=== PATIENT | female | born 1985 | race Caucasian/White ===

== ENCOUNTER 2020-09-05 19:48 | Emergency (ER) | payer MEDICAID, SELFPAY ==
--- NOTE | 2020-09-05 19:51 | PC.NURSE ---
received a call from supervisory examiner at [facility] [place]. stating that patient has been having 24 hours of epigastric abd pain with nausea and 2 episodes of diarrhea. patient is a type 1 diabetic and has been off of medications for several months, random glucose today with them was 184, vitals are stable, urine analysis showed no wbc or blood or ketones, glucose is urine was >1000. patient arrived on ems stretcher with no distress noted, no facial grimace or guarding. skin is p,d,w.
[2020-09-05 20:00] VITALS: BP 118/82; BP 141/94; PULSE 87; PULSE 94; RESP 18; TEMP 37.1; O2SAT 100; O2SAT 99; BMI 25.8
[2020-09-05 21:43] VITALS: BP 128/85; PULSE 80; RESP 18; TEMP 36.9; O2SAT 100
[2020-09-05 21:44] LABS: MANUAL DIFF FLAG NO
[2020-09-05 21:45] LABS: Basophils Percent Auto 0.2 % (0-2); Eosinophils Absolute Auto 0.3 X10*3/uL (0.0-0.4); Eosinophils Percent Auto 3.5 % (0-4); Hematocrit 36.7 % (37-47); Hemoglobin 12.3 g/dl (12.0-16.0); Imm Gran Abs Auto 0.03 X10*3/uL (0.00-0.03); Imm Gran Pct Auto 0.3 % (0.0-0.4); Lymphocytes Absolute Auto 3.3 X10*3/uL (1.2-4.9); Lymphocytes Percent Auto 35.1 % (20-40); Mean Corpuscular HGB Conc 33.5 g/dl (31.0-35.0); Mean Corpuscular Hemoglobin 28.2 pg (27.0-33.0); Mean Corpuscular Volume 84.2 fL (80-98); Mean Platelet Volume 9.8 fL (9.4-12.3); Monocytes Absolute Auto 0.6 X10*3/uL (0.1-1.2); Monocytes Percent Auto 6.7 % (2-11); Neutrophils Absolute Auto 5.1 X10*3/uL (2.0-8.3); Neutrophils Percent Auto 54.2 % (45-73); Platelet Count 289 X10*3/uL (160-400); Red Blood Count 4.36 X10*6/uL (4.20-5.50); Red Cell Distribution Width 12.4 % (11.0-16.0); White Blood Count 9.3 X10*3/uL (4.8-10.8)
[2020-09-05 21:57] LABS: Glucose Urine UA NEG (NEG); Leukocyte Esterase Urine NEG (NEG); Nitrite Urine NEG (NEG); Specific Gravity - Urine >= 1.030 (1.005-1.025); Urine Blood NEG (NEG); Urine Ketones NEG (NEG); Urine Protein 3+ MG/DL (NEG-TRACE)
[2020-09-05 21:58] LABS: Appearance Urine CLEAR; Color Urine YELLOW
[2020-09-05 21:59] LABS: UPreg QC Valid YES; Urine Pregnancy NEGATIVE (NEGATIVE)
[2020-09-05 22:07] LABS: Alanine Aminotransferase 10 U/L (0-31); Alkaline Phosphatase 61 U/L (39-117); Anion Gap 12 (12-20); Aspartate Amino Transferase 13 U/L (5-31); Bilirubin Total 0.6 mg/dL (0.0-1.0); Blood Urea Nitrogen 10 mg/dL (9-16); Calcium 8.5 mg/dL (8.4-10.2); Carbon Dioxide 28 mmol/L (22-29); Chloride 102 mmol/L (96-108); Creatinine Clr Calc Pharmacy 121.8; Estimated Glomerular Filt Rate > 60; Glucose Random 180 mg/dL (60-115); Lipase 70 U/L (8-78); Potassium 3.7 mmol/L (3.3-5.1); Sodium 138 mmol/L (135-145); Total Protein 6.6 g/dL (6.5-8.0)
[2020-09-05 22:07] LABS: RBC Urine 0-2 /HPF (0); Squamous Epithelial Cell Urine 1+ /LPF; WBC Urine 0-2 /HPF (0-4)
[2020-09-05 22:08] LABS: Bacteria Urine TRACE /LPF; Mucus Urine 1+ /LPF
[2020-09-05] MEDS: Lidocaine HCl Viscous 2 % 15 ML SOLUTION MUCOUS MEM (22:30)
[2020-09-05] MEDS: Omeprazole 40 MG CAPSULE.DR PO (22:30)
[2020-09-05] MEDS: Magnesium Hydrox/Alum Hydrox 30 ML ORAL.SUSP PO (22:30)
[2020-09-05] MEDS: Metoclopramide HCl 10 MG/2 ML VIAL IVPUSH (22:30)
--- NOTE | 2020-09-05 22:50 | ED.ABDPAIN ---
HPI - Abdominal Pain General Chief Complaint: Abdominal Pain Stated Complaint: ABD PAIN Time Seen by Provider: 09/05/20 22:13 Source: patient Mode of arrival: ambulatory Limitations: no limitations History of Present Illness HPI narrative: 35 y/o female with history of DM1 on long acting Trulicity once per week, anxiety, GERD who presents to the ED from home reporting epigastric abdominal pain and nause and vomiting since yesterday. She had no vomiting today but several episodes yesterday, non-bloody. Today she started having some loose stools and her upper abdominal pain persisted. It comes and goes. She is tolerating PO today. She reports her sugars have been ok but she did not take her Glipizide today because she wasn't eating much. She also smokes marijuana but denies vomiting from it in the past. Denies a history of gastroparesis. No fever, chills, SOB or chest pain. MD elicited complaint: abdominal pain Onset (ago): day(s) (2) Pain Consistency: intermittent Location: epigastric Severity: moderate Quality: stabbing and burning Radiation: none Migration to: no migration Exacerbating factors: vomiting Relieving factors: nothing Context: history of similar episodes Associated symptoms: nausea, vomiting and diarrhea Related Data Allergies Allergy/AdvReac Type Severity Reaction Status Date / Time No Known Allergies Allergy Unverified 03/09/20 16:58 Review of Systems Review of Systems Constitutional: No Fever, No Chills Cardiovascular: No Chest Pain, No SOB, No Orthopnea, No Edema Respiratory: No Cough, No Sputum, No Wheezing, No dyspnea Gastrointestinal: + Nausea,+ Vomiting, + Diarrhea, + abdominal Pain, No Hematochezia, No Melena Genitourinary: No Dysuria, No Urinary Frequency, No hematuria Musculoskeletal: No joint pain, No Myalgias Skin: No Skin Lesions, No rash Neuro: No Weakness, No Numbness, No Dizziness, + Headache Psych: + Anxiety Heme/Lymph: No Bruising, No Lymphadenopathy Endocrine: No Polyuria, No Polydipsia Physical Exam Vital Signs: Vital Signs: Last Vital Signs Temp 98.5 F 09/05/20 21:43 Pulse 80 09/05/20 21:43 Resp 18 09/05/20 21:43 BP 128/85 09/05/20 21:43 Pulse Ox 100 09/05/20 21:43 Body Mass Index 25.8 Appearance: Alert. Oriented X3. No acute distress. Eyes: Pupils equal, round and reactive to light. ENT: Pharynx normal. Neck: Normal inspection. Neck supple. CVS: Normal heart rate and rhythm. Pulses normal. Respiratory: No respiratory distress. Breath sounds normal. No Kussmaul respirations Abdomen: Soft with mild epigastric tenderness, no rebound or guarding, no RUQ tenderness. Negative [place]'s sign. +BS x4 Skin: Skin warm and dry. Normal skin color. Normal skin turgor. No rashes. Extremities: No lower extremity edema. Neuro: Oriented X 3. No motor deficit. No sensory deficit. Course Course Course Narrative: 35 y/o female with history of DM1 and marijuana use presenting with epigatric abdominal pain, N/V/D. VS are normal on arrival and she appears non-toxic. Glucose 180. Basic lab workup is unremarkable. No vomiting or diarrhea here. IVF, Reglan and GI cockail ordered. DDx includes but not limited to gastroparesis, GERD, gasritis. Less likely pancreatitis, cholecystitis, diverticuliutis or appendicitis. Will reassess after meds. Reevaluation(s) Reevaluation #1: Meds given and patient is requesting to leave. She states the ER is making her anxious. She does not want to stay for further testing or treatment. She is stable for discharge and encouraged to come back to the ER if symptoms worsen. MDM - Abdominal Pain Differential Diagnosis Differential diagnosis: Likely abdominal pain, acute appendicitis, bowel perforation, calculus of kidney, constipation, diverticulitis, endometriosis, gastroenteritis, gastritis and peptic ulcer disease Medical Records Attestation: I reviewed the patient's medical records. Lab Data Attestation: I reviewed the patient's lab results. Result diagrams: 09/05/20 21:30 09/05/20 21:30 Labs: Lab Results 09/05/20 09/05/20 09/05/20 Range/Units 21:30 21:30 21:30 WBC 9.3 (4.8-10.8) X10*3/uL RBC 4.36 (4.20-5.50) X10*6/uL Hgb 12.3 (12.0-16.0) g/dl Hct 36.7 L (37-47) % MCV 84.2 (80-98) fL MCH 28.2 (27.0-33.0) pg MCHC 33.5 (31.0-35.0) g/dl RDW 12.4 (11.0-16.0) % Plt Count 289 (160-400) X10*3/uL MPV 9.8 (9.4-12.3) fL Immature Gran % (Auto) 0.3 (0.0-0.4) % Neut % (Auto) 54.2 (45-73) % Lymph % (Auto) 35.1 (20-40) % [place] % (Auto) 6.7 (2-11) % Eos % (Auto) 3.5 (0-4) % Baso % (Auto) 0.2 (0-2) % Lymph # (Auto) 3.3 (1.2-4.9) X10*3/uL [place] # (Auto) 0.6 (0.1-1.2) X10*3/uL Eos # (Auto) 0.3 (0.0-0.4) X10*3/uL Baso # (Auto) 0.0 (0.0-0.2) X10*3/uL Abs Immat Gran (auto) 0.03 (0.00-0.03) X10*3/uL Absolute Neuts (auto) 5.1 (2.0-8.3) X10*3/uL Absolute Nucleated RBC 0.000 (0.0-0.012) X10*3/uL Nucleated RBC % (auto) 0.0 (0.0-0.2) /100WBC Hold Blue Top SEE NOTE Sodium 138 (135-145) mmol/L Potassium 3.7 (3.3-5.1) mmol/L Chloride 102 (96-108) mmol/L Carbon Dioxide 28 (22-29) mmol/L Anion Gap 12 (12-20) BUN 10 (9-16) mg/dL Creatinine 0.67 (0.5-1.4) mg/dL Estim Creat Clear Calc 121.8 Estimated GFR > 60 Random Glucose 180 H (60-115) mg/dL Calcium 8.5 (8.4-10.2) mg/dL Total Bilirubin 0.6 (0.0-1.0) mg/dL AST 13 (5-31) U/L ALT 10 (0-31) U/L Alkaline Phosphatase 61 (39-117) U/L Total Protein 6.6 (6.5-8.0) g/dL Albumin 4.0 (3.5-5.0) g/dL Lipase 70 (8-78) U/L Urine Color Urine Appearance Urine pH (5.0-8.0) Ur Specific [place] (1.005-1.025) Urine Protein (NEG-TRACE) MG/DL Urine Glucose (UA) (NEG) MG/DL Urine Ketones (NEG) MG/DL Urine Blood (NEG) Urine Nitrite (NEG) Ur Leukocyte Esterase (NEG) Urine RBC (0) /HPF Urine WBC (0-4) /HPF Ur Squamous Epith Cells /LPF Urine Bacteria /LPF Urine Mucus /LPF Urine Test (NEGATIVE) 09/05/20 09/05/20 Range/Units 21:40 21:40 WBC (4.8-10.8) X10*3/uL RBC (4.20-5.50) X10*6/uL Hgb (12.0-16.0) g/dl Hct (37-47) % MCV (80-98) fL MCH (27.0-33.0) pg MCHC (31.0-35.0) g/dl RDW (11.0-16.0) % Plt Count (160-400) X10*3/uL MPV (9.4-12.3) fL Immature Gran % (Auto) (0.0-0.4) % Neut % (Auto) (45-73) % Lymph % (Auto) (20-40) % [place] % (Auto) (2-11) % Eos % (Auto) (0-4) % Baso % (Auto) (0-2) % Lymph # (Auto) (1.2-4.9) X10*3/uL [place] # (Auto) (0.1-1.2) X10*3/uL Eos # (Auto) (0.0-0.4) X10*3/uL Baso # (Auto) (0.0-0.2) X10*3/uL Abs Immat Gran (auto) (0.00-0.03) X10*3/uL Absolute Neuts (auto) (2.0-8.3) X10*3/uL Absolute Nucleated RBC (0.0-0.012) X10*3/uL Nucleated RBC % (auto) (0.0-0.2) /100WBC Hold Blue Top Sodium (135-145) mmol/L Potassium (3.3-5.1) mmol/L Chloride (96-108) mmol/L Carbon Dioxide (22-29) mmol/L Anion Gap (12-20) BUN (9-16) mg/dL Creatinine (0.5-1.4) mg/dL Estim Creat Clear Calc Estimated GFR Random Glucose (60-115) mg/dL Calcium (8.4-10.2) mg/dL Total Bilirubin (0.0-1.0) mg/dL AST (5-31) U/L ALT (0-31) U/L Alkaline Phosphatase (39-117) U/L Total Protein (6.5-8.0) g/dL Albumin (3.5-5.0) g/dL Lipase (8-78) U/L Urine Color YELLOW Urine Appearance CLEAR Urine pH 6.0 (5.0-8.0) Ur Specific [place] >= 1.030 H (1.005-1.025) Urine Protein 3+ H (NEG-TRACE) MG/DL Urine Glucose (UA) NEG (NEG) MG/DL Urine Ketones NEG (NEG) MG/DL Urine Blood NEG (NEG) Urine Nitrite NEG (NEG) Ur Leukocyte Esterase NEG (NEG) Urine RBC 0-2 (0) /HPF Urine WBC 0-2 (0-4) /HPF Ur Squamous Epith Cells 1+ /LPF Urine Bacteria TRACE /LPF Urine Mucus 1+ /LPF Urine Test NEGATIVE (NEGATIVE) Critical Care Time Critical Care Time Critical Care Time: No Discharge Plan Discharge Clinical Impression: Abdominal pain Qualifiers: Abdominal location: epigastric Qualified Code(s): R10.13 - Epigastric pain Patient Disposition: Home, Self-Care Instructions: Diabetic Gastroparesis (DC), Abdominal Pain (ED) Additional Instructions: Your lab workup today was unremarkable. Recommend bland a bland diet while you are feeling unwell. It is important to keep your sugars under tight control. Poorly controlled diabetes can cause nausea and vomiting. Do not smoke marijuana. This can also cause vomiting. Avoid spicy foods and food high in acid, like tomatoes and orange juice. Recommend starting an antacid medication for possible gastritis - like over the counter Pepcid or Prilosec. Follow up with your doctor this week. If you have worsening symptoms come back to the ER for further evaluation. [facility] Past Medical History Medical History (Updated 09/05/20 @ 22:53 by DEBO Cisneros) Anxiety Diabetes Gastroparesis GERD (gastroesophageal reflux disease) Social History Social History Advance Directives: No Advance Directives Information Provided: Yes
== END 2020-09-05 23:04 | disposition home or self-care (01) ==
PROVIDERS: Emergency Provider Student in an Organized Health Care Education/Training Program; PCP Pediatrics
DX: R10.13 Epigastric pain (principal); F12.90 Cannabis use, unspecified, uncomplicated; R11.2 Nausea with vomiting, unspecified
CPT/HCPCS: 36415; 80053; 81001; 81025; 83690; 85025; 96365; 96375; 99283; 99284; J2765

== ENCOUNTER 2021-11-28 07:55 | Outpatient (REF) | payer MEDICAID, SELFPAY ==
--- NOTE | ~2021-11-28 | XR_ITS ---
EXAMINATION: XR SHOULDER, LEFT CLINICAL INFORMATION: Posterior shoulder pain. COMPARISON: Radiograph dated 03/26/2013. TECHNIQUE: AP external rotation, Grashey and scapula Y views of the left shoulder. FINDINGS: The bones and soft tissues are normal. No fracture. A small loose body is suspected in the lower glenohumeral joint space, new from 03/26/2013. Glenohumeral and acromioclavicular alignment is anatomic with normal joint space. No abnormal soft tissue calcifications. XR/XR shoulder LT min 2V IMPRESSION: 1. No fracture or dislocation is seen. 2. A small ovoid loose body is newly suspected in the lower glenohumeral joint space.
--- NOTE | ~2021-11-28 | XR_ITS ---
EXAMINATION: CERVICAL SPINE 3 VIEWS CLINICAL INFORMATION: Pain. COMPARISON: Radiograph dated 12/05/2014. TECHNIQUE: Frontal, odontoid, bilateral oblique and lateral views are obtained. FINDINGS: Vertebral body heights and alignment are normal. The disc spaces are well-maintained. No acute fracture or spondylolisthesis is seen. The posterior elements are intact. There is no prevertebral soft tissue swelling. The dens and C7-T1 interface are normal. XR/XR thoracic spine 3V IMPRESSION: Negative examination. EXAMINATION: XR THORACIC SPINE CLINICAL INFORMATION: Pain. COMPARISON: MRI lumbar spine dated 03/15/2017. TECHNIQUE: Frontal, lateral and swimmer's views of the thoracic spine were obtained. FINDINGS: Vertebral body alignment is normal. There is an age-indeterminate mild T12 anterior wedge compression fracture, increased from 03/15/2017. Vertebral body heights are otherwise unremarkable. The thoracic disc spaces are well-maintained. The posterior elements are intact. The paravertebral soft tissues are unremarkable. There are upper abdominal surgical clips. IMPRESSION: 1. There is a mild T12 anterior wedge compression fracture, increased from 03/15/2017. 2. The thoracic disc spaces are well-maintained.
--- NOTE | ~2021-11-28 | XR_ITS ---
EXAMINATION: CERVICAL SPINE 3 VIEWS CLINICAL INFORMATION: Pain. COMPARISON: Radiograph dated 12/05/2014. TECHNIQUE: Frontal, odontoid, bilateral oblique and lateral views are obtained. FINDINGS: Vertebral body heights and alignment are normal. The disc spaces are well-maintained. No acute fracture or spondylolisthesis is seen. The posterior elements are intact. There is no prevertebral soft tissue swelling. The dens and C7-T1 interface are normal. XR/XR cervical spine 4V IMPRESSION: Negative examination. EXAMINATION: XR THORACIC SPINE CLINICAL INFORMATION: Pain. COMPARISON: MRI lumbar spine dated 03/15/2017. TECHNIQUE: Frontal, lateral and swimmer's views of the thoracic spine were obtained. FINDINGS: Vertebral body alignment is normal. There is an age-indeterminate mild T12 anterior wedge compression fracture, increased from 03/15/2017. Vertebral body heights are otherwise unremarkable. The thoracic disc spaces are well-maintained. The posterior elements are intact. The paravertebral soft tissues are unremarkable. There are upper abdominal surgical clips. IMPRESSION: 1. There is a mild T12 anterior wedge compression fracture, increased from 03/15/2017. 2. The thoracic disc spaces are well-maintained.
== END 2021-11-28 07:56 | disposition home or self-care (01) ==
LOC: HO.XRAY 07:55
PROVIDERS: Visit Provider Family Medicine
DX: M54.9 Dorsalgia, unspecified (principal); M54.2 Cervicalgia; M25.612 Stiffness of left shoulder, not elsewhere classified
CPT/HCPCS: 72050; 72072; 73030

== ENCOUNTER 2022-03-11 16:33 | Emergency (ER) | payer MEDICAID, SELFPAY ==
[2022-03-11 17:02] VITALS: BP 154/84; PULSE 85; RESP 18; TEMP 37.2; O2SAT 98; BMI 24.2
[2022-03-11 17:39] LABS: MANUAL DIFF FLAG NO
[2022-03-11 17:41] LABS: Basophils Absolute Auto 0.1 X10*3/uL (0.0-0.2); Basophils Percent Auto 0.5 % (0-2); Eosinophils Absolute Auto 0.3 X10*3/uL (0.0-0.4); Eosinophils Percent Auto 2.9 % (0-4); Hematocrit 32.7 % (37.0-47.0); Hemoglobin 11.1 g/dl (12.0-16.0); Imm Gran Abs Auto 0.03 X10*3/uL (0.00-0.03); Imm Gran Pct Auto 0.3 % (0.0-0.4); Lymphocytes Absolute Auto 3.5 X10*3/uL (1.2-4.9); Lymphocytes Percent Auto 31.8 % (20-40); Mean Corpuscular HGB Conc 33.9 g/dl (31.0-35.0); Mean Corpuscular Hemoglobin 27.8 pg (27.0-33.0); Mean Corpuscular Volume 81.8 fL (80.0-98.0); Mean Platelet Volume 9.6 fL (9.4-12.3); Monocytes Absolute Auto 0.7 X10*3/uL (0.1-1.2); Monocytes Percent Auto 6.2 % (2-11); Neutrophils Absolute Auto 6.4 x10*3/uL (2.0-8.3); Neutrophils Percent Auto 58.3 % (45-73); Platelet Count 329 X10*3/uL (160-400); Red Cell Distribution Width 12.5 % (11.0-16.0)
[2022-03-11 17:44] LABS: Appearance Urine Clear; Color Urine Yellow; Glucose Urine UA 250 mg/dL (Negative); Leukocyte Esterase Urine Trace (Negative); Nitrite Urine Negative (Negative); Specific Gravity - Urine 1.025 (1.005-1.025); UMIC TRIGGER UACC YES; Urine Blood Trace (Negative); Urine Ketones Trace mg/dL (Negative); Urine Protein >=1000 (4+) mg/dL (Neg-Trace)
[2022-03-11 17:45] LABS: UPreg QC Valid YES; Urine Pregnancy NEGATIVE (NEGATIVE)
[2022-03-11 17:59] LABS: Alanine Aminotransferase 12 U/L (0-31); Albumin Level 3.8 g/dL (3.5-5.0); Alkaline Phosphatase 70 U/L (39-117); Anion Gap 14 (12-20); Aspartate Amino Transferase 11 U/L (5-31); Bilirubin Total 0.3 mg/dL (0.0-1.0); Blood Urea Nitrogen 13 mg/dL (9-16); Calcium 8.8 mg/dL (8.4-10.2); Carbon Dioxide 27 mmol/L (22-29); Chloride 101 mmol/L (96-108); Creatinine Clr Calc Pharmacy 106.5; Estimated Glomerular Filt Rate > 60; Glucose Random 179 mg/dL (60-115); Potassium 3.8 mmol/L (3.3-5.1); Sodium 138 mmol/L (135-145); Total Protein 6.4 g/dL (6.5-8.0)
[2022-03-11 18:06] LABS: Bacteria Urine None Seen (None Seen); Hyaline Casts Urine 0-2 /LPF (0-2); WBC Urine 0-5 /HPF (0-5)
--- NOTE | 2022-03-11 21:24 | PC.NURSE ---
called x 3 to triage for reassessment. No answer. Presumed LWT
== END 2022-03-11 21:27 | disposition left against medical advice (07) ==
LOC: HO.ED 21:25
PROVIDERS: Emergency Provider Emergency Medicine; PCP Pediatrics
DX: R10.9 Unspecified abdominal pain (principal); N83.209 Unspecified ovarian cyst, unspecified side; E11.9 Type 2 diabetes mellitus without complications
CPT/HCPCS: 36415; 80053; 81001; 81025; 85025; 99282; 99283

== ENCOUNTER 2022-03-12 07:22 | Emergency (ER) | payer MEDICAID, SELFPAY ==
[2022-03-12 07:32] VITALS: BP 160/99; PULSE 85; O2SAT 99
[2022-03-12 07:36] VITALS: BP 171/88; PULSE 88; RESP 18; TEMP 36.6; O2SAT 100; BMI 24.2
[2022-03-12 10:13] VITALS: BP 187/96; PULSE 70; RESP 16; O2SAT 100
[2022-03-12 10:15] VITALS: TEMP 37.2
--- NOTE | 2022-03-12 10:19 | ED_ITS ---
HPI - General Adult General Chief complaint: Abdominal Pain Stated complaint: OVARION CYST PAIN Time Seen by Provider: 03/12/22 10:19 Source: patient and EMS Mode of arrival: EMS Limitations: no limitations History of Present Illness HPI narrative: Patient is a 37-year-old female with a history of insulin-dependent diabetes presenting with persistent abdominal pain. Patient states she was at [facility] on Friday where she was diagnosed with a ruptured cyst of her left ovary. Patient has history of ovarian cysts, and has had her right ovary previously removed due to cyst burden. Patient states she was discharged from there with oxycodone for pain management, and told to follow-up with OBGYN however, she cannot be seen by her OBGYN until July. Patient states that she is now constipated after starting the pain medication. Patient states that she attempted to be seen here last night but left due to the wait. Patient denies any dizziness, lightheadedness, vomiting, fever, chills, blurry vision, double vision, loss of vision, chest pain, difficulty breathing, shortness of breath, back pain, night sweats, pain with urination, increased urinary frequency, increased urinary urgency, blood in her urine or stool, syncope or a near syncopal episode, recent trauma or falls, bowel incontinence, bladder incontinence, bowel retention, bladder retention, or any other complaints at this time. Onset (ago): day(s) Location: abdomen Radiation: back Severity: mild Severity scale (1-10): 2 Quality: sharp and constant Pain Consistency: constant Relieving factors: none Exacerbating factors: movement and other (Palpation) Associated symptoms: nausea/vomiting Related Data Allergies Allergy/AdvReac Type Severity Reaction Status Date / Time No Known Allergies Allergy Unverified 03/09/20 16:58 Review of Systems Constitutional: Constitutional: Reports no additional constitutional complaints, Denies chills, Denies fever(s) and Denies night sweats Eyes: Eyes: Reports no additional eye complaints, Denies blurry vision, Denies change in vision, Denies diplopia, Denies eye discharge, Denies loss of vision and Denies eye pain ENT: Denies dizziness Cardiovascular: Cardiovascular: Reports no additional cardiovascular complaints, Denies chest pain, Denies lightheadedness, Denies Loss of Consciousness and Denies dyspnea Respiratory: Respiratory: Reports no additional respiratory complaints and Denies dyspnea Gastrointestinal: Gastrointestinal: Reports no additional gastrointestinal complaints, Reports abdominal pain, Denies melena, Denies hematochezia, Denies change in bowel habits, Denies change in stool character, Reports nausea and Reports vomiting Genitourinary: Genitourinary: Denies hematuria, Denies urinary frequency, Denies dysuria, Denies urinary incontinence, Denies urinary hesitancy and Denies urinary urgency Comments: Left CVA tenderness Musculoskeletal: Musculoskeletal: Reports no additional musculoskeletal complaints, Denies numbness and Denies tingling Neurologic: Denies dizziness, Denies loss of vision, Denies numbness and Denies tingling Psychiatric: Psychiatric: Reports no additional psychiatric complaints Endocrine: Endocrine: Reports no additional endocrine complaints Hematologic/Lymphatic: Hematologic/Lymphatic: Reports no additional hematol ogic/lymphatic complaints Allergic/Immunologic: Allergic/Immunologic: Reports no additional allergic/immunologic complaints PMFSH Past Medical History Attestation statement: The following information was validated with the patient. Source: old records reviewed Medical History Anxiety Diabetes Gastroparesis GERD (gastroesophageal reflux disease) Social History Social History Patient Tobacco Use Status: Never used Tobacco Use of substances other than those prescribed or required for medical reasons: Yes Substance Use Type: Marijuana Advance Directives: No Advance Directives Information Provided: No Physical Exam ED Vital Signs: Vital Signs - 24 hr 03/12/22 07:36 03/12/22 10:13 03/12/22 10:15 Temperature 98 F 98.9 F Pulse Rate 88 70 Respiratory Rate 18 16 Blood Pressure 171/88 H 187/96 H Pulse Oximetry 100 100 Oxygen Delivery Method Room Air Room Air BMI result Body Mass Index 24.2 Const General: cooperative, no acute distress, alert and awake Nutritional Appearance: well nourished Orientation/consciousness: patient oriented x3 Limitations: no limitations HENMT Head: Yes normal to inspection and Yes atraumatic Ears: hearing grossly normal bilaterally and external ears normal General nose exam: Normal external nose present, no nasal discharge noted and no epistaxis Face and sinus: Yes normal facial exam, No abrasion and No laceration Mouth: Normal oral and palatal mucosa present, no drooling and no muffled voice Eyes General: appearance normal, both eyes and all related structures Periorbital: periorbital findings normal Eyelids: Yes eyelids normal Conjunctivae: conjunctivae normal Pupils: Equal, round and reactive pupils present EOM: EOMs intact bilaterally Neck Neck: Yes normal visual inspection, Yes full ROM and Yes no lymphadenopathy Chest Chest palpation & inspection: normal inspection of the chest Resp Effort & Inspection: normal respiratory effort and able to speak in complete sentences Auscultation: clear to auscultation bilaterally Cardio Rate: regular rate Rhythm: regular rhythm GI Inspection: Yes normal to inspection Palpation (GI): Soft to palpation, not firm and no guarding Neuro General: patient oriented x3 and moves all extremities Cranial nerves: Yes Equal, round and reactive pupils present Cognition (Neuro): normal cognition Motor exam (neuro): 5/5 motor strength present throughout Sensory Exam: Normal double simultaneous stimulation for sensation Coordination: [id number] test normal Extrem General: Yes normal to inspection, Yes full ROM and Yes capillary refill normal Psych Appearance: grossly normal Mental Status: mental status grossly normal Affect: normal affect Attitude: cooperative Thought process: Normal thought process present Thought content: Normal thought content present Insight: Good insight present (Psych) Medical Decision Making MDM Narrative Medical decision making narrative: Patient is a 37 year old female presenting to the emergency department today with a ruptured ovarian cyst. Patient's physical exam was unremarkable. Patient 's blood work showed a chronically elevated white blood cell count of 11.7. Patient's urine showed no acute infection. I explained my physical exam findings as well as all test results to the patient. I answered all questions asked by the patient. Patient received IV Toradol and Dilaudid which she stated helped her symptoms significantly. I stressed the importance of the patient taking her medication as prescribed. I stressed the importance of the patient following up with her primary care provider and her OB. I stressed the importance of the patient returning to the emergency department immediately if her symptoms were to worsen or if she were to develop any dizziness, shortness of breath, difficulty breathing, chest pain, blurry vision, loss of vision, nausea, vomiting, abdominal pain, fever, chills, back pain, or any other complaints. Patient verbalized agreement and understanding with this treatment plan and discharge. Medical Records Medical records reviewed: Yes I reviewed the patient's medical records. Lab Data Lab results reviewed: Yes I reviewed the patient's lab results. Result diagrams: 03/12/22 10:26 03/12/22 10:26 Labs: Lab Results 03/12/22 03/12/22 03/12/22 Range/Units 10: 10: 11:00 WBC 11.7 H (4.8-10.8) X10*3/uL RBC 4.22 (4.20-5.50) X10*6/uL Hgb 11.8 L (12.0-16.0) g/dl Hct 34.6 L (37.0-47.0) % MCV 82.0 (80.0-98.0) fL MCH 28.0 (27.0-33.0) pg MCHC 34.1 (31.0-35.0) g/dl RDW 12.6 (11.0-16.0) % Plt Count 345 (160-400) X10*3/uL MPV 9.5 (9.4-12.3) fL Immature Gran % (Auto) 0.4 (0.0-0.4) % Neut % (Auto) 70.8 (45-73) % Lymph % (Auto) 21.9 (20-40) % [place] % (Auto) 4.5 (2-11) % Eos % (Auto) 2.1 (0-4) % Baso % (Auto) 0.3 (0-2) % Lymph # (Auto) 2.6 (1.2-4.9) X10*3/uL [place] # (Auto) 0.5 (0.1-1.2) X10*3/uL Eos # (Auto) 0.3 (0.0-0.4) X10*3/uL Baso # (Auto) 0.0 (0.0-0.2) X10*3/uL Abs Immat Gran (auto) 0.05 H (0.00-0.03) X10*3/uL Absolute Neuts (auto) 8.3 (2.0-8.3) x10*3/uL Absolute Nucleated RBC 0.000 (0.0-0.012) X10*3/uL Nucleated RBC % (auto) 0.0 (0.0-0.2) /100WBC Sodium 138 (135-145) mmol/L Potassium 3.8 (3.3-5.1) mmol/L Chloride 103 (96-108) mmol/L Carbon Dioxide 24 (22-29) mmol/L Anion Gap 15 (12-20) BUN 10 (9-16) mg/dL Creatinine 0.65 (0.5-1.4) mg/dL Estim Creat Clear Calc 113.1 Estimated GFR > 60 Random Glucose 251 H (60-115) mg/dL Calcium 9.1 (8.4-10.2) mg/dL Total Bilirubin 0.4 (0.0-1.0) mg/dL AST 12 (5-31) U/L ALT 12 (0-31) U/L Alkaline Phosphatase 74 (39-117) U/L Total Protein 6.4 L (6.5-8.0) g/dL Albumin 3.8 (3.5-5.0) g/dL Lipase 94 H (8-78) U/L Urine Color Yellow Urine Appearance Clear Urine pH 6.0 (5.0-9.0) Ur Specific [place] 1.025 (1.005-1.025) Urine Protein 300 (3+) H (Neg-Trace) mg/dL Urine Glucose (UA) >=1000 H (Negative) mg/dL Urine Ketones 40 (Negative) mg/dL Urine Blood Small (1+) H (Negative) Urine Nitrite Negative (Negative) Ur Leukocyte Esterase Negative (Negative) Urine RBC 6-10 H (0-2) /HPF Urine WBC 0-5 (0-5) /HPF Ur Squamous Epith Cells 6-10 (0-2) /HPF Urine Bacteria None Seen (None Seen) Hyaline Casts 0-2 (0-2) /LPF Urine Test (NEGATIVE) 03/12/22 Range/Units 11:00 WBC (4.8-10.8) X10*3/uL RBC (4.20-5.50) X10*6/uL Hgb (12.0-16.0) g/dl Hct (37.0-47.0) % MCV (80.0-98.0) fL MCH (27.0-33.0) pg MCHC (31.0-35.0) g/dl RDW (11.0-16.0) % Plt Count (160-400) X10*3/uL MPV (9.4-12.3) fL Immature Gran % (Auto) (0.0-0.4) % Neut % (Auto) (45-73) % Lymph % (Auto) (20-40) % [place] % (Auto) (2-11) % Eos % (Auto) (0-4) % Baso % (Auto) (0-2) % Lymph # (Auto) (1.2-4.9) X10*3/uL [place] # (Auto) (0.1-1.2) X10*3/uL Eos # (Auto) (0.0-0.4) X10*3/uL Baso # (Auto) (0.0-0.2) X10*3/uL Abs Immat Gran (auto) (0.00-0.03) X10*3/uL Absolute Neuts (auto) (2.0-8.3) x10*3/uL Absolute Nucleated RBC (0.0-0.012) X10*3/uL Nucleated RBC % (auto) (0.0-0.2) /100WBC Sodium (135-145) mmol/L Potassium (3.3-5.1) mmol/L Chloride (96-108) mmol/L Carbon Dioxide (22-29) mmol/L Anion Gap (12-20) BUN (9-16) mg/dL Creatinine (0.5-1.4) mg/dL Estim Creat Clear Calc Estimated GFR Random Glucose (60-115) mg/dL Calcium (8.4-10.2) mg/dL Total Bilirubin (0.0-1.0) mg/dL AST (5-31) U/L ALT (0-31) U/L Alkaline Phosphatase (39-117) U/L Total Protein (6.5-8.0) g/dL Albumin (3.5-5.0) g/dL Lipase (8-78) U/L Urine Color Urine Appearance Urine pH (5.0-9.0) Ur Specific [place] (1.005-1.025) Urine Protein (Neg-Trace) mg/dL Urine Glucose (UA) (Negative) mg/dL Urine Ketones (Negative) mg/dL Urine Blood (Negative) Urine Nitrite (Negative) Ur Leukocyte Esterase (Negative) Urine RBC (0-2) /HPF Urine WBC (0-5) /HPF Ur Squamous Epith Cells (0-2) /HPF Urine Bacteria (None Seen) Hyaline Casts (0-2) /LPF Urine Test NEGATIVE (NEGATIVE) Discharge Plan Discharge Clinical Impression: Ovarian cyst Patient Disposition: Home, Self-Care Instructions: Ovarian Cyst (ED) Additional Instructions: Follow up with your primary care provider and an OBGYN. Return to the emergency department immediately if your symptoms worsen or if you develop any dizziness, shortness of breath, difficulty breathing, chest pain, blurry vision, loss of vision, nausea, vomiting, abdominal pain, fever, chills, back pain, or any other complaints. Referrals: Destiny Miranda MD [Primary Care Provider] - Stand Alone Forms: Work/School Release Discharge Date/Time: 03/12/22 12:16 Print Language: Turkmen
[2022-03-12 10:31] LABS: MANUAL DIFF FLAG NO
[2022-03-12 10:37] LABS: Basophils Percent Auto 0.3 % (0-2); Eosinophils Absolute Auto 0.3 X10*3/uL (0.0-0.4); Eosinophils Percent Auto 2.1 % (0-4); Hematocrit 34.6 % (37.0-47.0); Hemoglobin 11.8 g/dl (12.0-16.0); Imm Gran Abs Auto 0.05 X10*3/uL (0.00-0.03); Imm Gran Pct Auto 0.4 % (0.0-0.4); Lymphocytes Absolute Auto 2.6 X10*3/uL (1.2-4.9); Lymphocytes Percent Auto 21.9 % (20-40); Mean Corpuscular HGB Conc 34.1 g/dl (31.0-35.0); Mean Platelet Volume 9.5 fL (9.4-12.3); Monocytes Absolute Auto 0.5 X10*3/uL (0.1-1.2); Monocytes Percent Auto 4.5 % (2-11); Neutrophils Absolute Auto 8.3 x10*3/uL (2.0-8.3); Neutrophils Percent Auto 70.8 % (45-73); Platelet Count 345 X10*3/uL (160-400); Red Blood Count 4.22 X10*6/uL (4.20-5.50); Red Cell Distribution Width 12.6 % (11.0-16.0); White Blood Count 11.7 X10*3/uL (4.8-10.8)
[2022-03-12] MEDS: Ketorolac Tromethamine 30 MG/ML VIAL IM (10:40)
[2022-03-12 10:54] LABS: Alanine Aminotransferase 12 U/L (0-31); Albumin Level 3.8 g/dL (3.5-5.0); Alkaline Phosphatase 74 U/L (39-117); Anion Gap 15 (12-20); Aspartate Amino Transferase 12 U/L (5-31); Bilirubin Total 0.4 mg/dL (0.0-1.0); Blood Urea Nitrogen 10 mg/dL (9-16); Calcium 9.1 mg/dL (8.4-10.2); Carbon Dioxide 24 mmol/L (22-29); Chloride 103 mmol/L (96-108); Creatinine Clr Calc Pharmacy 113.1; Estimated Glomerular Filt Rate > 60; Glucose Random 251 mg/dL (60-115); Lipase 94 U/L (8-78); Potassium 3.8 mmol/L (3.3-5.1); Sodium 138 mmol/L (135-145); Total Protein 6.4 g/dL (6.5-8.0)
[2022-03-12 11:10] LABS: Appearance Urine Clear; Color Urine Yellow; Glucose Urine UA >=1000 mg/dL (Negative); Leukocyte Esterase Urine Negative (Negative); Nitrite Urine Negative (Negative); Specific Gravity - Urine 1.025 (1.005-1.025); UMIC TRIGGER UACC YES; Urine Blood Small (1+) (Negative); Urine Ketones 40 mg/dL (Negative); Urine Protein 300 (3+) mg/dL (Neg-Trace)
[2022-03-12 11:11] LABS: UPreg QC Valid YES; Urine Pregnancy NEGATIVE (NEGATIVE)
[2022-03-12 11:13] LABS: Bacteria Urine None Seen (None Seen); Hyaline Casts Urine 0-2 /LPF (0-2); WBC Urine 0-5 /HPF (0-5)
[2022-03-12] MEDS: HYDROmorphone HCl 1 MG/ML SYRINGE IVPUSH (12:12)
== END 2022-03-12 12:16 | disposition home or self-care (01) ==
PROVIDERS: Emergency Provider Emergency Medicine; PCP Pediatrics
DX: N83.209 Unspecified ovarian cyst, unspecified side (principal); R10.2 Pelvic and perineal pain; E11.9 Type 2 diabetes mellitus without complications; Z79.899 Other long term (current) drug therapy; Z79.4 Long term (current) use of insulin
CPT/HCPCS: 36415; 80053; 81001; 81025; 83690; 85025; 96372; 96374; 99284; J1170; J1885

== ENCOUNTER 2022-12-20 09:44 | Outpatient (REF) | payer MEDICAID, SELFPAY ==
--- NOTE | ~2022-12-20 | XR_ITS ---
EXAMINATION: XR KNEE, LEFT CLINICAL INFORMATION: Reason for Exam chronic left knee pain COMPARISON: None TECHNIQUE: 3 views of the knee FINDINGS: Well corticated osseous fragment noted along the proximal fibular metaphysis may reflect sequelae of remote avulsion injury. No acute fracture or dislocation. Joint spaces are maintained. No joint effusion. Soft tissues are unremarkable. XR/XR knee LT 3V IMPRESSION: Well corticated osseous fragment noted along the proximal fibular metaphysis may reflect sequelae of remote avulsion injury. No acute fracture or dislocation.
== END 2022-12-20 09:45 | disposition home or self-care (01) ==
LOC: HO.XRAY 09:44
PROVIDERS: PCP Pediatrics; Visit Provider Pediatrics
DX: M25.562 Pain in left knee (principal); G89.29 Other chronic pain
CPT/HCPCS: 73562

== ENCOUNTER 2023-02-18 12:49 | Outpatient (REF) | payer MEDICAID, SELFPAY ==
[2023-02-18 18:02] LABS: CT PCR NOT DETECTED (Not Detect.); NG PCR NOT DETECTED (Not Detect.)
[2023-02-19 14:03] LABS: BV Int Neg Control Negative (Negative); BV Int Pos Control Positive (Positive)
== END 2023-02-18 12:50 | disposition home or self-care (01) ==
LOC: HO.CHCLNP 12:49
PROVIDERS: Visit Provider Advanced Practice Midwife
DX: N89.8 Other specified noninflammatory disorders of vagina (principal); R35.0 Frequency of micturition; Z20.2 Contact with and (suspected) exposure to infections with a predominantly sexual mode of transmission
CPT/HCPCS: 0353U; 87086; 87147; 87480; 87510; 87660

== ENCOUNTER 2023-05-30 13:40 | Outpatient (REF) | payer MEDICAID, SELFPAY ==
[2023-05-31 18:54] LABS: C. trachomatis RNA TMA NOT DETECTED (NOT DETECTED); N. gonorrhoeae RNA TMA NOT DETECTED (NOT DETECTED)
== END 2023-05-30 13:41 | disposition home or self-care (01) ==
LOC: HO.HHCLNP 13:40
PROVIDERS: Visit Provider Emergency Medicine
DX: N89.8 Other specified noninflammatory disorders of vagina (principal); R30.0 Dysuria
CPT/HCPCS: 36415; 81513; 87086; 87147; 87491; 87591

== ENCOUNTER 2023-07-15 08:31 | Outpatient (REF) | payer MEDICAID, SELFPAY ==
[2023-07-15 15:17] LABS: Glucose Fasting 289 mg/dL (60-99)
[2023-07-15 15:20] LABS: Estimated Average Glucose 306 mg/dL; Hemoglobin A1c % 12.3 % (<6.0)
[2023-07-18 08:48] LABS: TS Negative Control Passed; TS Panel A 0; TS Panel B 0; TS Positive Control Passed; TSpotTB Negative (Negative)
== END 2023-07-15 08:32 | disposition home or self-care (01) ==
LOC: HO.CHCLDS 08:31
PROVIDERS: Pediatrics; Visit Provider Internal Medicine
DX: Z02.0 Encounter for examination for admission to educational institution (principal); Z11.1 Encounter for screening for respiratory tuberculosis; E11.9 Type 2 diabetes mellitus without complications
CPT/HCPCS: 36415; 82947; 83036; 86481

== ENCOUNTER 2023-07-25 07:33 | Outpatient (REF) | payer MEDICAID, SELFPAY ==
[2023-07-31 17:58] LABS: Aldosterone/Renin Ratio 8.6 Ratio (0.9-28.9); Plasma Renin Activity 0.58 ng/mL/h (0.25-5.82)
[2023-08-01 06:34] LABS: Metanephrine, Free <25 pg/mL (<=57); Normetanephrines, Free 64 pg/mL (<=148); Total Metanephrine, Free 64 pg/mL (<=205)
== END 2023-07-25 07:34 | disposition home or self-care (01) ==
LOC: HO.LAB 07:33
PROVIDERS: PCP Pediatrics; Visit Provider Internal Medicine
DX: E27.8 Other specified disorders of adrenal gland (principal)
CPT/HCPCS: 36415; 82088; 83835

== ENCOUNTER 2023-08-20 09:12 | Outpatient (REF) | payer MEDICAID, SELFPAY ==
[2023-08-20 17:47] LABS: Anion Gap 12 (12-20); Blood Urea Nitrogen 25 mg/dL (9-16); Calcium 9.5 mg/dL (8.4-10.2); Carbon Dioxide 27 mmol/L (22-29); Chloride 100 mmol/L (96-108); Estimated Glomerular Filt Rate > 60; Glucose Random 160 mg/dL (60-115); Sodium 135 mmol/L (135-145)
== END 2023-08-20 09:13 | disposition home or self-care (01) ==
LOC: HO.CHCLDS 09:12
PROVIDERS: Visit Provider Pediatrics
DX: E11.9 Type 2 diabetes mellitus without complications (principal)
CPT/HCPCS: 36415; 80048

== ENCOUNTER 2023-08-27 07:41 | Outpatient (REF) | payer MEDICAID, SELFPAY ==
--- NOTE | ~2023-08-27 | XR_ITS ---
EXAMINATION: XR THORACOLUMBAR SPINE CLINICAL INFORMATION: Acute midline thoracic spine pain. COMPARISON: Thoracic spine radiographs dated 11/28/2021. TECHNIQUE: Frontal, lateral and swimmer's views of the thoracic spine are submitted. FINDINGS: There is a mild thoracolumbar levoscoliosis. Vertebral body heights are normal. The thoracic disc spaces are well-maintained. No acute fracture or spondylolisthesis is seen. The posterior elements are intact. The paravertebral soft tissues are unremarkable. There are right upper quadrant surgical clips. XR/XR thoracic spine 2V IMPRESSION: 1. No acute fracture or spondylolisthesis is seen. 2. The thoracic disc spaces are well-maintained. 3. There is a mild thoracolumbar levoscoliosis.
--- NOTE | ~2023-08-27 | CT_ITS ---
EXAMINATION: CT ABDOMEN AND PELVIS WITHOUT CONTRAST CLINICAL INFORMATION: CT adrenal nodule. COMPARISON: Abdominal ultrasound dated 07/27/2017; CT abdomen and pelvis dated 06/22/2016. TECHNIQUE: Multidetector volumetric imaging was performed from the superior aspect of the liver through the pubic symphysis. Sagittal and coronal reformatted images were obtained on the technologist's workstation. This CT examination was performed using dose optimization techniques as appropriate, variously including the following: *Automated exposure control *Adjustment of mA and/or kV according to patient size (this includes techniques or standardized protocols for targeted exams where dose is matched to indication/reason for exam; i.e. extremities or head) *Use of iterative reconstruction technique DLP: 409.00 mGy-cm FINDINGS: LUNG BASES: The visualized lung bases are unremarkable. LIVER, GALLBLADDER, AND BILIARY TREE: The liver is normal in size, shape, and attenuation. No focal hepatic lesion or biliary ductal dilatation is present. The gallbladder is surgically absent. PANCREAS: Unremarkable. SPLEEN: At the lower pole (7:34), a 2.3 cm benign, fluid attenuation cyst is incidentally seen. No splenomegaly is noted. ADRENAL GLANDS: The right adrenal gland contains a 1.4 x 0.9 cm benign adenoma with precontrast Hounsfield value of 4.7 units (3:60). This was poorly seen on the CT abdomen and pelvis dated 06/22/2016. The left adrenal gland is unremarkable. KIDNEYS AND URETERS: The kidneys are normal in size, shape, and attenuation. At the interpolar right kidney (3:31), a 3 mm nonobstructing calculus is seen. No perinephric stranding. GASTROINTESTINAL TRACT: The included small and large bowel are unremarkable. The vermiform appendix is not included in the [id number]. ABDOMINAL WALL: There is a tiny fat-containing umbilical hernia. LYMPH NODES: Normal. VASCULAR: There is mild to moderate aortic atherosclerotic calcification. No abdominal aortic aneurysm is seen. OSSEOUS STRUCTURES: Unremarkable. CT/CT adrenal wo/w IV con IMPRESSION: 1. A 1.4 cm right adrenal benign, lipid rich adenoma is seen. No imaging follow-up is recommended. 2. A preliminary nonobstructing right renal calculus is seen. 3. There is a tiny fat-containing umbilical hernia. Fleischner guidelines were followed.
== END 2023-08-27 07:42 | disposition home or self-care (01) ==
LOC: HO.CT 07:41
PROVIDERS: Absent Provider Family Medicine; PCP Pediatrics; Visit Provider Internal Medicine
DX: M54.6 Pain in thoracic spine (principal); E27.8 Other specified disorders of adrenal gland
CPT/HCPCS: 72070; 74170

== ENCOUNTER 2024-03-09 09:30 | Outpatient (REF) | payer MEDICAID, SELFPAY ==
[2024-03-09 15:00] LABS: MANUAL DIFF FLAG NO
[2024-03-09 15:09] LABS: Basophils Absolute Auto 0.1 X10*3/uL (0.0-0.2); Basophils Percent Auto 0.7 % (0-2); Eosinophils Absolute Auto 0.1 X10*3/uL (0.0-0.4); Hematocrit 34.2 % (37.0-47.0); Hemoglobin 11.4 g/dl (12.0-16.0); Imm Gran Abs Auto 0.07 X10*3/uL (0.00-0.03); Imm Gran Pct Auto 0.5 % (0.0-0.4); Lymphocytes Absolute Auto 2.8 X10*3/uL (1.2-4.9); Lymphocytes Percent Auto 20.5 % (20-40); Mean Corpuscular HGB Conc 33.3 g/dl (31.0-35.0); Mean Corpuscular Hemoglobin 27.5 pg (27.0-33.0); Mean Corpuscular Volume 82.6 fL (80.0-98.0); Mean Platelet Volume 10.3 fL (9.4-12.3); Monocytes Absolute Auto 0.6 X10*3/uL (0.1-1.2); Monocytes Percent Auto 4.5 % (2-11); Neutrophils Absolute Auto 9.8 x10*3/uL (2.0-8.3); Neutrophils Percent Auto 72.8 % (45-73); Platelet Count 355 X10*3/uL (160-400); Red Blood Count 4.14 X10*6/uL (4.20-5.50); Red Cell Distribution Width 12.8 % (11.0-16.0); White Blood Count 13.5 X10*3/uL (4.8-10.8)
[2024-03-09 15:15] LABS: Estimated Average Glucose 335 mg/dL; Hemoglobin A1c % 13.3 % (<6.0)
[2024-03-09 15:38] LABS: Creatinine Urine 47.59 mg/dL; Microalbum/Creatinine Ratio Ur 571.5 ug/mg cr (<30)
[2024-03-09 15:43] LABS: TSH reflex Free T4 2.31 uIU/mL (0.32-4.0)
[2024-03-09 15:50] LABS: Alanine Aminotransferase 17 U/L (0-31); Alkaline Phosphatase 87 U/L (39-117); Anion Gap 13 (12-20); Aspartate Amino Transferase 13 U/L (5-31); Bilirubin Direct < 0.2 mg/dL (0.0-0.5); Bilirubin Total 0.2 mg/dL (0.0-1.0); Blood Urea Nitrogen 27 mg/dL (9-16); Calcium 9.6 mg/dL (8.4-10.2); Carbon Dioxide 25 mmol/L (22-29); Chloride 96 mmol/L (96-108); Cholesterol 225 mg/dL (<200); Estimated Glomerular Filt Rate 50; Glucose Fasting 377 mg/dL (60-99); HDL Cholesterol 39 mg/dL (>40); Sodium 130 mmol/L (135-145); Total Protein 7.3 g/dL (6.5-8.0); Triglycerides 476 mg/dL (<150)
== END 2024-03-09 09:31 | disposition home or self-care (01) ==
LOC: HO.CHCLDS 09:30
PROVIDERS: Visit Provider Pediatrics
DX: L84 Corns and callosities (principal); E11.9 Type 2 diabetes mellitus without complications; I10 Essential (primary) hypertension; Z79.4 Long term (current) use of insulin
CPT/HCPCS: 36415; 80048; 80061; 80076; 82043; 82570; 83036; 84443; 85025

== ENCOUNTER 2024-03-24 09:59 | Outpatient (AMB) | payer MEDICAID, SELFPAY ==
--- NOTE | 2024-03-24 10:22 | MHC.OFFVIS ---
Vital Signs 03/24/24 10:23 Height 5 ft 6 in Weight 157 lb BMI 25.3 Intake Visit Reasons: Diabetic left foot callus Intake Note: This patient presents for Diabetic left foot callus. Pt c/o; 14.1 A1c a month ago, 13.3 A1c as of 03/09/2024, no abx, reports no complaints at this time. Calibration Checker Required: No Accompanied by: Spouse Allergies No Known Allergies Allergy (Unverified 03/24/24 10:29) Medication List - Last Reconciled 03/24/24 by Oj Bustamante MD amlodipine 2.5 mg PO QAM aripiprazole 20 mg PO DAILY blood sugar diagnostic (FreeStyle Lite Strips) As directed bupropion HCl XL 300 mg PO QAM chlorthalidone 25 mg PO QAM empagliflozin (Jardiance) 10 mg PO QAM hydroxyzine HCl 10 - 20 mg PO BEDTIME PRN HPI HPI Diabetic left foot callus: Details: [age] year old female referred for a left foot callus. She has a known diabetic. She has had this callus on the plantar aspect of her forefoot for a few years now but this has been getting thicker. She describes discomfort when stepping on this. She was therefore referred to me . She says that her blood sugars are well controlled. She is not on insulin. [facility] Medical History (Updated 03/24/24 @ 11:08 by Oj Bustamante MD) Callus of foot GERD (gastroesophageal reflux disease) Diabetes Anxiety Gastroparesis Social History Patient Tobacco Use Status: Never used Tobacco Substance Use Type: Marijuana Review of Systems Const Denies chills and Denies fever(s) Card Denies chest pain, Denies dyspnea and Denies dyspnea on exertion Resp Denies cough, Denies dyspnea and Denies dyspnea on exertion GI Denies hematochezia and Denies change in bowel habits Denies hematuria Musc Denies back pain and Denies limited range of motion Neuro Denies focal weakness and Denies convulsions Psych Denies depression and Denies mood swings Physical Exam Vital Signs: BMI result Body Mass Index 25.3 Const General: comfortable and no acute distress Orientation/consciousness: patient oriented x3 Neck Neck: Yes no lymphadenopathy Resp Auscultation: clear to auscultation bilaterally Cardio Rhythm: regular rhythm GI Palpation (GI): Soft to palpation, nontender and no guarding Neuro General: patient oriented x3 Extrem Other: Thick callus on the plantar aspect of the the left forefoot, with a diameter of about 1.7 cm, not ulcerated Office Procedures Debridement Details: She had a very thick callus as described above. I sharply debrided this using fine scissors to thin this out. An area of about 1.7 cm diameter was debrided in this manner. She tolerated procedure well. There were no immediate complications [id number] of skin tissue Procedure code (CPT) selection complete Assessment & Plan Assessment & Plan (1) Callus of foot: Code(s): L84 - Corns and callosities Category: Medical Plan: She has a very thick callus on the forefoot on the left side as described above. This has been causing her discomfort I therefore proceeded to do sharp excisional debridement using fine scissors to thin this out. This area debrided was about 1.7 cm I instructed her on instructed her doing frequent filing of the area thin this out regularly and prevent ulceration. I told her that she is welcome to come to the office to have this checked if she feels that this is becoming too thick. I emphasized the importance of blood sugar control. Coding Level of Care Code New Pt Level 3 (79927) Diagnoses Callus of foot L84 CPT Codes Skin Debridement - CPT: 93534-Grbpibhngyr of skin tissue ([id number])
[2024-03-24 10:23] VITALS: BMI 25.3
== END 2024-03-24 11:04 | disposition home or self-care (01) ==
PROVIDERS: PCP Pediatrics; Visit Provider Surgery
DX: L84 Corns and callosities (principal); E11.9 Type 2 diabetes mellitus without complications
CPT/HCPCS: 11055; 99203

== ENCOUNTER → 2024-03-24 09:59 | Outpatient (BNVA) | payer MEDICAID, SELFPAY | PROVIDERS: PCP Pediatrics; Visit Provider Surgery | DX: E11.9 Type 2 diabetes mellitus without complications (principal); L84 Corns and callosities | CPT/HCPCS: 11055; 99202 ==

== ENCOUNTER 2024-08-30 13:21 | Outpatient (AMB) | payer MEDICAID, SELFPAY ==
--- NOTE | 2024-08-30 13:27 | MHC.OFFVIS ---
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 Allergies No Known Allergies Allergy (Unverified 08/30/24 13:30) PFSH Medical History (Updated 03/24/24 @ 11:08 by Oj Bustamante MD) Callus of foot GERD (gastroesophageal reflux disease) Diabetes Anxiety Gastroparesis Family History (Updated 08/30/24 @ 13:33 by Fatemeh Gordon CMA) Father Heart attack Social History Patient Tobacco Use Status: Never used Tobacco Substance Use Type: Marijuana Review of Systems ENT Reports dizziness Card Denies chest pain, Denies chest pain at rest, Denies chest pain with activity, Denies rapid heart rate, Denies pedal edema, Denies edema, Denies leg edema, Denies lightheadedness, Denies palpitations, Denies dyspnea, Denies dyspnea on exertion and Denies orthopnea Resp Denies cough, Denies dyspnea and Denies dyspnea on exertion GI Denies hematochezia and Denies change in stool character Musc Denies abnormal gait, Reports limited range of motion, Reports muscle cramps, Denies muscle weakness, Denies numbness, Denies radiating pain into limb, Denies stiffness and Denies tingling Neuro Denies abnormal gait, Reports dizziness, Denies numbness and Denies tingling Endo Denies palpitations Physical Exam Vital Signs: Last Vital Signs Pulse 92 08/30/24 13:28 BP 139/78 08/30/24 13:28 BMI result Body Mass Index 27.4 Coding
[2024-08-30 13:28] VITALS: BP 139/78; PULSE 92; BMI 27.4
--- NOTE | 2024-08-30 13:30 | A.OFFVIS_ITS ---
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 Required: No Allergies No Known Allergies Allergy (Unverified 08/30/24 13:30) Medication List - Last Reconciled 08/30/[address] Dodson amlodipine 2.5 mg PO QAM aripiprazole 20 mg PO DAILY blood sugar diagnostic (FreeStyle Lite Strips) As directed bupropion HCl XL 300 mg PO QAM chlorthalidone 25 mg PO QAM empagliflozin (Jardiance) 10 mg PO QAM glyburide 5 mg PO BID hydroxyzine HCl 10 - 20 mg PO BEDTIME PRN insulin glargine (Lantus U-100 Insulin) 45 units subcut BEDTIME HPI HPI 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 She was referred to Cardiology by her PCP. Today she presents for cardiology consultation. She states that her identical twin sister was recently diagnosed with coronary artery disease. She said that they were going to place a stent but they are 1st treating her with medicine. She says her father recently passed from fatal [place], age 59. She herself has been getting randomly occurring heartburn type sensations in her anterior chest without known aggravating or alleviating factors. Symptoms go away without treatment. Episodes can reoccur several times a day for days in a row. Currently she has no chest discomfort. Has no symptoms brought on by physical activity. No shortness of breath, PND, orthopnea or edema. No heart palpitations, lightheadedness, presyncope, syncope. She had never been diagnosed with any heart problems. She has been diabetic since age 16. She says her diabetes had been generally controlled until recently when she experienced depression after her father's passing and did not take her medications. She says she is now getting things back on track. She is a newer diagnosis of hypertension. She has not been on cholesterol agents. She has a 10-year-old daughter. 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 No other known family history of heart disease. [facility] Medical History (Updated 08/30/24 @ 17:[address]) Callus of foot GERD (gastroesophageal reflux disease) Diabetes Anxiety Gastroparesis Family History Father Heart attack Social History Patient Tobacco Use Status: Never used Tobacco Substance Use Type: Marijuana Review of Systems Const All systems reviewed & are unremarkable except as noted in HPI and below Card Reports chest pain, Reports chest pain at rest, Denies chest pain with activity, Denies rapid heart rate, Denies palpitations, Denies dyspnea, Denies dyspnea on exertion and Denies orthopnea Resp Denies dyspnea and Denies dyspnea on exertion GI Denies no additional complaints Musc Denies no additional complaints Endo Denies palpitations Physical Exam Vital Signs: Last Vital Signs Pulse 92 08/30/24 13:28 BP 139/78 08/30/24 13:28 BMI result Body Mass Index 27.4 Const General: cooperative, healthy appearing, comfortable and no acute distress Orientation/consciousness: patient oriented x3 Neck Neck: Yes normal visual inspection Resp Effort & Inspection: normal respiratory effort Auscultation: clear to auscultation bilaterally, no rales, no rhonchi and no wheezes Cardio Rate: regular rate Rhythm: regular rhythm Heart sounds: S1 normal heart sound present, S2 normal heart sound present, no murmurs and no rubs Neuro General: patient oriented x3 Extrem General: Yes normal to inspection and No no pedal edema Psych Appearance: grossly normal Mental Status: mental status grossly normal Speech and movement: Normal speech and movement present Assessment & Plan Assessment & Plan (1) Chest discomfort: Code(s): R07.89 - Other chest pain Category: Medical Plan: Atypical sounding chest discomfort however she does have cardiac risk factors of longstanding diabetes, newer hypertension and family history of early CAD including her identical twin sister. She has no known cardiac history. EKG done 08/02/2024 shows sinus tachycardia, rate 109, no acute ST or T-wave abnormalities. She has no known cardiac history. Will check a stress echocardiogram to evaluate for ischemia. Will check an echocardiogram to assess for any structural heart disease. Importance of good blood pressure and blood sugar reviewed with her. Signs and symptoms of angina discussed. Emergency care if ever needed. Cardiology follow-up 6 weeks, sooner if needed. (2) Family history of early CAD: Comment: Father with fatal LA age 59. Identical twin sister with reported coronary artery disease Code(s): Z82.49 - Family history of ischemic heart disease and other diseases of the circulatory system Category: Medical (3) Diabetes: Comment: Diabetic since age 16 Code(s): E11.9 - Type 2 diabetes mellitus without complications Category: Medical Plan: Hemoglobin A1c goal less than 7. Followed by PCP. (4) HTN (hypertension): Code(s): I10 - Essential (primary) hypertension Category: Medical Plan: Blood pressure goal less than 130/80. Adequately controlled at present. No med changes made. Plan Time spent on chart review, documentation, interview on assessment Orders: Orders CA echo transthoracic complete Today R07.89 - Other chest pain, Z82.49 - Family history of ischemic heart disease and other diseases of the circulatory system CA echo stress exercise Today E11.9 - Type 2 diabetes mellitus without complications, I10 - Essential (primary) hypertension, R07.89 - Other chest pain, Z82.49 - Family history of ischemic heart disease and other diseases of the circulatory system Coding Level of Care Code New Pt Level 4 (82730) Complex EM visit Add On G2211 Diagnoses Chest discomfort R07.89 Family history of early CAD Z82.49 Diabetes E11.9 HTN (hypertension) I10 Time Spent (min) 30
[2024-08-30 13:36] VITALS: BMI 27.4
--- OUTSIDE RECORDS SUMMARY | 2024-08-30 15:05 | XMS_ITS | Encounter Summary ---
Author Organization [employer] Address [address] [facility] [place] [address] Care Team Providers Care Manager Truck Name Role Phone Destiny Miranda MD Primary Care Provider [phone] Nicole Gandhi PharmD Unavailable [phone] Reason for Visit * Reason Onset Date Comments Medication Question 04/28/2024 Encounter Details Date Type Department Care Team (Late st Contact Info) Description 04/28/[address] [facility] MEDICINE [address] [place] [address] Destiny Miranda MD [address] [place] [address] Medication Question Social History Tobacco Use Types Packs/Day Years Used Date Smoking Tobacco: Never Passive Smoke Exposure: Never Smokeless Tobacco: Never Alcohol Use Standard Drinks/Week Comments Never 0 (1 standard drink = 0.6 oz pur e alcohol) Depression Answer Date Recorded Patient Health Questionnaire-9 Score 21 01/01/2024 Patient Health Questionnaire-9 Score 21 01/01/2024 Last PHQ-9: Questionnaire Data Not on file 0 01/01/2024 Housing Stability Answer Date Recorded What is your housing situation today? I have claudia thakur 04/07/[address] you li ve. Do you have problems with any of the following? None of the above 04/07/2023 Food Insecurity Answer Date Recorded Within the past 12 months, y ou worried that your food would run out before you got money to buy more: Never True 04/07/2023 Within the past 12 months,th e food you bought just didn't last and you didn't have enough money to get more: Never True Transportation Answer Date Recorded In the past 12 months, has l ack of transportation kept you from medical appts, meetings, work or from getting things needed for daily living? No 04/07/2023 Utilities Answer Date Recorded In the past 12 months, has t he electric, gas, oil or water company threatened to shut off services in your home? No 04/07/2023 Depression Answer Date Recorded Patient Health Questionnaire-2 Score 6 01/01/2024 Comments No Sex and Gender Information Value Date Recorded Sex Assigned at Female 04/22/2022 10:20 AM EDT Legal Sex Female 10:20 AM EDT Gender Identity Female 08/16/2022 10:18 AM EST Sexual Orientation Choose not to disclose 2022 10:18 AM EST Sexual Orientation Straight 08/16/2022 10 :18 AM EST documented as of this encounter Miscellaneous Notes * Telephone Encounter - Ciera Snyder RN - 04/28/2024 12:48 PM EST Pt does not have [facility] as a pharmacy. Pt needs to contact office if pt is requesting to change pharmacies to [facility]. * Telephone Encounter - Brett Dailey - 04/28/2024 10:27 AM EST Tc from Krystin ([facility]) requesting a call , Krystin need more info in medication that's not in thelist (Lisinopril 40 mg), documented in this encounter Plan of Treatment Upcoming Encounters Date Type Department Care Team (Late st Contact Info) Description 09/17/2024 11:00 AM EDT Medication Management [facility] MED & PEDS [address] [place], [place] [phone] Nicole Gandhi, PharmD [address] [place] [address] documented as of this encounter Visit Diagnoses Not on filedocumented in this encounter Additional Health Concerns Assessment Noted Time PHQ-9 Depression Total Score: 21 024 1:56 PM EDT documented as of this encounter Care Teams Manager Truck Relationship Specialty Start Date End Date Destiny Miranda MD [address] [place] [address] PCP - General Family Medicine 06/23/18 Nicole Gandhi, GregorioD [address] [place] [address] Pharmacist Internal Medicine 08/20/24 Rose Cash Surveillance OfficerClassified Ad Taker 09/17/23 documented as of this encounter
--- OUTSIDE RECORDS SUMMARY | 2024-08-30 15:05 | XMS_ITS | Encounter Summary ---
Author Organization [employer] Address [address] [place] [address] Care Team Providers Care Technical Education Teacher Name Role Phone Destiny Miranda MD Primary Care Provider [phone] Nicole Gandhi PharmD Unavailable [phone] Encounter Details Date Type Department Care Team (Latest Contact Info) Description 08/20/2024 Travel Social History Tobacco Use Types Packs/Day Years [...] AM EST documented as of this encounter Plan of Treatment Upcoming Encounters Date Type Department Care Team (Late st Contact Info) Description 09/17/2024 11:00 AM EDT Medication Management [facility] [address] [place] [address] Nicole Gandhi PharmStephen [address] [place] [address] documented as of this encounter Visit Diagnoses Not on filedocumented in this encounter Additional Health Concerns Assessment Noted Time PHQ-9 Depression Total Score: 21 024 1:56 PM EDT documented as of this encounter Care Teams Technical Education Teacher Relationship Specialty Start Date End Date Destiny Miranda MD [address] [place] [address] PCP - General Family Medicine 06/23/18 Nicole Gandhi, PharmD [address] [place] [address] Pharmacist Internal Medicine 08/20/24 Rose Cash Sock DrierDirector Alumni Relations 09/17/23 documented as of this encounter
--- OUTSIDE RECORDS SUMMARY | 2024-08-30 15:05 | XMS_ITS | Encounter Summary ---
Author Organization [employer] Address [address] [place] [address] Care Team Providers Care Extruding Machine Operator Name Role Phone Destiny Miranda MD Primary Care Provider Nicole Gandhi PharmD Unavailable [phone] Encounter Details Date Type Department Care Team (Late st Contact Info) Description 06/02/2023 Orders Only [facility] [address] [place], [place] [phone] Bo Caraballo MD [address] [place] [address] Social History Tobacco Use Types Packs/Day Years Used Date Smoking Tobacco: Never Passive Smoke Exposure: Never Smokeless Tobacco: Never Alcohol Use Standard Drinks/Week Comments Never 0 (1 standard drink = 0.6 oz pur e alcohol) Depression Answer Date Recorded Patient Health Questionnaire-9 Score 9 02/11/2023 Housing Stability Answer Date Recorded What is [...] Answer Date Recorded Patient Health Questionnaire-2 Score 0 02/11/2023 Comments No Sex and Gender Information Value [...] 09/17/2024 11:00 AM EDT Medication Management [facility] [address] [place] [address] Nicole Gandhi, PharmD [address] [place] [address] documented as of this encounter Visit Diagnoses Not on filedocumented in this encounter Additional Health Concerns Assessment Noted Time PHQ-9 Depression Total Score: 9 02/12/20 23 9:12 AM EDT documented as of this encounter Care Teams Extruding Machine Operator Relationship Specialty Start Date End Date Destiny Miranda MD [address] [place] [address] PCP - General Family Medicine 06/23/18 Nicole Gandhi, PharmD [address] [place] [address] Pharmacist Internal Medicine 08/20/24 Rose Cash Burlap WorkerInternal Communications Intern 09/17/23 documented as of this encounter
--- OUTSIDE RECORDS SUMMARY | 2024-08-30 15:05 | XMS_ITS | Encounter Summary ---
Author Organization [email or web address] Address [address] [facility] [address] [place] [address] Care Team Providers Care Copier Operator Name Role Phone Destiny Miranda MD Primary Care Provider Nicole Gandhi PharmD Unavailable [phone] Reason for Visit * Reason Onset Date Comments Medication Question 02/20/2024 Encounter Details Date Type Department Care Team (Late st Contact Info) Description 02/20/2024 Telephone [facility] MEDICINE [address] [place] [address] Destiny Miranda MD [address] [place] [address] Medication Question Social History Tobacco Use Types [...] encounter Miscellaneous Notes * Telephone Encounter - Arian Gordon - 02/20/2024 1:32 PM EDT Tc from pt requesting freewesley needles stating she has ran out and does not have a script. If any questions you can contact pt at [phone]. documented in this encounter Plan of Treatment Upcoming Encounters Date Type Department Care Team (Late st Contact Info) Description 09/17/2024 11:00 AM EDT Medication Management [facility] P[facility] [address] [place] [address] Nicole Gandhi, PharmD [address] [place], [place] [phone] documented as of this encounter Visit Diagnoses Diagnosis Diabetes mellitus without complication (CMS/HCC) Type II or unspecified type diabetes mellitus without mention of complication, not stated as uncontrolled documented in this encounter Additional Health Concerns Assessment Noted Time PHQ-9 Depression Total Score: 21 024 1:56 PM EDT documented as of this encounter Care Teams Copier Operator Relationship Specialty Start Date End Date Destiny Miranda MD [address] [place] [address] PCP - General Family Medicine 06/23/18 Nicole Gandhi PharmD [address] [place], [place] [phone] Pharmacist Internal Medicine 08/20/24 Rose Cash ElectrotherapistRoof Cement And Paint Maker 09/17/23 documented as of this encounter
--- OUTSIDE RECORDS SUMMARY | 2024-08-30 15:05 | XMS_ITS | Clinical Summary ---
Author Organization [employer] Address [address] [place] [address] Care Team Providers Care Water Carter Name Role Phone Destiny Miranda MD Primary Care Provider [phone] Nicole Gandhi PharmD Unavailable [phone] Allergies No known active allergies Medications * This document contains information received from the source organization and may not represent a complete record from that organization. Blood Pressure kit 1 Units in the morning. 1 kit 023 Active FREESTYLE LITE test stripIndications: Neuropathy due to type 2 diabetes mellitus ([facility]) USE DIRECTED TWICE A DAY 100 strip 11 024 Active lidocaine (Lidoderm) 5 % patchIndications: Cervical paraspinal muscle spasm APPLY 1 PATCH IN THE MORNING REMOVE AND DISARD PATCH WITHIN 12 HOURS OR DIRECTED 90 patch 024 Active ARIPiprazole (Abilify) 20 MG tablet Take 1 tablet (20 mg) by mouth Once daily. 90 tablet 2 024 Active Lancets misc 1 each 2 times daily. 100 each 6 024 Active fluconazole (Diflucan) 150 MG tablet TAKE 1 TABLET BY MOUTH FOR 1 TIME DOSE 1 tablet 025 Active buPROPion XL (Wellbutrin XL) 150 MG 24 hr tablet Take 1 tablet (150 mg) by mouth in the morning. Do not crush, chew, or split. 30 tablet 5 025 Active hydrOXYzine HCl (Atarax) 10 MG tablet Take 1 tab tid prn anxiety 90 tablet 3 Active acetaminophen (Tylenol) 325 MG tablet TAKE 2 TABLETS BY MOUTH EVERY 4 HOURS Active ibuprofen 200 MG tablet TAKE 2 TABLETS MOUTH EVERY 6 HOURS Active ondansetron ODT (Zofran-ODT) 4 MG disintegrating tablet Take 1 tablet by mouth every 8 (eight) hours if needed for moderate pain. Active insulin glargine (Lantus SoloStar) 100 UNIT/ML penIndications:Di abetes mellitus type 2, insulin dependent (CMS/HCC) Inject 45 units daily 15 mL Active pen needle 33G x 4 mm miscIndications:D iabetes mellitus type 2, insulin dependent (CMS/HCC) Use daily with Lantus 100 each 2025 Active Semaglutide,0.25 or 0.5MG/DOS, (Ozempic, 0.25 or 0.5 MG/DOSE,) 2 MG/3ML solution pen-injector Inject 0.25 mg under the skin 1 (one) time per week. For 4 weeks, then increase to 0.5mg weekly 3 mL Active multivitamin () 27-0.8 MG tablet Take 1 tablet by mouth Once per day. 90 tablet 3 Active amLODIPine (Norvasc) 2.5 MG tabletIndications :Benign hypertension Take 1 tablet (2.5 mg) by mouth Once per day. 90 tablet 3 Active chlorthalidone (Hygroton) 25 MG tablet Take 1 tablet (25 mg) by mouth in the morning. 90 tablet 3 Active empagliflozin (Jardiance) 10 MG Take 1 tablet (10 mg) by mouth in the morning. 90 tablet Active glyBURIDE (Diabeta) 5 MG tabletIndications :Neuropathy due to type 2 diabetes mellitus (CMS/HCC) Take 1 tablet (5 mg) by mouth with breakfast and with evening meal. 180 tablet Active insulin glargine (Lantus) 100 UNIT/ML injection Inject under the skin at bedtime. 2024 Discontinued(M ed list cleanup (will not trigger notification to Pharmacy)) insulin glargine (Lantus) 100 UNIT/ML injection Lantus U-100 Insulin 100 unit/mL subcutaneous solution INJECT 25 UNITS UNDER THE SKIN AT BEDTIME 2024 Discontinued(R eorder (will not trigger notification to Pharmacy)) chlorhexidine (Peridex) 0.12 % solutionIndicatio ns:Dental abscess Use irrigation syringe in area of abscess 1-2x/day or as needed. 473 mL 2 023 2024 Discontinued(M ed list cleanup (will not trigger notification to Pharmacy)) Acetaminophen Extra Strength 500 MG tablet TAKE 2 CAPSULE BY MOUTH EVERY 6 HOURS, NEEDED FOR PAIN, NOT TO EXCEED 4000 MG/DAY 023 2024 Discontinued(M ed list cleanup (will not trigger notification to Pharmacy)) tiZANidine (Zanaflex) 4 MG tablet Take 1 tablet (4 mg) by mouth every 8 (eight) hours if needed for muscle spasms for up to 20 days. 30 tablet 1 024 2024 Discontinued(T herapy completed) amLODIPine (Norvasc) 2.5 MG tabletIndications :Benign hypertension Take 1 tablet (2.5 mg) by mouth in the morning. 30 tablet 11 024 2024 Discontinued(R eorder (will not trigger notification to Pharmacy)) ulipristal (Kae) 30 mg tablet TAKE 1 TABLET (30 MG) BY MOUTH 1 (ONE) TIME FOR 1 DOSE 1 tablet 024 2024 Discontinued(M ed list cleanup (will not trigger notification to Pharmacy)) glyBURIDE (Diabeta) 5 MG tabletIndications :Neuropathy due to type 2 diabetes mellitus (CMS/HCC) TAKE 1 TABLET (5 MG) BY MOUTH WITH BREAKFAST AND WITH EVENING MEAL. 180 tablet 2 024 2024 Discontinued(R eorder (will not trigger notification to Pharmacy)) buPROPion XL (Wellbutrin XL) 150 MG 24 hr tablet Take 1 tablet (150 mg) by mouth in the morning. Do not crush, chew, or split. 30 tablet 5 024 2024 Discontinued(R eorder (will not trigger notification to Pharmacy)) hydrOXYzine HCl (Atarax) 10 MG tablet Take 1-2 tablets (10-20 mg) by mouth if needed at bedtime (sleep). 60 tablet 5 2024 Discontinued(R eorder (will not trigger notification to Pharmacy)) multivitamin () 27-0.8 MG tablet Take 1 tablet by mouth Once per day. 30 tablet 11 2024 Discontinued(R eorder (will not trigger notification to Pharmacy)) chlorthalidone (Hygroton) 25 MG tablet TAKE 1 TABLET BY MOUTH EVERY DAY IN THE MORNING 90 tablet 1 2024 Discontinued(R eorder (will not trigger notification to Pharmacy)) Jardiance 10 MG TAKE 1 TABLET BY MOUTH EVERY DAY IN THE MORNING 90 tablet 1 2024 Discontinued(R eorder (will not trigger notification to Pharmacy)) isosorbide mononitrate ER (Imdur) 30 MG 24 hr tablet Take 0.5 tablets by mouth Once per day. 2024 Discontinued(R eorder (will not trigger notification to Pharmacy)) insulin glargine (Lantus) 100 UNIT/ML injection Inject 45 Units under the skin at bedtime. 10 mL 11 2024 Discontinued(A lternate therapy) empagliflozin (Jardiance) 10 MG Take 1 tablet (10 mg) by mouth in the morning. 90 tablet 1 2024 Discontinued(R eorder (will not trigger notification to Pharmacy)) amLODIPine (Norvasc) 2.5 MG tabletIndications :Benign hypertension Take 1 tablet (2.5 mg) by mouth Once per day. 30 tablet 11 025 2024 Discontinued(R eorder (will not trigger notification to Pharmacy)) isosorbide mononitrate ER (Imdur) 30 MG 24 hr tablet Take 1 tablet (30 mg) by mouth Once per day. 30 tablet 3 2024 Discontinued(M ed list cleanup (will not trigger notification to Pharmacy)) chlorthalidone (Hygroton) 25 MG tablet Take 1 tablet (25 mg) by mouth in the morning. 90 tablet 1 025 2024 Discontinued(R eorder (will not trigger notification to Pharmacy)) Hospital, Clinic, or Other Facility Administered Medication Ordered Dose Route Frequency Start Date End Date Status Insulin Lispro solution 12 UnitsIndications:Diabetes mellitus type 2, insulin dependent ([facility]) 12 Units IJ Once 08/12/2024 08/12/2024 Ended Active Problems Patient Care Coordination No te Formatting of this note migh t be different from the original. C3/CM Jeimy Meehan RN Problem Noted Date Diagnosed Date Family history of early CAD 08/12/2024 Diabetes mellitus type 2, insulin dependent 07/25 Assessment & Plan (08/15/2023 10:45 AM EST): Uncontrolled: Glucose at 500. Will discuss during F/U. Continue treatment plan Labs: glucose Noncompliance with diabetes treatment 08/15/2023 Thyroid disease in 08/15/2023 Bipolar disease in 08/15/2023 Primary hypertension 06/09/2023 Neuropathy due to type 2 diabetes mellitus 07/10 Irregular periods 11/27/2017 Type 2 diabetes mellitus, uncontrolled 6 Overweight 04/07/2015 Elevated levels of transaminase & lactic acid de hydrogenase 01/10/2014 Folliculitis 11/18/2013 Hypothyroidism 10/30/2012 Mood disorder 09/12/2011 Assessment & Plan (01/01/2024 2:36 PM EDT): Past diagnoses have included Depression, PTSD, BPD. No signifcant trauma hx. Presented with mood swings with irritability but no hyperactivity, lasting hours but not days, does not meet criteria for BPD. Mild-mood congruent hallucinations (door knocking, name called, sensation of being watched). Marijuana use: previously reviewed that this could worsen her anxiety, and if purchased on the street risk of contamination with other substances including cocaine and fentanyl. If wishes to continue using urged to purchase at dispensary. Symptoms worsened with Sertraline. Patient has recently complained of extreme fatigue plus persistent depression. Hallucinations however are controlled. Taking medications as directed, did not notice improvement with increased Abilify 20 mg daily. Will add Wellbutrin XL 150 mg once daily in the morning. Cautioned about the possibility of worsened mood or irritability, if this occurs stop taking it right away. Continue Hydroxyzine 10 mg 2 tablets at bedtime. We will faciltate appt with PCP regarding extreme fatigue. F/U with therapist as usual. Since I will be retiring, patient will be referred to new [facility] Psychiatric provider. She is aware that appts will be televisits and that provider will not be an employee of [facility]. She gives permission to share PHI. Any issues or concerns, contact the health center. All her questions were answered and I have wished her well. She agrees with the plan. Assessment & Plan (11/20/2023 4:15 PM EDT): Past diagnoses have included Depression, PTSD, BPD. No signifcant trauma hx. Presented with mood swings with irritability but no hyperactivity, lasting hours but not days, does not meet criteria for BPD. Mild-mood congruent hallucinations (door knocking, name called, sensation of being watched). Marijuana use: previously reviewed that this could worsen her anxiety, and if purchased on the street risk of contamination with other substances including cocaine and fentanyl. If wishes to continue using urged to purchase at dispensary. Symptoms worsened with Sertraline. Today 11/20/2023 patient reports extreme fatigue, falling asleep out of nowhere, persistent depression and irritability. Hallucinations however are controlled. This provider will consult patient's PCP regarding her reported symptoms, and defer to PCP for work-up. For her persistent depression and irritability, she will now increase to Abilify 15 mg daily. may also continue Hydroxyzine 10 mg 2 tablets at bedtime. F/U with therapist as usual and with me in 6 weeks, which will be our final visit since I will be retiring. At that time patient's care will be transferred to new [facility] Psychiatric provider. F/U with therapist as usual. She agrees with the plan. Assessment & Plan (09/16/2023 11:30 AM EDT): Past diagnoses have included Depression, PTSD, BPD. No signifcant trauma hx. Presented with mood swings with irritability but no hyperactivity, lasting hours but not days, does not meet criteria for BPD. Mild-mood congruent hallucinations (door knocking, name called, sensation of being watched). Marijuana use: previously reviewed that this could worsen her anxiety, and if purchased on the street risk of contamination with other substances including cocaine and fentanyl. If wishes to continue using urged to purchase at dispensary. Symptoms worsened with Sertraline. She had been out of care and off her medications, and mood worsened. When she resumed Abilify 15 mg daily in the morning felt too sleepy so stopped it again. Now doing better with Abilify 10 mg at bedtime, but mood is still not stable. Did not review hallucinations today. At this time will increase to Abilify 15 mg at bedtime. May also continue Hydroxyzine 10 mg 2 tablets at bedtime. F/U with therapist as usual. On 07/17/2023 provider informed pt that I would be retiring, and suggest she discuss with therapist the option for referral to agency prescriber. Meanwhile, F/U with me in 2 months. She agrees with the plan. Assessment & Plan (08/14/2023 4:11 PM EST): Past diagnoses have included Depression, PTSD, BPD. No signifcant trauma hx. Presented with mood swings with irritability but no hyperactivity, lasting hours but not days, does not meet criteria for BPD. Mild-mood congruent hallucinations (door knocking, name called, sensation of being watched). Marijuana use: previously reviewed that this could worsen her anxiety, and if purchased on the street risk of contamination with other substances including cocaine and fentanyl. If wishes to continue using urged to purchase at dispensary. Symptoms worsened with Sertraline. She had been out of care and off her medications, and mood worsened. When she resumed Abilify 15 mg daily in the morning felt too sleepy so stopped it again. Did much better with resumption of Abilify 5 mg taken at bedtime. Hallucinations resolved but sensation of being watched persists. At this time will increase to Abilify 10 mg at bedtime. May also continue Hydroxyzine 10 mg 2 tablets at bedtime. F/U with therapist as usual. On 07/17/2023 provider informed pt that I would be retiring, and suggest she discuss with therapist the option for referral to agency prescriber. Meanwhile, F/U with me in 1 month. She agrees with the plan. Assessment & Plan (07/17/2023 2:34 PM EST): Past diagnoses have included Depression, PTSD, BPD. No signifcant trauma hx. Mood swings with irritability but no hyperactivity, lasting hours but not days, does not meet criteria for BPD. Mild-mood congruent hallucinations (door knocking, name called, sensation of being watched). Marijuana use: previously reviewed that this could worsen her anxiety, and if purchased on the street risk of contamination with other substances including cocaine and fentanyl. If wishes to continue using urged to purchase at dispensary. Symptoms worsened with Sertraline. She had been out of care and off her medications, and mood worsened. When she resumed Abilify 15 mg daily in the morning felt too sleepy so stopped it again. At this time she will resume Abilify at lower dose of 5 mg taken at bedtime. This will likely need to be increased. May also continue Hydroxyzine 10 mg 2 tablets at bedtime. We did not discuss hallucinations or cannabis use today. F/U with therapist as usual. Today 07/17/2023 provider informed pt that I would be retiring, and suggest she discuss with therapist the option for referral to agency prescriber. Meanwhile, F/U with me in 3-4 weeks. She agrees with the plan. Assessment & Plan (02/11/2023 9:40 AM EDT): Past diagnoses have included Depression, PTSD, BPD. No signifcant trauma hx. Mood swings with irritability but no hyperactivity, lasting hours but not days, does not meet criteria for BPD. Mild-mood congruent hallucinations (door knocking, name called, sensation of being watched). Marijuana use: previously reviewed that this could worsen her anxiety, and if purchased on the street risk of contamination with other substances including cocaine and fentanyl. If wishes to continue using urged to purchase at dispensary. Symptoms worsened with Sertraline. Mood continues to improve. Will now increase again to Abilify 15 mg once daily. Try taking Hydroxyzine 10 mg 2 tabs at bedtime. Again urged to decrease/stop use of cannabis. F/U with therapist and F/U with me in 2 months. She agrees with the plan. Assessment & Plan (12/12/2022 11:33 AM EDT): Past diagnoses have included Depression, PTSD, BPD. No signifcant trauma hx. Mood swings with irritability but no hyperactivity, lasting hours but not days, does not meet criteria for BPD. Mild-mood congruent hallucinations (door knocking, name called, sensation of being watched). Marijuana use: previously reviewed that this could worsen her anxiety, and if purchased on the street risk of contamination with other substances including cocaine and fentanyl. If wishes to continue using urged to purchase at dispensary. Symptoms worsened with Sertraline. Mood is somewhat improved. Will now increase to Abilify 10 mg once daily. Hydroxyzine 25 mg at bedtime was too sedating. Will instead have Hydroxyzine 10 mg to take 1-2 at bedtime. F/U with therapist and F/U with me in 6-8 weeks. She agrees with the plan. Assessment & Plan (11/04/2022 9:16 AM EDT): Past diagnoses have included Depression, PTSD, BPD. No signifcant trauma hx. Mood swings with irritability but no hyperactivity, lasting hours but not days, does not meet criteria for BPD. Mild-mood congruent hallucinations (door knocking, name called, sensation of being watched). Marijuana use: previously reviewed that this could worsen her anxiety, and if purchased on the street risk of contamination with other substances including cocaine and fentanyl. If wishes to continue using urged to purchase at dispensary. Symptoms worsened with Sertraline. Tolerating starting dose of Abilify 5 mg. Will now increase to Abilify 7.5 mg once daily. Start Hydroxyzine 25 mg at bedtime for sleep. May also take 1/2 tab every 6 hours prn anxiety. Has started with new therapist. F/U with me in 1 month. She agrees with the plan. Assessment & Plan (10/10/2022 11:06 AM EDT): Past diagnoses have included Depression, PTSD, BPD. No signifcant trauma hx. Mood swings with irritability but no hyperactivity, lasting hours but not days, does not meet criteria for BPD. Mild-mood congruent hallucinations (door knocking, name called, sensation of being watched). Marijuana use: reviewed that this could worsen her anxiety, and if purchased on the street risk of contamination with other substances including cocaine and fentanyl. If wishes to continue using urged to purchase at dispensary. Symptoms worsened with Sertraline. Will stop that now. Instead will start Abilify 5 mg once daily. This may not help her sleep but prefer to use sedating medication or risk of metabolic S/E. Explained that this is a low dose, but as long as tolerated, please continue and we will adjust as needed at next appt in 3 weeks. Will also refer for counseling. Diabetes mellitus without complication 2 Obesity 09/12/2011 Otitis media 09/12/2011 Vaginitis and vulvovaginitis 09/12/2011 Encounters * This document contains information received from the source organization and may not represent a complete record from that organization. Date Type Department Care Team Description 08/27/2024 Travel 08/23/2024 Refill [facility] [address] [place] [address] Nicole Gandhi, PharmD 08/20/2024 Telephone [facility] [address] [place] [address] Nicole Gandhi, PharmD Prior Authorization 08/20/2024 Travel 08/12/2024 11:15 AM EST Office Visit [facility] [address] [place] [address] Destiny Miranda MD Mood disorder (CMS/HCC) (Primary Dx); Diabetes mellitus type 2, insulin dependent (CMS/HCC); Benign hypertension; Neuropathy due to type 2 diabetes mellitus (CMS/HCC); Atypical chest pain; Family history of early CAD 08/12/2024 Travel 08/04/2024 Telephone [facility] [address] [place] [phone] Destiny Miranda MD ER Follow-up 07/21/2024 Orders Only [facility] [address], [place] [id number] Destiny Miranda MD Diabetes mellitus type 2, insulin dependent ([facility]) (Primary Dx); Benign hypertension 07/20/2024 Telephone [facility] [address], [place] [phone] Nicole aGndhi, PharmD 06/26/2024 Refill [facility] [address] [place] [address] Destiny Miranda MD from Last 3 Months Immunizations Name Administration Dates Next Due DTP 08/01/1992, 2,08/22/1989,1986 Hep B, Adolescent or Pediatric 09/21/1999,1998,02/14/1999 Hep B, adult 09/30/2012,08/06/2012 Hib (PRP-T) 12/22/1991 Influenza injectable quadriv alent preservative free 05/27/2018,04/07/2015 Influenza, IIV3, injectable 04/07/2014 Influenza, Split (incl. julien fied surface antigen) 03/05/2013,04/08/2012 MMR 02/14/1999,08/22/1989 OPV 08/01/1992, 2,08/22/1989,1986 Pneumococcal Conjugate PCV 20 02/04/2024 TD (adult), 2 Lf tetanus tox oid, preservative free, adsorbed 02/19/2000 Td (adult), 5 Lf tetanus tox oid, preservative free, adsorbed 05/12/1995 Tdap 05/27/2018,05/26/2014 Social History Tobacco Use Types Packs/Day Years Used Date Smoking Tobacco: Never Passive Smoke Exposure: Never Smokeless Tobacco: Never Tobacco Cessation:Counseling Given: Not Answered Alcohol Use Standard Drinks/Week Comments Never 0 [...] Orientation Straight 08/16/2022 10 :18 AM EST Last Filed Vital Signs Vital Sign Reading Time Taken Comments Blood Pressure 146/68 08/20/2024 10:58 AM EST Pulse 91 08/20/2024 10:58 AM EST Temperature 37.1 ??C (98.7 ??F) 08/12/2024 11:[address] Respiratory Rate 12 08/12/2024 11:02 AM EST Oxygen Saturation 98% 08/12/2024 11:02 AM EST Inhaled Oxygen Concentration - - Weight 67.1 kg (148 lb) 08/12/2024 11:02 AM EST Height 167 cm (5' 5.75 ) 08/12/2024 11:02 AM EST Body Mass Index 24.07 08/12/2024 11:02 AM EST Plan of Treatment Upcoming Encounters Date Type Department Care Team (Late st Contact Info) Description 09/17/2024 11:00 AM EDT Medication Management [facility] [address] [place] [address] Nicole Gandhi, PharmD [address] [place] [address] Health Maintenance Due Date Last Done Comments Dental Oral Exam 1987 Dental Prophylaxis 1987 Dental X-Ray: Full Mouth 1987 HIV Screening 1987 Diabetes: Foot Exam 1997 Eye Exam 1997 Alcohol/Substance Use Screening 1999 Family Planning (PISQ) 2002 Hepatitis C Screening 2005 Pap Smear 02/03/2008 Dental X-Ray: Bitewings 07/10/2023 07/09/2022 SDOH Screening 08/28/2023 08/27/2022 COVID-19 Vaccine ( season) 2024 11/11/2020, 10/14/2020 Influenza Vaccine (#1) 2024 8, 04/07/2015, 04/07/2014, Additional history exists Cervical Cancer Screening 06/29/2024 HPV/Cotest 06/29/2024 06/29/2019 Depression Monitoring (PHQ-9) 07/03/2024 01/01/2024, 01/01/2024 Diabetes: Hemoglobin A1C 11/09/2024 025, 03/09/2024, 02/04/2024, Additional history exists Depression Screening 12/31/2024 01/01/2024, 01/01/20 Diabetes: Urine Protein Screening 03/09/2025 03/09/2024, 11/09/2020, 04/21/2020 Lipid Panel 03/09/2025 03/09/2024, 04/21/2020 Tobacco Screening 03/26/2025 03/26/2024 DTaP/Tdap/Td Vaccines (7 - Td or Tdap) 05/27/2028 05/27/2018, 05/26/2014, 02/19/2000, Additional history exists Zoster Vaccines (1 of 2) 2037 RSV Patients and Patients Aged 60 years or older (1 - 1-dose 75+ series) 2062 HIB Vaccines Completed 12/22/1991 IPV Vaccines Completed 08/01/1992, 07/06/1991, 08/22/1989, Additional history exists Hepatitis B Vaccines Completed 09/30/2012, 08/06/2012, 09/21/1999, Additional history exists Pneumococcal Vaccine: Pediatrics (0 to 5 Years) and At-Risk Patients (6 to 49) Years) Completed 02/04/2024 HPV Vaccines Aged Out No longer eligi ble based on patient's age to complete this topic Hepatitis A Vaccines Aged Out No long er eligible based on patient's age to complete this topic Meningococcal Vaccine Aged Out No maru [place] eligible based on patient's age to complete this topic RSV under 20 months Aged Out No longe r eligible based on patient's age to complete this topic Rotavirus Vaccines Aged Out No longer eligible based on patient's age to complete this topic Procedures Procedure Name Priority Date/Time Associated Diagnosis Comments POCT GLUCOSE Routine 08/12/2024 11:51 AM EST Diabetes mellitus type 2, insulin dependent (CMS/HCC) POCT GLUCOSE Routine 08/12/2024 11:05 AM EST Diabetes mellitus type 2, insulin dependent (CMS/HCC) POCT GLYCATED HEMOGLOBIN, TOTAL Routine 08/12/2024 11:05 AM EST Diabetes mellitus type 2, insulin dependent (CMS/HCC) ALBUMIN, RANDOM URINE W/CREATININE Routine 03/09/2024 9:40 AM EDT Foot callus Diabetes mellitus type 2, insulin dependent (CMS/HCC) Primary hypertension LIPID PANEL, STANDARD Routine 03/09/2024 9:33 AM EDT Foot callus Diabetes mellitus type 2, insulin dependent (CMS/HCC) Primary hypertension BITEWING - SINGLE RADIOGRAPHIC IMAGE Routine 07/09/2022 3:10 PM EST Dental abscess ZZZ HISTORICAL HPV MRNA E6/E7 Routine 06/29/2019 9:20 AM EST from Last 3 Months or Most Recently Relevant to Health Maintenance Results * (ABNORMAL) POCT glucose manually resulted (08/12/2024 11:51 AM EST) Only the most recent of2 resultswithin the time period is included. Glucose Blood, POC 436(A) 60 - 200 mg/dL QC Media Lot # Comment:[id number] Lot# Expiration Date Comment:09/28/2024 Blood Capillary blood specimen / Unknown 08/12/2024 11:51 AM EST us Destiny Miranda MD POINT OF CARE TEST ENTER/EDIT ORDERABLES Final Result * (ABNORMAL) POCT A1C (08/12/2024 11:05 AM EST) Hemoglobin A1C 15.0(A) 4.0 - 6.0 % Comment:Code #106 QC Media Lot # Comment:[id number] Lot# Expiration Date Comment:04/09/2026 Blood 08/12/2024 11:0 5 AM EST us Destiny Miranda MD POINT OF CARE TEST ENTER/EDIT ORDERABLES Final Result * (ABNORMAL) Albumin, Random Urine W/Creatinine (03/09/2024 9:40 AM EDT) Creatinine, Urine 47.59 mg/dL [facility] Microalbumin Urine 272.0 mg/L [facility] Microalbum Creatinine Ratio Ur 571.5(H) <30 ug/mg cr [facility] Comment:Albumin/Creatinine R at Reference Ranges: Normal: < 30 ug/mg creatinine Microalbuminuria: 30 - 300 ug/mg creatinineClinical Albuminuria: > 300 ug/mg creatinine Urine (Urine, Random) 03/09/2024 9:40 AM EDT 03/09/2024 2:19 PM EDT us Destiny Miranda MD LAB URINE ORDERABLES Final Re sult [facility] [address] [place] [phone] * (ABNORMAL) Lipid Panel, Standard (03/09/2024 9:33 AM EDT) Triglycerides 476(H) <150 mg/dL [facility] Comment:Desirable Triglyceri de: less than 150 mg/dLBorderline High Triglyceride 150-199 mg/dLHigh Triglyceride: 200-499 mg/dLVery High Triglyceride: greater than or equal to 5OO mg/dL Cholesterol 225(H) <200 mg/dL [facility] Comment:Desirable Cholestero l: less than 200 mg/dLBorderline High Cholesterol: 200-239 mg/dLHigh Cholesterol: greater than 239 mg/dL LDL Cholesterol Calculated TNP <100 mg/dL [facility] Comment:Unable to calculate the LDL. The formula of Friedwald,Gaspar, and Louisa is only valid if the triglycerides areless than 400 mg/dl. HDL Cholesterol 39(L) >40 mg/dL [facility] Comment:Desirable HDL: great er than 40 mg/dL Note: This HDL assay may give artificially low results in patients with liver disease. Blood Venous blood specimen / Unknown 03/09/2024 9:33 AM EDT 03/09/2024 2:54 PM EDT us Destiny Miranda MD LAB BLOOD ORDERABLES Final Re sult [facility] [address] [place] [phone] * HPV mRNA E6/E7 (06/29/2019 9:20 AM EST) HPV mRNA E6/E7 Not Detected NOT DETECTED [facility] Comment: This test was performed using the APTIMA(R) HPV Assay ([facility] [employer] This assay detects E6/E7 viral messenger RNA (mRNA) from 14 high-risk HPV types (16,18,31,33,35,39,45,51, 52,56,58,59,66,68). For additional information please refer to: http://education.Anesiva/faq/ZAO256h6 (This link is being provided for informational/ educational purposes only.) The analytical performance characteristics of this assay have been determined by [employer] [place], [place]. The modifications have not been cleared or approved by the FDA. This assay has been validated pursuant to the CLIA regulations and is used for clinical purposes. Test Performed by [facility], [employer] [facility], [address] [place] [id number] Tommy Islas M.D., Ph.D., Director of Laboratories , CLIA [id number] Please note: ??Effective 03/04/2016, HPV testing will be performed using [employer]'s APTIMA test which targets mRNA. Detecting mRNA instead of DNA, as in older methods, offers significant improvements in specificity. 06/29/2019 9:20 AM EST us Destiny Miranda MD HISTORICAL/NON ORDERABLE LABS Final Result [facility] [address] from Last 3 Months or Most Recently Relevant to Health Maintenance Insurance [facility] C[facility] STAND ADULT Care Teams [place] Relationship Specialty Start Date End Date Destiny Miranda MD [address] [place] [phone] PCP - General Family Medicine 06/23/18 Nicole Gandhi PharmD [address] [place] [phone] Pharmacist Internal Medicine 08/20/24 Rose Cash Brand Activation ManagerSmooth And Burr Worker Composites 09/17/23
--- OUTSIDE RECORDS SUMMARY | 2024-08-30 15:05 | XMS_ITS | Encounter Summary ---
Author Organization [employer] Address [address] [facility] 7 [place] [address] Care Team Providers Care Cementer Hand Name Role Phone Destiny Miranda MD Primary Care Provider [phone] Nicole Gandhi PharmD Unavailable [phone] Reason for Visit * Reason Onset Date Comments returning call 05/17/2024 Encounter Details Date Type Department Care Team (Late st Contact Info) Description 05/17/2024 Telephone [facility] [address] [place] [address] Destiny Miranda MD [address] [place] [address] returning call Social History Tobacco Use Types Packs/Day Years [...] encounter Miscellaneous Notes * Telephone Encounter - Collette Lovelace RN - 05/18/2024 8:59 AM EST SHALONDA made for wrong patient. Debora is twin sister. * Telephone Encounter - Brett Dailey - 05/17/2024 4:17 PM EST Tc from pt returning call to v/nicola left , pt will like another callback . Callback number [phone] documented in this encounter Plan of Treatment Upcoming Encounters Date Type Department Care Team (Late st Contact Info) Description 09/17/2024 11:00 AM EDT Medication Management [facility] [address] [place] [address] Nicole Gandhi, PharmD [address] [place] [address] documented as of this encounter Visit Diagnoses Not on filedocumented in this encounter Additional Health Concerns Assessment Noted Time PHQ-9 Depression Total Score: 21 024 1:56 PM EDT documented as of this encounter Care Teams Cementer Hand Relationship Specialty Start Date End Date Destiny Miranda MD [address] [place] [address] PCP - General Family Medicine 06/23/18 Nicole Gandhi PharmD [address] [place] [address] Pharmacist Internal Medicine 08/20/24 Rose Cash Compensation SupervisorMath And Science Instructor 09/17/23 documented as of this encounter
--- OUTSIDE RECORDS SUMMARY | 2024-08-30 15:05 | XMS_ITS | Encounter Summary ---
Author Organization [employer] Address [address] [facility] [address] [place] [address] Care Team Providers Care Early Childhood Teacher Name Role Phone Destiny Miranda MD Primary Care Provider [phone] Nicole Gandhi PharmD Unavailable [phone] Encounter Details Date Type Department Care Team (Latest Contact Info) Description 08/27/2024 Travel Social History Tobacco Use Types Packs/Day [...] Description 09/17/2024 11:00 AM EDT Medication Management [facility] [address] [place] [address] Nicole Gandhi PharmStephen [address] [place] [address] documented as of this encounter Visit Diagnoses Not on filedocumented in this encounter Additional Health Concerns Assessment Noted Time PHQ-9 Depression Total Score: 21 024 1:56 PM EDT documented as of this encounter Care Teams Early Childhood Teacher Relationship Specialty Start Date End Date Destiny Miranda MD [address] [place] [address] PCP - General Family Medicine 06/23/18 Nicole Gandhi, PharmD [address] [place] [address] Pharmacist Internal Medicine 08/20/24 Rose Cash Tester SoundElectrical Maintenance Mechanic 09/17/23 documented as of this encounter
--- OUTSIDE RECORDS SUMMARY | 2024-08-30 15:05 | XMS_ITS | Encounter Summary ---
Author Organization [facility] Address [address] [place] [phone] Phone Care Team Providers Care Automobile Mechanic Radiator Name Role Phone Montse Tamayo MD Primary Care Provider Unava ilable Encounter Details Date Type Department Care Team (Late st Contact Info) Description 04/24/2017 Conversion Encounter [facility] - [address] [address] Social History Tobacco Use Types Packs/Day Years Used Date Smoking Tobacco: Never Assessed Comments Unknown Sex and Gender Information Value Date Recorded Sex Assigned at Not on file Legal Sex Female 4:14 PM EDT Gender Identity Not on file Sexual Orientation Not on file documented as of this encounter Plan of Treatment Not on file documented as of this encounter Visit Diagnoses Not on filedocumented in this encounter Care Teams Automobile Mechanic Radiator Relationship Specialty Start Date End Date Montse Tamayo MD PCP - General 01/31/17 documented as of this encounter
--- OUTSIDE RECORDS SUMMARY | 2024-08-30 15:05 | XMS_ITS | Clinical Summary ---
Author Organization [facility] Address [address] [place] [address] Care Team Providers Care International Marketing Manager Name Role Phone Unavailable Primary Care Provider Unavailabl e Source Comments PLEASE NOTE, if this patient is a minor, it may be UNLAWFUL to discuss sensitive information that is contained in these records (such as FAMILY PLANNING, MENTAL HEALTH or SUBSTANCE ABUSE) with the minor patient's parent or other person without the patient's specific authorization.[facility] Allergies No known active allergies Medications hydrOXYzine HCL (ATARAX) 10 mg tablet Take 10 mg by mouth nightly at bedtime as needed for sleep or anxiety Active glyBURIDE (DIABETA) 5 mg tablet Take 5 mg by mouth 12/24/2023 Active JARDIANCE 10 mg tab Take 10 mg by mouth every morning Active amLODIPine (NORVASC) 2.5 mg tablet Take 2.5 mg by mouth daily 10/03/2023 Active VITAMIN 27 mg iron- 0.8 mg tab Take 1 Tablet by mouth once daily 02/06/2024 Active chlorthalidone (HYGROTEN) 25 mg tablet Take 25 mg by mouth every morning Active lidocaine (LIDODERM) 5 % patch Place onto the skin every 12 (twelve) hours Active buPROPion HCL (WELLBUTRIN XL) 300 mg 24 hr tablet Take 1 Tablet by mouth every morning 90 Tablet 03/16/2024 Active ARIPiprazole (ABILIFY) 20 mg tablet Take 1 Tablet by mouth once daily 90 Tablet 03/30/2024 Active Active Problems Problem Noted Date Diagnosed Date Bipolar affective disorder, currently depressed, moderate ([facility]) 02/16/2024 Assessment & Plan (03/30/2024 11:32 AM EDT): Cont wellbutrin xl 300 mg qam for depressed mood, anergia, amotivation, hypersomnia. Monitor for over activation, s/s bee reviewed and no evidence thus far. Continue abilify 20 mg po qhs. Will need therapy; pt to call [facility] today to ask for referral. Pt in need of PCP appt. Practice self care. Assessment & Plan (03/16/2024 9:30 AM EDT): Cont wellbutrin xl and increase to 300 mg qam for depressed mood, anergia, amotivation, hypersomnia. Monitor for over activation, s/s bee reviewed. Continue abilify 20 mg po qhs. Will need therapy; pt to call [facility] today to ask for referral. Practice self care. Assessment & Plan (02/17/2024 3:42 PM EDT): Cont wellbutrin xl and abilify, no change in dose of either. Will need therapy. Practice self care. Insulin dependent type 2 diabetes mellitus ([facility]) 08/15/2023 Overview (02/16/2024): Last Assessment & Plan: Uncontrolled: Glucose at 500. Will discuss during F/U. Continue treatment plan Labs: glucose Noncompliance with diabetes treatment 08/15/2023 Assessment & Plan (03/16/2024 9:27 AM EDT): Encourage pt to eat regularly, monitor BS and make f/u appt with pcp Neuropathy due to type 2 diabetes mellitus ([facility]) 07/10/2018 Hypothyroidism 10/30/2012 Diabetes mellitus without complication ([facility]) 09/12/2011 Obesity 09/12/2011 Resolved Problems Problem Noted Date Diagnosed Date Resolved Date Bipolar disease in ([facility]) 08/15/2023 02/16/2024 Social History Tobacco Use Types Packs/Day Years Used Date Smoking Tobacco: Never Assessed Social Connections Answer Date Recorded Connectedness 0 03/15/2024 Financial Resource Strain Answer Date R ecorded Financial Resource Strain 0 2023 Stress Answer Date Recorded Stress 0 02/03/2024 Physical Activity Answer Date Recorded Physical Activity 0 02/03/2024 Food Insecurity Answer Date Recorded Food 0 03/18/2024 Transportation Needs Answer Date Record ed Transportation 0 02/03/2024 Housing Stability Answer Date Recorded Housing 0 02/03/2024 Safety and Environment Answer Date Moy rded Safety 0 02/03/2024 Utilities Answer Date Recorded Utilities 0 02/03/2024 Employment Answer Date Recorded Stress 0 03/15/2024 Comments Unknown Sex and Gender Information Value Date Recorded Sex Assigned at Female 2024 7:01 AM PDT Legal Sex Female 7:01 AM PDT Gender Identity Female 2024 7:01 AM PDT Sexual Orientation Not on file Plan of Treatment Health Maintenance Due Date Last Done Comments Depression Monitoring 1987 Diabetes Foot Exam 1987 Diabetes Microalbumin (w/Creatinine) 1987 HPV Screening 1987 Hepatitis C Screening 1987 Pap + HPV 1987 TSH Monitoring 1987 Retinopathy Screening 02/03/2000 HIV Screening 2002 Relationship Safety Screening/Counseling 2002 Hypertension Screening (#1) 2005 Cervical Cancer Screening 02/03/2008 Pap Smear 02/03/2008 Imm-Hepatitis B (3 of 3 - 19 + 3-dose series) 02/03/2013 09/30/2012, 08/06/2012 [id number] ( season) 2024 021, 10/14/2020 Imm-Influenza (#1) 2024 05/27/2018, 1 , 04/07/2014, Additional history exists Diabetes HbA1c 06/08/2024 03/09/2024, 02/21, 02/04/2024, Additional history exists Alcohol and Drug Screen 06/23/2024 Lipid Screening 03/09/2025 03/09/2024, 04/21/2020 Serum Creatinine 03/09/2025 03/09/2024 Tobacco Screening 03/16/2025 03/16/2024 Imm-DTaP/Tdap/Td (3 - Td or Tdap) 05/27/2028 018, 05/26/2014 Imm-Pneumococcal Completed 02/04/2024 Cervical Ablation/Cold-Knife Conization Discontinued Cervical Cryotherapy Discontinued Colposcopy Discontinued Endometrial Biopsy Discontinued Excision/Leep Discontinued HPV Genotyping Discontinued Vaginal Pap Discontinued Vulvoscopy Discontinued Insurance [facility] [place] MEDICAID
--- OUTSIDE RECORDS SUMMARY | 2024-08-30 15:05 | XMS_ITS | Encounter Summary ---
Author Organization [employer] Address [address] [address] Care Team Providers Care Beauty Consultant Name Role Phone Destiny Miranda MD Primary Care Provider [phone] Reason for Referral * Consultation (Urgent) - Authorized Specialty Diagnoses / Procedures Referred By Gabriela t Referred To Contact Cardiology Diagnoses Diabetes mellitus type 2, insulin dependent (CMS/HCC) Benign hypertension Atypical chest pain Detsiny Miranda MD [address] [place] [address] Phone: tel: fax: Gordon Rivera MD [address] [address] Phone: tel: fax: Referral ID Status Reason Start Date Expiration Date Visits Requested Visits Authorized [id number] Authorized Specialty Services Required 08/12/2024 08/12/2025 1 1 Scheduling Instructions Schedule at [facility] please * Consultation (Routine) - Closed Specialty Diagnoses / Procedures Referred By Contelvia t Referred To Contact Behavioral Health Diagnoses Mood disorder (CMS/HCC) Destiny Miranda MD [address] [place] [address] Phone: tel: fax: Referral ID Status Reason Start Date Expiration Date V isits Requested Visits Authorized [id number] Closed Specialty Services Required 08/12/2024 08/12/2025 1 1 * Consultation (Urgent) - Closed Specialty Diagnoses / Procedures Referred By Contac t Referred To Contact Psychiatry / Behavioral Health Diagnoses Mood disorder (CMS/HCC) Destiny Miranda MD [address] [place] [address] Phone: tel: fax: Referral ID Status Reason Start Date Expiration Date V isits Requested Visits Authorized [id number] Closed Specialty Services Required 08/12/2024 08/12/2025 1 1 Encounter Details Date Type Department Care Team ([facility] st Contact Info) Description 08/12/2024 11:15 AM EST Office Visit [facility] PEDS [address] [place] [address] Destiny Miranda MD [address] [place] [address] Mood disorder (CMS/HCC) (Primary Dx); Diabetes mellitus type 2, insulin dependent (CMS/HCC); Benign hypertension; Neuropathy due to type 2 diabetes mellitus (CMS/HCC); Atypical chest pain; Family history of early CAD Social History Tobacco Use Types Packs/Day Years Used Date Smoking Tobacco: Never Passive Smoke Exposure: Never Smokeless Tobacco: Never Alcohol Use Standard Drinks/Week Comments Never 0 (1 standard drink = 0.6 oz pur e alcohol) Depression Answer Date Recorded Patient Health Questionnaire-9 Score 21 01/01/2024 Patient Health Questionnaire-9 Score 01/01/2024 Last PHQ-9: Questionnaire Data Not on [...] AM EST documented as of this encounter Last Filed Vital Signs Vital Sign Reading Time Taken Comments Blood Pressure 145/88 08/12/2024 11:02 AM EST Pulse 94 08/12/2024 11:02 AM EST Temperature 37.1 ??C (98.7 ??F) 08/12/2024 11:[address] Respiratory Rate 12 08/12/2024 11:02 AM EST Oxygen Saturation 98% 08/12/2024 11:02 AM EST Inhaled Oxygen Concentration - - Weight 67.1 kg (148 lb) 08/12/2024 11:02 AM EST Height 167 cm (5' 5.75 ) 08/12/2024 11:02 AM EST Body Mass Index 24.07 08/12/2024 11:02 AM EST documented in this encounter Progress Notes * Destiny Miranda MD - 08/12/2024 11:15 AM EST Subjective Patient ID: Yvrose Cooper is a 39 y.o. female who presents for follow up. Yvrose is a 39-year-old female patient of ours with type 2 diabetes, hypertension, depression, etc.lab. Patient is very sad and depressed her father less than 1 week ago from a fatal heart attack. Patient needs a new therapist as well as psych provider. She ran out of her psych medications 2 months ago. Needs refills and been taking any of her medications or diabetes medications. Herblood sugar today is 500. She is asymptomatic. She has her first appointment with On August 20 at [facility] that she plans to attend. Patient is living with her daughter, patient's boyfriend, patient's mom. Patient's twin sister was recently diagnosed with coronary artery disease and she is being treated at [facility]. Review of Systems Constitutional: Negative for activity change, chills, fever and unexpected weight change. Respiratory: Negative for cough, shortness of breath and wheezing. Cardiovascular: Negative for chest pain, palpitations and leg swelling. Gastrointestinal: Negative for abdominal pain and blood in stool. Endocrine: Negative for polydipsia and polyuria. Genitourinary: Negative for decreased urine volume, difficulty urinating, dysuria and hematuria. Musculoskeletal: Negative for arthralgias, back pain and gait problem. Skin: Negative for color change and rash. Neurological: Negative for dizziness and headaches. Hematological: Negative for adenopathy. Psychiatric/Behavioral: Positive for behavioral problems and decreased concentration. Negative for dysphoric mood, hallucinations, sleep disturbance and suicidal ideas. The patient is nervous/anxious. Objective BP (!) 145/88 (BP Location: Left arm, Patient Position: Sitting, BP Cuff Size: Adult) Pulse 94 Temp 98.7 ??F (37.1 ??C) (Oral) Resp 12 Ht 5' 5.75 (1.67 m) Wt 148 lb (67.1 kg) SpO2 98% BMI 24.07 kg/m?? Physical Exam Vitals reviewed. Constitutional: General: She is not in acute distress. HENT: Head: Normocephalic. Mouth/Throat: Mouth: Mucous membranes are moist. Eyes: Pupils: Pupils are equal, round, and reactive to light. Cardiovascular: Rate and Rhythm: Normal rate and regular rhythm. Heart sounds: Normal heart sounds. No murmur heard. Pulmonary: Effort: Pulmonary effort is normal. Breath sounds: Normal breath sounds. No wheezing or rhonchi. Musculoskeletal: Right lower leg: No edema. Left lower leg: No edema. Neurological: Mental Status: She is oriented to person, place, and time. Psychiatric: Attention and Perception: She does not perceive auditory or visual hallucinations. Mood and Affect: Affect is tearful. Behavior: Behavior normal. Behavior is cooperative. Assessment/Plan Diagnoses and all orders for this visit: Mood disorder (CMS/HCC) Comments: New behavior therapist and psych referral done today. Refilled her Wellbutrin and hydroxyzine as well. Orders: - Referral to Behavioral Health Psychiatry; Future - Referral to Behavioral Health; Future Diabetes mellitus type 2, insulin dependent (CMS/HCC) Comments: Uncontrolled. A1c unable to be read today. Blood sugar above 500, received 12 units of Humalog insulin in clinic today. Refilled all of her meds. No changes done as she hasn't been taking any of them.Will meet with PharmD Nicole Gandhi on 08/20.Reminded of appointment.Plans to keep it. Orders: - POCT A1C - POCT glucose manually resulted - Insulin Lispro solution 12 Units - POCT glucose manually resulted - Referral to Cardiology; Future Benign hypertension Comments: Take BP meds when you get home. Follow up on 08-20. Orders: - amLODIPine (Norvasc) 2.5 MG tablet; Take 1 tablet (2.5 mg) by mouth Once per day. - Referral to Cardiology; Future Neuropathy due to type 2 diabetes mellitus (CMS/HCC) Atypical chest pain Comments: Due to history of familial CAD at early age plus her risk factors will refer to cardiology for workup. Orders: - Referral to Cardiology; Future Family history of early CAD Other orders - insulin glargine (Lantus) 100 UNIT/ML injection; Inject 45 Units under the skin at bedtime. - empagliflozin (Jardiance) 10 MG; Take 1 tablet (10 mg) by mouth in the morning. - isosorbide mononitrate ER (Imdur) 30 MG 24 hr tablet; Take 1 tablet (30 mg) by mouth Once per day. - chlorthalidone (Hygroton) 25 MG tablet; Take 1 tablet (25 mg) by mouth in the morning. - buPROPion XL (Wellbutrin XL) 150 MG 24 hr tablet; Take 1 tablet (150 mg) by mouth in the morning.Do not crush, chew, or split. - hydrOXYzine HCl (Atarax) 10 MG tablet; Take 1 tab tid prn anxiety documented in this encounter Plan of Treatment Upcoming Encounters Date Type Department Care Team (Late st Contact Info) Description 09/17/2024 11:00 AM EDT Medication Management [facility] MED & PEDS [address] [place] [address] Nicole Gandhi, PharmD [address] [place] [address] Scheduled Referrals Name Type Priority Associated Diagnoses Order Schedule Referral to Behavioral Health Psychiatry Outpatient Referral Urgent Mood disorder (CMS/HCC) Expected: 08/12/2024 (Approximate), Expires: 08/12/2025 Referral to Behavioral Health Outpatient Referral Routine Mood disorder (CMS/HCC) Expected: 08/12/2024 (Approximate), Expires: 08/12/2025 Referral to Cardiology Outpatient Referral Urgent Diabetes mellitus type 2, insulin dependent (CMS/HCC) Benign hypertension Atypical chest pain Expected: 08/12/2024 (Approximate), Expires: 08/12/2025 documented as of this encounter Procedures Procedure Name Priority Date/Time Associated Diagnosis Comments POCT GLUCOSE Routine 08/12/2024 11:51 AM EST Diabetes mellitus type 2, insulin dependent (CMS/HCC) POCT GLYCATED HEMOGLOBIN, TOTAL Routine 08/12/2024 11:05 AM EST Diabetes mellitus type 2, insulin dependent (CMS/HCC) POCT GLUCOSE Routine 08/12/2024 11:05 AM EST Diabetes mellitus type 2, insulin dependent (CMS/HCC) documented in this encounter Results * (ABNORMAL) POCT glucose manually resulted (08/12/2024 11:51 AM EST) Glucose Blood, POC 436(A) 60 - 200 mg/dL QC Media Lot # Comment:[id number] Lot# Expiration Date Comment:09/28/2024 Blood Capillary blood specimen / Unknown 08/12/2024 11:51 AM EST Destiny Miranda MD POINT OF CARE TEST ENTER/EDIT ORDERABLES Final Result * (ABNORMAL) POCT glucose manually resulted (08/12/2024 11:05 AM EST) Glucose Blood, POC 500(A) 60 - 200 mg/dL Comment:[facility] QC Media Lot # Comment:[id number] Lot# Expiration Date Comment:09/28/2024 Blood Capillary blood specimen / Unknown 08/12/2024 11:05 AM EST Destiny Miranda MD POINT OF CARE TEST ENTER/EDIT ORDERABLES Final Result * (ABNORMAL) POCT A1C (08/12/2024 11:05 AM EST) Hemoglobin A1C 15.0(A) 4.0 - 6.0 % Comment:Code #106 QC Media Lot # Comment:[id number] Lot# Expiration Date Comment:04/09/2026 Blood 08/12/2024 11:0 5 AM EST Result [facility] Destiny Miranda MD POINT OF CARE TEST ENTER/EDIT ORDERABLES Final Result documented in this encounter Visit Diagnoses Diagnosis Mood disorder (CMS/HCC)- Primary Unspecified episodic mood disorder Diabetes mellitus type 2, insulin dependent (CMS/HCC) Benign hypertension Essential hypertension, benign Neuropathy due to type 2 diabetes mellitus (CMS/HCC) Atypical chest pain Other chest pain Family history of early CAD Family history of ischemic heart disease documented in this encounter Administered Medications Inactive Administered Medications - up to 3 most recent administrations Medication Order MAR Action Action Date Dose Rate Site Insulin Lispro solution 12 Units 12 Units, Injection, Once, On Gertrude 08/12/24 at 1130, For 1 doseIndications:Diabetes mellitus type 2, insulin dependent (CMS/HCC) Given 08/12/2024 11:30 AM EST 12 Units Right Arm documented in this encounter Additional Health Concerns Assessment Noted Time PHQ-9 Depression Total Score: 21 024 1:56 PM EDT documented as of this encounter Care Teams Beauty Consultant Relationship Specialty Start Date End Date Destiny Miranda MD [address] [place] [address] PCP - General Family Medicine 06/23/18 Rose Cash Dispatcher Radioactive Waste DisposalOutboard Motor Inspector 09/17/23 documented as of this encounter
--- OUTSIDE RECORDS SUMMARY | 2024-08-30 15:05 | XMS_ITS | Encounter Summary ---
Author Organization [employer] Address [address] [place] [address] Care Team Providers Care Game Warden Name Role Phone Destiny Miranda MD Primary Care Provider [phone] Encounter Details Date Type Department Care Team (Latest Contact Info) Description 08/12/2024 Travel Social History Tobacco Use Types Packs/Day [...] Description 09/17/2024 11:00 AM EDT Medication Management [facility] MED & PEDS [address] [place] [address] Nicole Gandhi, PharmD [address] [place], [place] [phone] documented as of this encounter Visit Diagnoses Not on filedocumented in this encounter Additional Health Concerns Assessment Noted Time PHQ-9 Depression Total Score: 21 024 1:56 PM EDT documented as of this encounter Care Teams Game Warden Relationship Specialty Start Date End Date Destiny Miranda MD [address] [place] [address] PCP - General Family Medicine 06/23/18 Rose Cash Manager Strategic SourcingScreen Printing Machine Operator 09/17/23 documented as of this encounter
--- OUTSIDE RECORDS SUMMARY | 2024-08-30 15:05 | XMS_ITS | Encounter Summary ---
Author Organization [employer] Address [address] [facility] 7[address] [place] [address] Care Team Providers Care Investigations Manager Name Role Phone Destiny Miranda MD Primary Care Provider [phone] Reason for Visit * Reason Onset Date Comments ER Follow-up 08/04/2024 Encounter Details Date Type Department Care Team (Late st Contact Info) Description 08/04/2024 Telephone [facility] MEDICINE [address] [place] [address] Destiny Miranda MD [address] [place] [address] ER Follow-up Social History Tobacco Use Types Packs/Day Years [...] encounter Miscellaneous Notes * Telephone Encounter - Cristy Hatfield RN - 08/04/2024 10:19 AM EST TC placed to pt to f/u on [facility] ED visit from 08/02/2024 for which the pt was seen for ongoing chest pain. [facility] ER discharge summary is scanned under media for review. Per discharge summary it was strongly recommended to follow up with PCP to review diabetic medication regimen. Pt has reportedly not been taking this medications for months. Pt had fluids along with a migraine cocktail and was safely discharged. Pt agreeable to scheduling with Dr. Miranda on 08/12/2024 for an ED F/U and medication review. Pt advised if chest pain returns before this appt to present to the emergency room again for assessment. Pt agreeable to this plan and stated understanding. * Telephone Encounter - Sanaz Cooper - 08/04/2024 9:13 AM EST Patient calling to report ED visit on : Date: 08/02 Hospital: [facility] Seen for: Chest pain Symptomatic No *if yes message should go to Triage Patient advised will forward to team nurse for follow up [phone] documented in this encounter Plan of Treatment Upcoming Encounters Date Type Department Care Team ([facility] st Contact Info) Description 09/17/2024 11:00 AM EDT Medication Management [facility] MED & PEDS [address] [place], [place] [phone] Nicole Gandhi, PharmD [address] [place] [address] documented as of this encounter Visit Diagnoses Not on filedocumented in this encounter Additional Health Concerns Assessment Noted Time PHQ-9 Depression Total Score: 21 024 1:56 PM EDT documented as of this encounter Care Teams Investigations Manager Relationship Specialty Start Date End Date Destiny Miranda MD [address] [place] [address] PCP - General Family Medicine 06/23/18 Rose Cash Sex Worker Or EscortApartment Rental Clerk 09/17/23 documented as of this encounter
--- OUTSIDE RECORDS SUMMARY | 2024-08-30 15:05 | XMS_ITS | Encounter Summary ---
Author Organization [employer] Address [address] [facility] 7[address] [place] [address] Care Team Providers Care Patient Monitor Name Role Phone Destiny Miranda MD Primary Care Provider [phone] Nicole Gandhi PharmD Unavailable [phone] Reason for Visit * Reason Onset Date Comments Prior Authorization 08/20/2024 Encounter Details Date Type Department Care Team (Late st Contact Info) Description 08/20/2024 Telephone [facility] MED [facility]EDS [address] [place] [address] Nicole Gandhi, PharmD [address] [place] [address] Prior Authorization Social History Tobacco Use Types Packs/Day Years [...] the past 12 months, has t he [employer], gas, oil or water [employer] threatened to shut off services in your [...] encounter Miscellaneous Notes * Telephone Encounter - Nicole Gandhi PharmD - 08/20/2024 2:54 PM EST Prior authorization for Holly in process by [facility] pharmacist. documented in this encounter Plan of Treatment Upcoming Encounters Date Type Department Care Team ([facility] st Contact Info) Description 09/17/2024 11:00 AM EDT Medication Management [facility] MED & PEDS [address] [facility] [place] [address] Nicole Gandhi PharmD [address] [place] [address] documented as of this encounter Visit Diagnoses Not on filedocumented in this encounter Additional Health Concerns Assessment Noted Time PHQ-9 Depression Total Score: 21 024 1:56 PM EDT documented as of this encounter Care Teams Patient Monitor Relationship Specialty Start Date End Date Destiny Miranda MD [address] [place] [address] PCP - General Family Medicine 06/23/18 Nicole Gandhi, Nomi [address] [place] [address] Pharmacist Internal Medicine 08/20/24 Rose Cash Cushion PadderBaseball Glove Shaper 09/17/23 documented as of this encounter
--- OUTSIDE RECORDS SUMMARY | 2024-08-30 15:05 | XMS_ITS | Encounter Summary ---
Author Organization [employer] Address [address] [facility] [address] [place] [address] Care Team Providers Care Marketing Director Name Role Phone Destiny Miranda MD Primary Care Provider Nicole Gandhi PharmD Unavailable [phone] Encounter Details Date Type Department Care Team (Late st Contact Info) Description 02/20/2024 Orders Only [facility] MEDICINE [address] [place] [address] Antonette Garcia MD [address] [place] [address] Social History Tobacco Use Types Packs/Day Years [...] [facility] MED [facility] PED[facility] [address] [place] [address] Nicole Gandhi PharmD [address] [place] [address] documented as of this encounter Visit Diagnoses Not on filedocumented in this encounter Additional Health Concerns Assessment Noted Time PHQ-9 Depression Total Score: 21 024 1:56 PM EDT documented as of this encounter Care Teams Marketing Director Relationship Specialty Start Date End Date Destiny Miranda MD [address] [place] [address] PCP - General Family Medicine 06/23/18 Nicole Gandhi PharmD [address] [place] [address] Pharmacist Internal Medicine 08/20/24 Rose Cash Chemical Instrumentation OfficerMachine Setter And Repairer 09/17/23 documented as of this encounter
--- OUTSIDE RECORDS SUMMARY | 2024-08-30 15:05 | XMS_ITS | Clinical Summary ---
Author Organization [facility] Address [address] [place] [phone] Phone Care Team Providers Care Private Detective Name Role Phone Montse Tamayo MD Primary Care Provider Unaakash ilable Immunizations Immunization Administration Dates Next Due DTP 08/01/1992, 2,08/22/1989,1986 Hep B, ped/adol 09/21/1999,04/24/1999,02/14/1999 Hib (PRP-T) 12/22/1991 MMR 02/14/1999,08/22/1989 OPV 08/01/1992, 2,08/22/1989,1986 Td (adult) (MBL), 2 Lf tetan us toxoid, PF, adsorbed 02/19/2000 Td (adult) (Tenivac), 5 Lf t etanus toxoid, PF, adsorbed 05/12/1995 Family History Relation Name Status Comments Father Alive Father: Alive a nd well Maternal Grandfather Materna l grandfather: Diabetes mellitus Maternal Grandmother Materna l grandmother: Diabetes mellitus Mother Mother: Diabete s mellitus Sister 1 Alive Sister: Alive a nd well, Alive and well, Alive and well Sister 2 Alive Sister: Alive a nd well, Alive and well, Alive and well Sister 3 Alive Sister: Alive a nd well, Alive and well, Alive and well Social History Tobacco Use Types Packs/Day Years Used Date Smoking Tobacco: Never Assessed Comments Unknown Sex and Gender Information Value Date Recorded Sex Assigned at Not on file Legal Sex Female 4:14 PM EDT Gender Identity Not on file Sexual Orientation Not on file Plan of Treatment Health Maintenance Due Date Last Done Comments Varicella Vaccines (1 of 2 - 13+ 2-dose series) 02/03/2000 DTaP,Tdap,and Td Vaccines (5 - Tdap) 02/20/2000 02/19/2000, 05/12/1995, 08/01/1992, Additional history exists Influenza Vaccines (#1) 2024 COVID-19 Vaccine (2023- season) 2024 HIB Vaccines Completed 12/22/1991 IPV Vaccines Completed 08/01/1992, 06/1991, 08/22/1989, Additional history exists MMR Vaccines Completed 02/14/1999, 08/22/1989 Hepatitis B Vaccines Completed 09/21/1999, 04/24/1999, 02/14/1999 HPV Vaccines Aged Out No longer eligi ble based on patient's age to complete this topic Hepatitis A Vaccines Aged Out No long er eligible based on patient's age to complete this topic Men B Vaccine Aged Out No longer elig ible based on patient's age to complete this topic Meningococcal Vaccine Aged Out No maru aparna eligible based on patient's age to complete this topic Pneumococcal Vaccine Aged Out No long er eligible based on patient's age to complete this topic Care Teams Private Detective Relationship Specialty Start Date End Date Montse Tamayo MD PCP - General 01/31/17
--- OUTSIDE RECORDS SUMMARY | 2024-08-30 15:05 | XMS_ITS | Encounter Summary ---
Author Organization [employer] Address [address] [place] [address] [address] [place] [address] Care Team Providers Care Oil Tank Car Cleaner Name Role Phone Destiny Miranda MD Primary Care Provider [phone] Nicole Gandhi PharmD Unavailable [phone] Reason for Visit * Reason Onset Date Comments Med Refill 01/19/2023 Encounter Details Date Type Department Care Team (Late st Contact Info) Description 01/19/2023 Refill [facility] MED & PEDS [address] [place] [address] Cristine Guajardo MD [address] [place] [address] Acute vaginitis; Recurrent vaginitis Social History Tobacco Use Types Packs/Day Years Used Date Smoking Tobacco: Never Passive Smoke Exposure: Never Smokeless Tobacco: Never Alcohol Use Standard Drinks/Week Comments Never 0 (1 standard drink = 0.6 oz pur e alcohol) Comments Unknown Sex and Gender Information Value [...] Description 09/17/2024 11:00 AM EDT Medication Management [facility] MED & PEDS [address] [place] [address] Nicole Gandhi PharmD [address] [place] [address] documented as of this encounter Visit Diagnoses Diagnosis Acute vaginitis Unspecified vaginitis and vulvovaginitis Recurrent vaginitis Unspecified vaginitis and vulvovaginitis documented in this encounter Additional Health Concerns Assessment Noted Time PHQ-9 Depression Total Score: 15 023 10:09 AM EDT documented as of this encounter Care Teams Oil Tank Car Cleaner Relationship Specialty Start Date End Date Destiny Miranda MD [address] [place] [address] PCP - General Family Medicine 06/23/18 Nicole Gandhi PharmD [address] [place] [address] Pharmacist Internal Medicine 08/20/24 Rose Cash Kettle CleanerSaw Straightener 09/17/23 documented as of this encounter
--- OUTSIDE RECORDS SUMMARY | 2024-08-30 15:05 | XMS_ITS | Encounter Summary ---
Author Organization [employer] Address [address] [facility] 7t [place] [address] Care Team Providers Care Camera Repairer Name Role Phone Destiny Miranda MD Primary Care Provider [phone] Nicole Gandhi PharmD Unavailable [phone] Reason for Visit * Reason Onset Date Comments Med Refill 08/23/2024 Encounter Details Date Type Department Care Team (Late st Contact Info) Description 08/23/2024 Refill [facility] MED & PEDS [address] [place] [address] Nicole Gandhi, PharmD [address] [place] [address] Social History Tobacco Use Types Packs/Day Years [...] the past 12 months, has t he [employer], gas, oil or water company threatened to [...] Telephone Encounter - Nicole Gandhi PharmD - 08/23/2024 8:49 AM EST Refill requested for medbox documented in this encounter Plan of Treatment Upcoming Encounters Date Type Department Care Team (Late st Contact Info) Description 09/17/2024 11:00 AM EDT Medication Management [facility] MED & PEDS [address] [place] [address] Nicole Gandhi PharmD [address] [place] [address] documented as of this encounter Visit Diagnoses Not on filedocumented in this encounter Additional Health Concerns Assessment Noted Time PHQ-9 Depression Total Score: 21 024 1:56 PM EDT documented as of this encounter Care Teams Camera Repairer Relationship Specialty Start Date End Date Destiny Miranda MD [address] [place] [address] PCP - General Family Medicine 06/23/18 Nicole Gandhi, GregorioD [address] [place] [address] Pharmacist Internal Medicine 08/20/24 Rose Cash [facility] Physician AssistantSurgical Supplies Sterilizer 09/17/23 documented as of this encounter
--- OUTSIDE RECORDS SUMMARY | 2024-08-30 15:05 | XMS_ITS | Encounter Summary ---
Author Organization [email or web address] Address [address] [place] [address] 7t [place] [address] Care Team Providers Care Upholsterer Helper Name Role Phone Destiny Miranda MD Primary Care Provider [phone] Nicole Gandhi PharmD Unavailable [phone] Reason for Visit * Reason Comments Med Change Request Encounter Details Date Type Department Care Team ([facility] st Contact Info) Description 08/15/2023 Refill [facility] MED & PEDS [address] [place], [place] [phone] Cristine Guajardo MD [address] [place] [address] Cervical paraspinal muscle spasm Social History Tobacco Use Types Packs/Day Years Used Date Smoking Tobacco: Never Passive Smoke Exposure: Never Smokeless Tobacco: Never Alcohol Use Standard Drinks/Week Comments Never 0 (1 standard drink = 0.6 oz pur e alcohol) Depression Answer Date Recorded Patient Health Questionnaire-9 Score 22 08/14/2023 Patient Health Questionnaire-9 Score 22 08/14/2023 Last PHQ-9: Questionnaire Data Not on file 0 08/14/2023 Housing Stability Answer Date Recorded What is [...] Date Recorded Patient Health Questionnaire-2 Score 6 08/14/2023 Comments No Sex and Gender Information Value [...] 09/17/2024 11:00 AM EDT Medication Management [facility] MED & PEDS [address] [place], [place] [phone] Nicole Gandhi PharmD [address] [place] [address] documented as of this encounter Visit Diagnoses Diagnosis Cervical paraspinal muscle spasm Spasm of muscle documented in this encounter Additional Health Concerns Assessment Noted Time PHQ-9 Depression Total Score: 22 024 3:36 PM EST documented as of this encounter Care Teams Upholsterer Helper Relationship Specialty Start Date End Date Destiny Miranda MD [address] [place], [place] [phone] PCP - General Family Medicine 06/23/18 Nicole Gandhi, PharmD [address] [place], [place] [phone] Pharmacist Internal Medicine 08/20/24 Rose Cash Science Education ProfessorHealthcare Network Pricing Consultant 09/17/23 documented as of this encounter
== END 2024-08-30 14:11 | disposition home or self-care (01) ==
PROVIDERS: PCP Pediatrics; Visit Provider Nurse Practitioner Family
DX: R07.89 Other chest pain (principal); Z82.49 Family history of ischemic heart disease and other diseases of the circulatory system; E11.9 Type 2 diabetes mellitus without complications; I10 Essential (primary) hypertension
CPT/HCPCS: 99204

== ENCOUNTER → 2024-08-30 13:21 | Outpatient (BNVA) | payer MEDICAID, SELFPAY | PROVIDERS: PCP Pediatrics; Visit Provider Nurse Practitioner Family | DX: R07.89 Other chest pain (principal); I10 Essential (primary) hypertension; E11.9 Type 2 diabetes mellitus without complications; Z82.49 Family history of ischemic heart disease and other diseases of the circulatory system | CPT/HCPCS: 99212 ==

== ENCOUNTER → 2024-09-08 12:36 | Outpatient (REF) | payer MEDICAID, SELFPAY ==
--- NOTE | 2024-09-08 12:39 | CA_ITS ---
Transthoracic Echocardiogram Patient (Last, First, Middle): Yvrose Cooper L Gender: Female Date of : 1985 Age: 39 Procedure Date: 09/08/2024 Procedure Type: Transthoracic Echocardiogram Location: OP Height: 167.64 cm Weight: 76.66 kg BSA: 1.86 m2 Heart Rate: bpm BP: 139 / 78 mmHg Mold Sheet Cleaner: ANSLEY Referring MD: Ankita Crews CARBON PAPER INTERLEAFER-C Casting Carrier: Gordon Rivera MD Symptoms: R07.89 - Other chest pain Study Quality: Adequate with contrast ECG Rhythm: Sinus Conclusions: - 1. Normal LV ejection fraction with impaired relaxation filling pattern with LVEF of 60 65% 2. Normal cardiac valvular Dopplers 3. No gross pericardial effusion Findings Procedure Information Contrast agent, definity, is being given per protocol without apparent complications. Left Ventricle Normal left ventricular size, thickness, and systolic function. The visually estimated ejection fraction is between 60-65%. Spectral Doppler is indicative of an impaired relaxation filling pattern. E/E prime ratio is between 8 and 15 consistent with indeterminate filling pressures. Right Ventricle Normal right ventricular cavity size and systolic function. Atria Both atria are normal in size. Interatrial shunt cannot be excluded. Aortic Valve The aortic valve structure and function is likely normal. There is no aortic valve stenosis. There is no aortic valve regurgitation. Mitral Valve Normal mitral valve structure and function. There is no mitral valve regurgitation. There is no mitral valve stenosis. Pulmonic Valve The pulmonic valve is likely normal. There is trace pulmonic valve regurgitation. Tricuspid Valve Likely normal tricuspid valve structure and function. Tricuspid regurgitation envelope is inadequate for calculation of right ventricular systolic pressure. Normal right atrial pressure. Great Vessels All visible segments of the aorta are normal in size. The pulmonary artery was not well visualized. Venous The inferior vena cava is normal in size and collapses greater than 50% with inspiration. Pericardium/Pleural There is no evidence of pericardial effusion. Prior Study Comparison No prior study available for comparison. Measurements 2D Linear Measurements IVSd: 1.02 0.6-0.9/0.6-1.0 cm LVIDd: 3.76 3.9-5.3/4.2-5.9 cm LVIDd Index: 2.02 2.4-3.2/2.2-3.1 cm/m2 LVIDs: 2.67 2.0-3.6 cm LVPWd: 1.00 0.7-1.1 cm LA Diam: 2.50 2.7-3.8/3.0-4.0 cm LAIDs Index: 1.34 1.5-2.3 cm/m2 LV Mass: 145.12 67-162/88-224 g LV Mass Index: 78.02 43-95/49-115 g/m2 LVOT Diam: 2.00 3.0+(-)1.3 cm 2D Systolic Function EF 4C: 68.80 >55% EF 2C: 57.10 >55% EF BiP: 61.70 >55% Mitral Valve MV Pk E: 0.72 MV PK A: 0.84 MV Decel Time: 169.00 E/A: 0.90 E'Lateral: 8.05 E'Medial: 5.66 E/E' Med: 12.80 E/E' Lat: 9.00 PHT: 49.00 MVA PHT: 4.49 Decel Izard: 4.29 Aortic Valve AoV Pk Nikita: 1.24 AoV Mn Nikita: 0.94 AoV VTI: 0.24 AoV Pk Grad: 6.00 Aov Mn Grad: 4.00 ARMINDA Cont.VTI: 2.88 LVOT LVOT Pk Nikita: 1.15 LVOT Mn Nikita: 0.83 LVOT VTI: 0.22 LVOT Pk Grad: 5.00 LVOT Mn Grad: 3.00 LVOT Diam: 2.00 LVOT Area: 3.14 Diastolic Function MV Pk E: 0.72 MV Pk A: 0.84 E/A: 0.90 E'Medial: 5.66 E/E' Med: 12.80 E' Laterial: 8.05 E/E' Lat: 9.00 Right Ventricle TAPSE (mm): 22.80 TVS' Nikita: 11.70 Tricuspid Valve RA Press: 3.00 Great Vessels Aorta Sinus of Valsalva: 3.53 2.0-3.5 cm Ao Asc: 3.10 2.1-3.4 cm Ao Arch: 2.70 Updated in Other Vendor System with Status of Final Gordon Rivera MD electronically signed on 09/09/2024 12:15:32 PM with status of Final
--- OUTSIDE RECORDS SUMMARY | 2024-09-08 14:57 | XMS_ITS | Encounter Summary ---
Author Organization [facility] Address [address] [place] [address] Phone Care Team Providers Care Rn Labor Delivery Name Role Phone Montse Tamayo MD Primary Care Provider Unava ilable Encounter Details Date Type Department Care Team (Late st Contact Info) Description 04/24/2017 Conversion Encounter [facility] - [address] [address] Social History Tobacco Use Types Packs/Day Years [...] on filedocumented in this encounter Care Teams Rn Labor Delivery Relationship Specialty Start Date End Date Montse Tamayo MD PCP - General 01/31/17 documented as of this encounter
--- OUTSIDE RECORDS SUMMARY | 2024-09-08 14:57 | XMS_ITS | Clinical Summary ---
Author Organization [facility] Address [address] [place] [address] Phone Care Team Providers Care Mechanical Systems Designer Name Role Phone Montse Tamayo MD Primary [...] age to complete this topic Care Teams Mechanical Systems Designer Relationship Specialty Start Date End Date Montse Tamayo MD PCP - General 01/31/17
--- OUTSIDE RECORDS SUMMARY | 2024-09-08 14:57 | XMS_ITS | Encounter Summary ---
Author Organization [employer] Address [address] [facility] [address] 7t [place] [address] Care Team Providers Care Clin Nurse Spec Name Role Phone Destiny Miranda MD Primary Care Provider [phone] Encounter Details Date Type Department Care Team [...] Description 09/17/2024 11:00 AM EDT Medication Management [facility] MED & PEDS [address] [place] [address] Nicole Gandhi, PharmD [address] [place] [address] 09/22/2024 9:45 AM EDT Procedure Visit [facility] MED & PEDS [address] [place] [address] Destiny Miranda MD [address] [place] [address] documented as of this encounter Visit Diagnoses Not on filedocumented in this encounter Additional Health Concerns Assessment Noted Time PHQ-9 Depression Total Score: 21 024 1:56 PM EDT documented as of this encounter Care Teams Clin Nurse Spec Relationship Specialty Start Date End Date Destiny Miranda MD [address] [place] [address] PCP - General Family Medicine 06/23/18 Rose Cash Cutter And PresserElectrical Controls Technician 09/17/23 documented as of this encounter
--- OUTSIDE RECORDS SUMMARY | 2024-09-08 14:57 | XMS_ITS | Encounter Summary ---
Author Organization [employer] Address [address] [facility] 7t [place] [address] Care Team Providers Care Roustabout Head Name Role Phone Destiny Miranda MD Primary Care Provider [phone] Nicole Gandhi PharmD Unavailable [phone] Reason for Visit * Reason Onset Date Comments Prior Authorization 08/20/2024 Encounter Details Date Type Department Care Team (Late st Contact Info) Description 08/20/2024 Telephone [facility] MED & PEDS [address] [place] [address] Nicole Gandhi, PharmD [address] [place] [address] Prior Authorization Social History Tobacco Use Types [...] the past 12 months, has t he [employer], gas, oil or water [employer] threatened to shut off services in your [...] Prior authorization for Holly in process by [facility] pharmacist. documented in this encounter Plan of Treatment Upcoming Encounters Date Type Department Care Team (Late st Contact Info) Description 09/17/2024 11:00 AM EDT Medication Management [facility] MED & PEDS [address] [place] [address] Nicole Gandhi PharmD [address] [place] [address] 09/22/2024 9:45 AM EDT Procedure Visit [facility] MED & PEDS [address] [place] [address] Destiny Miranda MD [address] [place] [address] documented as of this encounter Visit Diagnoses Not on filedocumented in this encounter Additional Health Concerns Assessment Noted Time PHQ-9 Depression Total Score: 21 024 1:56 PM EDT documented as of this encounter Care Teams Roustabout Head Relationship Specialty Start Date End Date Destiny Miranda MD [address] [place] [address] PCP - General Family Medicine 06/23/18 Nicole Gandhi PharmD [address] [place] [address] Pharmacist Internal Medicine 08/20/24 Rose Cash Manager Financial SystemsAquatics Coordinator 09/17/23 documented as of this encounter
--- OUTSIDE RECORDS SUMMARY | 2024-09-08 14:57 | XMS_ITS | Encounter Summary ---
Author Organization [employer] Address [address] [facility] [address] [facility] [address] 7[address] [place] [address] Care Team Providers Care Branch Billing Payroll Clerk Name Role Phone Destiny Miranda MD Primary Care Provider [phone] Nicole Gandhi PharmD Unavailable [phone] Encounter Details Date Type Department Care Team (Late st Contact Info) Description 06/02/2023 Orders Only [facility] [address] [place], [place] [phone] Bo Caraballo MD [address] [place] [address] Social History Tobacco Use Types Packs/Day Years [...] Description 09/17/2024 11:00 AM EDT Medication Management [facility] MED & PEDS [address] [place] [address] Nicole Gandhi PharmD [address] [place] [address] 09/22/2024 9:45 AM EDT Procedure Visit [facility] MED & PEDS [address] [place] [address] Destiny Miranda MD [address] [place] [address] documented as of this encounter Visit Diagnoses Not on filedocumented in this encounter Additional Health Concerns Assessment Noted Time PHQ-9 Depression Total Score: 9 02/12/20 23 9:12 AM EDT documented as of this encounter Care Teams Branch Billing Payroll Clerk Relationship Specialty Start Date End Date Destiny Miranda MD [address] [place] [address] PCP - General Family Medicine 06/23/18 Nicole Gandhi, GregorioD [address] [place] [address] Pharmacist Internal Medicine 08/20/24 Rose Cash Microfilm Camera OperatorRetail General Manager 09/17/23 documented as of this encounter
--- OUTSIDE RECORDS SUMMARY | 2024-09-08 14:57 | XMS_ITS | Encounter Summary ---
Author Organization [email or web address] Address [address] [place] [address] 7t [place] [address] Care Team Providers Care Automotive Shop Foreman Name Role Phone Destiny Miranda MD Primary Care Provider Nicole Gandhi PharmD Unavailable [phone] Reason for Visit * Reason Comments Med Change Request Encounter Details Date Type Department Care Team ([facility] st Contact Info) Description 08/15/2023 Refill [facility] CH[facility] MED & PEDS [address] [place], [place] [phone] Cristine Guajardo MD [address] [place] [address] Cervical paraspinal muscle spasm Social History Tobacco [...] Description 09/17/2024 11:00 AM EDT Medication Management [facility] MED & PEDS [address] [place] [address] Nicole Gandhi, PharmD [address] [place] [address] 09/22/2024 9:45 AM EDT Procedure Visit [facility] MED & PEDS [address] [place] [address] Destiny Miranda MD [address] [place] [address] documented as of this encounter Visit Diagnoses Diagnosis Cervical paraspinal muscle spasm Spasm of muscle documented in this encounter Additional Health Concerns Assessment Noted Time PHQ-9 Depression Total Score: 22 024 3:36 PM EST documented as of this encounter Care Teams Automotive Shop Foreman Relationship Specialty Start Date End Date Destiny Miranda MD [address] [place] [address] PCP - General Family Medicine 06/23/18 Nicole Gandhi, GregorioD [address] [place] [address] Pharmacist Internal Medicine 08/20/24 Rose Cash International RecruiterPort Engineer 09/17/23 documented as of this encounter
--- OUTSIDE RECORDS SUMMARY | 2024-09-08 14:57 | XMS_ITS | Encounter Summary ---
Author Organization [employer] Address [address] [facility] 7t [place] [address] Care Team Providers Care Retail Manager In Training Name Role Phone Destiny Miranda MD Primary Care Provider [phone] Nicole Gandhi PharmD Unavailable [phone] Encounter Details Date Type Department Care Team (Late st Contact Info) Description 09/03/2024 Population Health Risk Score [facility] ([facility]) Department [address] [facility] [address] [place] [address] Provider, Population Health Generic Social History Tobacco Use Types Packs/Day Years Used Date Smoking Tobacco: Never Passive Smoke Exposure: Never Smokeless Tobacco: Never Alcohol Use Standard Drinks/Week Comments Never 0 (1 standard drink = 0.6 oz pur e alcohol) Depression Answer Date Recorded Patient Health Questionnaire-9 Score 21 08/31/2024 Patient Health Questionnaire-9 Score 21 08/31/2024 Last PHQ-9: Questionnaire Data Not on file 0 08/31/2024 Housing Stability Answer Date Recorded What is your housing situation today? I have claudiaclaudia thakur 04/07/[address] you [...] Date Recorded Patient Health Questionnaire-2 Score 6 08/31/2024 Comments No Sex and Gender Information Value [...] 11:00 AM EDT Medication Management [facility] MED & PEDS [address] [place] [address] Nicole Gandhi PharmD [address] [place] [address] 09/22/2024 9:45 AM EDT Procedure Visit [facility] MED & PEDS [address] [place] [address] Destiny Miranda MD [address] [place] [address] documented as of this encounter Visit Diagnoses Not on filedocumented in this encounter Additional Health Concerns Assessment Noted Time PHQ-9 Depression Total Score: 21 025 9:51 AM EDT documented as of this encounter Care Teams Retail Manager In Training Relationship Specialty Start Date End Date Destiny Miranda MD [address] [place] [address] PCP - General Family Medicine 06/23/18 Nicole Gandhi, PharmD [address] [place] [address] Pharmacist Internal Medicine 08/20/24 Rose Cash Manager SterileCampus Recruiter 09/17/23 documented as of this encounter
--- OUTSIDE RECORDS SUMMARY | 2024-09-08 14:57 | XMS_ITS | Encounter Summary ---
Author Organization [employer] Address [address] [facility] [place] [address] Care Team Providers Care Manager Online Name Role Phone Destiny Miranda MD Primary Care Provider [phone] Nicole Gandhi PharmD Unavailable [phone] Encounter Details Date Type Department Care Team [...] 09/17/2024 11:00 AM EDT Medication Management [facility] MED & PEDS [address] [place] [address] Nicole Gandhi PharmD [address] [place] [address] 09/22/2024 9:45 AM EDT Procedure Visit [facility] & PEDS [address] [place] [address] Destiny Miranda MD [address] [place] [address] documented as of this encounter Visit Diagnoses Not on filedocumented in this encounter Additional Health Concerns Assessment Noted Time PHQ-9 Depression Total Score: 21 024 1:56 PM EDT documented as of this encounter Care Teams Manager Online Relationship Specialty Start Date End Date Destiny Miranda MD [address] [place] [address] PCP - General Family Medicine 06/23/18 Nicole Gandhi, GregorioD [address] [place] [address] Pharmacist Internal Medicine 08/20/24 Rose Cash Parking OfficerVoip Network Technician 09/17/23 documented as of this encounter
--- OUTSIDE RECORDS SUMMARY | 2024-09-08 14:57 | XMS_ITS | Encounter Summary ---
Author Organization [employer] Address [address] [place] [address] 7t [place] [address] Care Team Providers Care Towel Folder Name Role Phone Destiny Miranda MD Primary Care Provider [phone] Nicole Gandhi PharmD Unavailable [phone] Reason for Visit * Reason Onset Date Comments Med Refill 01/19/2023 Encounter Details Date Type Department Care Team (Late st Contact Info) Description 01/19/2023 Refill [facility] MED & PEDS [address] [place] [address] Cristine Guajardo MD [address] [place] [address] Acute vaginitis; Recurrent vaginitis Social History Tobacco [...] 09/17/2024 11:00 AM EDT Medication Management [facility] MED & PEDS [address] [place] [address] Nicole Gandhi PharmD [address] [place] [address] 09/22/2024 9:45 AM EDT Procedure Visit [facility] MED & PEDS [address] [place] [address] Destiny Miranda MD [address] [place] [address] documented as of this encounter Visit Diagnoses Diagnosis Acute vaginitis Unspecified vaginitis and vulvovaginitis Recurrent vaginitis Unspecified vaginitis and vulvovaginitis documented in this encounter Additional Health Concerns Assessment Noted Time PHQ-9 Depression Total Score: 15 023 10:09 AM EDT documented as of this encounter Care Teams Towel Folder Relationship Specialty Start Date End Date Destiny Miranda MD [address] [place] [address] PCP - General Family Medicine 06/23/18 Nicole Gandhi PharmD [address] [place] [address] Pharmacist Internal Medicine 08/20/24 Rose Cash Mileage ClerkBrick Handler 09/17/23 documented as of this encounter
--- OUTSIDE RECORDS SUMMARY | 2024-09-08 14:59 | XMS_ITS | Encounter Summary ---
Author Organization [employer] Address [address] [address] Care Team Providers Care Towing Pilot Name Role Phone Destiny Miranda MD Primary Care Provider [phone] Reason for Referral * Consultation (Urgent) - Closed Specialty Diagnoses / Procedures Referred By Gabriela gallo Referred To Contact Cardiology Diagnoses Diabetes mellitus type 2, insulin dependent (CMS/HCC) Benign hypertension Atypical chest pain Destiny Miranda MD [address] [place] [address] Phone: tel: fax: Gordon Rivera MD [address] [address] Phone: tel: fax: Referral ID Status Reason Start Date Expiration Date V isits Requested Visits Authorized [id number] Closed Specialty Services Required 08/12/2024 08/12/2025 1 1 Scheduling Instructions [place] [facility] [place] * Consultation (Routine) - Closed Specialty Diagnoses / Procedures Referred By Gabriela gallo Referred To Contact Behavioral Health Diagnoses Mood disorder (CMS/HCC) Destiny Miranda MD [address] [place] [address] Phone: tel: fax: Referral ID Status Reason Start Date Expiration Date V isits Requested Visits Authorized [id number] Closed Specialty Services Required 08/12/2024 08/12/2025 1 1 * Consultation (Urgent) - Closed Specialty Diagnoses / Procedures Referred By Contac t Referred To Contact Psychiatry / Behavioral Health Diagnoses Mood disorder (CMS/HCC) Destiny Miranda MD [address] [place] [address] Phone: tel: fax: Referral ID Status Reason Start Date Expiration Date V isits Requested Visits Authorized [id number] Closed Specialty Services Required 08/12/2024 08/12/2025 1 1 Encounter Details Date Type Department Care Team ([facility] st Contact Info) Description 08/12/2024 11:15 AM EST Office Visit [facility] MED & PEDS [address] [place] [address] Destiny Miranda MD [address] [place] [address] Mood disorder (CMS/HCC) (Primary Dx); Diabetes mellitus [...] first appointment with On August 20 at [facility] that she plans to attend. Patient is living with her daughter, patient's boyfriend, patient's mom. Patient's twin sister was recently diagnosed with coronary artery disease and she is being treated at [facility]. Review of Systems Constitutional: Negative for activity [...] all orders for this visit: Mood disorder ([facility]/HCC) Comments: New behavior therapist and psych referral done today. Refilled her Wellbutrin and hydroxyzine as well. Orders: - Referral to Behavioral Health Psychiatry; Future - Referral to Behavioral Health; Future Diabetes mellitus type 2, insulin dependent ([facility]) Comments: Uncontrolled. A1c unable to be read [...] Neuropathy due to type 2 diabetes mellitus ([facility]) Atypical chest pain Comments: Due to history [...] Description 09/17/2024 11:00 AM EDT Medication Management [facility] MED & PEDS [address] [place] [address] Nicole Gandhi, PharmD [address] [place] [address] 09/22/2024 9:45 AM EDT Procedure Visit [facility] [address] [place] [address] Destiny Miranda MD [address] [place] [address] Scheduled Referrals Name Type Priority Associated Diagnoses Order Schedule Referral to Behavioral Health Psychiatry Outpatient Referral Urgent Mood disorder ([facility]/HCC) Expected: 08/12/2024 (Approximate), Expires: 08/12/2025 Referral to Behavioral Health Outpatient Referral Routine Mood disorder (CMS/HCC) Expected: 08/12/2024 (Approximate), Expires: 08/12/2025 Referral to Cardiology Outpatient Referral Urgent Diabetes mellitus type 2, insulin dependent ([facility]) Benign hypertension Atypical chest pain Expected: 08/12/2024 (Approximate), Expires: 08/12/2025 documented as of this encounter Procedures Procedure Name Priority Date/Time Associated Diagnosis Comments POCT GLUCOSE Routine 08/12/2024 11:51 AM EST Diabetes mellitus type 2, insulin dependent ([facility]/HCC) POCT GLYCATED HEMOGLOBIN, TOTAL Routine 08/12/2024 11:05 AM EST Diabetes mellitus type 2, insulin dependent ([facility]) POCT GLUCOSE Routine 08/12/2024 11:05 AM EST Diabetes mellitus type 2, insulin dependent ([facility]) documented in this encounter Results * (ABNORMAL) POCT glucose manually resulted (08/12/2024 11:51 AM EST) [facility] Glucose Blood, POC 436(A) 60 - 200 mg/dL QC Media Lot # Comment:[id number] Lot# Expiration Date Comment:09/28/2024 Blood Capillary blood specimen / Unknown 08/12/2024 11:51 AM EST us Destiny Miranda MD POINT OF CARE TEST ENTER/EDIT ORDERABLES Final Result * (ABNORMAL) POCT glucose manually resulted (08/12/2024 11:05 AM EST) Glucose Blood, POC 500(A) 60 - 200 mg/dL Comment:[facility] QC Media Lot # Comment:[id number] Lot# Expiration Date Comment:09/28/2024 Blood Capillary blood specimen / Unknown 08/12/2024 11:05 AM EST us Destiny Miranda MD POINT OF CARE TEST ENTER/EDIT ORDERABLES Final Result * (ABNORMAL) POCT A1C (08/12/2024 11:05 AM EST) Hemoglobin A1C 15.0(A) 4.0 - 6.0 % Comment:Code #106 QC Media Lot # Comment:[id number] Lot# Expiration Date Comment:04/09/2026 Blood 08/12/2024 11:0 [...] documented as of this encounter Care Teams Towing Pilot Relationship Specialty Start Date End Date Destiny Miranda MD [address] [place] [address] PCP - General Family Medicine 06/23/18 Rose Cash Tool AdjusterVolunteer Specialist 09/17/23 documented as of this encounter
--- OUTSIDE RECORDS SUMMARY | 2024-09-08 14:59 | XMS_ITS | Encounter Summary ---
Author Organization [employer] Address [address] [facility] [address] 7[address] [place] [address] Care Team Providers Care Filler Operator Name Role Phone Destiny Miranda MD Primary Care Provider [phone] Nicole Gandhi PharmD Unavailable [phone] Encounter Details Date Type Department Care Team [...] 11:00 AM EDT Medication Management [facility] MED & PEDS [address] [place] [address] Nicole Gandhi PharmD [address] [place] [address] 09/22/2024 9:45 AM EDT Procedure Visit [facility] MED & PEDS [address] [place] [address] Destiny Miranda MD [address] [place] [address] documented as of this encounter Visit Diagnoses Not on filedocumented in this encounter Additional Health Concerns Assessment Noted Time PHQ-9 Depression Total Score: 21 024 1:56 PM EDT documented as of this encounter Care Teams Filler Operator Relationship Specialty Start Date End Date Destiny Miranda MD [address] [place] [address] PCP - General Family Medicine 06/23/18 Nicole Gandhi, GregorioD [address] [place] [address] Pharmacist Internal Medicine 08/20/24 Rose Cash Collection Systems TechnicianBusiness Segment Manager 09/17/23 documented as of this encounter
--- OUTSIDE RECORDS SUMMARY | 2024-09-08 14:59 | XMS_ITS | Encounter Summary ---
Author Organization [employer] Address 75 [facility] 7t [place] [address] Care Team Providers Care Family Law Specialist Name Role Phone Destiny Miranda MD Primary Care Provider [phone] Nicole Gandhi PharmD Unavailable [phone] Reason for Visit * Reason Onset Date Comments Med Refill 08/23/2024 Encounter Details Date Type Department Care Team (Late st Contact Info) Description 08/23/2024 Refill [facility] MED & PEDS [address] [place] [address] Nicole Gandhi, PharmD [address] [place] [address] Social History Tobacco Use Types Packs/Day Years [...] the past 12 months, has t he [place], gas, oil or water [employer] threatened to shut off services in your [...] Description 09/17/2024 11:00 AM EDT Medication Management [facility] MED & PEDS [address] [place] [address] Nicole Gandhi PharmD [address] [place] [address] 09/22/2024 9:45 AM EDT Procedure Visit [facility] MED & PEDS [address] [place] [address] Destiny Miranda MD [address] [place] [address] documented as of this encounter Visit Diagnoses Not on filedocumented in this encounter Additional Health Concerns Assessment Noted Time PHQ-9 Depression Total Score: 21 024 1:56 PM EDT documented as of this encounter Care Teams Family Law Specialist Relationship Specialty Start Date End Date Destiny Miranda MD [address] [place] [address] PCP - General Family Medicine 06/23/18 Nicole Gandhi PharmD [address] [place] [address] Pharmacist Internal Medicine 08/20/24 Rose Cash Outside Sales RepresentativeRegistered Route Associate 09/17/23 documented as of this encounter
--- OUTSIDE RECORDS SUMMARY | 2024-09-08 14:59 | XMS_ITS | Encounter Summary ---
Author Organization [employer] Address 75 [facility] 7t [place] [address] Care Team Providers Care Care Transition Manager Name Role Phone Destiny Miranda MD Primary Care Provider [phone] Nicole Gandhi PharmD Unavailable Reason for Visit * Reason Onset Date Comments Medication Question 04/28/2024 Encounter Details Date Type Department Care Team (Late st Contact Info) Description 04/28/2024 Telephone [facility] MEDICINE [address] [place] [address] Destiny Miranda MD [address] [place] [address] Medication Question Social History Tobacco Use Types [...] 12:48 PM EST Pt does not have [facility] as a pharmacy. Pt needs to contact office if pt is requesting to change pharmacies to [facility]. * Telephone Encounter - Brett Dailey - 04/28/2024 10:27 AM EST Tc from Krystin ([facility]) requesting a call , Krystin need more info in medication that's not in thelist (Lisinopril 40 mg), documented in this encounter Plan of Treatment Upcoming Encounters Date Type Department Care Team (Late st Contact Info) Description 09/17/2024 11:00 AM EDT Medication Management [facility] MED & PEDS [address] [place], [place] [phone] Nicole Gandhi, PharmD [address] [place] [address] 09/22/2024 9:45 AM EDT Procedure Visit [facility] CH[facility] MED & PEDS [address] [place], [place] [phone] Destiny Miranda MD [address] [place] [address] documented as of this encounter Visit Diagnoses Not on filedocumented in this encounter Additional Health Concerns Assessment Noted Time PHQ-9 Depression Total Score: 21 024 1:56 PM EDT documented as of this encounter Care Teams Care Transition Manager Relationship Specialty Start Date End Date Destiny Miranda MD [address] [place], [place] [phone] PCP - General Family Medicine 06/23/18 Nicole Gandhi PharmD [address] [place] [address] Pharmacist Internal Medicine 08/20/24 Rose Cash Boiler InstallerChief Underwriter 09/17/23 documented as of this encounter
--- OUTSIDE RECORDS SUMMARY | 2024-09-08 14:59 | XMS_ITS | Encounter Summary ---
Author Organization [employer] Address 75 [facility] 7 [place] [address] Care Team Providers Care Rail Car Maintenance Mechanic Name Role Phone Destiny Miranda MD Primary Care Provider [phone] Nicole Gandhi PharmD Unavailable [phone] Reason for Visit * Reason Onset Date Comments returning call 05/17/2024 Encounter Details Date Type Department Care Team (Late st Contact Info) Description 05/17/2024 Telephone [facility] MEDICINE [address] [place] [address] Destiny Miranda MD [address] [place] [address] returning call Social History Tobacco Use Types [...] will like another callback . Callback number [phone] documented in this encounter Plan of Treatment Upcoming Encounters Date Type Department Care Team (Late st Contact Info) Description 09/17/2024 11:00 AM EDT Medication Management [facility] MED & PEDS 505 [place] [address] Nicole Gandhi, PharmD [address] [place], [place] [phone] 09/22/2024 9:45 AM EDT Procedure Visit [facility] CHC MED & PEDS 505 [place] [address] Destiny Miranda MD [address] [place] [address] documented as of this encounter Visit Diagnoses Not on filedocumented in this encounter Additional Health Concerns Assessment Noted Time PHQ-9 Depression Total Score: 21 024 1:56 PM EDT documented as of this encounter Care Teams Rail Car Maintenance Mechanic Relationship Specialty Start Date End Date Destiny Miranda MD [address] [place] [address] PCP - General Family Medicine 06/23/18 Nicole Gandhi, GregorioD [address] [place] [address] Pharmacist Internal Medicine 08/20/24 Rose Cash Pool PlayerArmored Car Guard And Driver 09/17/23 documented as of this encounter
--- OUTSIDE RECORDS SUMMARY | 2024-09-08 15:00 | XMS_ITS | Clinical Summary ---
Author Organization [employer] Address 75 [facility] 7t [place] [address] Care Team Providers Care Lawn Service Worker Name Role Phone Destiny Miranda MD Primary Care Provider [phone] Nicole Gandhi PharmD Unavailable [phone] Allergies No known active allergies Medications * This document contains information received from the source organization and may not represent a complete record from that organization. Blood Pressure kit 1 Units in the morning. 1 kit 023 Active FREESTYLE LITE test stripIndications: Neuropathy due to type 2 diabetes mellitus ([facility]) USE DIRECTED TWICE A DAY 100 strip [...] 12 UnitsIndications:Diabetes mellitus type 2, insulin dependent ([facility]) 12 Units IJ Once 08/12/2024 08/12/2024 Ended Active Problems Patient Care Coordination No te Formatting of this note migh t be different from the original. C3/CM Jeimy Meehan RN Problem Noted Date Diagnosed Date Mild anxiety 08/31/2024 Grief 08/31/2024 Family history of early CAD 08/12/2024 Diabetes mellitus type 2, insulin dependent 07/25 Assessment & Plan (08/15/2023 10:45 AM EST): Uncontrolled: Glucose at 500. Will discuss during F/U. Continue treatment plan Labs: glucose Noncompliance with diabetes treatment 08/15/2023 Thyroid disease in 08/15/2023 Primary hypertension 06/09/2023 Neuropathy due to type 2 diabetes mellitus 07/10 Irregular periods 11/27/2017 Type 2 diabetes mellitus, uncontrolled 6 Overweight 04/07/2015 Elevated levels of transaminase & lactic acid de hydrogenase 01/10/2014 Folliculitis 11/18/2013 Hypothyroidism 10/30/2012 Bipolar disorder, unspecified 09/12/2011 Assessment & Plan (01/01/2024 2:36 PM [...] retiring, patient will be referred to new [facility] Psychiatric provider. She is aware that appts will be televisits and that provider will not be an employee of [facility]. She gives permission to share PHI. Any [...] patient's care will be transferred to new [facility] Psychiatric provider. F/U with therapist as usual. [...] Otitis media 09/12/2011 Vaginitis and vulvovaginitis 09/12/2011 Resolved Problems Problem Noted Date Diagnosed Date Resolved Date Bipolar disease in 08/15/2023 08/31/2024 Encounters * This document contains information received from the source organization and may not represent a complete record from that organization. Date Type Department Care Team Description 09/03/[address] [facility] () Department [address] [place] [phone] Provider, Population Health Generic 08/27/2024 Travel 08/23/2024 Refill [facility] MED & PEDS [address] [place] [address] Nicole Gandhi, PharmD 08/20/2024 Telephone [facility] [address] [place] [address] Nicole Gandhi, PharmD Prior Authorization 08/20/2024 Travel 08/12/2024 11:15 AM EST Office Visit [facility] MED & PEDS [address] [place] [address] Destiny Miranda MD Mood disorder (CMS/HCC) (Primary Dx); Diabetes mellitus type 2, insulin dependent (CMS/HCC); Benign hypertension; Neuropathy due to type 2 diabetes mellitus (CMS/HCC); Atypical chest pain; Family history of early CAD 08/12/2024 Travel 08/04/2024 Telephone [facility] MEDICINE [address] [place], [place] [phone] Destiny Miranda MD ER Follow-up 07/21/2024 Orders Only [facility] [address] [place], [place] [phone] Destiny Miranda MD Diabetes mellitus type 2, insulin dependent (CMS/HCC) (Primary Dx); Benign hypertension 07/20/2024 Telephone [facility] MED & PEDS [address] [place], [place] [phone] Nicole Gandhi PharmD 06/26/2024 Refill [facility] MED [facility] PEDS [address] [place], [place] [phone] Destiny Miranda MD from Last 3 Months [...] Description 09/17/2024 11:00 AM EDT Medication Management [facility] MED & PEDS [address] [place] [address] Nicole Gandhi, PharmD [address] [place] [address] 09/22/2024 9:45 AM EDT Procedure Visit [facility] MED [facility] PEDS [address] [place] [address] Destiny Miranda MD [address] [place] [address] Health Maintenance Due Date Last Done Comments [...] Cervical Cancer Screening 06/29/2024 HPV/Cotest 06/29/2024 06/29/2019 Diabetes: Hemoglobin A1C 11/09/2024 025, 03/09/2024, 02/04/2024, Additional history exists Depression Monitoring (PHQ-9) 03/03/2025 08/31/2024, 08/31/2024 Diabetes: Urine Protein Screening 03/09/2025 03/09/2024, 11/09/2020, 04/21/2020 Lipid Panel 03/09/2025 03/09/2024, 04/21/2020 Tobacco Screening 03/26/2025 03/26/2024 Depression Screening 08/31/2025 08/31/2024, 09/01/19 25 DTaP/Tdap/Td Vaccines (7 - Td or Tdap) 05/27/2028 05/27/2018, 05/26/2014, 02/19/2000, Additional history exists Zoster Vaccines (1 of 2) 2037 RSV Patients and Patients Aged 60 years or older (1 - 1-dose 75+ series) 2062 HIB Vaccines Completed 12/22/1991 IPV Vaccines Completed 08/01/1992, 06/1991, 08/22/1989, Additional history exists Hepatitis B Vaccines [...] callus Diabetes mellitus type 2, insulin dependent ([facility]) Primary hypertension BITEWING - SINGLE RADIOGRAPHIC IMAGE [...] - 200 mg/dL QC Media Lot # Comment:[id number] Lot# Expiration Date Comment:09/28/2024 Blood Capillary blood specimen / Unknown 08/12/2024 11:51 AM EST Destiny Miranda MD POINT OF CARE TEST ENTER/EDIT ORDERABLES Final Result * (ABNORMAL) POCT A1C (08/12/2024 11:05 AM EST) Hemoglobin A1C 15.0(A) 4.0 - 6.0 % Comment:Code #106 QC Media Lot # Comment:[id number] Lot# Expiration Date Comment:04/09/2026 Blood 08/12/2024 11:0 5 AM EST Destiny Miranda MD POINT OF CARE TEST ENTER/EDIT ORDERABLES Final Result * (ABNORMAL) Albumin, Random Urine W/Creatinine (03/09/2024 9:40 AM EDT) Creatinine, Urine 47.59 mg/dL [facility] Microalbumin Urine 272.0 mg/L H [facility] Microalbum Creatinine Ratio Ur 571.5(H) <30 ug/mg cr [facility] Comment:Albumin/Creatinine R atio Reference Ranges: Normal: < 30 ug/mg creatinine Microalbuminuria: 30 - 300 ug/mg creatinineClinical Albuminuria: > 300 ug/mg creatinine Urine (Urine, Random) 03/09/2024 9:40 AM EDT 03/09/2024 2:19 PM EDT Destiny Miranda MD LAB URINE ORDERABLES Final Re sult Performing Organization Address [facility] Co de Phone Number [facility] [address] [place] [address] [phone] * (ABNORMAL) Lipid Panel, Standard (03/09/2024 9:33 AM EDT) Triglycerides 476(H) <150 mg/dL [facility] Comment:Desirable Triglyceri de: less than 150 mg/dLBorderline High Triglyceride 150-199 mg/dLHigh Triglyceride: 200-499 mg/dLVery High Triglyceride: greater than or equal to 5OO mg/dL Cholesterol 225(H) <200 mg/dL [facility] Comment:Desirable Cholestero l: less than 200 mg/dLBorderline High Cholesterol: 200-239 mg/dLHigh Cholesterol: greater than 239 mg/dL LDL Cholesterol Calculated TNP <100 mg/dL [facility] Comment:Unable to calculate the LDL. The formula of Friedwald,Gaspar, and Louisa is only valid if the triglycerides areless than 400 mg/dl. HDL Cholesterol 39(L) >40 mg/dL [facility] Comment:Desirable HDL: great er than 40 mg/dL Note: This HDL assay may give artificially low results in patients with liver disease. Blood Venous blood specimen / Unknown 03/09/2024 9:33 AM EDT 03/09/2024 2:54 PM EDT Destiny Miranda MD LAB BLOOD ORDERABLES Final Re sult Performing Organization Address [facility] Co de Phone Number [facility] [address] [place] [phone] * HPV mRNA E6/E7 (06/29/2019 9:20 AM EST) HPV mRNA E6/E7 Not Detected NOT DETECTED [facility] Comment: This test was performed using the APTIMA(R) HPV Assay ([employer] This assay detects E6/E7 viral messenger RNA (mRNA) from 14 high-risk HPV types (16,18,31,33,35,39,45,51, 52,56,58,59,66,68). For additional information please refer to: http://education.[employer]/faq/BOM091v9 (This link is being provided for informational/ educational purposes only.) The analytical performance characteristics of this assay have been determined by [employer] [place], [place]. The modifications have not been cleared or approved by the FDA. This assay has been validated pursuant to the CLIA regulations and is used for clinical purposes. Test Performed by [facility], [facility] [place], [address] [place] [address] Tommy Islas M.D., Ph.D., Director of Laboratories , CLIA [id number] Please note: ??Effective 03/04/2016, HPV testing will be performed using [employer] APTIMA test which targets mRNA. Detecting mRNA instead of DNA, as in older methods, offers significant improvements in specificity. 06/29/2019 9:20 AM EST us Destiny Miranda MD HISTORICAL/NON ORDERABLE LABS Final Result [facility] Counts include 234 beds at the [facility] Anywhere [address] from Last 3 Months or Most Recently Relevant to Health Maintenance [facility] STAND ADULT Care Teams Lawn Service Worker Relationship Specialty Start Date End Date Destiny Miranda MD [address] [place] [address] PCP - General Family Medicine 06/23/18 Nicole Gandhi, GregorioD [address] [place] [address] Pharmacist Internal Medicine 08/20/24 Rose Cash Saw StraightenerTransportation Modeler 09/17/23
--- OUTSIDE RECORDS SUMMARY | 2024-09-08 15:00 | XMS_ITS | Encounter Summary ---
Author Organization [employer] Address [address] [facility] [address] 7t [place] [address] Care Team Providers Care Geological Survey Field Assistant Name Role Phone Destiny Miranda MD Primary Care Provider [phone] Nicole Gandhi PharmD Unavailable [phone] Encounter Details Date Type Department Care Team (Late st Contact Info) Description 02/20/2024 Orders Only [facility] MEDICINE [address] [place] [address] Antonette Garcia MD [address] [place] [address] Social History Tobacco Use Types Packs/Day Years [...] 11:00 AM EDT Medication Management [facility] MED & PEDS [address] [place] [address] Nicole Gandhi, PharmD [address] [place] [address] 09/22/2024 9:45 AM EDT Procedure Visit [facility] MED & PEDS [address] [place] [address] Destiny Miranda MD [address] [place] [address] documented as of this encounter Visit Diagnoses Not on filedocumented in this encounter Additional Health Concerns Assessment Noted Time PHQ-9 Depression Total Score: 21 024 1:56 PM EDT documented as of this encounter Care Teams Geological Survey Field Assistant Relationship Specialty Start Date End Date Destiny Miranda MD [address] [place] [address] PCP - General Family Medicine 06/23/18 Nicole Gandhi, PharmD [address] [place] [address] Pharmacist Internal Medicine 08/20/24 Rose Cash Paperhanger ContractorLabel Pinker 09/17/23 documented as of this encounter
--- OUTSIDE RECORDS SUMMARY | 2024-09-08 15:00 | XMS_ITS | Encounter Summary ---
Author Organization [employer] Address [address] [facility] 7t [place] [address] Care Team Providers Care Diamond Assorter Name Role Phone Destiny Miranda MD Primary Care Provider [phone] Nicole Gandhi PharmD Unavailable [phone] Reason for Visit * Reason Onset Date Comments Medication Question 02/20/2024 Encounter Details Date Type Department Care Team (Late st Contact Info) Description 02/20/2024 Telephone [facility] MEDICINE [address] [place] [address] Destiny Miranda MD [address] [place] [address] Medication Question Social History Tobacco Use Types [...] 1:32 PM EDT Tc from pt requesting madina needles stating she has ran out and does not have a script. If any questions you can contact pt at [phone]. documented in this encounter Plan of Treatment Upcoming Encounters Date Type Department Care Team ([facility] Contact Info) Description 09/17/2024 11:00 AM EDT Medication Management [facility] MED & PEDS [address] [place] [address] Nicole Gandhi, PharmD [address] [place], [place] [phone] 09/22/2024 9:45 AM EDT Procedure Visit [facility] MED & PEDS [address] [place] [address] Destiny Miranda MD [address] [place] [address] documented as of this encounter Visit Diagnoses Diagnosis Diabetes mellitus without complication (CMS/HCC) Type II or unspecified type diabetes mellitus without mention of complication, not stated as uncontrolled documented in this encounter Additional Health Concerns Assessment Noted Time PHQ-9 Depression Total Score: 21 024 1:56 PM EDT documented as of this encounter Care Teams Diamond Assorter Relationship Specialty Start Date End Date Destiny Miranda MD [address] [place] [address] PCP - General Family Medicine 06/23/18 Nicole Gandhi PharmD [address] [place] [address] Pharmacist Internal Medicine 08/20/24 Rose Cash Navy DiverNutrition Aides Teacher 09/17/23 documented as of this encounter
== END ==
LOC: HO.CARD 12:36
PROVIDERS: PCP Pediatrics; Visit Provider Nurse Practitioner Family
DX: R07.89 Other chest pain (principal); Z82.49 Family history of ischemic heart disease and other diseases of the circulatory system
CPT/HCPCS: 93306; Q9957

== ENCOUNTER → 2024-09-08 12:39 | Outpatient (BNV) | payer MEDICAID, SELFPAY | PROVIDERS: PCP Pediatrics; Visit Provider Internal Medicine Cardiovascular Disease | DX: I42.8 Other cardiomyopathies (principal) | CPT/HCPCS: 93306 ==

== ENCOUNTER 2024-09-22 | Outpatient (REF) | payer MEDICAID, SELFPAY ==
[2024-09-29 15:05] LABS: HPV Genotype 16 Negative (Negative); HPV Genotype 18 Negative (Negative); HPV High Risk Negative (Negative)
--- OUTSIDE RECORDS SUMMARY | 2024-12-16 17:49 | XMS_ITS | Encounter Summary ---
Author Organization [employer] Address [address] [place] [address] 7[address] [place] [address] Care Team Providers Care Marble Installer Supervisor Name Role Phone Destiny Miranda MD Primary Care Provider [phone] Nicole Gandhi PharmD Unavailable [phone] Reason for Visit * Reason Onset Date Comments Med Refill 01/19/2023 Encounter Details Date Type Department Care Team (Late st Contact Info) Description 01/19/2023 Refill [facility] [address] [place] [address] Cristine Guajardo MD [address] [place] [address] Acute vaginitis; Recurrent vaginitis Social History Tobacco [...] [facility] [address] [place] [address] Nicole Gandhi PharmD [address] [place] [address] documented as of this encounter Visit Diagnoses Diagnosis Acute vaginitis Unspecified vaginitis and vulvovaginitis Recurrent vaginitis Unspecified vaginitis and vulvovaginitis documented in this encounter Additional Health Concerns Assessment Noted Time PHQ-9 Depression Total Score: 15 023 10:09 AM EDT documented as of this encounter Care Teams Marble Installer Supervisor Relationship Specialty Start Date End Date Destiny Miranda MD [address] [place] [address] PCP - General Family Medicine 06/23/18 Nicole Gandhi PharmD [address] [place] [address] Pharmacist Internal Medicine 08/20/24 Rose Cash Cabinet And Trim InstallerPress Room Supervisor 09/17/23 documented as of this encounter
== END 2024-09-22 00:01 | disposition home or self-care (01) ==
LOC: HO.LNP
PROVIDERS: Visit Provider Pediatrics
DX: Z01.419 Encounter for gynecological examination (general) (routine) without abnormal findings (principal)
CPT/HCPCS: 87626; 88175

== ENCOUNTER 2024-09-22 12:20 | Outpatient (REF) | payer MEDICAID, SELFPAY ==
--- OUTSIDE RECORDS SUMMARY | 2024-09-22 14:50 | XMS_ITS | Encounter Summary ---
Author Organization [employer] Address [address] [facility] 7 [place] [address] Care Team Providers Care Asphalt Surface Heater Operator Name Role Phone Destiny Miranda MD Primary Care Provider [phone] Nicole Gandhi PharmD Unavailable [phone] Reason for Visit * Reason Onset Date Comments Medication Question 02/20/2024 Encounter Details Date Type Department Care Team (Late st Contact Info) Description 02/20/2024 Telephone [facility] MEDICINE [address] [place] [address] Destiny Miranda MD 505 [place] [address] Medication Question Social History Tobacco Use Types [...] Miscellaneous Notes * Telephone Encounter - Arian Grodon - 02/20/2024 1:32 PM EDT Tc from pt requesting madina caputo stating she has ran out and does not have a script. If any questions you can contact pt at [phone]. documented in this encounter Plan of Treatment Upcoming Encounters Date Type Department Care Team ([facility] Contact Info) Description 09/24/2024 11:00 AM EDT Medication Management [facility] MED & PEDS [address] [place] [address] Nicole Gandhi, PharmD 230 [place] [address] 12/22/2024 10:15 AM EDT Office Visit [facility] MED & PEDS [address] [place] [address] Destiny Miranda MD [address] [place] [address] documented as of this encounter Visit Diagnoses Diagnosis Diabetes mellitus without complication (CMS/HCC) Type II or unspecified type diabetes mellitus without mention of complication, not stated as uncontrolled documented in this encounter Additional Health Concerns Assessment Noted Time PHQ-9 Depression Total Score: 21 024 1:56 PM EDT documented as of this encounter Care Teams Asphalt Surface Heater Operator Relationship Specialty Start Date End Date Destiny Miranda MD [address] [place] [address] PCP - General Family Medicine 06/23/18 Nicole Gandhi PharmD 230 [place] [address] Pharmacist Internal Medicine 08/20/24 Rose Cash Service Parts DriverFitness Centre Manager 09/17/23 documented as of this encounter
--- OUTSIDE RECORDS SUMMARY | 2024-09-22 14:50 | XMS_ITS | Encounter Summary ---
Author Organization [employer] Address [address] [facility] [address] 7t [place] [address] Care Team Providers Care Joint Creaser Name Role Phone Destiny Miranda MD Primary Care Provider [phone] Nicole Gandhi PharmD Unavailable [phone] Encounter Details Date Type Department Care Team (Latest Contact Info) Description 09/22/2024 Travel Social History Tobacco Use Types Packs/Day [...] Care Team (Late st Contact Info) Description 09/24/2024 11:00 AM EDT Medication Management [facility] MED & PEDS 505 [place] [address] Nicole Gandhi PharmD 230 [place] [address] 12/22/2024 10:15 AM EDT Office Visit [facility] MED & PEDS [address] [place] [address] Destiny Miranda MD 505 [place] [address] documented as of this encounter Visit Diagnoses Not on filedocumented in this encounter Additional Health Concerns Assessment Noted Time PHQ-9 Depression Total Score: 21 025 9:51 AM EDT documented as of this encounter Care Teams Joint Creaser Relationship Specialty Start Date End Date Destiny Miranda MD [address] [place] [address] PCP - General Family Medicine 06/23/18 Nicole Gandhi, GregorioD [address] [place] [address] Pharmacist Internal Medicine 08/20/24 Rose Cash AerologistDrywall Sander 09/17/23 documented as of this encounter
--- OUTSIDE RECORDS SUMMARY | 2024-09-22 14:50 | XMS_ITS | Clinical Summary ---
Author Organization [facility] Address [address] [place] [address] Phone Care Team Providers Care Traveling Missionary Name Role Phone Montse Tamayo MD Primary [...] age to complete this topic Care Teams Traveling Missionary Relationship Specialty Start Date End Date Montse Tamayo MD PCP - General 01/31/17
--- OUTSIDE RECORDS SUMMARY | 2024-09-22 14:50 | XMS_ITS | Encounter Summary ---
Author Organization [employer] Address [address] [place] [address] 7t [place] [address] Care Team Providers Care Manager Radiation Name Role Phone Destiny Miranda MD Primary Care Provider [phone] Nicole Gandhi PharmD Unavailable [phone] Reason for Visit * Reason Comments Med Change Request Encounter Details Date Type Department Care Team ([facility] st Contact Info) Description 08/15/2023 Refill [facility] MED & PEDS [address] [place], [place] [phone] Cristine Guajardo MD [address] [place] [address] Cervical paraspinal muscle spasm Social History Tobacco [...] 11:00 AM EDT Medication Management [facility] MED & PEDS 505 [place] [address] Nicole Gandhi, PharmD [address] [place] [address] 12/22/2024 10:15 AM EDT Office Visit [facility] MED & PEDS 505 [place] [address] Destiny Miranda MD 505 [place] [address] documented as of this encounter Visit Diagnoses Diagnosis Cervical paraspinal muscle spasm Spasm of muscle documented in this encounter Additional Health Concerns Assessment Noted Time PHQ-9 Depression Total Score: 22 024 3:36 PM EST documented as of this encounter Care Teams Manager Radiation Relationship Specialty Start Date End Date Destiny Miranda MD 505 [place] [address] PCP - General Family Medicine 06/23/18 Nicole Gandhi, GregorioD [address] [place] [address] Pharmacist Internal Medicine 08/20/24 Rose Cash Hairspring InspectorBrass Pourer 09/17/23 documented as of this encounter
--- OUTSIDE RECORDS SUMMARY | 2024-09-22 14:50 | XMS_ITS | Encounter Summary ---
Author Organization [employer] Address [address] [facility] 7t [place] [address] Care Team Providers Care Auto Club Safety Program Coordinator Name Role Phone Destiny Miranda MD Primary Care Provider [phone] Nicole Gandhi PharmD Unavailable [phone] Reason for Visit * Reason Onset Date Comments Medication Question 04/28/2024 Encounter Details Date Type Department Care Team (Late st Contact Info) Description 04/28/2024 Telephone [facility] MEDICINE [address] [place] [address] Destiny Miranda MD [address] [place] [address] Medication Question Social History Tobacco Use Types [...] 12:48 PM EST Pt does not have [facility] as a pharmacy. Pt needs to contact office if pt is requesting to change pharmacies to [facility]. * Telephone Encounter - Brett Dailey - 04/28/2024 10:27 AM EST Tc from Krystin ([facility]) requesting a call , Krystin need more info in medication that's not in thelist (Lisinopril 40 mg), documented in this encounter Plan of Treatment Upcoming Encounters Date Type Department Care Team (Late st Contact Info) Description 09/24/2024 11:00 AM EDT Medication Management [facility] MED & PEDS [address] [place], [place] [phone] Nicole Gandhi, PharmD 230 [place] [address] 12/22/2024 10:15 AM EDT Office Visit [facility] CHC MED & PEDS 505 [place], [place] [phone] Destiny Miranda MD 505 [place] [address] documented as of this encounter Visit Diagnoses Not on filedocumented in this encounter Additional Health Concerns Assessment Noted Time PHQ-9 Depression Total Score: 21 024 1:56 PM EDT documented as of this encounter Care Teams Auto Club Safety Program Coordinator Relationship Specialty Start Date End Date Destiny Miranda MD [address] [place] [address] PCP - General Family Medicine 06/23/18 Nicole Gandhi PharmD [address] [place] [address] Pharmacist Internal Medicine 08/20/24 Rose Cash Process ExpertSand Control Worker 09/17/23 documented as of this encounter
--- OUTSIDE RECORDS SUMMARY | 2024-09-22 14:50 | XMS_ITS | Clinical Summary ---
Author Organization [facility] Address [address] [place] [address] Care Team Providers Care Music Publicist Name Role Phone Unavailable Primary Care Provider [...] Date Bipolar affective disorder, currently depressed, moderate ([facility]) 02/16/2024 Assessment & Plan (03/30/2024 11:32 AM EDT): Cont wellbutrin xl 300 mg qam for depressed mood, anergia, amotivation, hypersomnia. Monitor for over activation, s/s bee reviewed and no evidence thus far. Continue abilify 20 mg po qhs. Will need therapy; pt to call [facility] today to ask for referral. Pt in need of PCP appt. Practice self care. Assessment & Plan (03/16/2024 9:30 AM EDT): Cont wellbutrin xl and increase to 300 mg qam for depressed mood, anergia, amotivation, hypersomnia. Monitor for over activation, s/s bee reviewed. Continue abilify 20 mg po qhs. Will need therapy; pt to call [facility] today to ask for referral. Practice self care. Assessment & Plan (02/17/2024 3:42 PM EDT): Cont wellbutrin xl and abilify, no change in dose of either. Will need therapy. Practice self care. Insulin dependent type 2 diabetes mellitus ([facility]) 08/15/2023 Overview (02/16/2024): Last Assessment & Plan: Uncontrolled: Glucose at 500. Will discuss during F/U. Continue treatment plan Labs: glucose Noncompliance with diabetes treatment 08/15/2023 Assessment & Plan (03/16/2024 9:27 AM EDT): Encourage pt to eat regularly, monitor BS and make f/u appt with pcp Neuropathy due to type 2 diabetes mellitus ([facility]) 07/10/2018 Hypothyroidism 10/30/2012 Diabetes mellitus without complication ([facility]) 09/12/2011 Obesity 09/12/2011 Resolved Problems Problem Noted Date Diagnosed Date Resolved Date Bipolar disease in ([facility]) 08/15/2023 02/16/2024 Social History Tobacco Use Types [...] Health Maintenance Due Date Last Done Comments Anxiety Screening 1987 Depression Monitoring 1987 Diabetes Foot Exam 1987 HPV Screening 1987 Hepatitis C Screening 1987 Pap + HPV 1987 Urine Albumin Creatinine Rat io Screening 1987 Retinopathy Screening 02/03/2000 HIV Screening 2002 Relationship Safety Screening/Counseling 2002 Hypertension Screening (#1) 2005 Cervical Cancer Screening 02/03/2008 Pap Smear 02/03/2008 Imm-Hepatitis B (3 of 3 - 19 + 3-dose series) 02/03/2013 09/30/2012, 08/06/2012 [id number] () 02/22/2024 021, 10/14/2020 Imm-Influenza (#1) 2024 05/27/2018, 1 , 04/07/2014, Additional history exists Diabetes HbA1c 06/08/2024 03/09/2024, 02/21, 02/04/2024, Additional history exists Alcohol and Drug Screen 06/23/2024 Lipid Screening 03/09/2025 03/09/2024, 04/21/2020 Serum Creatinine 03/09/2025 03/09/2024 TSH Monitoring 03/09/2025 03/09/2024 Tobacco Screening 03/16/2025 03/16/2024 Imm-DTaP/Tdap/Td (3 - Td or Tdap) 05/27/2028 018, 05/26/2014 Imm-Pneumococcal Completed 02/04/2024 Cervical Ablation/Cold-Knife Conization Discontinued Cervical Cryotherapy Discontinued Colposcopy Discontinued Endometrial Biopsy Discontinued Excision/Leep Discontinued HPV Genotyping Discontinued Vaginal Pap Discontinued Vulvoscopy Discontinued Insurance [facility] [place] MEDICAID
--- OUTSIDE RECORDS SUMMARY | 2024-09-22 14:50 | XMS_ITS | Encounter Summary ---
Author Organization [employer] Address [address] [place] [address] Care Team Providers Care Automobile Body Customizer Name Role Phone Destiny Miranda MD Primary Care Provider [phone] Nicole Gandhi PharmD Unavailable [phone] Reason for Referral * Consultation (Routine) - Pending Review Specialty Diagnoses / Procedures Referred By Contelvia gallo Referred To Contact Podiatry Diagnoses Yeast infection involving the vagina and surrounding area Destiny Miranda MD [address] [place] [address] Phone: tel: fax: Referral ID Status Reason Start Date Expiration Date Visits Requested Visits Authorized [id number] Pending Review Specialty Services Required 09/22/2024 09/22/2025 1 1 Encounter Details Date Type Department Care Team (Latest Contact Info) Description 09/22/2024 9:45 AM EDT Procedure Visit [facility] MED & PEDS [address] [place], [place] [phone] Destiny Miranda MD [address] [place], [place] [phone] Encounter for gynecological examination with Papanicolaou smear of cervix (Primary Dx); Yeast infection involving the vagina and surrounding area Social History Tobacco Use Types Packs/Day Years [...] Sign Reading Time Taken Comments Blood Pressure 133/81 09/22/2024 9:54 AM EDT Pulse 94 09/22/2024 9:54 AM EDT Temperature 36.6 ??C (97.8 ??F) 09/22/2024 9:54 AM ED T Respiratory Rate 20 09/22/2024 9:54 AM EDT Oxygen Saturation - - Inhaled Oxygen Concentration - - Weight 68.9 kg (152 lb) 09/22/2024 9:54 AM EDT Height 167 cm (5' 5.75 ) 09/22/2024 9:54 AM EDT Body Mass Index 24.72 09/22/2024 9:54 AM EDT documented in this encounter Progress Notes * Destiny Miranda MD - 09/22/2024 9:45 AM EDT Subjective Yvrose Cooper is a 39 y.o. woman here for pap. LMP:09/03/24 Menses frequency:monthly Menses concerns:none Desires within the next year:unknown Brith control:none Breast concerns:none, had a normal US and mammogram of left breast done due to palpable lump a [facility] Review of Systems Review of Systems Constitutional: Negative for activity change, chills, fever and unexpected weight change. Respiratory: Negative for cough, shortness of breath and wheezing. Cardiovascular: Negative for chest pain, palpitations and leg swelling. Gastrointestinal: Negative for abdominal pain and blood in stool. Endocrine: Negative for polydipsia and polyuria. Genitourinary: Positive for vaginal discharge. Negative for decreased urine volume, difficulty urinating, dyspareunia, dysuria, genital sores, hematuria, menstrual problem and pelvic pain. Musculoskeletal: Negative for arthralgias and gait problem. Skin: Positive for rash. Negative for color change. Neurological: Negative for dizziness and headaches. Hematological: Negative for adenopathy. Psychiatric/Behavioral: Negative for dysphoric mood, hallucinations, sleep disturbance and suicidalideas. The patient is not nervous/anxious. No results found for: PAPPA No results found for: HMMAMMO Previous paps:06-19-22 normal pap Mammogram: negative diagnostic US and mammogram in 10/2023 at [facility] Objective BP 133/81 (BP Location: Left arm, Patient Position: Sitting, BP Cuff Size: Adult) Pulse94 Temp 97.8 ??F (36.6 ??C) (Oral) Resp 20 Ht 5' 5.75 (1.67 m) Wt 152 lb (68.9 kg) LMP 08/07/2024 (Within Days) BMI 24.72 kg/m?? Physical Exam Vitals reviewed. Exam conducted with a hand cigar making supervisor present. Constitutional: Appearance: Normal appearance. Cardiovascular: Rate and Rhythm: Normal rate and regular rhythm. Chest: Chest wall: No mass, deformity or tenderness. Breasts: Rafat Score is 5. Right: Normal. No bleeding, inverted nipple, mass, nipple discharge, skin change or tenderness. Left: Normal. No bleeding, inverted nipple, mass, nipple discharge, skin change or tenderness. Genitourinary: Exam position: Lithotomy position. Pubic Area: Rash present. Rafat stage (genital): 5. Labia: Right: Rash present. No lesion or injury. Left: Rash present. No lesion or injury. Vagina: No foreign body. Vaginal discharge present. No tenderness. Cervix: No cervical motion tenderness, friability, lesion or erythema. Uterus: Normal. Not tender. Adnexa: Right: No mass, tenderness or fullness. Left: No mass, tenderness or fullness. Rectum: External hemorrhoid present. Lymphadenopathy: Upper Body: Right upper body: No axillary adenopathy. Left upper body: No axillary adenopathy. Lower Body: No right inguinal adenopathy. No left inguinal adenopathy. Problem List Items Addressed This Visit None Pap with HPV testing done STI testing offered, PreP offered but declined due to no need at this time Preventative care and harm reduction discussed Yeast vaginitis : treated with oral fluconazole every 72 hours x 3 doses then weekly for 6 weeks plus topical nystatin documented in this encounter Plan of Treatment Upcoming Encounters Date Type Department Care Team (Late st Contact Info) Description 09/24/2024 11:00 AM EDT Medication Management [facility] MED & PEDS [address] [place] [address] Nicole Gandhi PharmD [address] [place] [address] 12/22/2024 10:15 AM EDT Office Visit [facility] MED & PEDS [address] [place] [address] Destiny Miranda MD [address] [place] [address] Scheduled Orders Name Type Priority Associated Diagnoses Orde r Schedule Bacterial Vaginosis Panel Microbiology Routine Encounter for gynecological examination with Papanicolaou smear of cervix Ordered: 09/22/2024 Chlamydia/N. Gonorrhoeae RNA, TMA, Urogenitial Microbiology Routine Encounter for gynecological examination with Papanicolaou smear of cervix Ordered: 09/22/2024 Pap Smear Pathology and Cytology Routine Encounter for gynecological examination with Papanicolaou smear of cervix Ordered: 09/22/2024 Scheduled Referrals Name Type Priority Associated Diagnoses Orde r Schedule Referral to Podiatry Outpatient Referral Routine Yeast infection involving the vagina and surrounding area Expected: 09/22/2024 (Approximate), Expires: 09/22/2025 documented as of this encounter Visit Diagnoses Diagnosis Encounter for gynecological examination with Papanicolaou smear of cervix- Primary Yeast infection involving the vagina and surrounding area Candidiasis of vulva and vagina documented in this encounter Additional Health Concerns Assessment Noted Time PHQ-9 Depression Total Score: 21 025 9:51 AM EDT documented as of this encounter Care Teams Automobile Body Customizer Relationship Specialty Start Date End Date Destiny Miranda MD [address] [place] [address] PCP - General Family Medicine 06/23/18 Nicole Gandhi PharmD [address] [place] [address] Pharmacist Internal Medicine 08/20/24 Rose Cash Spring Production SupervisorMess Attendant 09/17/23 documented as of this encounter
--- OUTSIDE RECORDS SUMMARY | 2024-09-22 14:50 | XMS_ITS | Encounter Summary ---
Author Organization [facility] Address [address] [place] [address] Phone Care Team Providers Care Manager Of Maintenance Name Role Phone Montse Tamayo MD Primary Care Provider Unava ilable Encounter Details Date Type Department Care Team (Late st Contact Info) Description 04/24/2017 Conversion Encounter [facility] - [address] [address] Social History Tobacco Use Types Packs/Day Years [...] on filedocumented in this encounter Care Teams Manager Of Maintenance Relationship Specialty Start Date End Date Montse Tamayo MD PCP - General 01/31/17 documented as of this encounter
--- OUTSIDE RECORDS SUMMARY | 2024-09-22 14:50 | XMS_ITS | Encounter Summary ---
Author Organization [employer] Address [address] [facility] [address] [place] [address] Care Team Providers Care Expressive Music Therapist Name Role Phone Destiny Miranda MD Primary Care Provider [phone] Nicole Gandhi PharmD Unavailable [phone] Encounter Details Date Type Department Care Team (Late st Contact Info) Description 09/14/2024 Orders Only [facility] CHC MED & PEDS [address] [place] [address] Provider, MD Jovita Social History Tobacco Use Types Packs/Day Years [...] Description 09/24/2024 11:00 AM EDT Medication Management [facility] MED & PEDS [address] [place] [address] Nicole Gandhi, PharmD [address] [place] [address] 12/22/2024 10:15 AM EDT Office Visit [facility] MED & PEDS [address] [place] [address] Destiny Miranda MD [address] [place] [address] documented as of this encounter Procedures Procedure Name Priority Date/Time Associated Diagnosis Comments HM PAP/HPV Routine 06/19/2022 11:16 AM EST documented in this encounter Results * HM PAP/HPV (06/19/2022 11:16 AM EST) us Historical Provider HEALTH MAINTENANCE Final Result documented in this encounter Visit Diagnoses Not on filedocumented in this encounter Additional Health Concerns Assessment Noted Time PHQ-9 Depression Total Score: 21 025 9:51 AM EDT documented as of this encounter Care Teams Expressive Music Therapist Relationship Specialty Start Date End Date Destiny Miranda MD [address] [place] [address] PCP - General Family Medicine 06/23/18 Nicole Gandhi PharmD [address] [place], [place] [phone] Pharmacist Internal Medicine 08/20/24 Rose Cash Lemon PickerWood Casket Maker 09/17/23 documented as of this encounter
--- OUTSIDE RECORDS SUMMARY | 2024-09-22 14:50 | XMS_ITS | Encounter Summary ---
Author Organization [employer] Address [address] 7 [place] [address] Care Team Providers Care Commodities Trader Name Role Phone Destiny Miranda MD Primary Care Provider [phone] Nicole Gandhi PharmD Unavailable [phone] Reason for Visit * Reason Onset Date Comments Chart Prep 09/20/2024 Encounter Details Date Type Department Care Team ([facility] st Contact Info) Description 09/20/2024 Telephone [facility] MED & PEDS [address] [place], [place] [phone] Destiny Miranda MD 505 [place] [address] Chart Prep Social History Tobacco Use Types Packs/Day Years [...] the past 12 months, has t he [employer], gas, oil or water company threatened to [...] encounter Miscellaneous Notes * Telephone Encounter - Penny Gordon [place] - 09/20/2024 11:48 AM EDT Chart Prep Labs: not applicable Images: done Vaccines due: yes Referrals: n/a Screenings: eye exam , Foot Exam, STI screening Overdue care gaps: Glucose, Sbirt, SDOH, Oral Health, Disability documented in this encounter Plan of Treatment Upcoming Encounters Date Type Department Care Team (Late st Contact Info) Description 09/24/2024 11:00 AM EDT Medication Management [facility] MED & PEDS [address] [place] [address] Nicole Gandhi PharmD [address] [place], [place] [phone] 12/22/2024 10:15 AM EDT Office Visit [facility] MED & PEDS [address] [place] [address] Destiny Miranda MD 505 [place] [address] documented as of this encounter Visit Diagnoses Not on filedocumented in this encounter Additional Health Concerns Assessment Noted Time PHQ-9 Depression Total Score: 21 025 9:51 AM EDT documented as of this encounter Care Teams Commodities Trader Relationship Specialty Start Date End Date Destiny Miranda MD 505 [place], [place] [phone] PCP - General Family Medicine 06/23/18 Nicole Gandhi PharmD [address] [place], [place] [phone] Pharmacist Internal Medicine 08/20/24 Rose Cash Telephone Information SupervisorSupervisor Lump Room 09/17/23 documented as of this encounter
--- OUTSIDE RECORDS SUMMARY | 2024-09-22 14:50 | XMS_ITS | Encounter Summary ---
Author Organization [employer] Address [address] 7 [place] [address] Care Team Providers Care Transfer Man Name Role Phone Destiny Miranda MD Primary Care Provider [phone] Nicole Gandhi PharmD Unavailable Reason for Visit * Reason Onset Date Comments returning call 05/17/2024 Encounter Details Date Type Department Care Team (Late st Contact Info) Description 05/17/2024 Telephone [facility] MEDICINE [address] [place] [address] Destiny Miranda MD 505 [place] [address] returning call Social History Tobacco Use Types [...] will like another callback . Callback number [phone] documented in this encounter Plan of Treatment Upcoming Encounters Date Type Department Care Team (Late st Contact Info) Description 09/24/2024 11:00 AM EDT Medication Management [facility] MED & PEDS 505 [place] [address] Nicole Gandhi, PharmD [address] [place], [place] [phone] 12/22/2024 10:15 AM EDT Office Visit [facility] MED & PEDS 505 [place] [address] Destiny Miranda MD 505 [place] [address] documented as of this encounter Visit Diagnoses Not on filedocumented in this encounter Additional Health Concerns Assessment Noted Time PHQ-9 Depression Total Score: 21 024 1:56 PM EDT documented as of this encounter Care Teams Transfer Man Relationship Specialty Start Date End Date Destiny Miranda MD 505 [place] [address] PCP - General Family Medicine 06/23/18 Nicole Gandhi, GregorioD [address] [place] [address] Pharmacist Internal Medicine 08/20/24 Rose Cash Information Management ManagerPaper Carrier 09/17/23 documented as of this encounter
--- OUTSIDE RECORDS SUMMARY | 2024-09-22 14:50 | XMS_ITS | Encounter Summary ---
Author Organization [employer] Address [address] [place] [address] Care Team Providers Care Selling Manager Name Role Phone Destiny Miranda MD Primary Care Provider [phone] Nicole Gandhi PharmD Unavailable [phone] Encounter Details Date Type Department Care Team (Late st Contact Info) Description 06/02/2023 Orders Only [facility] [address] [place], [place] [phone] Bo aCraballo MD 230 [place] [address] Social History Tobacco Use Types Packs/Day Years [...] Description 09/24/2024 11:00 AM EDT Medication Management [facility] MED & PEDS [address] [place] [address] Nicole Gandhi PharmD [address] [place] [address] 12/22/2024 10:15 AM EDT Office Visit [facility] MED & PEDS [address] [place] [address] Destiny Miranda MD [address] [place] [address] documented as of this encounter Visit Diagnoses Not on filedocumented in this encounter Additional Health Concerns Assessment Noted Time PHQ-9 Depression Total Score: 9 02/12/20 23 9:12 AM EDT documented as of this encounter Care Teams Selling Manager Relationship Specialty Start Date End Date Destiny Miranda MD [address] [place] [address] PCP - General Family Medicine 06/23/18 Nicole Gandhi PharmD [address] [place] [address] Pharmacist Internal Medicine 08/20/24 Rose Cash Community LiaisonTrain Caller 09/17/23 documented as of this encounter
--- OUTSIDE RECORDS SUMMARY | 2024-09-22 14:50 | XMS_ITS | Encounter Summary ---
Author Organization [employer] Address [address] 7[address] [place] [address] Care Team Providers Care Estate Planner Name Role Phone Destiny Miranda MD Primary Care Provider Nicole Gandhi PharmD Unavailable [phone] Encounter Details Date Type Department Care Team (Latest Contact Info) Description 09/20/2024 Travel Social History Tobacco Use Types Packs/Day [...] 11:00 AM EDT Medication Management [facility] MED & PEDS [address] [place] [address] Nicole Gandhi PharmD [address] [place] [address] 12/22/2024 10:15 AM EDT Office Visit [facility] MED & PEDS [address] [place] [address] Destiny Miranda MD 505 [place] [address] documented as of this encounter Visit Diagnoses Not on filedocumented in this encounter Additional Health Concerns Assessment Noted Time PHQ-9 Depression Total Score: 21 025 9:51 AM EDT documented as of this encounter Care Teams Estate Planner Relationship Specialty Start Date End Date Destiny Miranda MD 505 [place] [address] PCP - General Family Medicine 06/23/18 Nicole Gandhi, GregorioD [address] [place] [address] Pharmacist Internal Medicine 08/20/24 Rose Cash [place] RepairerTape Edge Machine Operator 09/17/23 documented as of this encounter
--- OUTSIDE RECORDS SUMMARY | 2024-09-22 14:50 | XMS_ITS | Encounter Summary ---
Author Organization [employer] Address [address] [place] [address] 7t [place] [address] Care Team Providers Care Benefits Officer Name Role Phone Destiny Miranda MD Primary Care Provider [phone] Nicole Gandhi PharmD Unavailable [phone] Reason for Visit * Reason Onset Date Comments Med Refill 01/19/2023 Encounter Details Date Type Department Care Team (Late st Contact Info) Description 01/19/2023 Refill [facility] MED & PEDS [address] [place] [address] Cristine Guajardo MD 505 [place] [address] Acute vaginitis; Recurrent vaginitis Social History Tobacco [...] Description 09/24/2024 11:00 AM EDT Medication Management [facility] MED & PEDS [address] [place] [address] Nicole Gandhi PharmD 230 [place] [address] 12/22/2024 10:15 AM EDT Office Visit [facility] MED & PEDS [address] [place] [address] Destiny Miranda MD 505 [place] [address] documented as of this encounter Visit Diagnoses Diagnosis Acute vaginitis Unspecified vaginitis and vulvovaginitis Recurrent vaginitis Unspecified vaginitis and vulvovaginitis documented in this encounter Additional Health Concerns Assessment Noted Time PHQ-9 Depression Total Score: 15 023 10:09 AM EDT documented as of this encounter Care Teams Benefits Officer Relationship Specialty Start Date End Date Destiny Miranda MD [address] [place] [address] PCP - General Family Medicine 06/23/18 Nicole Gandhi PharmD [address] [place] [address] Pharmacist Internal Medicine 08/20/24 Rose Cash Feather MakerEquities Trader 09/17/23 documented as of this encounter
--- OUTSIDE RECORDS SUMMARY | 2024-09-22 14:50 | XMS_ITS | Encounter Summary ---
Author Organization [employer] Address [address] [place] [address] Care Team Providers Care Wide Piece Goods Inspector Name Role Phone Destiny Miranda MD Primary Care Provider [phone] Nicole Gandhi PharmD Unavailable [phone] Encounter Details Date Type Department Care Team (Late st Contact Info) Description 02/20/2024 Orders Only [facility] MEDICINE [address] [place] [address] Antonette Garcia MD [address] [place] [address] Social History Tobacco Use Types Packs/Day Years [...] 09/24/2024 11:00 AM EDT Medication Management [facility] MED & PEDS [address] [place] [address] Nicole Gandhi, PharmD [address] [place] [address] 12/22/2024 10:15 AM EDT Office Visit [facility] MED & PEDS [address] [place] [address] Destiny Miranda MD 505 [place] [address] documented as of this encounter Visit Diagnoses Not on filedocumented in this encounter Additional Health Concerns Assessment Noted Time PHQ-9 Depression Total Score: 21 024 1:56 PM EDT documented as of this encounter Care Teams Wide Piece Goods Inspector Relationship Specialty Start Date End Date Destiny Miranda MD 505 [place] [address] PCP - General Family Medicine 06/23/18 Nicole Gandhi, PharmD [address] [place] [address] Pharmacist Internal Medicine 08/20/24 Rose Cash Under SheriffAir Intercept Controller Supervisor 09/17/23 documented as of this encounter
--- OUTSIDE RECORDS SUMMARY | 2024-09-22 14:50 | XMS_ITS | Clinical Summary ---
Author Organization [employer] Address [address] [place] [address] Care Team Providers Care Solar Panel Installation Supervisor Name Role Phone Desitny Miranda MD Primary Care Provider Nicole Gandhi PharmD Unavailable [phone] Allergies No known active allergies Medications * This document contains information received from the source organization and may not represent a complete record from that organization. Blood Pressure kit 1 Units in the morning. 1 kit 3 Active FREESTYLE LITE test stripIndications:N europathy due to type 2 diabetes mellitus ([facility]) USE DIRECTED TWICE A DAY 100 strip 11 4 Active lidocaine (Lidoderm) 5 % patchIndications:C ervical paraspinal muscle spasm APPLY 1 PATCH IN THE MORNING REMOVE AND DISARD PATCH WITHIN 12 HOURS OR DIRECTED 90 patch 4 Active ARIPiprazole (Abilify) 20 MG tablet Take 1 tablet (20 mg) by mouth Once daily. 90 tablet 2 4 Active Lancets misc 1 each 2 times daily. 100 each 6 4 Active fluconazole (Diflucan) 150 MG tablet TAKE 1 TABLET BY MOUTH FOR 1 TIME DOSE 1 tablet 5 Active buPROPion XL (Wellbutrin XL) 150 MG 24 hr tablet Take 1 tablet (150 mg) by mouth in the morning. Do not crush, chew, or split. 30 tablet 5 5 Active hydrOXYzine HCl (Atarax) 10 MG tablet Take 1 tab tid prn anxiety 90 tablet 3 5 Active acetaminophen (Tylenol) 325 MG tablet TAKE 2 TABLETS BY MOUTH EVERY 4 HOURS 5 Active ibuprofen 200 MG tablet TAKE 2 TABLETS MOUTH EVERY 6 HOURS 5 Active ondansetron ODT (Zofran-ODT) 4 MG disintegrating tablet Take 1 tablet by mouth every 8 (eight) hours if needed for moderate pain. 5 Active insulin glargine (Lantus SoloStar) 100 UNIT/ML penIndications:Ingrid betes mellitus type 2, insulin dependent (CMS/HCC) Inject 45 units daily 15 mL Active pen needle 33G x 4 mm miscIndications:Di abetes mellitus type 2, insulin dependent (CMS/HCC) Use daily with Lantus 100 each 5 08/20/19 26 Active Semaglutide,0.25 or 0.5MG/DOS, (Ozempic, 0.25 or 0.5 MG/DOSE,) 2 MG/3ML solution pen-injector Inject 0.25 mg under the skin 1 (one) time per week. For 4 weeks, then increase to 0.5mg weekly 3 mL 2 5 Active multivitamin () 27-0.8 MG tablet Take 1 tablet by mouth Once per day. 90 tablet 3 5 Active amLODIPine (Norvasc) 2.5 MG tabletIndications: Benign hypertension Take 1 tablet (2.5 mg) by mouth Once per day. 90 tablet 3 5 Active chlorthalidone (Hygroton) 25 MG tablet Take 1 tablet (25 mg) by mouth in the morning. 90 tablet 3 5 Active empagliflozin (Jardiance) 10 MG Take 1 tablet (10 mg) by mouth in the morning. 90 tablet 3 5 Active glyBURIDE (Diabeta) 5 MG tabletIndications: Neuropathy due to type 2 diabetes mellitus (CMS/HCC) Take 1 tablet (5 mg) by mouth with breakfast and with evening meal. 180 tablet 3 5 Active fluconazole (Diflucan) 150 MG tablet Take 1 tab orally every 3 days for 3 doses then weekly for 6 weeks 9 tablet 5 Active nystatin (Mycostatin) cream Apply topically 2 times daily for 14 days. 60 g 1 5 10/07/19 25 Active Active Problems Patient Care Coordination No te [...] retiring, patient will be referred to new [facility] Psychiatric provider. She is aware that appts will be televisits and that provider will not be an employee of [facility]. She gives permission to share PHI. Any [...] patient's care will be transferred to new [facility] Psychiatric provider. F/U with therapist as usual. [...] organization. Date Type Department Care Team Description 09/22/2024 9:45 AM EDT Procedure Visit [facility] MED & PEDS [address] [facility] [place] [address] Destiny Miranda MD Encounter for gynecological examination with Papanicolaou smear of cervix (Primary Dx); Yeast infection involving the vagina and surrounding area 09/22/2024 Travel 09/20/2024 Travel 09/20/2024 Telephone [facility] MED & PEDS 505 [facility] [place] [address] Destiny Miranda MD Chart Prep 09/14/2024 Travel 09/14/2024 Orders Only [facility] MED [facility]EDS [address] [facility] [place] [address] Provider, MD Jovita 09/03/2024 Population Health Risk Score Community [facility] ([facility] Department [address] [place] [phone] Provider, Population Health Generic 08/27/2024 Travel 08/23/2024 Refill [facility] MED [facility]EDS [address] [facility] [place] [address] Nicole Gandhi, PharmD 08/20/2024 Telephone [facility] MED & PEDS [address] [facility] [place] [address] Nicole Gandhi, GregorioD Prior Authorization 08/20/2024 Travel 08/12/2024 11:15 AM EST Office Visit [facility] MED & PEDS 505 [place] [address] Destiny Miranda MD Mood disorder (CMS/HCC) (Primary Dx); Diabetes mellitus type 2, insulin dependent (CMS/HCC); Benign hypertension; Neuropathy due to type 2 diabetes mellitus (CMS/HCC); Atypical chest pain; Family history of early CAD 08/12/2024 Travel 08/04/2024 Telephone [facility] MEDICINE 230 [place] [address] Destiny Miranda MD ER Follow-up 07/21/2024 Orders Only [facility] [address] [place], [place] [phone] Destiny Miranda MD Diabetes mellitus type 2, insulin dependent (CMS/HCC) (Primary Dx); Benign hypertension 07/20/2024 Telephone [facility] MED & PEDS [address] [place] [address] Nicole Gandhi, PharmD 06/26/2024 Refill [facility] MED [facility] PEDS [address] [place] [address] Destiny Miranda MD from Last 3 Months Immunizations Name Administration Dates Next Due DTP 08/01/1992, 2,08/22/1989,1986 Hep B, Adolescent or Pediatric 09/21/1999,1998,02/14/1999 Hep B, adult 09/30/2012,08/06/2012 Hib (PRP-T) 12/22/1991 Influenza injectable quadriv alent preservative free 05/27/2018,04/07/2015 Influenza, IIV3, injectable 04/07/2014 Influenza, Split (incl. julien fied surface antigen) 03/05/2013,04/08/2012 MMR 02/14/1999,08/22/1989 OPV, Trivalent 08/01/1992, 2,08/22/1989,1986 Pneumococcal Conjugate PCV 20 02/04/2024 [...] your housing situation today? I have claudia ofe 04/07/[address] you li [...] 20 09/22/2024 9:54 AM EDT Oxygen Saturation 98% 08/12/2024 11:02 AM EST Inhaled Oxygen Concentration - - Weight 68.9 kg (152 lb) 09/22/2024 9:54 AM EDT Height 167 cm (5' 5.75 ) 09/22/2024 9:54 AM EDT Body Mass Index 24.72 09/22/2024 9:54 AM EDT Plan of Treatment Upcoming Encounters Date Type Department Care Team (Late st Contact Info) Description 09/24/2024 11:00 AM EDT Medication Management [facility] MED & PEDS [address] [place] [address] Nicole Gandhi PharmD 230 [place] [address] 12/22/2024 10:15 AM EDT Office Visit [facility] MED & PEDS [address] [place] [address] Destiny Miranda MD 505 [place] [address] Health Maintenance Due Date Last Done Comments Dental Oral Exam 1987 Dental Prophylaxis 1987 Dental X-Ray: Full Mouth 1987 HIV Screening 1987 Diabetes: Foot Exam 1997 Eye Exam 1997 Alcohol/Substance Use Screening 1999 Family Planning (PISQ) 2002 Hepatitis C Screening 2005 Dental X-Ray: Bitewings 07/10/2023 07/09/2022 SDOH Screening 08/28/2023 08/27/2022 COVID-19 Vaccine ( season) 2024 11/11/2020, 10/14/2020 Influenza Vaccine (#1) 2024 8, 04/07/2015, 04/07/2014, Additional history exists Diabetes: Hemoglobin A1C 11/09/2024 025, 03/09/2024, 02/04/2024, Additional history exists Depression Monitoring (PHQ-9) 03/03/2025 08/31/2024, 08/31/2024 Diabetes: Urine Protein Screening 03/09/2025 03/09/2024, 11/09/2020, 04/21/2020 Lipid Panel 03/09/2025 03/09/2024, 04/21/2020 Tobacco Screening 03/26/2025 03/26/2024 Depression Screening 08/31/2025 08/31/2024, 09/01/19 25 Cervical Cancer Screening 06/19/2027 HPV/Cotest 06/19/2027 06/29/2019 Pap Smear 06/19/2027 06/19/2022 DTaP/Tdap/Td Vaccines (7 - Td or Tdap) [...] EST Diabetes mellitus type 2, insulin dependent ([facility]) POCT GLUCOSE Routine 08/12/2024 11:05 AM EST Diabetes mellitus type 2, insulin dependent ([facility]) POCT GLYCATED HEMOGLOBIN, TOTAL Routine 08/12/2024 11:05 [...] Routine 07/09/2022 3:10 PM EST Dental abscess HM PAP/HPV Routine 06/19/2022 11:16 AM EST ZZZ HISTORICAL HPV MRNA E6/E7 Routine 06/29/2019 9:20 AM EST from Last 3 Months or Most Recently Relevant to Health Maintenance Results * (ABNORMAL) POCT glucose manually resulted (08/12/2024 11:51 AM EST) Only the most recent of2 resultswithin the time period is included. Glucose Blood, POC 436(A) 60 - 200 mg/dL QC Media Lot # Comment:[id number] Lot# Expiration Date Comment:09/28/2024 Blood Capillary blood specimen / Unknown 08/12/2024 11:51 AM EST Destiny Miranda MD POINT OF CARE TEST ENTER/EDIT ORDERABLES Final Result * (ABNORMAL) POCT A1C (08/12/2024 11:05 AM EST) Hemoglobin A1C 15.0(A) 4.0 - 6.0 % Comment:Code #106 QC Media Lot # Comment:[id number] Lot# Expiration Date Comment:04/09/2026 Blood 08/12/2024 11:0 5 AM EST us Destiny Miranda MD POINT OF CARE TEST ENTER/EDIT ORDERABLES Final Result * (ABNORMAL) Albumin, Random Urine W/Creatinine (03/09/2024 9:40 AM EDT) Creatinine, Urine 47.59 mg/dL [facility] Microalbumin Urine 272.0 mg/L [facility] Microalbum Creatinine Ratio Ur 571.5(H) <30 ug/mg cr [facility] Comment:Albumin/Creatinine R atio Reference Ranges: Normal: < 30 ug/mg creatinine Microalbuminuria: 30 - 300 ug/mg creatinineClinical Albuminuria: > 300 ug/mg creatinine Urine (Urine, Random) 03/09/2024 9:40 AM EDT 03/09/2024 2:19 PM EDT us Destiny Miranda MD LAB URINE ORDERABLES Final Re sult [facility] [address] [place] [phone] * (ABNORMAL) Lipid Panel, Standard (03/09/2024 9:33 AM EDT) Triglycerides 476(H) <150 mg/dL [facility] Comment:Desirable Triglyceri de: less than 150 mg/dLBorderline High Triglyceride 150-199 mg/dLHigh Triglyceride: 200-499 mg/dLVery High Triglyceride: greater than or equal to 5OO mg/dL Cholesterol 225(H) <200 mg/dL [facility] Comment:Desirable Cholestero l: less than 200 mg/dLBorderline High Cholesterol: 200-239 mg/dLHigh Cholesterol: greater than 239 mg/dL LDL Cholesterol Calculated TNP <100 mg/dL [facility] Comment:Unable to calculate the LDL. The formula of Friedwald,Gaspar, and Louisa is only valid if the triglycerides areless than 400 mg/dl. HDL Cholesterol 39(L) >40 mg/dL [facility] Comment:Desirable HDL: great er than 40 mg/dL Note: This HDL assay may give artificially low results in patients with liver disease. Blood Venous blood specimen / Unknown 03/09/2024 9:33 AM EDT 03/09/2024 2:54 PM EDT Result [facility] Destiny Miranda MD LAB BLOOD ORDERABLES Final Re sult [facility] [address] [place] [phone] [phone] * HM PAP/HPV (06/19/2022 11:16 AM EST) Historical Provider HEALTH MAINTENANCE Final Result * HPV mRNA E6/E7 (06/29/2019 9:20 AM EST) Pathologist [facility] HPV mRNA E6/E7 Not Detected NOT DETECTED [facility] Comment: This test was performed using the APTIMA(R) HPV Assay ([employer] This assay detects E6/E7 viral messenger RNA (mRNA) from 14 high-risk HPV types (16,18,31,33,35,39,45,51, 52,56,58,59,66,68). For additional information please refer to: http://education.Carbonite/faq/ATU398f3 (This link is being provided for informational/ educational purposes only.) The analytical performance characteristics of this assay have been determined by [employer] [place], [place]. The modifications have not been cleared or approved by the FDA. This assay has been validated pursuant to the CLIA regulations and is used for clinical purposes. Test Performed by [facility], [facility], [address] [place] [address] Tommy Islas M.D., Ph.D., Director of Laboratories , CLIA [id number] Please note: ??Effective 03/04/2016, HPV testing will be performed using [employer] APTIMA test which targets mRNA. Detecting mRNA instead of DNA, as in older methods, offers significant improvements in specificity. 06/29/2019 9:20 AM EST us Destiny Miranda MD HISTORICAL/NON ORDERABLE LABS Final Result [facility] [address] from Last 3 Months or Most Recently Relevant to Health Maintenance Insurance [facility] MEDICAID STAND ADULT Care Teams Solar Panel Installation Supervisor Relationship Specialty Start Date End Date Destiny Miranda MD [address] [place] [address] PCP - General Family Medicine 06/23/18 Nicole Gandhi PharmD [address] [place] [address] Pharmacist Internal Medicine 08/20/24 Rose Cash [facility] Office SupervisorTopographical Surveyor 09/17/23
[2024-09-22 16:04] LABS: Bacterial Vaginosis PCR POSITIVE (Negative); Candida Group PCR NOT DETECTED (Not Detect); Candida glab krusei PCR NOT DETECTED (Not Detect); Trichomonas vaginalis PCR NOT DETECTED (Not Detect)
[2024-09-22 16:34] LABS: CT PCR NOT DETECTED (Not Detect.); NG PCR NOT DETECTED (Not Detect.)
== END 2024-09-22 12:21 | disposition home or self-care (01) ==
LOC: HO.CHCLNP 12:20
PROVIDERS: Visit Provider Pediatrics
DX: Z01.419 Encounter for gynecological examination (general) (routine) without abnormal findings (principal)
CPT/HCPCS: 81515; 87491; 87591

== ENCOUNTER → 2024-10-06 11:33 | Outpatient (REF) | payer MEDICAID, SELFPAY ==
--- NOTE | 2024-10-06 11:36 | CA_ITS ---
Acquisition Time: 2024-10-06 11:42:12 Total Exercise Time: 00:06:46 Test Indications: CP Medications: SEE H&P Protocol: OLIVIER Max HR: 141 BPM 77% of Pred: 183 BPM Max BP: 166/78 mmHG Max Work Load: 8.1 METS Exercise stress test with exercise 6 mins 46 secs of Olivier Protocol, achieving 77% MPHR, with reports of right foot discomfort (states has a bad callus) requesting to stop, no chest pain, without any arrythmias, with normotensive response to exercise. Without EKG changes at the achieved workload. In recovery, pt feeling back to baseline. Echo images obtained by tech at rest and post peak exercise. Definity contrast utilized. Test reviewed with Dr. Rivera. Referred By: Ankita Crews Electronically Signed By: Patrick Kent
--- OUTSIDE RECORDS SUMMARY | 2024-10-06 14:03 | XMS_ITS | Encounter Summary ---
Author Organization [employer] Address [address] [place] [address] Care Team Providers Care Bellows Tester Name Role Phone Destiny Miranda MD Primary Care Provider [phone] Nicole Gandhi PharmD Unavailable [phone] Encounter Details Date Type Department Care Team (Late st Contact Info) Description 06/02/2023 Orders Only [facility] [address] [place], [place] [phone] Bo Caraballo MD [address] [place] [address] Social History Tobacco Use Types Packs/Day Years [...] Care Team (Late st Contact Info) Description 11/05/2024 10:30 AM EDT Medication Management [facility] [address] [place] [address] Nicole Gandhi PharmD [address] [place] [address] 12/22/2024 10:15 AM EDT Office Visit [facility] [address] [place] [address] Destiny Miranda MD [address] [place] [address] documented as of this encounter Visit Diagnoses Not on filedocumented in this encounter Additional Health Concerns Assessment Noted Time PHQ-9 Depression Total Score: 9 02/12/20 23 9:12 AM EDT documented as of this encounter Care Teams Bellows Tester Relationship Specialty Start Date End Date Destiny Miranda MD [address] [place] [address] PCP - General Family Medicine 06/23/18 Nicole Gandhi PharmD [address] [place] [address] Pharmacist Internal Medicine 08/20/24 Rose Cash Financial Analysis ManagerCremator 09/17/23 documented as of this encounter
--- OUTSIDE RECORDS SUMMARY | 2024-10-06 14:03 | XMS_ITS | Clinical Summary ---
Author Organization [facility] Address [address] [place] [address] Care Team Providers Care Building Superintendent Name Role Phone Unavailable Primary Care Provider [...] Date Bipolar affective disorder, currently depressed, moderate ([facility]) 02/16/2024 Assessment & Plan (03/30/2024 11:32 AM EDT): Cont wellbutrin xl 300 mg qam for depressed mood, anergia, amotivation, hypersomnia. Monitor for over activation, s/s bee reviewed and no evidence thus far. Continue abilify 20 mg po qhs. Will need therapy; pt to call [facility] today to ask for referral. Pt in need of PCP appt. Practice self care. Assessment & Plan (03/16/2024 9:30 AM EDT): Cont wellbutrin xl and increase to 300 mg qam for depressed mood, anergia, amotivation, hypersomnia. Monitor for over activation, s/s bee reviewed. Continue abilify 20 mg po qhs. Will need therapy; pt to call [facility] today to ask for referral. Practice self care. Assessment & Plan (02/17/2024 3:42 PM EDT): Cont wellbutrin xl and abilify, no change in dose of either. Will need therapy. Practice self care. Insulin dependent type 2 diabetes mellitus ([facility]) 08/15/2023 Overview (02/16/2024): Last Assessment & Plan: Uncontrolled: Glucose at 500. Will discuss during F/U. Continue treatment plan Labs: glucose Noncompliance with diabetes treatment 08/15/2023 Assessment & Plan (03/16/2024 9:27 AM EDT): Encourage pt to eat regularly, monitor BS and make f/u appt with pcp Neuropathy due to type 2 diabetes mellitus ([facility]) 07/10/2018 Hypothyroidism 10/30/2012 Diabetes mellitus without complication ([facility]) 09/12/2011 Obesity 09/12/2011 Resolved Problems Problem Noted Date Diagnosed Date Resolved Date Bipolar disease in ([facility]) 08/15/2023 02/16/2024 Social History Tobacco [...] 19 + 3-dose series) 02/03/2013 09/30/2012, 08/06/2012 [id number] ( season) 2024 021, 10/14/2020 Imm-Influenza (#1) [...] Discontinued Vaginal Pap Discontinued Vulvoscopy Discontinued Insurance [facility] [place] MEDICAID
--- OUTSIDE RECORDS SUMMARY | 2024-10-06 14:03 | XMS_ITS | Encounter Summary ---
Author Organization [employer] Address [address] [facility] [address] [place] [address] Care Team Providers Care General Foreman Name Role Phone Destiny Miranda MD Primary Care Provider [phone] Nicole Gandhi PharmD Unavailable [phone] Reason for Visit * Reason Onset Date Comments returning call 05/17/2024 Encounter Details Date Type Department Care Team (Late st Contact Info) Description 05/17/2024 Telephone [facility] [address] [place] [address] Destiny Miranda MD [address] [place] [address] returning call Social History Tobacco Use Types [...] will like another callback . Callback number [phone] documented in this encounter Plan of Treatment Upcoming Encounters Date Type Department Care Team (Late st Contact Info) Description 11/05/2024 10:30 AM EDT Medication Management [facility] [address] [place] [address] Nicole Gandhi, PharmD [address] [place], [place] [phone] 12/22/2024 10:15 AM EDT Office Visit [facility] [address] [place] [address] Destiny Miranda MD [address] [place] [address] documented as of this encounter Visit Diagnoses Not on filedocumented in this encounter Additional Health Concerns Assessment Noted Time PHQ-9 Depression Total Score: 21 024 1:56 PM EDT documented as of this encounter Care Teams General Foreman Relationship Specialty Start Date End Date Destiny Miranda MD [address] [place] [address] PCP - General Family Medicine 06/23/18 Nicole Gandhi, GregorioD [address] [place] [address] Pharmacist Internal Medicine 08/20/24 Rose Cash Non Licensed Nuclear Plant OperatorSquad Sergeant 09/17/23 documented as of this encounter
--- OUTSIDE RECORDS SUMMARY | 2024-10-06 14:03 | XMS_ITS | Encounter Summary ---
Author Organization [employer] Address [address] [place] [address] [address] [place] [address] Care Team Providers Care Collar Turner Name Role Phone Destiny Miranda MD Primary Care Provider [phone] Nicole Gandhi PharmD Unavailable [phone] Reason for Visit * Reason Comments Med Change Request Encounter Details Date Type Department Care Team ([facility] st Contact Info) Description 08/15/2023 Refill [facility] [address] [place], [place] [phone] Cristine Guajardo MD [address] [place] [address] Cervical paraspinal muscle spasm Social History Tobacco [...] Description 11/05/2024 10:30 AM EDT Medication Management [facility] [address] [place] [address] Nicole Gandhi, PharmD [address] [place] [address] 12/22/2024 10:15 AM EDT Office Visit [facility] [address] [place] [address] Destiny Miranda MD [address] [place] [address] documented as of this encounter Visit Diagnoses Diagnosis Cervical paraspinal muscle spasm Spasm of muscle documented in this encounter Additional Health Concerns Assessment Noted Time PHQ-9 Depression Total Score: 22 024 3:36 PM EST documented as of this encounter Care Teams Collar Turner Relationship Specialty Start Date End Date Destiny Miranda MD [address] [place] [address] PCP - General Family Medicine 06/23/18 Nicole Gandhi, GregorioD [address] [place] [address] Pharmacist Internal Medicine 08/20/24 Rose Cash Test GraderSignals Officer 09/17/23 documented as of this encounter
--- OUTSIDE RECORDS SUMMARY | 2024-10-06 14:03 | XMS_ITS | Encounter Summary ---
Author Organization [employer] Address [address] [place] [address] [address] [place] [address] Care Team Providers Care Hvac Engineer Name Role Phone Destiny Miranda MD Primary Care Provider [phone] Nicole Gandhi PharmD Unavailable [phone] Reason for Visit * Reason Onset Date Comments Med Refill 01/19/2023 Encounter Details Date Type Department Care Team (Late st Contact Info) Description 01/19/2023 Refill [facility] [address] [place] [address] Cristine Guajardo MD [address] [place] [address] Acute vaginitis; Recurrent vaginitis Social History Tobacco [...] 11/05/2024 10:30 AM EDT Medication Management [facility] [address] [place] [address] Nicole Gandhi PharmD [address] [place] [address] 12/22/2024 10:15 AM EDT Office Visit [facility] [address] [place] [address] Destiny Mrianda MD [address] [place] [address] documented as of this encounter Visit Diagnoses Diagnosis Acute vaginitis Unspecified vaginitis and vulvovaginitis Recurrent vaginitis Unspecified vaginitis and vulvovaginitis documented in this encounter Additional Health Concerns Assessment Noted Time PHQ-9 Depression Total Score: 15 023 10:09 AM EDT documented as of this encounter Care Teams Hvac Engineer Relationship Specialty Start Date End Date Destiny Miranda MD [address] [place] [address] PCP - General Family Medicine 06/23/18 Nicole Gandhi PharmD [address] [place] [address] Pharmacist Internal Medicine 08/20/24 oRse Cash Wrap Yarn SorterAgriscience Technology Instructor 09/17/23 documented as of this encounter
--- OUTSIDE RECORDS SUMMARY | 2024-10-06 14:03 | XMS_ITS | Encounter Summary ---
Author Organization [employer] Address [address] [place] [address] Care Team Providers Care Timber Poisoner Name Role Phone Destiny Miranda MD Primary Care Provider [phone] Nicole Gandhi PharmD Unavailable [phone] Encounter Details Date Type Department Care Team (Late st Contact Info) Description 09/14/2024 Orders Only [facility] [address] [place] [address] Provider, MD Jovita Social History Tobacco Use [...] 11/05/2024 10:30 AM EDT Medication Management [facility] [address] [place] [address] Nicole Gandhi, PharmD [address] [place] [address] 12/22/2024 10:15 AM EDT Office Visit [facility] [address] [place] [address] Destiny Miranda MD [address] [place] [address] documented as of this encounter Procedures Procedure [...] documented as of this encounter Care Teams Timber Poisoner Relationship Specialty Start Date End Date Destiny Miranda MD [address] [place] [address] PCP - General Family Medicine 06/23/18 Nicole Gandhi PharmD [address] [place], [place] [phone] Pharmacist Internal Medicine 08/20/24 Rose Cash Weight Reducing TechnicianLivestock Caretaker 09/17/23 documented as of this encounter
--- OUTSIDE RECORDS SUMMARY | 2024-10-06 14:03 | XMS_ITS | Clinical Summary ---
Author Organization [facility] Address [address] [place] [phone] Phone Care Team Providers Care Textile Science Technician Name Role Phone Montse Tamayo MD Primary [...] age to complete this topic Care Teams Textile Science Technician Relationship Specialty Start Date End Date Montse Tamayo MD PCP - General 01/31/17
--- OUTSIDE RECORDS SUMMARY | 2024-10-06 14:03 | XMS_ITS | Clinical Summary ---
Author Organization [employer] Address [address] [place] [address] 7[address] [place] [address] Care Team Providers Care Lubricator Granulator Name Role Phone Destiny Miranda MD Primary Care Provider [phone] Nicole Gandhi PharmD Unavailable [phone] Allergies No known active allergies Medications * This document contains information received from the source organization and may not represent a complete record from that organization. Blood Pressure kit 1 Units in the morning. 1 kit 11/06/19 23 Active lidocaine (Lidoderm) 5 % patchIndications: Cervical paraspinal muscle spasm APPLY 1 PATCH IN THE MORNING REMOVE AND DISARD PATCH WITHIN 12 HOURS OR DIRECTED 90 patch 11/01/19 24 Active fluconazole (Diflucan) 150 MG tablet TAKE 1 TABLET BY MOUTH FOR 1 TIME DOSE 1 tablet 06/28/19 25 Active acetaminophen (Tylenol) 325 MG tablet TAKE 2 TABLETS BY MOUTH EVERY 4 HOURS 08/02/19 25 Active ibuprofen 200 MG tablet TAKE 2 TABLETS MOUTH EVERY 6 HOURS 08/02/19 25 Active ondansetron ODT (Zofran-ODT) 4 MG disintegrating tablet Take 1 tablet by mouth every 8 (eight) hours if needed for moderate pain. 08/02/19 25 Active insulin glargine (Lantus SoloStar) 100 UNIT/ML penIndications:Di abetes mellitus type 2, insulin dependent (CMS/HCC) Inject 45 units daily 15 mL 11 08/20/19 25 Active pen needle 33G x 4 mm miscIndications:D iabetes mellitus type 2, insulin dependent (CMS/HCC) Use daily with Lantus 100 each 11 08/20/19 25 2025 Active Semaglutide,0.25 or 0.5MG/DOS, (Ozempic, 0.25 or 0.5 MG/DOSE,) 2 MG/3ML solution pen-injector Inject 0.25 mg under the skin 1 (one) time per week. For 4 weeks, then increase to 0.5mg weekly 3 mL 2 08/20/19 25 Active amLODIPine (Norvasc) 2.5 MG tabletIndications :Benign hypertension Take 1 tablet (2.5 mg) by mouth Once per day. 90 tablet 3 08/24/19 25 Active chlorthalidone (Hygroton) 25 MG tablet Take 1 tablet (25 mg) by mouth in the morning. 90 tablet 3 08/24/19 25 Active empagliflozin (Jardiance) 10 MG Take 1 tablet (10 mg) by mouth in the morning. 90 tablet 3 08/24/19 25 Active glyBURIDE (Diabeta) 5 MG tabletIndications :Neuropathy due to type 2 diabetes mellitus (CMS/HCC) Take 1 tablet (5 mg) by mouth with breakfast and with evening meal. 180 tablet 3 08/24/19 25 Active fluconazole (Diflucan) 150 MG tablet Take 1 tab orally every 3 days for 3 doses then weekly for 6 weeks 9 tablet 09/23/19 25 Active nystatin (Mycostatin) cream Apply topically 2 times daily for 14 days. 60 g 1 09/23/19 25 2024 Active hydrOXYzine HCl (Atarax) 25 MG tabletIndications :Mild anxiety Take 1 tablet (25 mg) by mouth if needed in the morning, at noon, and at bedtime for anxiety. Take 1 tab tid prn anxiety 90 tablet 1 09/24/19 25 2024 Active buPROPion XL (Wellbutrin XL) 150 MG 24 hr tabletIndications :Bipolar disorder, current episode depressed, severe, without psychotic features (CMS/HCC) Take 2 tablets (300 mg) by mouth in the morning. Do not crush, chew, or split. 60 tablet 1 09/24/19 25 2024 Active ARIPiprazole (Abilify) 20 MG tabletIndications :Bipolar disorder, current episode depressed, severe, without psychotic features ([facility]) Take 1 tablet (20 mg) by mouth Once daily. 30 tablet 1 09/24/19 25 2024 Active Blood Glucose Monitoring Suppl (FreeStyle Beaman Lite) w/Device kit Use to test blood sugar as directed 1 kit 09/25/19 Active glucose blood (FREESTYLE LITE) test stripIndications: Neuropathy due to type 2 diabetes mellitus ([facility]) Test blood sugar up to 3 times daily 100 strip 11 09/25/19 25 Active Lancets misc Test blood sugar up to 3 times daily 100 each 11 09/25/19 25 Active multivitamin () 27-0.8 MG tablet TAKE 1 TABLET BY MOUTH EVERY DAY 90 tablet 3 09/29/19 25 Active FREESTYLE LITE test stripIndications: Neuropathy due to type 2 diabetes mellitus ([facility]) USE DIRECTED TWICE A DAY 100 strip 11 09/03/19 24 2024 Discontinued(R eorder (will not trigger notification to Pharmacy)) ARIPiprazole (Abilify) 20 MG tablet Take 1 tablet (20 mg) by mouth Once daily. 90 tablet 2 01/01/20 24 2024 Discontinued(R eorder (will not trigger notification to Pharmacy)) Lancets misc 1 each 2 times daily. 100 each 6 02/20/20 24 2024 Discontinued(R eorder (will not trigger notification to Pharmacy)) buPROPion XL (Wellbutrin XL) 150 MG 24 hr tablet Take 1 tablet (150 mg) by mouth in the morning. Do not crush, chew, or split. 30 tablet 5 08/12/19 25 2024 Discontinued(R eorder (will not trigger notification to Pharmacy)) hydrOXYzine HCl (Atarax) 10 MG tablet Take 1 tab tid prn anxiety 90 tablet 3 08/12/19 25 2024 Discontinued(R eorder (will not trigger notification to Pharmacy)) multivitamin () 27-0.8 MG tablet Take 1 tablet by mouth Once per day. 90 tablet 3 08/24/19 25 2024 Discontinued metroNIDAZOLE (Flagyl) 500 MG tablet Take 1 tablet (500 mg) by mouth 2 times daily for 7 days. 14 tablet 09/25/19 25 2024 Lancets misc Test blood sugar up to 3 times daily 09/25/19 25 2024 Discontinued Active Problems Patient Care Coordination No te [...] retiring, patient will be referred to new [facility] Psychiatric provider. She is aware that appts will be televisits and that provider will not be an employee of [facility]. She gives permission to share PHI. Any [...] patient's care will be transferred to new [facility] Psychiatric provider. F/U with therapist as usual. [...] organization. Date Type Department Care Team Description 09/29/[address] [facility] [address] [place] [address] Destiny Miranda MD Foot callus (Primary Dx); Neuropathy due to type 2 diabetes mellitus ([facility]); Diabetes mellitus type 2, insulin dependent ([facility]) 09/29/2024 Telephone [place] [employer] [address] [place] [address] [phone] Destiny Miranda MD 09/28/[address] [facility] [address] [place] [address] Destiny Miranda MD 09/24/2024 Travel 09/24/[address] [facility] [address] [place] [address] Destiny Miranda MD 09/22/2024 9:45 AM EDT Procedure Visit [facility] [address] [place] [address] Destiny Miranda MD Encounter for gynecological examination with Papanicolaou smear of cervix (Primary Dx); Yeast infection involving the vagina and surrounding area 09/22/2024 Travel 09/21/[address] [facility] [address] [place] [address] Destiny Miranda MD 09/20/2024 Travel 09/20/2024 Telephone [facility] [address] [place] [address] Destiny Miranda MD Chart Prep 09/14/2024 Travel 09/14/2024 Orders Only [facility] [address] [place] [address] ProviderJovita MD 09/03/2024 Population Health Risk Score [facility] () Department [address] [place] [phone] Provider, Population Health Generic 08/27/2024 Travel 08/23/2024 Refill [facility] [address] [place] [address] Nicole Gandhi, PharmD 08/20/2024 Telephone [facility] [address] [place] [address] Nicole Gandhi, PharmD Prior Authorization 08/20/2024 Travel 08/12/2024 11:15 AM EST Office Visit [facility] [address] [place] [address] Destiny Miranda MD Mood disorder (CMS/HCC) (Primary Dx); Diabetes mellitus type 2, insulin dependent (CMS/HCC); Benign hypertension; Neuropathy due to type 2 diabetes mellitus (CMS/HCC); Atypical chest pain; Family history of early CAD 08/12/2024 Travel 08/04/2024 Telephone [facility] [address] [place] [phone] Destiny Miranda MD ER Follow-up 07/21/2024 Orders Only [facility] [address] [place] [address] Destiny Miranda MD Diabetes mellitus type 2, insulin dependent (CMS/HCC) (Primary Dx); Benign hypertension 07/20/2024 Telephone [facility] [address] [place] [address] Nicole Gandhi, PharmD from Last 3 Months Immunizations Name Administration [...] Description 11/05/2024 10:30 AM EDT Medication Management [facility] [address] [place] [address] Nicole Gandhi, PharmD [address] [place] [address] 12/22/2024 10:15 AM EDT Office Visit [facility] [address] [place], [place] [phone] Destiny Miranda MD [address] [place] [address] Health Maintenance Due Date Last Done Comments [...] 03/09/2024, 02/04/2024, Additional history exists Depression Monitoring 03/03/2025 08/31/2024, 025 Diabetes: Urine Protein Screening 03/09/2025 03/09/2024, 11/09/2020, 04/21/2020 Lipid Panel 03/09/2025 03/09/2024, 04/21/2020 Depression Screening 08/31/2025 08/31/2024, 09/01/19 25 Tobacco Screening 09/23/2025 09/23/2024 DTaP/Tdap/Td Vaccines (7 - Td or Tdap) 05/27/2028 05/27/2018, 05/26/2014, 02/19/2000, Additional history exists HPV/Cotest 09/21/2029 09/21/2024, 06/29/2019 Cervical Cancer Screening 09/27/2029 Pap Smear 09/27/2029 09/27/2024, 04/0 07/2024, 06/19/2022 Zoster Vaccines (1 of 2) 2037 RSV Patients and Patients Aged 60 years or older (1 - 1-dose 75+ series) 2062 HIB Vaccines Completed 12/22/1991 IPV Vaccines Completed 08/01/1992, 07/0 06/1991, 08/22/1989, Additional history exists Hepatitis B [...] Date/Time Associated Diagnosis Comments HM PAP/HPV Routine 09/27/2024 PAP SMEAR Routine 09/22/2024 10:15 AM EDT Encounter for gynecological examination with Papanicolaou smear of cervix CHLAMYDIA/N. GONORRHOEAE RNA, TMA, UROGENITAL Routine 09/22/2024 10:15 AM EDT Encounter for gynecological examination with Papanicolaou smear of cervix BACTERIAL VAGINOSIS PANEL Routine 09/22/2024 10:15 AM EDT Encounter for gynecological examination with Papanicolaou smear of cervix HPV DNA, LOW/HIGH RISK Routine 09/21/2024 10:15 AM EDT POCT GLUCOSE Routine 08/12/2024 11:51 AM EST Diabetes mellitus type 2, insulin dependent ([facility]) POCT GLUCOSE Routine 08/12/2024 11:05 AM EST [...] callus Diabetes mellitus type 2, insulin dependent ([facility]) Primary hypertension BITEWING - SINGLE RADIOGRAPHIC IMAGE Routine 07/09/2022 3:10 PM EST Dental abscess from Last 3 Months or Most Recently Relevant to Health Maintenance Results * HM PAP/HPV (09/27/2024) Pap Smear 1. NILM 1. NILM Destiny Miranda MD HEALTH MAINTENANCE Final Resu lt * (ABNORMAL) Bacterial Vaginosis Panel (09/22/2024 10:15 AM EDT) TRICHOMONAS VAGINALIS DETECTION BY PCR NOT DETECTED Not Detect [facility] BACTERIAL VAGINOSIS DETECTION BY PCR POSITIVE(A) Negative [facility] Comment:The BV organism targ ets of the Xpert Xpress MVP test can becommensal in women; Xpert Xpress MVP positive results forbacterial vaginosis should be considered in conjunction withother clinical and patient information to determine thedisease status. Organisms that are not detected by the XpertXpress MVP test have also been reported to be associatedwith BV and aerobic vaginitis.The Xpert Xpress MVP test performance has not been evaluatedin patients under the age of 14. GISELA GROUP DETECTION BY PCR NOT DETECTED Not Detect [facility] Gisela glab krusei PCR NOT DETECTED Not Detect [facility] Swab Vaginal structure / Unknown 09/22/2024 10:15 AM EDT 09/22/2024 2:17 PM EDT Destiny Miranda MD LAB MICROBIOLOGY - GENERAL OR DERABLES Final Result [facility] [address] [place] [phone] * Chlamydia/N. Gonorrhoeae RNA, TMA, Urogenitial (09/22/2024 10:15 AM EDT) CT PCR NOT DETECTED Not Detect. [facility] Comment:A not detected test result does not exclude the possibilityof infection because test results can be affected byimproper specimen collection, concurrent antibiotic therapy,or the number of organisms in the specimen which may bebelow the sensitivity of the test. As with many diagnostictests, results from the Xpert CT/NG assay should beinterpreted in conjunction with other laboratory andclinical data available to the clinician.Xpert CT/NG performance has not been evaluated in patientsless than 14 years of age. The assay should not be used forthe evaluationof suspected sexual abuse or for other medico-legalindications. Additional testing is recommended in anycircumstance when false positive or false negative resultscould lead to adverse medical, social or psychologicalconsequences. NG PCR NOT DETECTED Not Detect. [facility] Comment:A not detected test result does not exclude the possibilityof infection because test results can be affected byimproper specimen collection, concurrent antibiotic therapy,or the number of organisms in the specimen which may bebelow the sensitivity of the test. As with many diagnostictests, results from the Xpert CT/NG assay should beinterpreted in conjunction with other laboratory andclinical data available to the clinician.Xpert CT/NG performance has not been evaluated in patientsless than 14 years of age. The assay should not be used forthe evaluationof suspected sexual abuse or for other medico-legalindications. Additional testing is recommended in anycircumstance when false positive or false negative resultscould lead to adverse medical, social or psychologicalconsequences. Swab (Vaginal Swab) 09/22/2024 10:15 AM EDT 09/22/2024 2:17 PM EDT Narrative [facility] - 09/22/2024 4:34 PM EDT Vaginal us Destiny Miranda MD LAB MICROBIOLOGY - GENERAL OR DERABLES Final Result [facility] [address] [place] [phone] * Pap Smear (09/22/2024 10:15 AM EDT) Swab Cervical swab / Unknown 09/22/2024 10:15 AM EDT 09/23/2024 6:11 AM EDT Narrative [facility] - 09/27/2024 10:10 AM EDT ----- ------- Name: Kenneth,Brianjay King ?Age/Sex: 39/F ? : 1985 Unit#: [id number] ?? Attend Dr: ?Re09/22/24 ?Status: PRE REF ? Location: HO.LNP ?Disch: ? ----- ------- SPEC : [id number] ? RECD: 09/23/24-610 ? STATUS: ??SOUT ? REQ NUM: [id number] ? [place]: 09/22/24-1015 ? SUBM DR: Destiny Miranda MD ? ENTERED: ??09/23/24-622 ?SP TYPE: Pap Smr ?OTHR : ? ORDERED: ??Pap Smear ? Interpretation ?? Satisfactory for evaluation. ?? Negative for intraepithelial lesion or malignancy. ?? Coccobacilli consistent with shift in vaginal memo. ? HPV High Risk: ??Negative ? HPV Genotyping 16: ??Negative ?? HPV Genotyping 18: ??Negative ?Clinical Information LMP: 08/07/24 Previous PAP test: 06/19/22 Other surgery: Other history: ? Material Received ?? ThinPrep-Cervical ----- ------- Signed (signature on file) ALON Prince (ASCP) 09/27/24 1010 ? ----- ------- ? END OF REPORT ? Destiny Miranda MD LAB CYTOLOGY ORDERABLES Final Result Performing Organization Address [facility]/ZIP Co de Phone Number [facility] [address] [place] [address] [phone] * HPV DNA, Low/High Risk (09/21/2024 10:15 AM EDT) HPV High Risk Negative Negative [facility] HPV Genotype 16 Negative Negative [facility] HPV Genotype 18 Negative Negative [facility] Comment:HPV testing performe d at [facility] (CLIA#[id number]), [address] [place] [address].Testing for HPV was performed using the [employer]ANE Athigo0system. The presence of HPV in the female genital tract isassociated with a number of diseases, including cervicalcarcinoma. The HPV DNA high risk pool tests for HPV 31, 33,35, 39, 45, 51, 52, 56, 58, 59, 66 and 68. The testing forHPV 16 and 18 genotypes has also been performed. A positiveresult indicates detection of nucleic acid sequences fromone or more subtypes, whereas a negative result indicatessuch sequences were not detected. 09/21/2024 10:1 5 AM EDT 09/23/2024 7:16 AM EDT Destiny Miranda MD LAB BLOOD ORDERABLES Final Re sult Performing Organization Address [facility]/ZIP Co de Phone Number [facility] [address] [place] [address] [phone] * (ABNORMAL) POCT glucose manually resulted (08/12/2024 11:51 AM EST) Only the most recent of2 resultswithin the time period is included. Glucose Blood, POC 436(A) 60 - 200 mg/dL QC Media Lot # Comment:[id number] Lot# Expiration Date Comment:09/28/2024 Blood Capillary blood specimen / Unknown 08/12/2024 11:51 AM EST us Destiny Miranda MD POINT OF CARE TEST ENTER/EDIT ORDERABLES Final Result * (ABNORMAL) POCT A1C (08/12/2024 11:05 AM EST) Hemoglobin A1C 15.0(A) 4.0 - 6.0 % Comment:Code #106 Media Lot # Comment:[id number] Lot# Expiration Date Comment:04/09/2026 Blood 08/12/2024 11:0 5 AM EST us Destiny Miranda MD POINT OF CARE TEST ENTER/EDIT ORDERABLES Final Result * (ABNORMAL) Albumin, Random Urine W/Creatinine (03/09/2024 9:40 AM EDT) Creatinine, Urine 47.59 mg/dL [facility] Microalbumin Urine 272.0 mg/L [facility] Microalbum Creatinine Ratio Ur 571.5(H) <30 ug/mg cr [facility] Comment:Albumin/Creatinine R at Reference Ranges: Normal: < 30 ug/mg creatinine Microalbuminuria: 30 - 300 ug/mg creatinineClinical Albuminuria: > 300 ug/mg creatinine Urine (Urine, Random) 03/09/2024 9:40 AM EDT 03/09/2024 2:19 PM EDT us Destiny Miranda MD LAB URINE ORDERABLES Final Re sult [facility] [address] [place] [phone] * (ABNORMAL) Lipid Panel, Standard (03/09/2024 9:33 AM EDT) Triglycerides 476(H) <150 mg/dL [facility] Comment:Desirable Triglyceri de: less than 150 mg/dLBorderline High Triglyceride 150-199 mg/dLHigh Triglyceride: 200-499 mg/dLVery High Triglyceride: greater than or equal to 5OO mg/dL Cholesterol 225(H) <200 mg/dL [facility] Comment:Desirable Cholestero l: less than 200 mg/dLBorderline High Cholesterol: 200-239 mg/dLHigh Cholesterol: greater than 239 mg/dL LDL Cholesterol Calculated TNP <100 mg/dL [facility] Comment:Unable to calculate the LDL. The formula of Friedwald,Gaspar, and Louisa is only valid if the triglycerides areless than 400 mg/dl. HDL Cholesterol 39(L) >40 mg/dL [facility] Comment:Desirable HDL: great er than 40 mg/dL Note: This HDL assay may give artificially low results in patients with liver disease. Blood Venous blood specimen / Unknown 03/09/2024 9:33 AM EDT 03/09/2024 2:54 PM EDT us Destiny Miranda MD LAB BLOOD ORDERABLES Final Re sult [facility] [address] [place] [address] [phone] from Last 3 Months or Most Recently Relevant to Health Maintenance Insurance [address] [address] [facility] AD[facility] Care Teams Lubricator Granulator Relationship Specialty Start Date End Date Destiny Miranda MD [address] [place] [address] PCP - General Family Medicine 06/23/18 Nicole Gandhi PharmD [address] [place] [address] Pharmacist Internal Medicine 08/20/24 Rose Cash Backend Java DeveloperRadiation Protection Specialist 09/17/23
--- OUTSIDE RECORDS SUMMARY | 2024-10-06 14:03 | XMS_ITS | Encounter Summary ---
Author Organization [employer] Address [address] [place] [address] Care Team Providers Care Parole Hearing Officer Name Role Phone Destiny Miranda MD Primary Care Provider [phone] Nicole Gandhi PharmD Unavailable [phone] Encounter Details Date Type Department Care Team (Late st Contact Info) Description 02/20/2024 Orders Only [facility] [address] [place] [address] Antonette Garcia MD [address] [place] [address] Social History Tobacco Use Types Packs/Day Years Used Date Smoking Tobacco: Never Passive Smoke Exposure: Never Smokeless Tobacco: Never Alcohol Use Standard Drinks/Week Comments Never 0 (1 standard drink = 0.6 oz pur e alcohol) Depression Answer Date Recorded Patient Health Questionnaire-9 Score 01/01/2024 Patient Health Questionnaire-9 Score 21 01/01/2024 [...] Description 11/05/2024 10:30 AM EDT Medication Management [facility] [address] [place] [address] Nicole Gandhi, PharmD [address] [place] [address] 12/22/2024 10:15 AM EDT Office Visit [facility] [address] [place] [address] Destiny Miranda MD [address] [place] [address] documented as of this encounter Visit Diagnoses Not on filedocumented in this encounter Additional Health Concerns Assessment Noted Time PHQ-9 Depression Total Score: 21 024 1:56 PM EDT documented as of this encounter Care Teams Parole Hearing Officer Relationship Specialty Start Date End Date Destiny Miranda MD [address] [place] [address] PCP - General Family Medicine 06/23/18 Nicole Gandhi, PharmD [address] [place] [address] Pharmacist Internal Medicine 08/20/24 Rose Cash Credit Risk AnalystBusiness Analytics Manager 09/17/23 documented as of this encounter
--- OUTSIDE RECORDS SUMMARY | 2024-10-06 14:03 | XMS_ITS | Encounter Summary ---
Author Organization [facility] Address [address] [place] [phone] Phone Care Team Providers Care Commercial Designer Name Role Phone Montse Tamayo MD Primary Care Provider Unava ilable Encounter Details Date Type Department Care Team (Late st Contact Info) Description 04/24/2017 Conversion Encounter [facility] - [address] [address] Social History Tobacco Use Types Packs/Day Years [...] on filedocumented in this encounter Care Teams Commercial Designer Relationship Specialty Start Date End Date Montse Tamayo MD PCP - General 01/31/17 documented as of this encounter
--- OUTSIDE RECORDS SUMMARY | 2024-10-06 14:03 | XMS_ITS | Encounter Summary ---
Author Organization [employer] Address [address] [facility] [address] [place] [address] Care Team Providers Care Building Carpenter Name Role Phone Destiny Miranda MD Primary Care Provider [phone] Nicole Gandhi PharmD Unavailable [phone] Reason for Visit * Reason Onset Date Comments Medication Question 02/20/2024 Encounter Details Date Type Department Care Team (Late st Contact Info) Description 02/20/2024 Telephone [facility] [address] [place] [address] Destiny Miranda MD [address] [place] [address] Medication Question Social History Tobacco Use Types [...] any questions you can contact pt at [phone]. documented in this encounter Plan of Treatment Upcoming Encounters Date Type Department Care Team ([facility] st Contact Info) Description 11/05/2024 10:30 AM EDT Medication Management [facility] [address] [place] [address] Nicole Gandhi, PharmD [address] [place] [address] 12/22/2024 10:15 AM EDT Office Visit [facility] [address] [place] [address] Destiny Miranda MD [address] [place] [address] documented as of this encounter Visit Diagnoses Diagnosis Diabetes mellitus without complication (CMS/HCC) Type II or unspecified type diabetes mellitus without mention of complication, not stated as uncontrolled documented in this encounter Additional Health Concerns Assessment Noted Time PHQ-9 Depression Total Score: 21 024 1:56 PM EDT documented as of this encounter Care Teams Building Carpenter Relationship Specialty Start Date End Date Destiny Miranda MD [address] [place] [phone] PCP - General Family Medicine 06/23/18 Nicole Gandhi PharmD [address] [place] [address] Pharmacist Internal Medicine 08/20/24 Rose Cash Sight MounterLine O Scribe Operator 09/17/23 documented as of this encounter
--- OUTSIDE RECORDS SUMMARY | 2024-10-06 14:03 | XMS_ITS | Encounter Summary ---
Author Organization [employer] Address [address] [facility] [address] [place] [address] Care Team Providers Care Forensic Analyst Name Role Phone Destiny Miranda MD Primary Care Provider [phone] Nicole Gandhi PharmD Unavailable [phone] Reason for Visit * Reason Onset Date Comments Medication Question 04/28/2024 Encounter Details Date Type Department Care Team (Late st Contact Info) Description 04/28/2024 Telephone [facility] [address] [place] [address] Destiny Miarnda MD [address] [place] [address] Medication Question Social History Tobacco Use Types [...] 12:48 PM EST Pt does not have [facility] as a pharmacy. Pt needs to contact office if pt is requesting to change pharmacies to [facility]. * Telephone Encounter - Brett Dailey - 04/28/2024 10:27 AM EST Tc from Krystin ([facility]) requesting a call , Krystin need more info in medication that's not in thelist (Lisinopril 40 mg), documented in this encounter Plan of Treatment Upcoming Encounters Date Type Department Care Team (Late st Contact Info) Description 11/05/2024 10:30 AM EDT Medication Management [facility] [address] [place], [place] [phone] Nicole Gandhi, PharmD [address] [place] [address] 12/22/2024 10:15 AM EDT Office Visit [facility] [address] [place], [place] [phone] Destiny Miranda MD [address] [place] [address] documented as of this encounter Visit Diagnoses Not on filedocumented in this encounter Additional Health Concerns Assessment Noted Time PHQ-9 Depression Total Score: 21 024 1:56 PM EDT documented as of this encounter Care Teams Forensic Analyst Relationship Specialty Start Date End Date Destiny Miranda MD [address] [place] [address] PCP - General Family Medicine 06/23/18 Nicole Gandhi PharmD [address] [place] [address] Pharmacist Internal Medicine 08/20/24 Rose Cash Logistics AssistantWindow Shade Estimator 09/17/23 documented as of this encounter
== END ==
LOC: HO.CARD 11:33
PROVIDERS: PCP Pediatrics; Visit Provider Nurse Practitioner Family
DX: R07.89 Other chest pain (principal); E11.9 Type 2 diabetes mellitus without complications; Z82.49 Family history of ischemic heart disease and other diseases of the circulatory system
CPT/HCPCS: 93350; Q9957

== ENCOUNTER → 2024-10-06 11:36 | Outpatient (BNV) | payer MEDICAID, SELFPAY | PROVIDERS: PCP Pediatrics | DX: R94.31 Abnormal electrocardiogram [ECG] [EKG] (principal); R07.9 Chest pain, unspecified | CPT/HCPCS: 93016; 93018; 93350; 93352 ==

== ENCOUNTER 2024-10-15 12:31 | Outpatient (AMB) | payer MEDICAID, SELFPAY ==
[2024-10-15 13:00] VITALS: BP 100/60; PULSE 100; BMI 22.4
--- NOTE | 2024-10-15 13:00 | A.OFFVIS_ITS ---
Vital Signs 10/15/24 13:00 Height 5 ft 6 in Weight 138 lb 14.259 oz BMI 22.4 BP 100/60 Blood Pressure Location Lt brachial Position Sitting Pulse 100 Pulse Source Pulse Oximeter Intake Visit Reasons: f/up stress echo/ echo Allergies No Known Allergies Allergy (Unverified 08/30/24 13:30) Medication List - Last Reconciled 10/15/24 by Ankita Crews, NEWSPAPER OR PERIODICAL EDITOR-C amlodipine 2.5 mg PO QAM aripiprazole 20 mg PO DAILY blood sugar diagnostic (FreeStyle Lite Strips) As directed bupropion HCl XL 300 mg PO QAM chlorthalidone 25 mg PO QAM empagliflozin (Jardiance) 10 mg PO QAM glyburide 5 mg PO BID hydroxyzine HCl 10 - 20 mg PO BEDTIME PRN insulin glargine (Lantus U-100 Insulin) 45 units subcut BEDTIME HPI HPI f/up stress echo/ echo: Details: Yvrose is a 39-year-old female with past medical history of hypertension, diabetes, family history of early CAD who was previously seen in the [facility] emergency room for atypical chest discomfort and ruled out for ACS. She was referred to Cardiology and on last visit an echocardiogram and stress echo were ordered. She now presents for follow up. Today she reports that she has been doing well with no recurrent chest discomfort. She has been depressed over the recent passing of her father from fatal [place], age 59. She states that her identical twin sister was recently diagnosed with coronary artery disease. She denies any shortness of breath, PND, orthopnea or edema. No heart palpitations, lightheadedness, presyncope, syncope. She has been diabetic since age 16 and tells me she is still working on getting it well controlled. She has a newer diagnosis of hypertension. She has not been on cholesterol agents. 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 No other known family history of heart disease. Daughter and fiancee are present. [facility] Medical History Callus of foot GERD (gastroesophageal reflux disease) Diabetes Anxiety Gastroparesis Family History Father Heart attack Social History Patient Tobacco Use Status: Never used Tobacco Substance Use Type: Marijuana Review of Systems Const All systems reviewed & are unremarkable except as noted in HPI and below Reports fatigue and Denies weakness ENT Denies dizziness Card Denies chest pain, Denies chest pain with activity, Denies syncope, Denies rapid heart rate, Denies pedal edema, Denies edema, Denies leg edema, Denies lightheadedness, Denies palpitations, Denies dyspnea, Denies dyspnea on exertion and Denies orthopnea Resp Denies cough, Denies dyspnea and Denies dyspnea on exertion GI Denies hematochezia and Denies change in stool character Musc Denies abnormal gait, Denies muscle cramps, Denies muscle weakness, Denies numbness, Denies radiating pain into limb and Denies tingling Neuro Denies abnormal gait, Denies dizziness, Denies syncope, Denies numbness, Denies tingling and Denies weakness Endo Reports fatigue and Denies palpitations Physical Exam Vital Signs: Last Vital Signs Pulse 100 10/15/24 13:00 BP 100/60 10/15/24 13:00 BMI result Body Mass Index 22.4 Const General: cooperative, healthy appearing, comfortable and no acute distress Orientation/consciousness: patient oriented x3 Neck Neck: Yes normal visual inspection Resp Effort & Inspection: normal respiratory effort Auscultation: clear to auscultation bilaterally, no rales, no rhonchi and no wheezes Cardio Rate: regular rate Rhythm: regular rhythm Heart sounds: S1 normal heart sound present, S2 normal heart sound present, no murmurs and no rubs Neuro General: patient oriented x3 Extrem General: Yes normal to inspection and No no pedal edema Psych Appearance: grossly normal Mental Status: mental status grossly normal Speech and movement: Normal speech and movement present Assessment & Plan Assessment & Plan (1) Chest discomfort: Code(s): R07.89 - Other chest pain Category: Medical Plan: Prior report of atypical chest discomfort in pt with cardiac risk factors of longstanding diabetes, newer hypertension, hyperlipidemia and family history of early CAD including her identical twin sister. EKG does not show ischemic findings. An echocardiogram done 09/08/2024 shows EF 60-65%, no valve abnormalities. A stress echocardiogram done 10/06/2024 with exercise close to 7 minutes, no chest discomfort, no EKG changes achieving 77% MPHR, echo images with no ischemia however suboptimal heart rate. - since study overall was suboptimal and she does have significant cardiac risks will order a CTA of the coronary arteries for further evaluation. Will plan to give 1 dose of metoprolol prior to her procedure. Will check BMP and update lipids. Importance of good blood pressure, cholesterol and blood sugar reviewed with her. Cardiology follow up in 3 mo, sooner if needed (2) Family history of early CAD: Comment: Father with fatal CT age 59. Identical twin sister with reported coronary artery disease Code(s): Z82.49 - Family history of ischemic heart disease and other diseases of the circulatory system Category: Medical (3) Diabetes: Comment: Diabetic since age 16 Code(s): E11.9 - Type 2 diabetes mellitus without complications Category: Medical Plan: Hemoglobin A1c goal less than 7. Followed by PCP. (4) HTN (hypertension): Code(s): I10 - Essential (primary) hypertension Category: Medical Plan: Blood pressure goal less than 130/80. Controlled at present. No med changes made. Plan Time spent on chart review, documentation, interview on assessment Orders: Orders CT Cardiac Coronary Angio Today E11.9 - Type 2 diabetes mellitus without complications, R07.89 - Other chest pain, Z82.49 - Family history of ischemic heart disease and other diseases of the circulatory system Basic Metabolic Panel Today I10 - Essential (primary) hypertension Lipid Panel Today E11.9 - Type 2 diabetes mellitus without complications, Z82.49 - Family history of ischemic heart disease and other diseases of the circulatory system Medications: New metoprolol tartrate Take [address] scan of heart 25 mg PO ONCE 1 tab 0RF Coding Level of Care Code Est Pt Level 3 (53840) Complex EM visit Add On G2211 Diagnoses Chest discomfort R07.89 Family history of early CAD Z82.49 Diabetes E11.9 HTN (hypertension) I10 Time Spent (min) 24
--- OUTSIDE RECORDS SUMMARY | 2024-10-15 13:12 | XMS_ITS | Clinical Summary ---
Author Organization [facility] Address [address] [place] [address] Care Team Providers Care Welfare Eligibility Worker Name Role Phone Unavailable Primary Care Provider [...] disorder, currently depressed, moderate ([facility]) 02/16/2024 Assessment & Plan (03/30/2024 11:32 AM EDT): Cont wellbutrin xl 300 mg qam for depressed mood, anergia, amotivation, hypersomnia. Monitor for over activation, s/s bee reviewed and no evidence thus far. Continue abilify 20 mg po qhs. Will need therapy; pt to call [facility] today to ask for referral. Pt in need of PCP appt. Practice self care. Assessment & Plan (03/16/2024 9:30 AM EDT): Cont wellbutrin xl and increase to 300 mg qam for depressed mood, anergia, amotivation, hypersomnia. Monitor for over activation, s/s bee reviewed. Continue abilify 20 mg po qhs. Will need therapy; pt to call [facility] today to ask for referral. Practice self care. Assessment & Plan (02/17/2024 3:42 PM EDT): Cont wellbutrin xl and abilify, no change in dose of either. Will need therapy. Practice self care. Insulin dependent type 2 diabetes mellitus ([facility]) 08/15/2023 Overview (02/16/2024): Last Assessment & Plan: Uncontrolled: Glucose at 500. Will discuss during F/U. Continue treatment plan Labs: glucose Noncompliance with diabetes treatment 08/15/2023 Assessment & Plan (03/16/2024 9:27 AM EDT): Encourage pt to eat regularly, monitor BS and make f/u appt with pcp Neuropathy due to type 2 diabetes mellitus ([facility]) 07/10/2018 Hypothyroidism 10/30/2012 Diabetes mellitus without complication ([facility]) 09/12/2011 Obesity 09/12/2011 Resolved Problems Problem Noted Date Diagnosed Date Resolved Date Bipolar disease in ([facility]) 08/15/2023 02/16/2024 Social History Tobacco Use [...] 19 + 3-dose series) 02/03/2013 09/30/2012, 08/06/2012 [id number] ( season) 2024 021, 10/14/2020 Imm-Influenza (#1) [...] Discontinued Vaginal Pap Discontinued Vulvoscopy Discontinued Insurance [facility] [place] [facility]
--- OUTSIDE RECORDS SUMMARY | 2024-10-15 13:12 | XMS_ITS | Encounter Summary ---
Author Organization [employer] Address [address] [place] [address] Care Team Providers Care Operating Room Scheduler Name Role Phone Destiny Miranda MD Primary Care Provider [phone] Nicole Gandhi PharmD Unavailable [phone] Encounter Details Date Type Department Care Team (Late st Contact Info) Description 09/14/2024 Orders Only [facility] MED & PEDS [address] [place] [address] Provider, MD Jovita Social History Tobacco Use [...] Description 11/05/2024 10:30 AM EDT Medication Management [facility] MED & PEDS [address] [place] [address] Nicole Gandhi, PharmD [address] [place] [address] 12/22/2024 10:15 AM EDT Office Visit [facility] MED & PEDS [address] [place] [address] Destiny Miranda MD [address] [place] [address] documented as of this encounter Procedures Procedure [...] documented as of this encounter Care Teams Operating Room Scheduler Relationship Specialty Start Date End Date Destiny Miranda MD [address] [place] [address] PCP - General Family Medicine 06/23/18 Nicole Gandhi PharmD [address] [place], [place] [phone] Pharmacist Internal Medicine 08/20/24 Rose Cash Hair BlenderGlass Grinder 09/17/23 documented as of this encounter
--- OUTSIDE RECORDS SUMMARY | 2024-10-15 13:12 | XMS_ITS | Encounter Summary ---
Author Organization [employer] Address [address] [place] [address] Care Team Providers Care Raw Juice Weigher Name Role Phone Destiny Miranda MD Primary Care Provider [phone] Nicole Gandhi PharmD Unavailable [phone] Encounter Details Date Type Department Care Team (Late st Contact Info) Description 06/02/2023 Orders Only [facility] [address] [place] [address] Bo Caraballo MD [address] [place] [address] Social History Tobacco Use Types Packs/Day Years [...] Description 11/05/2024 10:30 AM EDT Medication Management [facility] MED & PEDS [address] [place] [address] Nicole Gandhi PharmD [address] [place] [address] 12/22/2024 10:15 AM EDT Office Visit [facility] MED & PEDS [address] [place] [address] Destiny Miranda MD [address] [place] [address] documented as of this encounter Visit Diagnoses Not on filedocumented in this encounter Additional Health Concerns Assessment Noted Time PHQ-9 Depression Total Score: 9 02/12/20 23 9:12 AM EDT documented as of this encounter Care Teams Raw Juice Weigher Relationship Specialty Start Date End Date Destiny Miranda MD [address] [place] [address] PCP - General Family Medicine 06/23/18 Nicole Gandhi PharmD [address] [place] [address] Pharmacist Internal Medicine 08/20/24 Rose Cash Building EstimatorDirector Of Community Education 09/17/23 documented as of this encounter
--- OUTSIDE RECORDS SUMMARY | 2024-10-15 13:12 | XMS_ITS | Encounter Summary ---
Author Organization [employer] Address [address] [place] [address] Care Team Providers Care Sap Bw Consultant Name Role Phone Destiny Miranda MD Primary Care Provider [phone] Nicole Gandhi PharmD Unavailable [phone] Encounter Details Date Type Department Care Team (Late st Contact Info) Description 02/20/2024 Orders Only [facility] MEDICINE [address] [place] [address] Antonette Garcia MD [address] [place] [address] Social History Tobacco Use Types Packs/Day Years [...] Description 11/05/2024 10:30 AM EDT Medication Management [facility] MED & PEDS [address] [place] [address] Nicole Gandhi, PharmD [address] [place] [address] 12/22/2024 10:15 AM EDT Office Visit [facility] MED & PEDS [address] [place] [address] Destiny Miranda MD [address] [place] [address] documented as of this encounter Visit Diagnoses Not on filedocumented in this encounter Additional Health Concerns Assessment Noted Time PHQ-9 Depression Total Score: 21 024 1:56 PM EDT documented as of this encounter Care Teams Sap Bw Consultant Relationship Specialty Start Date End Date Destiny Miranda MD [address] [place] [address] PCP - General Family Medicine 06/23/18 Nicole Gandhi, PharmD [address] [place] [address] Pharmacist Internal Medicine 08/20/24 Rose Cash Can SoldererAircraft Painter Apprentice 09/17/23 documented as of this encounter
--- OUTSIDE RECORDS SUMMARY | 2024-10-15 13:12 | XMS_ITS | Clinical Summary ---
Author Organization [facility] Address [address] [place] [id number] Phone Care Team Providers Care Revolving Inventory Clerk Name Role Phone Montse Tamayo MD Primary [...] age to complete this topic Care Teams Revolving Inventory Clerk Relationship Specialty Start Date End Date Montse Tamayo MD PCP - General 01/31/17
--- OUTSIDE RECORDS SUMMARY | 2024-10-15 13:12 | XMS_ITS | Clinical Summary ---
Author Organization [employer] Address [address] [place] [address] 7t [place] [address] Care Team Providers Care Search Engine Marketing Strategist Name Role Phone Destiny Miranda MD Primary Care Provider [phone] Nicole Gandhi PharmD Unavailable [phone] Allergies No known active allergies Medications * [...] 6 weeks 9 tablet 09/23/19 25 Active hydrOXYzine HCl (Atarax) 25 MG tabletIndications [...] depressed, severe, without psychotic features (CMS/HCC) Take 1 tablet (20 mg) by mouth Once daily. 30 tablet 1 09/24/19 25 2024 Active Blood Glucose Monitoring Suppl (FreeStyle [employer] Lite) w/Device kit Use to test blood sugar as directed 1 kit 09/25/19 Active glucose blood (FREESTYLE LITE) test stripIndications: Neuropathy due to type 2 diabetes mellitus ([facility]) Test blood sugar up to 3 times daily 100 strip 11 09/25/19 25 Active Lancets misc Test blood sugar up to 3 times daily 100 each 11 09/25/19 25 Active multivitamin () 27-0.8 MG tablet TAKE 1 TABLET BY MOUTH EVERY DAY 90 tablet 3 09/29/19 25 Active FREESTYLE LITE test stripIndications: Neuropathy due to type 2 diabetes mellitus ([facility]) USE DIRECTED TWICE A DAY [...] 90 tablet 3 08/24/19 25 2024 Discontinued nystatin (Mycostatin) cream Apply topically 2 times daily for 14 days. 60 g 1 09/23/19 25 2024 metroNIDAZOLE (Flagyl) 500 MG tablet Take 1 [...] retiring, patient will be referred to new [facility] Psychiatric provider. She is aware that appts will be televisits and that provider will not be an employee of [facility]. She gives permission to share PHI. [...] patient's care will be transferred to new [facility] Psychiatric provider. F/U with therapist as [...] Care Team Description 09/29/2024 Orders Only [facility] [address] [place] [address] Destiny Miranda MD Foot callus (Primary Dx); Neuropathy due to type 2 diabetes mellitus ([facility]); Diabetes mellitus type 2, insulin dependent ([facility]) 09/29/2024 Telephone [place] [employer] [address] [place] [address] [phone] Destiny Miranda MD 09/28/2024 Refill [facility] [address] [place] [address] Destiny Miranda MD 09/24/2024 Travel 09/24/2024 Orders Only [facility] [address] [place] [address] Destiny Miranda MD 09/22/2024 9:45 AM EDT Procedure Visit [facility] [address] [place] [address] Destiny Miranda MD Encounter for gynecological examination with Papanicolaou smear of cervix (Primary Dx); Yeast infection involving the vagina and surrounding area 09/22/2024 Travel 09/21/2024 Orders Only [facility] [address] [place] [address] Destiny Miranda MD 09/20/2024 Travel 09/20/2024 Telephone [facility] [address] [place] [address] Destiny Miranda MD Chart Prep 09/14/2024 Travel 09/14/2024 Orders Only [facility] [address] [place] [address] ProviderJovita MD 09/03/2024 Population Health Risk Score [facility] () Department [address] [place] [phone] Provider, Population Health Generic 08/27/2024 Travel 08/23/2024 Refill [facility] [address] [place] [address] Nicole Gandhi, PharmD 08/20/2024 Telephone [facility] [address] [place] [address] Nicole Gandhi, PharmD Prior Authorization 08/20/2024 Travel 08/12/2024 11:15 AM EST Office Visit [facility] [address] [place] [address] Destiny Miranda MD Mood disorder (CMS/HCC) (Primary Dx); Diabetes mellitus type 2, insulin dependent (CMS/HCC); Benign hypertension; Neuropathy due to type 2 diabetes mellitus (CMS/HCC); Atypical chest pain; Family history of early CAD 08/12/2024 Travel 08/04/2024 Telephone [facility] [address] [place] [phone] Destiyn Miranda MD ER Follow-up 07/21/2024 Orders Only [facility] [address] [place] [address] Destiny Miranda MD Diabetes mellitus type 2, insulin dependent (CMS/HCC) (Primary Dx); Benign hypertension 07/20/2024 Telephone [facility] [address] [place] [address] Nicole Gandhi, PharmD from Last 3 Months [...] 11/05/2024 10:30 AM EDT Medication Management [facility] [address] [place] [address] Nicole Gandhi, PharmD [address] [place] [address] 12/22/2024 10:15 AM EDT Office Visit [facility] [address] [place], [place] [phone] Destiny Miranda MD [address] [place] [address] Health Maintenance Due Date Last Done Comments [...] 11/09/2024 025, 03/09/2024, 02/04/2024, Additional history exists Diabetes: Urine Protein Screening 03/09/2025 03/09/2024, 11/09/2020, 04/21/2020 Lipid Panel 03/09/2025 03/09/2024, 04/21/2020 Depression Screening 08/31/2025 08/31/2024, 09/01/19 25 Tobacco Screening 09/23/2025 09/23/2024 DTaP/Tdap/Td Vaccines (7 - Td or Tdap) 05/27/2028 05/27/2018, 05/26/2014, 02/19/2000, Additional history exists HPV/Cotest 09/21/2029 09/21/2024, 06/29/2019 Cervical Cancer Screening 09/27/2029 Pap Smear 09/27/2029 09/27/2024, 04/07/2024, 06/19/2022 Zoster Vaccines (1 of 2) 2037 [...] DETECTION BY PCR NOT DETECTED Not Detect [facility] BACTERIAL VAGINOSIS DETECTION BY PCR POSITIVE(A) Negative [facility] Comment:The BV organism targ ets of [...] DETECTION BY PCR NOT DETECTED Not Detect [facility] Gisela glab krusei PCR NOT DETECTED Not Detect [facility] Swab Vaginal structure / Unknown 09/22/2024 10:15 AM EDT 09/22/2024 2:17 PM EDT Destiny Miranda MD LAB MICROBIOLOGY - GENERAL OR DERABLES Final Result [facility] [address] [place] [address] [phone] * Chlamydia/N. Gonorrhoeae RNA, TMA, Urogenitial (09/22/2024 10:15 AM EDT) CT PCR NOT DETECTED Not Detect. [facility] Comment:A not detected test result does [...] psychologicalconsequences. NG PCR NOT DETECTED Not Detect. [facility] Comment:A not detected test result does [...] 10:15 AM EDT 09/22/2024 2:17 PM EDT [facility] - 09/22/2024 4:34 PM EDT Vaginal us Destiny Miranda MD LAB MICROBIOLOGY - GENERAL OR DERABLES Final Result [facility] [address] [place] [address] [phone] * Pap Smear (09/22/2024 10:15 AM EDT) Swab Cervical swab / Unknown 09/22/2024 10:15 AM EDT 09/23/2024 6:11 AM EDT Narrative [facility] - 09/27/2024 10:10 AM EDT ----- ------- Name: Yvrose Cooper ?Age/Sex: 39/F ? : 1985 Unit#: [id number] ?? Attend Dr: ?Re09/22/24 ?Status: PRE REF ? Location: HO.LNP ?Disch: ? ----- ------- SPEC : [id number] ? RECD: 09/23/24-610 ? STATUS: ??SOUT ? REQ NUM: [id number] ? [place]: 09/22/24-5 ? SUBM DR: Destiny Miranda MD ? ENTERED: ??09/23/24-0623 ?SP TYPE: Pap Smr ?OTHR DR: ? ORDERED: ??Pap Smear ? Interpretation ?? [...] CYTOLOGY ORDERABLES Final Result Performing Organization Address [facility] Co de Phone Number [facility] [address] [place] [phone] * HPV DNA, Low/High Risk (09/21/2024 10:15 AM EDT) HPV High Risk Negative Negative [facility] HPV Genotype 16 Negative Negative [facility] HPV Genotype 18 Negative Negative [facility] Comment:HPV testing performe d at [facility] (CLIA#[id number]), [address] [place] [address].Testing for HPV was performed using the Ripl DIANE 6800system. The presence of HPV in the female [...] 5 AM EDT 09/23/2024 7:16 AM EDT Destniy Miranda MD LAB BLOOD ORDERABLES Final Re sult Performing Organization Address [facility]/ZIP Co de Phone Number [facility] [address] [place] [address] [phone] * (ABNORMAL) POCT glucose manually resulted (08/12/2024 11:51 AM EST) Only the most recent of2 resultswithin the time period is included. Glucose Blood, POC 436(A) 60 - 200 mg/dL QC Media Lot # Comment:[id number] Lot# Expiration Date Comment:09/28/2024 Blood Capillary blood specimen / Unknown 08/12/2024 11:51 AM EST us Destiny Miranda MD POINT OF CARE TEST ENTER/EDIT ORDERABLES Final Result * (ABNORMAL) POCT A1C (08/12/2024 11:05 AM EST) Hemoglobin A1C 15.0(A) 4.0 - 6.0 % Comment:Code #106 Media Lot # Comment:[id number] Lot# Expiration Date Comment:04/09/2026 Blood 08/12/2024 11:0 5 AM EST us Destiny Miranda MD POINT OF CARE TEST ENTER/EDIT ORDERABLES Final Result * (ABNORMAL) Albumin, Random Urine W/Creatinine (03/09/2024 9:40 AM EDT) Creatinine, Urine 47.59 mg/dL [facility] Microalbumin Urine 272.0 mg/L [facility] Microalbum Creatinine Ratio Ur 571.5(H) <30 ug/mg cr [facility] Comment:Albumin/Creatinine R at Reference Ranges: Normal: < 30 ug/mg creatinine Microalbuminuria: 30 - 300 ug/mg creatinineClinical Albuminuria: > 300 ug/mg creatinine Urine (Urine, Random) 03/09/2024 9:40 AM EDT 03/09/2024 2:19 PM EDT us Destiny Miranda MD LAB URINE ORDERABLES Final Re sult [facility] [address] [place] [phone] * (ABNORMAL) Lipid Panel, Standard (03/09/2024 9:33 AM EDT) Triglycerides 476(H) <150 mg/dL [facility] Comment:Desirable Triglyceri de: less than 150 mg/dLBorderline High Triglyceride 150-199 mg/dLHigh Triglyceride: 200-499 mg/dLVery High Triglyceride: greater than or equal to 5OO mg/dL Cholesterol 225(H) <200 mg/dL [facility] Comment:Desirable Cholestero l: less than 200 mg/dLBorderline High Cholesterol: 200-239 mg/dLHigh Cholesterol: greater than 239 mg/dL LDL Cholesterol Calculated TNP <100 mg/dL [facility] Comment:Unable to calculate the LDL. The formula of Friedwald,Gaspar, and Louisa is only valid if the triglycerides areless than 400 mg/dl. HDL Cholesterol 39(L) >40 mg/dL [facility] Comment:Desirable HDL: great er than 40 mg/dL Note: This HDL assay may give artificially low results in patients with liver disease. Blood Venous blood specimen / Unknown 03/09/2024 9:33 AM EDT 03/09/2024 2:54 PM EDT Destiny Miranda MD LAB BLOOD ORDERABLES Final Re sult [facility] [address] [place] [address] [phone] from Last 3 Months or Most Recently Relevant to Health Maintenance Insurance [facility] [place] [place] AD[place] Care Teams Search Engine Marketing Strategist Relationship Specialty Start Date End Date Destiny Miranda MD [address] [place] [address] PCP - General Family Medicine 06/23/18 Nicole Gandhi PharmD [address] [place] [phone] Pharmacist Internal Medicine 08/20/24 Rose Cash Bridal Service Sales And ManagementSlubber Machine Operator 09/17/23
--- OUTSIDE RECORDS SUMMARY | 2024-10-15 13:12 | XMS_ITS | Encounter Summary ---
Author Organization [employer] Address [address] [facility] [address] [place] [address] Care Team Providers Care Experimental Electronics Developer Name Role Phone Destiny Miranda MD Primary Care Provider [phone] Nicole Gandhi PharmD Unavailable [phone] Reason for Visit * Reason Onset Date Comments returning call 05/17/2024 Encounter Details Date Type Department Care Team (Late st Contact Info) Description 05/17/2024 Telephone [facility] [address] [place] [address] Destiny Miranda MD [address] [place] [address] returning call Social History Tobacco Use Types [...] will like another callback . Callback number [phone] documented in this encounter Plan of Treatment Upcoming Encounters Date Type Department Care Team (Late st Contact Info) Description 11/05/2024 10:30 AM EDT Medication Management [facility] [address] [place] [address] Nicole Gandhi, PharmD [address] [place], [place] [phone] 12/22/2024 10:15 AM EDT Office Visit [facility] [address] [place] [address] Destiny Miranda MD [address] [place] [address] documented as of this encounter Visit Diagnoses Not on filedocumented in this encounter Additional Health Concerns Assessment Noted Time PHQ-9 Depression Total Score: 21 024 1:56 PM EDT documented as of this encounter Care Teams Experimental Electronics Developer Relationship Specialty Start Date End Date Destiny Miranda MD [address] [place] [address] PCP - General Family Medicine 06/23/18 Nicole Gandhi, GregorioD [address] [place] [address] Pharmacist Internal Medicine 08/20/24 Rose Cash Gift ConsultantOperations And Intelligence Assistant 09/17/23 documented as of this encounter
--- OUTSIDE RECORDS SUMMARY | 2024-10-15 13:12 | XMS_ITS | Encounter Summary ---
Author Organization [employer] Address [address] [facility] 7 [place] [address] Care Team Providers Care Camp Attendant Name Role Phone Destiny Miranda MD Primary Care Provider [phone] Nicole Gandhi PharmD Unavailable [phone] Reason for Visit * Reason Onset Date Comments Medication Question 04/28/2024 Encounter Details Date Type Department Care Team (Late st Contact Info) Description 04/28/2024 Telephone [facility] [address] [place] [address] Destiny Miranda MD [address] [place] [address] Medication Question Social History Tobacco Use Types [...] 12:48 PM EST Pt does not have [facility] as a pharmacy. Pt needs to contact office if pt is requesting to change pharmacies to [facility]. * Telephone Encounter - Brett Dailey - 04/28/2024 10:27 AM EST Tc from Krystin ([facility]) requesting a call , Krystin need more info in medication that's not in thelist (Lisinopril 40 mg), documented in this encounter Plan of Treatment Upcoming Encounters Date Type Department Care Team (Late st Contact Info) Description 11/05/2024 10:30 AM EDT Medication Management [facility] [address] [place], [place] [phone] Nicole Gandhi, PharmD [address] [place] [address] 12/22/2024 10:15 AM EDT Office Visit [facility] [address] [place], [place] [phone] Destiny Miranda MD [address] [place] [address] documented as of this encounter Visit Diagnoses Not on filedocumented in this encounter Additional Health Concerns Assessment Noted Time PHQ-9 Depression Total Score: 21 024 1:56 PM EDT documented as of this encounter Care Teams Camp Attendant Relationship Specialty Start Date End Date Destiny Miranda MD [address] [place] [address] PCP - General Family Medicine 06/23/18 Nicole Gandhi PharmD [address] [place] [address] Pharmacist Internal Medicine 08/20/24 Rose Cash Transformer InspectorReed Dipper 09/17/23 documented as of this encounter
--- OUTSIDE RECORDS SUMMARY | 2024-10-15 13:12 | XMS_ITS | Encounter Summary ---
Author Organization [facility] Address [address] [place] [address] Phone Care Team Providers Care Final Operations Technician Name Role Phone Montse Tamayo MD Primary Care Provider Unava ilable Encounter Details Date Type Department Care Team (Late st Contact Info) Description 04/24/2017 Conversion Encounter [facility] - [address] [address] Social History Tobacco Use Types Packs/Day Years [...] on filedocumented in this encounter Care Teams Final Operations Technician Relationship Specialty Start Date End Date Montse Tamayo MD PCP - General 01/31/17 documented as of this encounter
--- OUTSIDE RECORDS SUMMARY | 2024-10-15 13:12 | XMS_ITS | Encounter Summary ---
Author Organization [employer] Address [address] [facility] 7 [place] [address] Care Team Providers Care Cementer Machine Joiner Name Role Phone Destiny Miranda MD Primary Care Provider [phone] Nicole Gandhi PharmD Unavailable [phone] Reason for Visit * Reason Onset Date Comments Medication Question 02/20/2024 Encounter Details Date Type Department Care Team (Late st Contact Info) Description 02/20/2024 Telephone [facility] [address] [place] [address] Destiny Miranda MD [address] [place] [address] Medication Question Social History Tobacco Use Types [...] any questions you can contact pt at [phone]. documented in this encounter Plan of Treatment Upcoming Encounters Date Type Department Care Team ([facility] st Contact Info) Description 11/05/2024 10:30 AM EDT Medication Management [facility] [address] [place] [address] Nicole Gandhi, PharmD [address] [place] [address] 12/22/2024 10:15 AM EDT Office Visit [facility] [address] [place] [address] Destiny Miranda MD [address] [place] [address] documented as of this encounter Visit Diagnoses Diagnosis Diabetes mellitus without complication (CMS/HCC) Type II or unspecified type diabetes mellitus without mention of complication, not stated as uncontrolled documented in this encounter Additional Health Concerns Assessment Noted Time PHQ-9 Depression Total Score: 21 024 1:56 PM EDT documented as of this encounter Care Teams Cementer Machine Joiner Relationship Specialty Start Date End Date Destiny Miranda MD [address] [place] [address] PCP - General Family Medicine 06/23/18 Nicole Gandhi PharmD [address] [place] [address] Pharmacist Internal Medicine 08/20/24 Rose Cash Inspector GeneralU.S. Revenue Officer 09/17/23 documented as of this encounter
--- OUTSIDE RECORDS SUMMARY | 2024-10-15 13:12 | XMS_ITS | Encounter Summary ---
Author Organization [employer] Address [address] [place] [address] 7t [place] [address] Care Team Providers Care Emblem Drawer In Name Role Phone Destiny Miranda MD Primary Care Provider [phone] Nicole Gandhi PharmD Unavailable Reason for Visit * Reason Comments Med Change Request Encounter Details Date Type Department Care Team ([facility] st Contact Info) Description 08/15/2023 Refill [facility] [address] [place], [place] [phone] Cristine Guajardo MD [address] [place] [address] Cervical paraspinal muscle spasm Social History Tobacco [...] Description 11/05/2024 10:30 AM EDT Medication Management [facility] [address] [place] [address] Nicole Gandhi, PharmD [address] [place] [address] 12/22/2024 10:15 AM EDT Office Visit [facility] [address] [place] [address] Destiny Miranda MD [address] [place] [address] documented as of this encounter Visit Diagnoses Diagnosis Cervical paraspinal muscle spasm Spasm of muscle documented in this encounter Additional Health Concerns Assessment Noted Time PHQ-9 Depression Total Score: 22 024 3:36 PM EST documented as of this encounter Care Teams Emblem Drawer In Relationship Specialty Start Date End Date Destiny Miranda MD [address] [place] [address] PCP - General Family Medicine 06/23/18 Nicole Gandhi, GregorioD [address] [place] [address] Pharmacist Internal Medicine 08/20/24 Rose Cash Metal Sash SetterNegotiator Sales 09/17/23 documented as of this encounter
--- OUTSIDE RECORDS SUMMARY | 2024-10-15 13:12 | XMS_ITS | Encounter Summary ---
Author Organization [employer] Address [address] [place] [address] [address] [place] [address] Care Team Providers Care Box Sealing Machine Catcher Name Role Phone Destiny Miranda MD Primary Care Provider [phone] Nicole Gandhi PharmD Unavailable [phone] Reason for Visit * Reason Onset Date Comments Med Refill 01/19/2023 Encounter Details Date Type Department Care Team (Late st Contact Info) Description 01/19/2023 Refill [facility] [address] [place] [address] Cristine Guajardo MD [address] [place] [address] Acute vaginitis; Recurrent vaginitis Social History Tobacco [...] Description 11/05/2024 10:30 AM EDT Medication Management [facility] [address] [place] [address] Nicole Gandhi PharmD [address] [place] [address] 12/22/2024 10:15 AM EDT Office Visit [facility] [address] [place] [address] Destiny Miranda MD [address] [place] [address] documented as of this encounter Visit Diagnoses Diagnosis Acute vaginitis Unspecified vaginitis and vulvovaginitis Recurrent vaginitis Unspecified vaginitis and vulvovaginitis documented in this encounter Additional Health Concerns Assessment Noted Time PHQ-9 Depression Total Score: 15 023 10:09 AM EDT documented as of this encounter Care Teams Box Sealing Machine Catcher Relationship Specialty Start Date End Date Destiny Miranda MD [address] [place] [address] PCP - General Family Medicine 06/23/18 Nicole Gandhi PharmD [address] [place] [address] Pharmacist Internal Medicine 08/20/24 Rose Cash Funeral Director/EmbalmerTheatrical Trouper 09/17/23 documented as of this encounter
== END 2024-10-15 13:27 | disposition home or self-care (01) ==
LOC: HO.HCS 12:32
PROVIDERS: PCP Pediatrics; Visit Provider Nurse Practitioner Family
DX: R07.89 Other chest pain (principal); Z82.49 Family history of ischemic heart disease and other diseases of the circulatory system; E11.9 Type 2 diabetes mellitus without complications; I10 Essential (primary) hypertension
CPT/HCPCS: 99213

== ENCOUNTER → 2024-10-15 12:31 | Outpatient (BNVA) | payer MEDICAID, SELFPAY | PROVIDERS: PCP Pediatrics; Visit Provider Nurse Practitioner Family | DX: R07.89 Other chest pain (principal); E11.9 Type 2 diabetes mellitus without complications; I10 Essential (primary) hypertension; Z82.49 Family history of ischemic heart disease and other diseases of the circulatory system | CPT/HCPCS: 99212 ==

== ENCOUNTER 2024-12-07 10:54 | Outpatient (REF) | payer MEDICAID, SELFPAY ==
--- OUTSIDE RECORDS SUMMARY | 2024-12-07 12:25 | XMS_ITS | Encounter Summary ---
Author Organization [employer] Address [address] [place] [address] 7t [place] [address] Care Team Providers Care User Experience Designer Name Role Phone Destiny Miranda MD Primary Care Provider [phone] Nicole Gandhi PharmD Unavailable [phone] Reason for Visit * Reason Onset Date Comments Med Refill 01/19/2023 Encounter Details Date Type Department Care Team (Late st Contact Info) Description 01/19/2023 Refill [facility] [address] [place] [address] Cristine Guajardo MD [address] [place] [address] Acute vaginitis; Recurrent vaginitis Social History Tobacco [...] Care Team (Late st Contact Info) Description 12/21/2024 9:00 AM EDT Medication Management [facility] [address] [place] [address] Nicole Gandhi PharmD [address] [place] [address] documented as of this encounter Visit Diagnoses Diagnosis Acute vaginitis Unspecified vaginitis and vulvovaginitis Recurrent vaginitis Unspecified vaginitis and vulvovaginitis documented in this encounter Additional Health Concerns Assessment Noted Time PHQ-9 Depression Total Score: 15 023 10:09 AM EDT documented as of this encounter Care Teams User Experience Designer Relationship Specialty Start Date End Date Destiny Miranda MD [address] [place] [address] PCP - General Family Medicine 06/23/18 Nicole Gandhi PharmD [address] [place] [address] Pharmacist Internal Medicine 08/20/24 Rose Cash Anesthesia AssociateTuck Pointer 09/17/23 documented as of this encounter
[2024-12-07 14:55] LABS: Alanine Aminotransferase 8 U/L (0-31); Albumin Level 3.5 g/dL (3.5-5.0); Alkaline Phosphatase 96 U/L (39-117); Anion Gap 13 (12-20); Aspartate Amino Transferase 18 U/L (5-31); Bilirubin Total 0.2 mg/dL (0.0-1.0); Blood Urea Nitrogen 18 mg/dL (9-16); Calcium 9.2 mg/dL (8.4-10.2); Carbon Dioxide 26 mmol/L (22-29); Chloride 97 mmol/L (96-108); Cholesterol 236 mg/dL (<200); Estimated Glomerular Filt Rate > 60; Glucose Random 390 mg/dL (60-115); HDL Cholesterol 37 mg/dL (>40); LDL Cholesterol Calculated 121 mg/dL (<100); Potassium 4.2 mmol/L (3.3-5.1); Sodium 132 mmol/L (135-145); Total Protein 6.7 g/dL (6.5-8.0); Triglycerides 390 mg/dL (<150)
[2024-12-07 15:11] LABS: Creatinine Urine 64.06 mg/dL; Microalbumin Urine > 2000.0 mg/L
== END 2024-12-07 10:55 | disposition home or self-care (01) ==
LOC: HO.CHCLDS 10:54
PROVIDERS: Visit Provider Pediatrics
DX: E11.9 Type 2 diabetes mellitus without complications (principal)
CPT/HCPCS: 36415; 80053; 80061; 82043; 82570

== ENCOUNTER 2024-12-22 13:40 | Outpatient (AMB) | payer MEDICAID, SELFPAY ==
--- NOTE | 2024-12-22 13:55 | HO.NEPHOV ---
Vital Signs 12/22/24 13:56 Height 5 ft 6 in BP 110/72 Blood Pressure Location Lt brachial Position Sitting Pulse 89 Pulse Source Pulse Oximeter Pulse Oximetry (%) 98 Oxygen Delivery Method Room Air Intake Visit Reasons: ENP: Worsening proteinuria and Diabetes Poultry Offal Icer Required: No Accompanied by: Spouse Allergies No Known Allergies Allergy (Verified 12/22/24 14:01) Medication List - Last Reconciled 12/22/24 by Lefty Tarango MD amlodipine 2.5 mg PO QAM aripiprazole 20 mg PO DAILY blood sugar diagnostic (FreeStyle Lite Strips) As directed bupropion HCl XL 450 mg PO DAILY chlorthalidone 25 mg PO QAM empagliflozin (Jardiance) 25 mg PO QAM glyburide 5 mg PO BID hydroxyzine HCl 25 mg PO TID PRN insulin glargine (Lantus U-100 Insulin) 50 units subcut BEDTIME ondansetron 4 mg PO Q8H vit no.[id number] 27 mg iron- 800 mcg ( Vitamin) 1 tab PO DAILY trazodone 50 mg PO BEDTIME PRN HPI Comments Details: The patient is a 39-year-old female referred for proteinuria. She reports foamy urine, which led to a referral to nephrology for further evaluation. The patient has a history of Diabetes Mellitus diagnosed in 2013, with poor glycemic control evidenced by a recent A1c of 13.6%. She has been experiencing peripheral edema for the past three to four weeks, which is a new symptom. Hypertension was diagnosed earlier this year, and she is currently on amlodipine and chlorthalidone for management. Blood pressure control is somewhat achieved, but adjustments in medication are being considered to optimize renal protection. The patient also reports diabetic neuropathy, for which she is not currently receiving treatment. Additionally, she has anemia with a hemoglobin level of 11.4 g/dL, likely secondary to menorrhagia. [facility] Medical History (Updated 12/22/24 @ 14:06 by Lefty Tarango MD) Microalbuminuria Callus of foot GERD (gastroesophageal reflux disease) Diabetes Anxiety Gastroparesis Family History Father Heart attack Social History Patient Tobacco Use Status: Never used Tobacco Substance Use Type: Marijuana Review of Systems Const Denies fever(s) and Denies weight loss Card Denies chest pain Resp Denies cough and Denies hemoptysis GI Denies abdominal pain, Denies diarrhea and Denies nausea Musc Denies back pain Neuro Denies focal weakness Physical Exam Vital Signs: Last Vital Signs Pulse 89 12/22/24 13:56 BP 110/72 12/22/24 13:56 Pulse Ox 98 12/22/24 13:56 Oxygen Delivery Method Room Air 12/22/24 13:56 Comfortable Neck supple no JVD. Lungs entry equal no rales. Heart S1-S2 heard no gallop or rub. Abdomen soft nontender. Neuro alert awake oriented. No asterixis. Extremities no edema. Results Reviewed Results Reviewed: October 2024 : A1C 13.6 Urine [facility] 3311 Nephrology Results: Sodium, (135-145) 132 mmol/L L 12/07/24 Potassium, (3.3-5.1) 4.2 mmol/L 12/07/24 Chloride, (96-108) 97 mmol/L 12/07/24 Carbon Dioxide, (22-29) 26 mmol/L 12/07/24 BUN, (9-16) 18 mg/dL H 12/07/24 Creatinine, (0.5-1.4) 0.83 mg/dL 12/07/24 Calcium, (8.4-10.2) 9.2 mg/dL 12/07/24 Urine Creatinine 64.06 mg/dL 12/07/24 Assessment & Plan Assessment & Plan (1) HTN (hypertension): Code(s): I10 - Essential (primary) hypertension Category: Medical (2) Diabetes: Comment: Diabetic since age 16 Code(s): E11.9 - Type 2 diabetes mellitus without complications Category: Medical (3) Proteinuria: Code(s): R80.9 - Proteinuria, unspecified Category: Medical (4) Anemia: Code(s): D64.9 - Anemia, unspecified Category: Medical Plan Nephrotic range proteinuria most likely due to diabtic nephropathy Non diabetic causes seem less likely , but will evaluate BP is well controlled Blood sugar is poorly controlled with A1C of 13.6% The primary focus is on managing the patient's diabetic nephropathy by optimizing glycemic control and blood pressure management. Lisinopril will be initiated to provide renal protection and control blood pressure, replacing amlodipine to avoid hypotension. Agree with Jardiance Further diagnostic workup will include blood tests, urine tests, and an ultrasound to confirm the etiology of proteinuria and assess renal function. The patient is advised to monitor blood pressure at home, especially after medication changes, to ensure it remains within target range. For anemia, iron studies will be conducted to determine if supplementation is necessary, given the history of menorrhagia. Further work up will be based on the outcome of the baseline investigations. Orders: Orders Creatinine Urine Today R80.9 - Proteinuria, unspecified Vitamin D 25-OH Total Today R80.9 - Proteinuria, unspecified Total Protein Urine Random Today R80.9 - Proteinuria, unspecified Hepatitis B Profile Today R80.9 - Proteinuria, unspecified Phospholipase A2 Receptor Pnl Today R80.9 - Proteinuria, unspecified IRON PROFILE Today D64.9 - Anemia, unspecified, E11.9 - Type 2 diabetes mellitus without complications, I10 - Essential (primary) hypertension Basic Metabolic Panel Today R80.9 - Proteinuria, unspecified UA and rflx microscopic Today R80.9 - Proteinuria, unspecified BEATRIZ Reflex Titer and Pattern Today R80.9 - Proteinuria, unspecified Protein Electrophoresis, Serum Today R80.9 - Proteinuria, unspecified US renal BI Today I10 - Essential (primary) hypertension, R80.9 - Proteinuria, unspecified Ferritin Today D64.9 - Anemia, unspecified, E11.9 - Type 2 diabetes mellitus without complications, I10 - Essential (primary) hypertension Medications: New lisinopril 10 mg PO DAILY 30 tabs 1RF Coding Level of Care Code New Pt Level 4 (56385) Diagnoses HTN (hypertension) I10 Diabetes E11.9 Proteinuria R80.9 Anemia D64.9
[2024-12-22 13:56] VITALS: BP 110/72; PULSE 89; O2SAT 98
--- OUTSIDE RECORDS SUMMARY | 2024-12-22 14:16 | XMS_ITS | Clinical Summary ---
Author Organization [facility] Address [address] [place] [address] Care Team Providers Care End User Consultant Name Role Phone Unavailable Primary Care Provider [...] Date Bipolar affective disorder, currently depressed, moderate (CMS & HHS-HCC) 02/16/2024 Assessment & Plan (03/30/2024 11:32 AM EDT): Cont wellbutrin xl 300 mg qam for depressed mood, anergia, amotivation, hypersomnia. Monitor for over activation, s/s bee reviewed and no evidence thus far. Continue abilify 20 mg po qhs. Will need therapy; pt to call [facility] today to ask for referral. Pt in need of PCP appt. Practice self care. Assessment & Plan (03/16/2024 9:30 AM EDT): Cont wellbutrin xl and increase to 300 mg qam for depressed mood, anergia, amotivation, hypersomnia. Monitor for over activation, s/s bee reviewed. Continue abilify 20 mg po qhs. Will need therapy; pt to call [facility] today to ask for referral. Practice self care. Assessment & Plan (02/17/2024 3:42 PM EDT): Cont wellbutrin xl and abilify, no change in dose of either. Will need therapy. Practice self care. Insulin dependent type 2 diabetes mellitus ([facility]) 08/15/2023 Overview (02/16/2024): Last Assessment & Plan: Uncontrolled: Glucose at 500. Will discuss during F/U. Continue treatment plan Labs: glucose Noncompliance with diabetes treatment 08/15/2023 Assessment & Plan (03/16/2024 9:27 AM EDT): Encourage pt to eat regularly, monitor BS and make f/u appt with pcp Neuropathy due to type 2 diabetes mellitus ([facility]) 07/10/2018 Hypothyroidism 10/30/2012 Diabetes mellitus without complication ([facility]) 09/12/2011 Obesity 09/12/2011 Resolved Problems Problem Noted Date Diagnosed Date Resolved Date Bipolar disease in ([facility]) 4 02/16/2024 Social History Tobacco Use Types Packs/Day [...] 19 + 3-dose series) 02/03/2013 09/30/2012, 08/06/2012 [id number] ( season) 2024 021, 10/14/2020 Hemoglobin A1c 06/08/2024 03/09/2024, 02/21, 02/04/2024, Additional history exists Alcohol and Drug Screen 06/23/2024 Imm-Influenza (Season Ended) 02/21/202510/2017, 04/07/2015, 04/07/2014, Additional history exists Lipid Screening 03/09/2025 03/09/2024, 04/21/2020 Serum Creatinine 03/09/2025 03/09/2024 TSH Monitoring 03/09/2025 03/09/2024 Tobacco Screening 03/16/2025 03/16/2024 Imm-DTaP/Tdap/Td (3 - Td or Tdap) 05/27/2028 018, 05/26/2014 Imm-Pneumococcal Completed 02/04/2024 Cervical Ablation/Cold-Knife Conization Discontinued Cervical Cryotherapy Discontinued Colposcopy Discontinued Endometrial Biopsy Discontinued Excision/Leep Discontinued HPV Genotyping Discontinued Vaginal Pap Discontinued Vulvoscopy Discontinued Insurance [facility] [place] MEDICAID
--- OUTSIDE RECORDS SUMMARY | 2024-12-22 14:16 | XMS_ITS | Encounter Summary ---
Author Organization [facility] Address [address] [place] [address] Phone Care Team Providers Care Paying Teller Name Role Phone Montse Tamayo MD Primary Care Provider Unava ilable Encounter Details Date Type Department Care Team (Late st Contact Info) Description 04/24/2017 Conversion Encounter [facility] - [address] [address] Social History Tobacco Use Types Packs/Day Years [...] on filedocumented in this encounter Care Teams Paying Teller Relationship Specialty Start Date End Date Montse Tamayo MD PCP - General 01/31/17 documented as of this encounter
--- OUTSIDE RECORDS SUMMARY | 2024-12-22 14:16 | XMS_ITS | Clinical Summary ---
Author Organization [address] [place] [address] Address [address] [place] [address] Phone Care Team Providers Care Automatic Clipper And Stripper Name Role Phone Destiny Miranda MD Primary Care Provider [phone] Social History Tobacco Use Types Packs/Day Years Used Date Smoking Tobacco: Never Assessed Comments Unknown Sex and Gender Information Value Date Recorded Sex Assigned at Not on file Legal Sex Female 8:59 AM EDT Gender Identity Not on file Sexual Orientation Not on file Plan of Treatment Upcoming Encounters Date Type Department Care Team ([facility] Contact Info) Description 12/31/2024 10:00 AM EDT Office Visit Orthopedic Surgery - [place] [address] [phone] Michael nAdrews DPM [address] [address] Health Maintenance Due Date Last Done Comments Diabetes: Annual GFR (Glomer ular Filtration Rate) 1987 Diabetes: Annual Foot Exam 1997 Diabetes: Annual Retina Eye Exam 1997 DTaP,Tdap,and Td Vaccines (1 - Tdap) 2006 Hepatitis B Vaccines (1 of 3 - 19+ 3-dose series) 2006 Pneumococcal Vaccine: Pediat rics (0 to 5 Years) and At-Risk Patients (6 to 64 Years) (1 of 2 - PCV) 2006 Cervical Cancer Screening: P ap Smear 02/03/2008 COVID-19 Vaccine ( - 2023-2 5 season) 2024 Cholesterol Screening (Lipid Panel) 10/26/2024 Depression Screening 10/26/2024 Diabetes: Annual Urine Albumin-Creatinine Ratio (uACR) 10/26/2024 Diabetes: Blood Sugar Contro l Test (HGBA1C) 10/26/2024 HIV Screening 10/26/2024 Hepatitis C Screening 10/26/2024 Social Influencers of Health Screening 10/26/2024 Influenza Vaccine (Season Ended) 2025 HIB Vaccines Aged Out No longer eligi ble based on patient's age to complete this topic HPV Vaccines Aged Out No longer eligi ble based on patient's age to complete this topic Hepatitis A Vaccines Aged Out No long er eligible based on patient's age to complete this topic IPV Vaccines Aged Out No longer eligi ble based on patient's age to complete this topic MMR Vaccines Aged Out No longer eligi ble based on patient's age to complete this topic Meningococcal ACWY Vaccine Aged Out N o longer eligible based on patient's age to complete this topic Meningococcal B Vaccine Aged Out No l onger eligible based on patient's age to complete this topic RSV Immunization Patients Un prabha 20 months Aged Out No longer eligible b ased on patient's age to complete this topic Varicella Vaccines Aged Out No longer eligible based on patient's age to complete this topic Insurance MEDICAID - [place] Care Teams Automatic Clipper And Stripper Relationship Specialty Start Date End Date Destiny Miranda MD [address] [place] [address] PCP - General Internal Medicine 10/26/24
--- OUTSIDE RECORDS SUMMARY | 2024-12-22 14:16 | XMS_ITS | Encounter Summary ---
Author Organization [employer] Address [address] [place] [address] 7 [place] [address] Care Team Providers Care Internet Specialist Name Role Phone Destiny Miranda MD Primary Care Provider [phone] Nicole Gandhi PharmD Unavailable [phone] Reason for Visit * Reason Onset Date Comments Med Refill 01/19/2023 Encounter Details Date Type Department Care Team (Late st Contact Info) Description 01/19/2023 Refill [facility] P[facility]S [address] [place] [address] Cristine Guajardo MD [address] [place] [address] Acute vaginitis; Recurrent vaginitis Social History Tobacco [...] documented as of this encounter Care Teams Internet Specialist Relationship Specialty Start Date End Date Destiny Miranda MD [address] [place] [address] PCP - General Family Medicine 06/23/18 Nicole Gandhi PharmD [address] [place] [address] Pharmacist Internal Medicine 08/20/24 Rose Cash Welt TreaterDehairer 09/17/23 documented as of this encounter
== END 2024-12-22 14:24 | disposition home or self-care (01) ==
LOC: HO.HKAM 13:40
PROVIDERS: PCP Pediatrics; Visit Provider Internal Medicine Hypertension Specialist
DX: I10 Essential (primary) hypertension (principal); E11.9 Type 2 diabetes mellitus without complications; R80.9 Proteinuria, unspecified; D64.9 Anemia, unspecified
CPT/HCPCS: 99204

== ENCOUNTER → 2024-12-22 13:40 | Outpatient (BNVA) | payer MEDICAID, SELFPAY | PROVIDERS: PCP Pediatrics; Visit Provider Internal Medicine Hypertension Specialist | DX: I10 Essential (primary) hypertension (principal); E11.9 Type 2 diabetes mellitus without complications; R80.9 Proteinuria, unspecified; D64.9 Anemia, unspecified | CPT/HCPCS: 99202 ==

== ENCOUNTER 2024-12-29 07:48 | Outpatient (REF) | payer MEDICAID, SELFPAY ==
--- OUTSIDE RECORDS SUMMARY | 2024-12-29 07:50 | XMS_ITS | Clinical Summary ---
Author Organization [address] [place] [address] Address [address] [place] [address] Phone Care Team Providers Care Edge Drummer Name Role Phone Destiny Miranda MD Primary Care Provider [phone] Social History Tobacco Use Types Packs/Day Years Used Date Smoking Tobacco: Never Assessed Comments Unknown Sex and Gender Information Value Date Recorded Sex Assigned at Not on file Legal Sex Female 8:59 AM EDT Gender Identity Not on file Sexual Orientation Not on file Plan of Treatment Upcoming Encounters Date Type Department Care Team ([facility] Contact Info) Description 12/31/2024 10:00 AM EDT Office Visit Orthopedic Surgery - [place] [address] [phone] Michael Andrews DPM [address] [address] Health Maintenance Due Date Last Done Comments Diabetes: Annual GFR (Glomer ular Filtration Rate) 1987 Diabetes: Annual Foot Exam 1997 Diabetes: Annual Retina Eye Exam 1997 DTaP,Tdap,and Td Vaccines (1 - Tdap) 2006 Hepatitis B Vaccines (1 of 3 - 19+ 3-dose series) 2006 Pneumococcal Vaccine: Pediat rics (0 to 5 Years) and At-Risk Patients (6 to 49 Years) (1 of 2 - PCV) 2006 [...] topic Insurance MEDICAID - [place] Care Teams Edge Drummer Relationship Specialty Start Date End Date Destiny Miranda MD [address] [place] [address] PCP - General Internal Medicine 10/26/24
--- OUTSIDE RECORDS SUMMARY | 2024-12-29 07:50 | XMS_ITS | Encounter Summary ---
Author Organization [facility] Address [address] [place] [address] Phone Care Team Providers Care Beam Dyer Recessed Vat Name Role Phone Montse Tamayo MD Primary Care Provider Unava ilable Encounter Details Date Type Department Care Team (Late st Contact Info) Description 04/24/2017 Conversion Encounter [facility] - [address] [address] Social History Tobacco Use Types Packs/Day Years [...] on filedocumented in this encounter Care Teams Beam Dyer Recessed Vat Relationship Specialty Start Date End Date Montse Tamayo MD PCP - General 01/31/17 documented as of this encounter
--- OUTSIDE RECORDS SUMMARY | 2024-12-29 07:50 | XMS_ITS | Encounter Summary ---
Author Organization [employer] Address [address] [place] [address] 7 [place] [address] Care Team Providers Care Firer Bisque Kiln Name Role Phone Destiny Miranda MD Primary Care Provider [phone] Nicole Gandhi PharmD Unavailable [phone] Reason for Visit * Reason Onset Date Comments Med Refill 01/19/2023 Encounter Details Date Type Department Care Team (Late st Contact Info) Description 01/19/2023 Refill [facility] PEDS [address] [place] [address] Cristine Guajardo MD [address] [place] [address] Acute vaginitis; Recurrent vaginitis Social History Tobacco [...] documented as of this encounter Care Teams Firer Bisque Kiln Relationship Specialty Start Date End Date Destiny Miranda MD [address] [place] [address] PCP - General Family Medicine 06/23/18 Nicole Gandhi PharmD [address] [place] [address] Pharmacist Internal Medicine 08/20/24 Rose Cash Rotary Soil StabilizerHome Health Aid 09/17/23 documented as of this encounter
--- OUTSIDE RECORDS SUMMARY | 2024-12-29 07:51 | XMS_ITS | Clinical Summary ---
Author Organization [facility] Address [address] [place] [address] Care Team Providers Care Rotary Filter Operator Name Role Phone Unavailable Primary Care Provider [...] qhs. Will need therapy; pt to call [facility] today to ask for referral. Pt in need of PCP appt. Practice self care. Assessment & Plan (03/16/2024 9:30 AM EDT): Cont wellbutrin xl and increase to 300 mg qam for depressed mood, anergia, amotivation, hypersomnia. Monitor for over activation, s/s bee reviewed. Continue abilify 20 mg po qhs. Will need therapy; pt to call [facility] today to ask for referral. Practice self care. Assessment & Plan (02/17/2024 3:42 PM EDT): Cont wellbutrin xl and abilify, no change in dose of either. Will need therapy. Practice self care. Insulin dependent type 2 diabetes mellitus ([facility]) 08/15/2023 Overview (02/16/2024): Last Assessment & Plan: Uncontrolled: Glucose at 500. Will discuss during F/U. Continue treatment plan Labs: glucose Noncompliance with diabetes treatment 08/15/2023 Assessment & Plan (03/16/2024 9:27 AM EDT): Encourage pt to eat regularly, monitor BS and make f/u appt with pcp Neuropathy due to type 2 diabetes mellitus ([facility]) 07/10/2018 Hypothyroidism 10/30/2012 Diabetes mellitus without complication ([facility] 09/12/2011 Obesity 09/12/2011 Resolved Problems Problem Noted Date Diagnosed Date Resolved Date Bipolar disease in ([facility]) 4 02/16/2024 Social History Tobacco Use Types [...] 19 + 3-dose series) 02/03/2013 09/30/2012, 08/06/2012 [id number] ( season) 2024 021, 10/14/2020 Hemoglobin A1c [...] Discontinued Vaginal Pap Discontinued Vulvoscopy Discontinued Insurance [facility] [place] MEDICAID
[2024-12-29 08:08] LABS: MANUAL DIFF FLAG NO
[2024-12-29 08:31] LABS: Hematocrit 36.2 % (37.0-47.0); Hemoglobin 12.5 g/dl (12.0-16.0); Imm Gran Abs Auto 0.05 X10*3/uL (0.00-0.03); Imm Gran Pct Auto 0.4 % (0.0-0.4); Lymphocytes Absolute Auto 2.9 X10*3/uL (1.2-4.9); Mean Corpuscular HGB Conc 34.5 g/dl (31.0-35.0); Mean Corpuscular Hemoglobin 27.9 pg (27.0-33.0); Mean Corpuscular Volume 80.8 fL (80.0-98.0); NRBC Abs Auto 0.000 X10*3/uL (0.0-0.012); NRBC Pct Auto 0.0 /100WBC (0.0-0.2); Platelet Count 452 X10*3/uL (160-400); Red Blood Count 4.48 X10*6/uL (4.20-5.50); White Blood Count 12.4 X10*3/uL (4.8-10.8)
[2024-12-29 08:54] LABS: INTERNATIONAL NORM RATIO 0.8 (0.9-1.1); Prothrombin Time 9.2 SEC (10.9-12.4)
[2024-12-29 09:08] LABS: Appearance Urine Clear; Glucose Urine UA >=1000 mg/dL (Negative); PH 6.0 (5.0-9.0); Specific Gravity - Urine >= 1.030 (1.005-1.025); UMIC TRIGGER UA YES
[2024-12-29 09:35] LABS: Anion Gap 14 (12-20); Blood Urea Nitrogen 16 mg/dL (9-16); Calcium 9.1 mg/dL (8.4-10.2); Carbon Dioxide 26 mmol/L (22-29); Chloride 97 mmol/L (96-108); Estimated Glomerular Filt Rate > 60; Iron 40 mcg/dL (30-160); Percent Iron Saturation 15 % (15-50); Potassium 4.4 mmol/L (3.3-5.1); Sodium 133 mmol/L (135-145); Total Iron Binding Capacity 265 mcg/dL (228-428); Unsaturated Iron Binding 225 ug/dL
[2024-12-29 09:39] LABS: HBS Num1 168.08 mIU/mL (0-7.99); HBc Num1 0.05 S/CO (0.00-0.79); HBsAGNum1 0.36 S/CO (0.00-0.99); Hepatitis B Surface Antigen Negative (Negative); ~Hepatitis B Surface Antibody REACTIVE (Nonreactive)
[2024-12-29 09:44] LABS: Ferritin 87 ng/mL (10-122)
[2024-12-29 11:31] LABS: Total Protein Urine Random 293 mg/dL (<12)
[2024-12-31 12:02] LABS: Prot Elec - Albumin 3.6 g/dL (3.8-4.8); Prot Elec - Alpha1 0.3 g/dL (0.2-0.3); Prot Elec - Alpha2 1.4 g/dL (0.5-0.9); Prot Elec - Beta 1 0.5 g/dL (0.4-0.6); Prot Elec - Beta 2 0.5 g/dL (0.2-0.5); Prot Elec - Gamma 0.8 g/dL (0.8-1.7); Prot Elec - Total Protein 6.9 g/dL (6.1-8.1)
[2025-01-03 18:44] LABS: Anti Nuclear Antibody Screen NEGATIVE (NEGATIVE)
[2025-01-06 00:24] LABS: Phospholipase A2 IgG ELISA <4 RU/mL; Phospholipase A2 IgG IFA NEGATIVE (NEGATIVE)
== END 2024-12-29 07:49 | disposition home or self-care (01) ==
LOC: HO.LAB 07:48
PROVIDERS: Internal Medicine Cardiovascular Disease; Nurse Practitioner Family; PCP Pediatrics; Visit Provider Internal Medicine Hypertension Specialist
DX: R80.9 Proteinuria, unspecified (principal); D64.9 Anemia, unspecified; I10 Essential (primary) hypertension; E11.9 Type 2 diabetes mellitus without complications; I25.10 Atherosclerotic heart disease of native coronary artery without angina pectoris; Z82.49 Family history of ischemic heart disease and other diseases of the circulatory system
CPT/HCPCS: 36415; 80048; 81001; 81003; 82306; 82570; 82728; 83520; 83540; 84156; 84165; 84702; 85025; 85610; 86038; 86255; 86704; 86706; 87340

== ENCOUNTER → 2025-01-06 23:59 | Outpatient (BNV) | payer MEDICAID, SELFPAY | PROVIDERS: PCP Pediatrics; Visit Provider Internal Medicine Cardiovascular Disease | DX: I25.118 Atherosclerotic heart disease of native coronary artery with other forms of angina pectoris (principal) | CPT/HCPCS: 92928; 92978; 93458; 99152 ==

== ENCOUNTER 2025-01-11 13:15 | Outpatient (REF) | payer MEDICAID, SELFPAY ==
--- NOTE | ~2025-01-11 | US_ITS ---
EXAMINATION: Ultrasound renal bilaterally. CLINICAL INFORMATION: Essential hypertension. Proteinuria. COMPARISON: March 13, 2017. Correlated to CT dated August 27, 2023 reported nonobstructing nephrolithiasis, right kidney. TECHNIQUE: Real-time ultrasound kidneys using grayscale technique. FINDINGS: Right kidney: 13 x 5 x 6 cm. Volume: 192 cc. Normal renal echotexture. Normal renal cortical thickness. No hydronephrosis. No gross solid or cystic lesion. Left kidney: 13 x 6 x 6 cm. Volume: 261 cc. Normal echotexture. Normal renal cortical thickness. No hydronephrosis. No gross solid or cystic lesion. US/US renal BI IMPRESSION: No hydronephrosis. No gross nephrolithiasis. Electronically signed by: Tyler Rivera MD 01/11/2025 01:46 PM EDT
--- OUTSIDE RECORDS SUMMARY | 2025-01-11 14:21 | XMS_ITS | Clinical Summary ---
Author Organization [address] [facility] Address [address] [place] [address] Phone Care Team Providers Care Wood And Wood Products Factory Worker Name Role Phone Destiny Miranda MD Primary Care Provider [phone] Allergies No known active allergies Encounters Date Type Department Care Team Description 12/31/2024 10:00 AM EDT Office Visit Orthopedic Surgery [facility] [address] [phone] Michael Andrews DPM Pain in both feet (Primary Dx); Metatarsalgia of right foot; Cavus deformity of both feet; Eccrine poroma of foot, right from Last 3 Months Social History Tobacco Use Types Packs/Day Years Used Date Smoking Tobacco: Never Assessed Comments Unknown Sex and Gender Information Value Date Recorded Sex Assigned at Not on file Legal Sex Female 8:59 AM EDT Gender Identity Not on file Sexual Orientation Not on file Plan of Treatment Upcoming Encounters Date Type Department Care Team (Late st Contact Info) Description 02/14/2025 10:00 AM EDT Office Visit Orthopedic Surgery [facility] [address] [phone] Michael Andrews DPM [address] [address] Health Maintenance Due Date Last Done Comments Diabetes: Annual Foot Exam 1997 Diabetes: Annual Retina Eye Exam 1997 Cervical Cancer Screening: Pap Smear 02/03/2008 COVID-19 Vaccine () 02/22/2024 Depression Screening 06/23/2024 Diabetes: Annual Urine Albumin-Creatinine Ratio (uACR) 10/26/2024 HIV Screening 10/26/2024 Hepatitis C Screening 10/26/2024 Social Influencers of Health Screening 10/26/2024 Influenza Vaccine (#1) 2025 8, 04/07/2015, 04/07/2014, Additional history exists Diabetes: Blood Sugar Control Test (HGBA1C) 05/12/2025 11/09/2024 Diabetes: Annual GFR (Glomerular Filtration Rate) 12/29/2025 12/29/2024, 12/07/2024 Hypertension/CHF/CAD Annual BMP Blood Test 12/29/2025 12/29/2024, 12/07/2024 DTaP,Tdap,and Td Vaccines (8 - Td or Tdap) 05/27/2028 05/27/2018, 05/26/2014, 02/19/2000, Additional history exists Cholesterol Screening (Lipid Panel) 12/07/2029 12/07/2024 HIB Vaccines Completed 12/22/1991 IPV Vaccines Completed 08/01/1992, 070 06/1991, 08/22/1989, Additional history exists MMR Vaccines Completed 02/14/1999, 08/22/1989 Hepatitis B Vaccines Completed 09/30/2012, 08/06/2012, 09/21/1999, Additional history exists Pneumococcal Vaccine: Pediatrics (0 to 5 Years) and At-Risk Patients (6 to 49 Years) Completed 02/04/2024 HPV Vaccines Aged Out [...] to complete this topic RSV Immunization Patients Under 20 months Aged Out No longer eligible based on patient's age to complete this topic Varicella Vaccines Aged Out No longer eligible based on patient's age to complete this topic Insurance MEDICAID - [place] Care Teams Wood And Wood Products Factory Worker Relationship Specialty Start Date End Date Destiny Miranda MD [address] [place] [phone] PCP - General Internal Medicine 10/26/24
--- OUTSIDE RECORDS SUMMARY | 2025-01-11 14:21 | XMS_ITS | Encounter Summary ---
Author Organization [facility] Address [address] [place] [address] Phone Care Team Providers Care Graduate Civil Engineer Name Role Phone Montse Tamayo MD Primary Care Provider Unava ilable Encounter Details Date Type Department Care Team (Late st Contact Info) Description 04/24/2017 Conversion Encounter [facility] - [address] [address] Social History Tobacco Use Types Packs/Day Years [...] on filedocumented in this encounter Care Teams Graduate Civil Engineer Relationship Specialty Start Date End Date Montse Tamayo MD PCP - General 01/31/17 documented as of this encounter
--- OUTSIDE RECORDS SUMMARY | 2025-01-11 14:21 | XMS_ITS | Encounter Summary ---
Author Organization [employer] Address [address] [facility] 7[address] [place] [address] Care Team Providers Care Nuclear Powerplant Supervisor Name Role Phone Destiny Miranda MD Primary Care Provider [phone] Nicole Gandhi PharmD Unavailable [phone] Reason for Visit * Reason Onset Date Comments Med Refill 01/19/2023 Encounter Details Date Type Department Care Team (Late Contact Info) Description 01/19/2023 Refill [facility] MED & PEDS [address] [place] [address] Cristine Guajardo MD [address] [place] [address] Acute vaginitis; Recurrent vaginitis Social History Tobacco [...] Encounters Date Type Department Care Team (Late Contact Info) Description 01/28/2025 9:30 AM EDT Medication Management [facility] MED & PEDS [address] [place] [address] Nicole Gandhi PharmD [address] [place] [address] 02/03/2025 10:30 AM EDT Office Visit [facility] MED & PEDS [address] [place] [address] Destiny Miranda MD [address] [place] [address] documented as of this encounter Visit Diagnoses Diagnosis Acute vaginitis Unspecified vaginitis and vulvovaginitis Recurrent vaginitis Unspecified vaginitis and vulvovaginitis documented in this encounter Additional Health Concerns Assessment Noted Time PHQ-9 Depression Total Score: 15 023 10:09 AM EDT documented as of this encounter Care Teams Nuclear Powerplant Supervisor Relationship Specialty Start Date End Date Destiny Miranda MD [address] [place] [address] PCP - General Family Medicine 06/23/18 Nicole Gandhi PharmD [address] [place] [address] Pharmacist Internal Medicine 08/20/24 Rose Cash Lozenge MakerSenior Accounts Payable Specialist 09/17/23 documented as of this encounter
== END 2025-01-11 13:16 | disposition home or self-care (01) ==
LOC: HO.HMGCX 13:15
PROVIDERS: PCP Pediatrics; Visit Provider Internal Medicine Hypertension Specialist
DX: I10 Essential (primary) hypertension (principal); R80.9 Proteinuria, unspecified
CPT/HCPCS: 76775

== ENCOUNTER → 2025-01-11 13:21 | Outpatient (BNV) | payer MEDICAID, SELFPAY | PROVIDERS: PCP Pediatrics; Visit Provider Radiology Diagnostic Radiology | DX: R80.9 Proteinuria, unspecified (principal) | CPT/HCPCS: 76775 ==

== ENCOUNTER 2025-01-20 13:42 | Outpatient (AMB) | payer MEDICAID, SELFPAY ==
[2025-01-20 13:48] VITALS: BP 118/66; PULSE 66; BMI 23.1
--- NOTE | 2025-01-20 13:48 | MHC.OFFVIS ---
Vital Signs 01/20/25 13:48 Height 5 ft 6 in Weight 143 lb 4.807 oz BMI 23.1 BP 118/66 Blood Pressure Location Lt brachial Position Sitting Pulse 66 Pulse Source Pulse Oximeter Intake Visit Reasons: f/u after cath Allergies No Known Allergies Allergy (Verified 12/22/24 14:01) Medication List - Last Reconciled 01/20/25 by Patrick Kent NP aripiprazole 20 mg PO DAILY aspirin 81 mg PO DAILY atorvastatin (Lipitor) 40 mg PO BEDTIME 30 days blood sugar diagnostic (FreeStyle Lite Strips) As directed bupropion HCl XL 450 mg PO DAILY chlorthalidone 25 mg PO QAM empagliflozin (Jardiance) 25 mg PO QAM glyburide 5 mg PO BID hydroxyzine HCl 25 mg PO TID PRN insulin glargine (Lantus U-100 Insulin) 50 units subcut BEDTIME lisinopril 10 mg PO DAILY ondansetron 4 mg PO Q8H vit [id number] 27 mg iron- 800 mcg ( Vitamin) 1 tab PO DAILY trazodone 50 mg PO BEDTIME PRN HPI Comments Details: This is a 39-year-old female patient coming in for a follow-up visit status post cardiac catheterization. Patient with a history of hypertension, uncontrolled type 1 diabetes, hyperlipidemia, and very strong family history of early coronary artery disease. Patient was previously seen in the office for chest discomfort for which patient underwent a stress echo which was equivocal and therefore underwent a coronary CTA that showed significant coronary artery disease. Patient subsequently underwent a cardiac catheterization with Dr. Gutierrez at [facility]. Patient today reports feeling well overall without any exertional chest pain, shortness of breath, palpitations, dizziness, orthopnea, PND, leg edema, presyncope or syncope. Patient reports being compliant with all her medications. [facility] Medical History Microalbuminuria Callus of foot GERD (gastroesophageal reflux disease) Diabetes Anxiety Gastroparesis Family History Father Heart attack Social History Patient Tobacco Use Status: Never used Tobacco Substance Use Type: Marijuana Review of Systems Const Denies weakness ENT Denies dizziness Card Denies chest pain, Denies chest pain with activity, Denies syncope, Denies rapid heart rate, Denies pedal edema, Denies edema, Denies leg edema, Denies lightheadedness, Denies palpitations, Denies dyspnea, Denies dyspnea on exertion and Denies orthopnea Resp Denies cough, Denies dyspnea and Denies dyspnea on exertion GI Denies hematochezia and Denies change in stool character Musc Denies abnormal gait, Denies muscle cramps, Denies muscle weakness, Denies numbness, Denies radiating pain into limb and Denies tingling Neuro Denies abnormal gait, Denies dizziness, Denies syncope, Denies numbness, Denies tingling and Denies weakness Endo Denies palpitations Physical Exam Vital Signs: Last Vital Signs Pulse 66 01/20/25 13:48 BP 118/66 01/20/25 13:48 BMI result Body Mass Index 23.1 Const General: cooperative, healthy appearing, comfortable and no acute distress Orientation/consciousness: patient oriented x3 HEENT Head: Yes normal to inspection Neck Neck: Yes normal visual inspection, Yes trachea midline and Yes supple Chest Chest palpation & inspection: normal inspection of the chest Resp Effort & Inspection: normal respiratory effort Auscultation: clear to auscultation bilaterally, no crackles, no rales, no rhonchi and no wheezes Cardio Jugular venous distension: no JVD Palpation: normal PMI Rate: regular rate Rhythm: regular rhythm Heart sounds: S1 normal heart sound present, S2 normal heart sound present, no click, no gallops, no murmurs and no rubs Peripheral pulses: Peripheral pulses 2+ throughout GI Inspection: Yes normal to inspection Palpation (GI): Soft to palpation Auscultation: normal bowel sounds Skin General skin exam: no rashes or lesions noted Neuro General: patient oriented x3 Extrem General: Yes normal to inspection, No no pedal edema and No calf tenderness Psych Appearance: grossly normal Mental Status: mental status grossly normal Speech and movement: Normal speech and movement present Assessment & Plan Assessment & Plan (1) Coronary arteriosclerosis: Code(s): I25.10 - Atherosclerotic heart disease of [place] coronary artery without angina pectoris Category: Medical Plan: 12/22/24- coronary CTA FFR was positive for Co significant coronary artery disease. 01/06/2025-patient underwent a cardiac catheterization with Dr. Gutierrez that showed goblet lesion in the mid LAD with 90% stenosis, minimal luminal irregularities in the left circumflex and moderate diffuse disease in the RCA. Successful PCI was performed to the LAD. Continue lifelong aspirin therapy. Continue uninterrupted Brilinta therapy for at least 12 months. Continue atorvastatin therapy. Most recent LDL at 120, not within goal of LDL less than 70. We will repeat lipid profile in additional 2 months of being on the Lipitor. We will also refer patient out to cardiac rehab. (2) Coronary angioplasty status: Code(s): Z98.61 - Coronary angioplasty status Category: Surgical Plan: As above. Right wrist catheterization insertion site is well healed. (3) HTN (hypertension): Code(s): I10 - Essential (primary) hypertension Category: Medical Plan: Blood pressure today is well-controlled. Continue current regimen. Advised monitoring blood pressures at home and maintaining a log with a goal less than 130/80. (4) Hyperlipidemia: Code(s): E78.5 - Hyperlipidemia, unspecified Category: Medical Plan: As above. (5) Diabetes: Comment: Diabetic since age 16 Code(s): E11.9 - Type 2 diabetes mellitus without complications Category: Medical Plan: Continue aggressive diabetes management with an A1c goal less than 7%. Advised heart healthy diet, regular exercise, med compliance, avoiding stimulants, and aggressive management of vascular risk factors. Follow up in 3 months. In the interim, patient will call the office with any concerns or change in symptoms. This note was generated using voice recognition software. While every effort has been made to ensure accuracy and proper net repairer, there may be occasional errors that could affect the content or meaning of the described symptoms. Orders: Orders Lipid Panel 2 Months I25.10 - Atherosclerotic heart disease of [place] coronary artery without angina pectoris Cardiac Rehab Today Z98.61 - Coronary angioplasty status Medications: New ticagrelor 90 mg PO BID 90 tabs 3RF Coding Level of Care Code Est Pt Level 4 (32181) Complex EM visit Add On G2211 Diagnoses Coronary arteriosclerosis I25.10 Coronary angioplasty status Z98.61 HTN (hypertension) I10 Hyperlipidemia E78.5 Diabetes E11.9 Time Spent (min) 33 Comment Time spent in reviewing the chart, test results, assessment, counseling and documentation.
--- OUTSIDE RECORDS SUMMARY | 2025-01-20 13:56 | XMS_ITS | Encounter Summary ---
Author Organization [facility] Address [address] [place] [address] Phone Care Team Providers Care Health Nurse Name Role Phone Montse Tamayo MD Primary Care Provider Unava ilable Encounter Details Date Type Department Care Team (Late st Contact Info) Description 04/24/2017 Conversion Encounter [facility] - [address] [address] Social History Tobacco Use Types Packs/Day Years [...] on filedocumented in this encounter Care Teams Health Nurse Relationship Specialty Start Date End Date Montse Tamayo MD PCP - General 01/31/17 documented as of this encounter
--- OUTSIDE RECORDS SUMMARY | 2025-01-20 13:56 | XMS_ITS | Clinical Summary ---
Author Organization [facility] Address [address] [place] [address] Care Team Providers Care Packing Shed Supervisor Name Role Phone Unavailable Primary Care Provider [...] qhs. Will need therapy; pt to call [facility] today to ask for referral. Pt in need of PCP appt. Practice self care. Assessment & Plan (03/16/2024 9:30 AM EDT): Cont wellbutrin xl and increase to 300 mg qam for depressed mood, anergia, amotivation, hypersomnia. Monitor for over activation, s/s bee reviewed. Continue abilify 20 mg po qhs. Will need therapy; pt to call [facility] today to ask for referral. Practice self care. Assessment & Plan (02/17/2024 3:42 PM EDT): Cont wellbutrin xl and abilify, no change in dose of either. Will need therapy. Practice self care. Insulin dependent type 2 diabetes mellitus ([facility]) 08/15/2023 Overview (02/16/2024): Last Assessment & Plan: Uncontrolled: Glucose at 500. Will discuss during F/U. Continue treatment plan Labs: glucose Noncompliance with diabetes treatment 08/15/2023 Assessment & Plan (03/16/2024 9:27 AM EDT): Encourage pt to eat regularly, monitor BS and make f/u appt with pcp Neuropathy due to type 2 diabetes mellitus ([facility]) 07/10/2018 Hypothyroidism 10/30/2012 Diabetes mellitus without complication ([facility]) 09/12/2011 Obesity 09/12/2011 Resolved Problems Problem Noted Date Diagnosed Date Resolved Date Bipolar disease in ([facility]) 4 02/16/2024 Social History Tobacco Use [...] 19 + 3-dose series) 02/03/2013 09/30/2012, 08/06/2012 [id number] () 02/22/2024 021, 10/14/2020 Hemoglobin A1c 06/08/2024 03/09/2024, 02/21, 02/04/2024, Additional history exists Alcohol and Drug Screen 06/23/2024 Imm-Influenza (#1) 2025 05/27/2018, 1 , 04/07/2014, Additional history exists Lipid Screening 03/09/2025 03/09/2024, 04/21/2020 Serum Creatinine 03/09/2025 03/09/2024 TSH Monitoring 03/09/2025 03/09/2024 Tobacco Screening 03/16/2025 03/16/2024 Imm-DTaP/Tdap/Td (3 - Td or Tdap) 05/27/2028 018, 05/26/2014 Imm-Pneumococcal Completed 02/04/2024 Cervical Ablation/Cold-Knife Conization Discontinued Cervical Cryotherapy Discontinued Colposcopy Discontinued Endometrial Biopsy Discontinued Excision/Leep Discontinued HPV Genotyping Discontinued Vaginal Pap Discontinued Vulvoscopy Discontinued Insurance [facility] [place] MEDICAID
--- OUTSIDE RECORDS SUMMARY | 2025-01-20 13:56 | XMS_ITS | Encounter Summary ---
Author Organization [employer] Address [address] [facility] 7t [place] [address] Care Team Providers Care Seal Mixing Operator Name Role Phone Destiny Miranda MD Primary Care Provider [phone] Nicole Gandhi PharmD Unavailable [phone] Madelin Luna Unavailable Reason for Visit * Reason Onset Date Comments Med Refill 01/19/2023 Encounter Details Date Type Department Care Team (Late st Contact Info) Description 01/19/2023 Refill [facility] MED & PEDS [address] [place], [place] [phone] Cristine Guajardo MD [address] [place], [place] [phone] Acute vaginitis; Recurrent vaginitis Social History Tobacco [...] Care Team (Late st Contact Info) Description 01/25/2025 9:00 AM EDT Office Visit [facility] MED & PEDS [address] [place] [address] Destiny Miranda MD [address] [place] [address] 01/28/2025 9:30 AM EDT Medication Management [facility] MED & PEDS [address] [place] [address] Nicole Gandhi PharmD [address] [place] [address] documented as of this encounter Visit Diagnoses Diagnosis Acute vaginitis Unspecified vaginitis and vulvovaginitis Recurrent vaginitis Unspecified vaginitis and vulvovaginitis documented in this encounter Additional Health Concerns Assessment Noted Time PHQ-9 Depression Total Score: 15 023 10:09 AM EDT documented as of this encounter Care Teams Seal Mixing Operator Relationship Specialty Start Date End Date Destiny Miranda MD [address] [place] [id number] PCP - General Family Medicine 06/23/18 Nicole Gandhi PharmD [address] [place] [address] Pharmacist Internal Medicine 08/20/24 Madelin Luna 01/14/25 Rose Cash Programmer DeveloperSystems Development Consultant 09/17/23 Yvette Gamble Programmer DeveloperSystems Development Consultant 01/18/25 documented as of this encounter
--- OUTSIDE RECORDS SUMMARY | 2025-01-20 13:56 | XMS_ITS | Clinical Summary ---
Author Organization [facility] Address [address] [place] [address] Phone Care Team Providers Care Medical Billing Supervisor Name Role Phone Destiny Miranda MD Primary Care Provider [phone] Allergies No known active allergies Medications No known medications Encounters Date Type Department Care Team Description 01/13/2025 7:56 PM EDT - 01/13/2025 10:03 PM EDT Emergency [facility] [address] [place] [address] Deandre Wilkerson MD Discharge Disposition: Home or Self Care from Last 3 Months Social History Tobacco Use Types Packs/Day Years Used Date Smoking Tobacco: Never Assessed Education Answer Date Recorded Are you interested in more education? Not on dmitriy e 01/13/2025 Are you concerned about learning? Not on file 01/13/2025 No 01/13/2025 No 01/13/2025 Digital Access Answer Date Recorded No 01/13/2025 No 01/13/2025 Reliable internet access at home? Not on file 01/13/2025 Device with a working camera? Not on file Intimate Partner Violence Answer Date R ecorded Are you denied basic needs s uch as food, clothing, or medical care? No 01/13/2025 In the past 12 months have y ou been in a relationship with a person who hurts, threatens, or tries to control you? No 01/13/2025 Are you denied basic needs s uch as food, clothing, or medical care? No 01/13/2025 In the past 12 months have y ou been in a relationship with a person who hurts, threatens, or tries to control you? No 01/13/2025 Comments No Sex and Gender Information Value Date Recorded Sex Assigned at Female 01/13/2025 5:05 PM EDT Legal Sex Female 9:10 PM EDT Gender Identity Female 01/13/2025 5:05 PM EDT Sexual Orientation Asexual 01/13/2025 5: 05 PM EDT Last Filed Vital Signs Vital Sign Reading Time Taken Comments Blood Pressure 121/75 01/13/2025 9:57 PM EDT Pulse 93 01/13/2025 9:57 PM EDT Temperature 36.1 C (97 F) 01/13/2025 9:57 PM EDT Respiratory Rate 20 01/13/2025 9:57 PM EDT Oxygen Saturation 100% 01/13/2025 9:57 PM EDT Inhaled Oxygen Concentration - - Weight 64.4 kg (142 lb) 01/13/2025 4:55 PM EDT Height 167.6 cm (5' 6 ) 01/13/2025 4:55 PM EDT Body Mass Index 22.92 01/13/2025 4:55 PM EDT Plan of Treatment Not on file Medical Devices Not on file Procedures Procedure Name Priority Date/Time Associated Diagnosis Comments URINE HCG STAT 01/13/2025 8:49 PM EDT LAB ADD ON STAT 01/13/2025 8:41 PM EDT TROPONIN STAT 01/13/2025 6:13 PM EDT TROPONIN STAT 01/13/2025 5:12 PM EDT BASIC METABOLIC PANEL STAT 01/13/2025 5:12 PM EDT CBC AND DIFFERENTIAL STAT 01/13/2025 5:12 PM EDT ECG 12-LEAD STAT 01/13/2025 5:00 PM EDT from Last 3 Months Results * HCG, urine (01/13/2025 8:49 PM EDT) URINE TEST Negative Negative [facility] Urine (Urine) 01/13/2025 8:4 9 PM EDT 01/13/2025 9:07 PM EDT us Alfa Mcclellan MD URINE ORDERABLES Final Result Performing Organization Address [facility]/ZIP Co de Phone Number [address] [address] * Lab Add On: serum hcg (01/13/2025 8:41 PM EDT) TEST REQUESTED SERUM HCG [facility] Comments (Chemistry) Add on order being processed. Floor or provider will be notified if testing cannot be performed [facility] 01/13/2025 8:41 PM EDT 01/13/2025 8:46 PM EDT us Deandre Wilkerson MD LAB BLOOD ORDERABLES Edited Res ult - Final Performing Organization Address [facility] Co de Phone Number [address] [address] * (ABNORMAL) Troponin (01/13/2025 6:13 PM EDT) Only the most recent of2 resultswithin the time period is included. Troponin-T, HS Gen5 15(H) 0 - 9 ng/L [facility] Blood 01/13/2025 6:13 PM EDT 01/13/2025 6:55 PM EDT us Alfa Mcclellan MD LAB BLOOD ORDERABLES Final Resul t Performing Organization Address [facility] Co de Phone Number [address] [address] * (ABNORMAL) CBC and differential (01/13/2025 5:12 PM EDT) WBC 15.29(H) 4.00 - 11.00 K/uL [facility] RBC 4.13 4.00 - 5.20 M/uL [facility] HGB 11.4(L) 12.0 - 16.0 g/dL [facility] HCT 33.8(L) 36.0 - 46.0 % [facility] PLT 457(H) 150 - 450 K/uL [facility] MCV 81.8 80.0 - 100.0 fL [facility] MCH 27.6 27.0 - 31.0 pg [facility] MCHC 33.7 32.0 - 36.0 g/dL [facility] RDW 12.9 11.5 - 14.5 % [facility] MPV 10.0 8.4 - 12.0 fL [facility] NRBC 0.00 0.00 /100 WBCs [facility] ABSOLUTE NRBC 0.00 0.00 K/uL [facility] DIFF METHOD Auto [facility] NEUTS 69.9 48.0 - 76.0 % [facility] LYMPHS 22.5 18.0 - 41.0 % [facility] MONOS 5.8 4.0 - 11.0 % [facility] EOS 0.6 0.0 - 5.0 % [facility] BASOS 0.6 0.0 - 1.5 % [facility] Granulocytes, immature (%) 0.6 0.0 - 0.9 % [facility] ABSOLUTE NEUTS 10.69(H) 1.92 - 7.60 K/uL [facility] ABSOLUTE LYMPHS 3.44 0.72 - 4.10 K/uL [facility] ABSOLUTE MONOS 0.89 0.16 - 1.10 K/uL [facility] ABSOLUTE EOS 0.09 0.00 - 0.50 K/uL [facility] ABSOLUTE BASOS 0.09 0.00 - 0.15 K/uL [facility] Granulocytes, immature 0.09 0.00 - 0.09 K/uL [facility] Blood 01/13/2025 5:12 PM EDT 01/13/2025 5:22 PM EDT us Alfa Mcclellan MD LAB BLOOD ORDERABLES Final Resul t Performing Organization Address [facility] Co de Phone Number [address] [address] * (ABNORMAL) Basic metabolic panel (01/13/2025 5:12 PM EDT) SODIUM 129(L) 133 - 146 mmol/L [facility] CHLORIDE 92(L) 96 - 108 mmol/L [facility] POTASSIUM 4.0 3.3 - 5.1 mmol/L [facility] CO2 24 21 - 35 mmol/L [facility] BUN 36(H) 6 - 19 mg/dL [facility] CREATININE 2.10(H) 0.5 - 1.5 mg/dL [facility] GLUCOSE 247(H) 70 - 99 mg/dL [facility] CALCIUM 9.5 8.4 - 10.3 mg/dL [facility] EGFR 31(L) >59 mL/min/1.7 3m2 [facility] Comment:Estimated glomerular filtration rate calculated using the CKD-EPI refit equation. ANION GAP 17 10 - 20 mmol/L [facility] Blood 01/13/2025 5:12 PM EDT 01/13/2025 5:22 PM EDT Alfa Mcclellan MD LAB BLOOD ORDERABLES Final Resul t Performing Organization Address [facility] Co de Phone Number [address] [address] * ECG 12-LEAD (01/13/2025 5:00 PM EDT) Ventricular Rate EKG/MIN 89 BPM [facility] Atrial Rate 89 BPM [facility] KS Interval 150 ms [facility] QRS Duration 96 ms [facility] QT Interval 390 ms [facility] QTC Interval 474 ms [facility] P [place] 70 degrees [facility] R Wave [place] 41 degrees [facility] T Wave [place] 37 degrees [facility] 01/13/2025 5:00 PM EDT 01/14/2025 12:41 PM EDT Narrative [facility] - 01/14/2025 12:41 PM EDT Normal sinus rhythm Normal ECG When compared with ECG of 28-Aug-2007 19:54, Nonspecific T wave abnormality no longer evident in Lateral leads Confirmed by Brice Vogel ([id number]) on 01/14/2025 12:41:06 PM Alfa Mcclellan MD ECG ORDERABLES Final Result [facility] from Last 3 Months Insurance C3 ACO C3 ACO C3 ACO Care Teams Medical Billing Supervisor Relationship Specialty Start Date End Date Destiny Miranda MD [address] [place] [address] PCP - General Internal Medicine 01/13/25 Additional Source Comments The information contained in this document represents components of the legal health record. It is not the complete legal health record.[facility]
--- OUTSIDE RECORDS SUMMARY | 2025-01-20 13:56 | XMS_ITS | Clinical Summary ---
Author Organization [facility] Address [address] [place] [address] Phone Care Team Providers Care Oliver Filter Operator Name Role Phone Destiny Mrianda MD Primary Care Provider [phone] Allergies No known active allergies Encounters Date Type Department Care Team Description 12/31/2024 10:00 AM EDT Office Visit Orthopedic [facility] [address] [phone] Michael Andrews DPM Pain in both feet [...] 10:00 AM EDT Office Visit Orthopedic Surgery [facility] [address] [phone] Michael Andrews DPM [address] [address] Health Maintenance Due Date Last Done Comments [...] topic Insurance MEDICAID - [place] Care Teams Oliver Filter Operator Relationship Specialty Start Date End Date Destiny Miranda MD [address] [place] [phone] PCP - General Internal Medicine 10/26/24
== END 2025-01-20 14:19 | disposition home or self-care (01) ==
LOC: HO.HCS 13:43
PROVIDERS: PCP Pediatrics
DX: I25.10 Atherosclerotic heart disease of native coronary artery without angina pectoris (principal); Z98.61 Coronary angioplasty status; I10 Essential (primary) hypertension; E78.5 Hyperlipidemia, unspecified; E11.9 Type 2 diabetes mellitus without complications
CPT/HCPCS: 99214

== ENCOUNTER → 2025-01-20 13:42 | Outpatient (BNVA) | payer MEDICAID, SELFPAY | PROVIDERS: PCP Pediatrics | DX: I25.10 Atherosclerotic heart disease of native coronary artery without angina pectoris (principal); I10 Essential (primary) hypertension; E11.9 Type 2 diabetes mellitus without complications; E78.5 Hyperlipidemia, unspecified; Z98.61 Coronary angioplasty status; Z82.49 Family history of ischemic heart disease and other diseases of the circulatory system | CPT/HCPCS: 99212 ==

== ENCOUNTER 2025-01-25 09:26 | Outpatient (REF) | payer MEDICAID, SELFPAY ==
--- OUTSIDE RECORDS SUMMARY | 2025-01-25 09:49 | XMS_ITS | Encounter Summary ---
Author Organization [employer] Address [address] [facility] 7t [place] [address] Care Team Providers Care Vice President Research Name Role Phone Destiny Miranda MD Primary Care Provider [phone] Nicole Gandhi PharmD Unavailable [phone] Madelin Luna Unavailable Reason for Visit * Reason Onset Date Comments Med Refill 01/19/2023 Encounter Details Date Type Department Care Team (Late st Contact Info) Description 01/19/2023 Refill [facility] MED & PEDS [address] [place], [place] [phone] Cristine Guajardo MD [address] [place], [place] [phone] Acute vaginitis; Recurrent vaginitis Social History Tobacco [...] Care Team (Late st Contact Info) Description 01/28/2025 9:30 AM EDT Medication Management [facility] MED & PEDS [address] [place] [address] Nicole Gandhi PharmD [address] [place] [address] documented as of this encounter Visit Diagnoses Diagnosis Acute vaginitis Unspecified vaginitis and vulvovaginitis Recurrent vaginitis Unspecified vaginitis and vulvovaginitis documented in this encounter Additional Health Concerns Assessment Noted Time PHQ-9 Depression Total Score: 15 023 10:09 AM EDT documented as of this encounter Care Teams Vice President Research Relationship Specialty Start Date End Date Destiny Miranda MD [address] [place] [address] PCP - General Family Medicine 06/23/18 Nicole Gandhi PharmD [address] [place] [address] Pharmacist Internal Medicine 08/20/24 Madelin Luna 01/14/25 01/20/25 Rose Cash Poultry VaccinatorTracer Bullet Charging Machine Operator 09/17/23 Yvette Gamble Poultry VaccinatorTracer Bullet Charging Machine Operator 01/18/25 documented as of this encounter
--- OUTSIDE RECORDS SUMMARY | 2025-01-25 09:49 | XMS_ITS | Clinical Summary ---
Author Organization [facility] Address [address] [place] [address] Phone Care Team Providers Care Mock Up Builder Name Role Phone Destiny Miranda MD Primary Care Provider [phone] Allergies No known active allergies Medications No known medications Encounters Date Type Department Care Team Description 01/13/2025 7:56 PM EDT - 01/13/2025 10:03 PM EDT Emergency [facility] [address] [place] [address] Deandre Wilkerson MD Discharge Disposition: Home or [...] 8:49 PM EDT) URINE TEST Negative Negative [facility] Urine (Urine) 01/13/2025 8:4 9 PM EDT 01/13/2025 9:07 PM EDT us Alfa Mcclellan MD URINE ORDERABLES Final Result Performing Organization Address [facility]/ZIP Co de Phone Number [address] [address] * Lab Add On: serum hcg (01/13/2025 8:41 PM EDT) TEST REQUESTED SERUM HCG [facility] Comments (Chemistry) Add on order being processed. Floor or provider will be notified if testing cannot be performed [facility] 01/13/2025 8:41 PM EDT 01/13/2025 8:46 PM EDT us Deandre Wilkerson MD LAB BLOOD ORDERABLES Edited Res ult - Final Performing Organization Address [facility] Co de Phone Number [address] [address] * (ABNORMAL) Troponin (01/13/2025 6:13 PM EDT) Only the most recent of2 resultswithin the time period is included. Troponin-T, HS Gen5 15(H) 0 - 9 ng/L [facility] Blood 01/13/2025 6:13 PM EDT 01/13/2025 6:55 PM EDT us Alfa Mcclellan MD LAB BLOOD ORDERABLES Final Resul t Performing Organization Address [facility] Co de Phone Number [address] [address] * (ABNORMAL) CBC and differential (01/13/2025 5:12 PM EDT) WBC 15.29(H) 4.00 - 11.00 K/uL [facility] RBC 4.13 4.00 - 5.20 M/uL [facility] HGB 11.4(L) 12.0 - 16.0 g/dL [facility] HCT 33.8(L) 36.0 - 46.0 % [facility] PLT 457(H) 150 - 450 K/uL [facility] MCV 81.8 80.0 - 100.0 fL [facility] MCH 27.6 27.0 - 31.0 pg [facility] MCHC 33.7 32.0 - 36.0 g/dL [facility] RDW 12.9 11.5 - 14.5 % [facility] MPV 10.0 8.4 - 12.0 fL [facility] NRBC 0.00 0.00 /100 WBCs [facility] ABSOLUTE NRBC 0.00 0.00 K/uL [facility] DIFF METHOD Auto [facility] NEUTS 69.9 48.0 - 76.0 % [facility] LYMPHS 22.5 18.0 - 41.0 % [facility] MONOS 5.8 4.0 - 11.0 % [facility] EOS 0.6 0.0 - 5.0 % [facility] BASOS 0.6 0.0 - 1.5 % [facility] Granulocytes, immature (%) 0.6 0.0 - 0.9 % [facility] ABSOLUTE NEUTS 10.69(H) 1.92 - 7.60 K/uL [facility] ABSOLUTE LYMPHS 3.44 0.72 - 4.10 K/uL [facility] ABSOLUTE MONOS 0.89 0.16 - 1.10 K/uL [facility] ABSOLUTE EOS 0.09 0.00 - 0.50 K/uL [facility] ABSOLUTE BASOS 0.09 0.00 - 0.15 K/uL [facility] Granulocytes, immature 0.09 0.00 - 0.09 K/uL [facility] Blood 01/13/2025 5:12 PM EDT 01/13/2025 5:22 PM EDT us Alfa Mcclellan MD LAB BLOOD ORDERABLES Final Resul t Performing Organization Address [facility] Co de Phone Number [address] [address] * (ABNORMAL) Basic metabolic panel (01/13/2025 5:12 PM EDT) SODIUM 129(L) 133 - 146 mmol/L [facility] CHLORIDE 92(L) 96 - 108 mmol/L [facility] POTASSIUM 4.0 3.3 - 5.1 mmol/L [facility] CO2 24 21 - 35 mmol/L [facility] BUN 36(H) 6 - 19 mg/dL [facility] CREATININE 2.10(H) 0.5 - 1.5 mg/dL [facility] GLUCOSE 247(H) 70 - 99 mg/dL [facility] CALCIUM 9.5 8.4 - 10.3 mg/dL [facility] EGFR 31(L) >59 mL/min/1.7 3m2 [facility] Comment:Estimated glomerular filtration rate calculated using the CKD-EPI refit equation. ANION GAP 17 10 - 20 mmol/L [facility] Blood 01/13/2025 5:12 PM EDT 01/13/2025 5:22 PM EDT Alfa Mcclellan MD LAB BLOOD ORDERABLES Final Resul t Performing Organization Address [facility] Co de Phone Number [address] [address] * ECG 12-LEAD (01/13/2025 5:00 PM EDT) Ventricular Rate EKG/MIN 89 BPM [facility] Atrial Rate 89 BPM [facility] TN Interval 150 ms [facility] QRS Duration 96 ms [facility] QT Interval 390 ms [facility] QTC Interval 474 ms [facility] P [place] 70 degrees [facility] R Wave [place] 41 degrees [facility] T Wave [place] 37 degrees [facility] 01/13/2025 5:00 PM EDT [...] ACO C3 ACO C3 ACO Care Teams Mock Up Builder Relationship Specialty Start Date End Date Destniy Miranda MD [address] [place] [address] PCP - General Internal Medicine 01/13/25 Additional Source Comments The information contained in this document represents components of the legal health record. It is not the complete legal health record.[facility]
--- OUTSIDE RECORDS SUMMARY | 2025-01-25 09:49 | XMS_ITS | Clinical Summary ---
Author Organization [facility] Address [address] [place] [address] Care Team Providers Care Air Transport Professionals Name Role Phone Unavailable Primary Care Provider [...] qhs. Will need therapy; pt to call [facility] today to ask for referral. Pt in need of PCP appt. Practice self care. Assessment & Plan (03/16/2024 9:30 AM EDT): Cont wellbutrin xl and increase to 300 mg qam for depressed mood, anergia, amotivation, hypersomnia. Monitor for over activation, s/s bee reviewed. Continue abilify 20 mg po qhs. Will need therapy; pt to call [facility] today to ask for referral. Practice self care. Assessment & Plan (02/17/2024 3:42 PM EDT): Cont wellbutrin xl and abilify, no change in dose of either. Will need therapy. Practice self care. Insulin dependent type 2 diabetes mellitus ([facility]) 08/15/2023 Overview (02/16/2024): Last Assessment & Plan: Uncontrolled: Glucose at 500. Will discuss during F/U. Continue treatment plan Labs: glucose Noncompliance with diabetes treatment 08/15/2023 Assessment & Plan (03/16/2024 9:27 AM EDT): Encourage pt to eat regularly, monitor BS and make f/u appt with pcp Neuropathy due to type 2 diabetes mellitus ([facility]) 07/10/2018 Hypothyroidism 10/30/2012 Diabetes mellitus without complication ([facility]) 09/12/2011 Obesity 09/12/2011 Resolved Problems Problem Noted Date Diagnosed Date Resolved Date Bipolar disease in ([facility]) 4 02/16/2024 Social History Tobacco Use [...] 19 + 3-dose series) 02/03/2013 09/30/2012, 08/06/2012 [id number] () 02/22/2024 021, 10/14/2020 Hemoglobin A1c 06/08/2024 [...] Discontinued Vaginal Pap Discontinued Vulvoscopy Discontinued Insurance [facility] [place] MEDICAID
--- OUTSIDE RECORDS SUMMARY | 2025-01-25 09:49 | XMS_ITS | Encounter Summary ---
Author Organization [facility] Address [address] [place] [address] Phone Care Team Providers Care Deck Specialist Name Role Phone Montse Tamayo MD Primary Care Provider Unava ilable Encounter Details Date Type Department Care Team (Late st Contact Info) Description 04/24/2017 Conversion Encounter [facility] - [address] [address] Social History Tobacco Use Types Packs/Day Years [...] on filedocumented in this encounter Care Teams Deck Specialist Relationship Specialty Start Date End Date Montse Tamayo MD PCP - General 01/31/17 documented as of this encounter
--- OUTSIDE RECORDS SUMMARY | 2025-01-25 09:49 | XMS_ITS | Clinical Summary ---
Author Organization [facility] Address [address] [place] [address] Phone Care Team Providers Care Director Of Customer Service Name Role Phone Destiny Miranda MD Primary Care Provider [phone] Allergies No known active allergies Encounters Date Type Department Care Team Description 12/31/2024 10:00 AM EDT Office Visit Orthopedic Surgery [facility] [address] [phone] Michael Andrews DPM Pain in both feet [...] 10:00 AM EDT Office Visit Orthopedic Surgery [facility] [address] [phone] Michael Andrews DPM [address] [address] Health Maintenance Due Date Last Done Comments [...] topic Insurance MEDICAID - [place] Care Teams Director Of Customer Service Relationship Specialty Start Date End Date Destiny Miranda MD [address] [place] [phone] PCP - General Internal Medicine 10/26/24
[2025-01-25 14:19] LABS: MANUAL DIFF FLAG NO
[2025-01-25 14:27] LABS: Hematocrit 33.4 % (37.0-47.0); Hemoglobin 11.0 g/dl (12.0-16.0); Imm Gran Abs Auto 0.06 X10*3/uL (0.00-0.03); Imm Gran Pct Auto 0.5 % (0.0-0.4); Lymphocytes Absolute Auto 2.7 X10*3/uL (1.2-4.9); Mean Corpuscular HGB Conc 32.9 g/dl (31.0-35.0); Mean Corpuscular Hemoglobin 27.2 pg (27.0-33.0); Mean Corpuscular Volume 82.7 fL (80.0-98.0); NRBC Abs Auto 0.000 X10*3/uL (0.0-0.012); NRBC Pct Auto 0.0 /100WBC (0.0-0.2); Platelet Count 432 X10*3/uL (160-400); Red Blood Count 4.04 X10*6/uL (4.20-5.50); White Blood Count 12.6 X10*3/uL (4.8-10.8)
[2025-01-25 14:51] LABS: Anion Gap 15 (12-20); Blood Urea Nitrogen 35 mg/dL (9-16); Calcium 9.4 mg/dL (8.4-10.2); Carbon Dioxide 24 mmol/L (22-29); Chloride 99 mmol/L (96-108); Estimated Glomerular Filt Rate 46; Potassium 3.7 mmol/L (3.3-5.1); Sodium 134 mmol/L (135-145)
== END 2025-01-25 09:27 | disposition home or self-care (01) ==
LOC: CF 09:26
PROVIDERS: Visit Provider Pediatrics
DX: E11.9 Type 2 diabetes mellitus without complications (principal); I95.9 Hypotension, unspecified; Z79.4 Long term (current) use of insulin
CPT/HCPCS: 36415; 80048; 85025

== ENCOUNTER 2025-02-23 10:20 | Outpatient (REF) | payer MEDICAID, SELFPAY ==
[2025-02-23 11:18] LABS: MANUAL DIFF FLAG NO
[2025-02-23 11:41] LABS: Hematocrit 30.7 % (37.0-47.0); Hemoglobin 10.6 g/dl (12.0-16.0); Imm Gran Abs Auto 0.08 X10*3/uL (0.00-0.03); Imm Gran Pct Auto 0.6 % (0.0-0.4); Lymphocytes Absolute Auto 2.7 X10*3/uL (1.2-4.9); Mean Corpuscular HGB Conc 34.5 g/dl (31.0-35.0); Mean Corpuscular Hemoglobin 27.7 pg (27.0-33.0); Mean Corpuscular Volume 80.4 fL (80.0-98.0); NRBC Abs Auto 0.000 X10*3/uL (0.0-0.012); NRBC Pct Auto 0.0 /100WBC (0.0-0.2); Platelet Count 425 X10*3/uL (160-400); Red Blood Count 3.82 X10*6/uL (4.20-5.50); White Blood Count 14.1 X10*3/uL (4.8-10.8)
--- OUTSIDE RECORDS SUMMARY | 2025-02-23 12:08 | XMS_ITS | Encounter Summary ---
Author Organization [employer] Address [address] [facility] 7t [place] [address] Care Team Providers Care Gumming Machine Operator Name Role Phone Destiny Miranda MD Primary Care Provider [phone] Nicole Gandhi PharmD Unavailable [phone] Madelin Luna Unavailable Reason for Visit * Reason Onset Date Comments Med Refill 01/19/2023 Encounter Details Date Type Department Care Team (Late st Contact Info) Description 01/19/2023 Refill [facility] CHC MED & PEDS [address] [place], [place] [phone] Cristine Guajardo MD [address] [place], [place] [phone] Acute vaginitis; Recurrent vaginitis Social History Tobacco [...] documented as of this encounter Care Teams Gumming Machine Operator Relationship Specialty Start Date End Date Destiny Miranda MD [address] [place] [address] PCP - General Family Medicine 06/23/18 Nicole Gandhi PharmD [address] [place] [address] Pharmacist Internal Medicine 08/20/24 Madelin Luna 01/14/25 01/20/25 Rose Cash Gifts OfficerFisher Trot Line 09/17/23 Yvette Gamble Gifts OfficerFisher Trot Line 01/18/25 documented as of this encounter
--- OUTSIDE RECORDS SUMMARY | 2025-02-23 12:08 | XMS_ITS | Clinical Summary ---
Author Organization [facility] Address [address] [place] [address] Phone Care Team Providers Care Fabric And Accessories Estimator Name Role Phone Destiny Miranda MD Primary Care Provider [phone] Allergies No known active allergies Encounters Date Type Department Care Team Description 12/31/2024 10:00 AM EDT Office Visit Orthopedic Surgery [facility] 250 [address] [facility] [address] [place] [address] Michael Andrews DPM Pain in both feet [...] 1997 Cervical Cancer Screening: Pap Smear 02/03/2008 Depression Screening 06/23/2024 Diabetes: Annual Urine Albumin-Creatinine Ratio (uACR) 10/26/2024 HIV Screening 10/26/2024 Hepatitis C Screening 10/26/2024 Social Influencers of Health Screening 10/26/2024 COVID-19 Vaccine ( season) 2025 Influenza Vaccine (#1) 2025 8, 04/07/2015, 04/07/2014, [...] Vaccines Completed 12/22/1991 IPV Vaccines Completed 08/01/1992, 0706/1991, 08/22/1989, Additional history exists MMR Vaccines Completed [...] topic Insurance MEDICAID - [place] Care Teams Fabric And Accessories Estimator Relationship Specialty Start Date End Date Destiny Miranda MD [address] [place] [phone] PCP - General Internal Medicine 10/26/24
--- OUTSIDE RECORDS SUMMARY | 2025-02-23 12:08 | XMS_ITS | Encounter Summary ---
Author Organization [employer] Address 75 [facility] 7t [place] [address] Care Team Providers Care Dry Yard Worker Name Role Phone Destiny Miranda MD Primary Care Provider [phone] Nicole Gandhi PharmD Unavailable [phone] Madelin Luna Unavailable Reason for Visit * Reason Onset Date Comments returning call 05/17/2024 Encounter Details Date Type Department Care Team ([facility] st Contact Info) Description 05/17/2024 Telephone [facility] MEDICINE [address] [place] [address] Destiny Miranda MD [address] [place], [place] [phone] returning call Social History Tobacco Use Types [...] the past 12 months, has t he [employer], gas, oil or [employer] threatened to shut off services in your [...] Tc from pt returning call to v/nicola moreno , pt will like another callback . Callback number [phone] documented in this encounter Plan of Treatment Not on file documented as of this encounter Visit Diagnoses Not on filedocumented in this encounter Additional Health Concerns Assessment Noted Time PHQ-9 Depression Total Score: 21 024 1:56 PM EDT documented as of this encounter Care Teams Dry Yard Worker Relationship Specialty Start Date End Date Destiny Miranda MD [address] [place] [address] PCP - General Family Medicine 06/23/18 Nicole Gandhi PharmD [address] [place] [address] Pharmacist Internal Medicine 08/20/24 Madelin Luna 01/14/25 01/20/25 Rose Cash Pharmacy CoordinatorHumanities Department Chair 09/17/23 Yvette Gamble Pharmacy CoordinatorHumanities Department Chair 01/18/25 documented as of this encounter
--- OUTSIDE RECORDS SUMMARY | 2025-02-23 12:08 | XMS_ITS | Encounter Summary ---
Author Organization [employer] Address [address] [facility] [address] 7t [place] [address] Care Team Providers Care Deputy Clerk Of Court Name Role Phone Destiny Miranda MD Primary Care Provider [phone] Nicole Gandhi PharmD Unavailable [phone] Madelin Luna Unavailable Encounter Details Date Type Department Care Team (Late st Contact Info) Description 06/02/2023 Orders Only [facility] [address] [place], [place] [phone] Bo Caraballo MD [address] [place] [address] Social History Tobacco Use Types Packs/Day Years [...] documented as of this encounter Care Teams Deputy Clerk Of Court Relationship Specialty Start Date End Date Destiny Miranda MD [address] [place] [address] PCP - General Family Medicine 06/23/18 Nicole Gandhi PharmD [address] [place] [address] Pharmacist Internal Medicine 08/20/24 Madelin Luna 01/14/25 01/20/25 Rose Cash Punch Press OperatorProduct Lead 09/17/23 Yvette Gamble Punch Press OperatorProduct Lead 01/18/25 documented as of this encounter
--- OUTSIDE RECORDS SUMMARY | 2025-02-23 12:08 | XMS_ITS | Encounter Summary ---
Author Organization [employer] Address [address] [facility] 7t [place] [address] Care Team Providers Care Rheostat Assembler Name Role Phone Destiny Miranda MD Primary Care Provider [phone] Nicole Gandhi PharmD Unavailable [phone] Madelin Luna Unavailable Reason for Visit * Reason Comments Med Refill Encounter Details Date Type Department Care Team ([facility] st Contact Info) Description 12/27/2024 Refill [facility] CHC MED & PEDS [address] [place], [place] [phone] Destiny Miranda MD [address] [place] [address] Social History Tobacco Use Types Packs/Day Years [...] documented as of this encounter Care Teams Rheostat Assembler Relationship Specialty Start Date End Date Destiny Miranda MD [address] [place] [address] PCP - General Family Medicine 06/23/18 Nicole Gandhi PharmD [address] [place] [address] Pharmacist Internal Medicine 08/20/24 Madelin Luna 01/14/25 01/20/25 Rose Cash Dining Service InspectorShipping Point Inspector 09/17/23 Yvette Gamble Dining Service InspectorShipping Point Inspector 01/18/25 documented as of this encounter
--- OUTSIDE RECORDS SUMMARY | 2025-02-23 12:08 | XMS_ITS | Encounter Summary ---
Author Organization [employer] Address [address] [facility] 7t [place] [address] Care Team Providers Care Forest Technician Name Role Phone Destiny Miranda MD Primary Care Provider [phone] Nicole Gandhi PharmD Unavailable [phone] Madelin Luna Unavailable Reason for Visit * Reason Onset Date Comments Medication Question 04/28/2024 Encounter Details Date Type Department Care Team ([facility] st Contact Info) Description 04/28/2024 Telephone [facility] MEDICINE [address] [place] [address] Destiny Miranda MD [address] [place], [place] [phone] Medication Question Social History Tobacco Use Types [...] 12:48 PM EST Pt does not have [facility] as a pharmacy. Pt needs to contact office if pt is requesting to change pharmacies to [facility]. * Telephone Encounter - Brett Dailey - 04/28/2024 10:27 AM EST Tc from Krystin ([facility]) requesting a call , Krystin need more info in medication that's not in thelist (Lisinopril 40 mg), documented in this encounter Plan of Treatment Not on file documented as of this encounter Visit Diagnoses Not on filedocumented in this encounter Additional Health Concerns Assessment Noted Time PHQ-9 Depression Total Score: 21 024 1:56 PM EDT documented as of this encounter Care Teams Forest Technician Relationship Specialty Start Date End Date Destiny Miranda MD [address] [place] [address] PCP - General Family Medicine 06/23/18 Nicole Gandhi PharmD [address] [place] [address] Pharmacist Internal Medicine 08/20/24 Madelin Luna 01/14/25 01/20/25 Rose Cash Gerentological PhysiotherapistAddressograph Operator 09/17/23 Yvette Gamble Gerentological PhysiotherapistAddressograph Operator 01/18/25 documented as of this encounter
--- OUTSIDE RECORDS SUMMARY | 2025-02-23 12:08 | XMS_ITS | Clinical Summary ---
Author Organization [facility] Address [address] [place] [address] Phone Care Team Providers Care Environmental Health And Safety Intern Name Role Phone Destiny Miranda MD Primary Care Provider [phone] Allergies No known active allergies Medications No known medications Encounters Date Type Department Care Team Description 01/13/2025 7:56 PM EDT - 01/13/2025 10:03 PM EDT Emergency [facility] [address] [place] [address] Deandre Wilkerson MD Discharge Disposition: Home or [...] 8:49 PM EDT) URINE TEST Negative Negative [facility] Urine (Urine) 01/13/2025 8:4 9 PM EDT 01/13/2025 9:07 PM EDT us Alfa Mcclellan MD URINE ORDERABLES Final Result Performing Organization Address [facility]/ZIP Co de Phone Number [address] [address] * Lab Add On: serum hcg (01/13/2025 8:41 PM EDT) TEST REQUESTED SERUM HCG [facility] Comments (Chemistry) Add on order being processed. Floor or provider will be notified if testing cannot be performed [facility] 01/13/2025 8:41 PM EDT 01/13/2025 8:46 PM EDT us Deandre Wilkerson MD LAB BLOOD ORDERABLES Edited Res ult - Final Performing Organization Address [facility] Co de Phone Number [address] [address] * (ABNORMAL) Troponin (01/13/2025 6:13 PM EDT) Only the most recent of2 resultswithin the time period is included. Troponin-T, HS Gen5 15(H) 0 - 9 ng/L [facility] Blood 01/13/2025 6:13 PM EDT 01/13/2025 6:55 PM EDT us Alfa Mcclellan MD LAB BLOOD ORDERABLES Final Resul t Performing Organization Address [facility] Co de Phone Number [address] [address] * (ABNORMAL) CBC and differential (01/13/2025 5:12 PM EDT) WBC 15.29(H) 4.00 - 11.00 K/uL [facility] RBC 4.13 4.00 - 5.20 M/uL [facility] HGB 11.4(L) 12.0 - 16.0 g/dL [facility] HCT 33.8(L) 36.0 - 46.0 % [facility] PLT 457(H) 150 - 450 K/uL [facility] MCV 81.8 80.0 - 100.0 fL [facility] MCH 27.6 27.0 - 31.0 pg [facility] MCHC 33.7 32.0 - 36.0 g/dL [facility] RDW 12.9 11.5 - 14.5 % [facility] MPV 10.0 8.4 - 12.0 fL [facility] NRBC 0.00 0.00 /100 WBCs [facility] ABSOLUTE NRBC 0.00 0.00 K/uL [facility] DIFF METHOD Auto [facility] NEUTS 69.9 48.0 - 76.0 % [facility] LYMPHS 22.5 18.0 - 41.0 % [facility] MONOS 5.8 4.0 - 11.0 % [facility] EOS 0.6 0.0 - 5.0 % [facility] BASOS 0.6 0.0 - 1.5 % [facility] Granulocytes, immature (%) 0.6 0.0 - 0.9 % [facility] ABSOLUTE NEUTS 10.69(H) 1.92 - 7.60 K/uL [facility] ABSOLUTE LYMPHS 3.44 0.72 - 4.10 K/uL [facility] ABSOLUTE MONOS 0.89 0.16 - 1.10 K/uL [facility] ABSOLUTE EOS 0.09 0.00 - 0.50 K/uL [facility] ABSOLUTE BASOS 0.09 0.00 - 0.15 K/uL [facility] Granulocytes, immature 0.09 0.00 - 0.09 K/uL [facility] Blood 01/13/2025 5:12 PM EDT 01/13/2025 5:22 PM EDT us Alfa Mcclellan MD LAB BLOOD ORDERABLES Final Resul t Performing Organization Address [facility] Co de Phone Number [address] [address] * (ABNORMAL) Basic metabolic panel (01/13/2025 5:12 PM EDT) SODIUM 129(L) 133 - 146 mmol/L [facility] CHLORIDE 92(L) 96 - 108 mmol/L [facility] POTASSIUM 4.0 3.3 - 5.1 mmol/L [facility] CO2 24 21 - 35 mmol/L [facility] BUN 36(H) 6 - 19 mg/dL [facility] CREATININE 2.10(H) 0.5 - 1.5 mg/dL [facility] GLUCOSE 247(H) 70 - 99 mg/dL [facility] CALCIUM 9.5 8.4 - 10.3 mg/dL [facility] EGFR 31(L) >59 mL/min/1.7 3m2 [facility] Comment:Estimated glomerular filtration rate calculated using the CKD-EPI refit equation. ANION GAP 17 10 - 20 mmol/L [facility] Blood 01/13/2025 5:12 PM EDT 01/13/2025 5:22 PM EDT Alfa Mcclellan MD LAB BLOOD ORDERABLES Final Resul t Performing Organization Address [facility] Co de Phone Number [address] [address] * ECG 12-LEAD (01/13/2025 5:00 PM EDT) Ventricular Rate EKG/MIN 89 BPM [facility] Atrial Rate 89 BPM [facility] ME Interval 150 ms [facility] QRS Duration 96 ms [facility] QT Interval 390 ms [facility] QTC Interval 474 ms [facility] P [place] 70 degrees [facility] R Wave [place] 41 degrees [facility] T Wave [place] 37 degrees [facility] 01/13/2025 5:00 PM EDT [...] ACO C3 ACO C3 ACO Care Teams Environmental Health And Safety Intern Relationship Specialty Start Date End Date Destiny Miranda MD [address] [place] [address] PCP - General Internal Medicine 01/13/25 Additional Source Comments The information contained in this document represents components of the legal health record. It is not the complete legal health record.[facility]
--- OUTSIDE RECORDS SUMMARY | 2025-02-23 12:08 | XMS_ITS | Encounter Summary ---
Author Organization [employer] Address [address] [facility] [address] [place] [address] Care Team Providers Care Paper Cone Grader Name Role Phone Destiny Miranda MD Primary Care Provider [phone] Nicole Gandhi PharmD Unavailable [phone] Madelin Luna Unavailable Reason for Visit * Reason Comments Med Refill Encounter Details Date Type Department Care Team ([facility] st Contact Info) Description 12/27/2024 Refill [facility] MED & PEDS [address] [place], [place] [phone] Matilda Kolb MD [address] [place] [address] Benign hypertension Social History Tobacco Use Types Packs/Day Years [...] as of this encounter Visit Diagnoses Diagnosis Benign hypertension Essential hypertension, benign documented in this encounter Additional Health Concerns Assessment Noted Time PHQ-9 Depression Total Score: 21 025 9:51 AM EDT documented as of this encounter Care Teams Paper Cone Grader Relationship Specialty Start Date End Date Destiny Miranda MD [address] [place] [address] PCP - General Family Medicine 06/23/18 Nicole Gandhi PharmD [address] [place] [address] Pharmacist Internal Medicine 08/20/24 Madelin Luna 01/14/25 01/20/25 Rose Cash Equal Opportunity RepresentativeBrass Molder Helper 09/17/23 Yvette Gamble Equal Opportunity RepresentativeBrass Molder Helper 01/18/25 documented as of this encounter
--- OUTSIDE RECORDS SUMMARY | 2025-02-23 12:08 | XMS_ITS | Encounter Summary ---
Author Organization [employer] Address [address] [facility] [address] [place] [address] Care Team Providers Care Iv Technician Name Role Phone Destiny Miranda MD Primary Care Provider [phone] Nicole Gandhi PharmD Unavailable [phone] Madelin Luna Unavailable Reason for Visit * Reason Comments Med Change Request Encounter Details Date Type Department Care Team ([facility] Contact Info) Description 08/15/2023 Refill [facility] CHC MED & PEDS [address] [place], [place] [phone] Cristine Guajardo MD [address] [place] [address] Cervical paraspinal muscle spasm Social History Tobacco [...] documented as of this encounter Care Teams Iv Technician Relationship Specialty Start Date End Date Destiny Miranda MD [address] [place] [address] PCP - General Family Medicine 06/23/18 Nicole Gandhi PharmD [address] [place] [address] Pharmacist Internal Medicine 08/20/24 Madelin Luna 01/14/25 01/20/25 Rose Cash Online Merchandising SpecialistFall Internship 09/17/23 Yvette Gamble Online Merchandising SpecialistFall Internship 01/18/25 documented as of this encounter
--- OUTSIDE RECORDS SUMMARY | 2025-02-23 12:08 | XMS_ITS | Encounter Summary ---
Author Organization [employer] Address [address] [place] [address] Care Team Providers Care Poultry Inspector Name Role Phone Destiny Miranda MD Primary Care Provider [phone] Nicole Gandhi PharmD Unavailable [phone] Madelin Luna Unavailable Encounter Details Date Type Department Care Team (Late st Contact Info) Description 09/14/2024 Orders Only [facility] CH[facility] MED & PEDS [address] [place] [address] Provider, MD Jovita Social History Tobacco Use [...] on file documented as of this encounter Procedures Procedure [...] documented as of this encounter Care Teams Poultry Inspector Relationship Specialty Start Date End Date Destiny Miranda MD [address] [place] [address] PCP - General Family Medicine 06/23/18 Nicole Gandhi PharmD [address] [place] [address] Pharmacist Internal Medicine 08/20/24 Madelin Luna 01/14/25 01/20/25 Rose Cash Health CounselorSheet Metal Assembler 09/17/23 Yvette Gamble Health CounselorSheet Metal Assembler 01/18/25 documented as of this encounter
--- OUTSIDE RECORDS SUMMARY | 2025-02-23 12:08 | XMS_ITS | Clinical Summary ---
Author Organization [facility] Address [address] [place] [address] Care Team Providers Care Finishing Manager Name Role Phone Unavailable Primary Care [...] qhs. Will need therapy; pt to call [facility] today to ask for referral. Pt in need of PCP appt. Practice self care. Assessment & Plan (03/16/2024 9:30 AM EDT): Cont wellbutrin xl and increase to 300 mg qam for depressed mood, anergia, amotivation, hypersomnia. Monitor for over activation, s/s bee reviewed. Continue abilify 20 mg po qhs. Will need therapy; pt to call [facility] today to ask for referral. Practice self care. Assessment & Plan (02/17/2024 3:42 PM EDT): Cont wellbutrin xl and abilify, no change in dose of either. Will need therapy. Practice self care. Insulin dependent type 2 diabetes mellitus ([facility]) 08/15/2023 Overview (02/16/2024): Last Assessment & Plan: Uncontrolled: Glucose at 500. Will discuss during F/U. Continue treatment plan Labs: glucose Noncompliance with diabetes treatment 08/15/2023 Assessment & Plan (03/16/2024 9:27 AM EDT): Encourage pt to eat regularly, monitor BS and make f/u appt with pcp Neuropathy due to type 2 diabetes mellitus ([facility]) 07/10/2018 Hypothyroidism 10/30/2012 Diabetes mellitus without complication ([facility]) 09/12/2011 Obesity 09/12/2011 Resolved Problems Problem Noted Date Diagnosed Date Resolved Date Bipolar disease in ([facility]) 4 02/16/2024 Social History Tobacco Use Types [...] 19 + 3-dose series) 02/03/2013 09/30/2012, 08/06/2012 [id number] () 02/22/2024 021, 10/14/2020 Hemoglobin A1c 06/08/2024 [...] Discontinued Vaginal Pap Discontinued Vulvoscopy Discontinued Insurance [facility] [place] MEDICAID
--- OUTSIDE RECORDS SUMMARY | 2025-02-23 12:08 | XMS_ITS | Encounter Summary ---
Author Organization [employer] Address [address] [facility] 7t [place] [address] Care Team Providers Care Drawing Operator Name Role Phone Destiny Miranda MD Primary Care Provider [phone] Nicole Gandhi PharmD Unavailable [phone] Madelin Luna Unavailable Encounter Details Date Type Department Care Team (Late st Contact Info) Description 12/08/2024 Orders Only [facility] CHC MED & PEDS [address] [place], [place] [phone] Padmini Horton MD [address] [place] [address] Social History Tobacco Use Types Packs/Day Years [...] documented as of this encounter Care Teams Drawing Operator Relationship Specialty Start Date End Date Destiny Miranda MD [address] [place] [address] PCP - General Family Medicine 06/23/18 Nicole Gandhi PharmD [address] [place] [address] Pharmacist Internal Medicine 08/20/24 Madelin Luna 01/14/25 01/20/25 Rose Cahs Oracle Webcenter ConsultantFur Plucker 09/17/23 Yvette Gamble [employer] ConsultantFur Plucker 01/18/25 documented as of this encounter
--- OUTSIDE RECORDS SUMMARY | 2025-02-23 12:08 | XMS_ITS | Encounter Summary ---
Author Organization [employer] Address [address] [facility] 7[address] [place] [address] Care Team Providers Care Software Writer Name Role Phone Destiny Miranda MD Primary Care Provider [phone] Nicole Gandhi PharmD Unavailable [phone] Reason for Visit * Reason Onset Date Comments Med Refill 02/22/2025 Encounter Details Date Type Department Care Team (Late st Contact Info) Description 02/22/2025 Refill [facility] CHC MED & PEDS [address] [place], [place] [phone] Destiny Miranda MD [address] [place] [address] Mild anxiety Social History Tobacco Use Types Packs/Day Years [...] housing situation today? I have claudia thakur 01/25/[address] you li ve. Do you have problems with any of the following? None of the above 01/25/2025 Food Insecurity Answer Date Recorded Within the past 12 months, y ou worried that your food would run out before you got money to buy more: Never True 01/25/2025 Within the past 12 months,th e food you bought just didn't last and you didn't have enough money to get more: Never True 10/2024 Transportation Answer Date Recorded In the past 12 months, has l ack of transportation kept you from medical appts, meetings, work or from getting things needed for daily living? No 01/25/2025 Utilities Answer Date Recorded In the past 12 months, has t he electric, gas, oil or water company threatened to shut off services in your home? No 01/25/2025 Depression Answer Date Recorded Patient Health Questionnaire-2 Score 6 08/31/2024 Internet Access Answer Date Recorded Internet Access Q1 Yes 01/25/2025 Internet Access Q2 Not on file 01/25/2025 Comments No Sex and Gender Information Value Date Recorded Sex Assigned at Female 04/22/2022 10:20 AM EDT Legal Sex Female 10:20 AM EDT Gender Identity Female 08/16/2022 10:18 AM EST Sexual Orientation Choose not to disclose 2022 10:18 AM EST Sexual Orientation Straight 08/16/2022 10 :18 AM EST documented as of this encounter Miscellaneous Notes * Telephone Encounter - Arely Hanson LPN - 02/22/2025 11:12 AM EDT Last seen 8.5.25 documented in this encounter Plan of Treatment Not on file documented as of this encounter Visit Diagnoses Diagnosis Mild anxiety documented in this encounter Additional Health Concerns Assessment Noted Time PHQ-9 Depression Total Score: 21 025 9:51 AM EDT documented as of this encounter Care Teams Software Writer Relationship Specialty Start Date End Date Destiny Miranda MD [address] [place] [address] PCP - General Family Medicine 06/23/18 Nicole Gandhi PharmD [address] [place] [address] Pharmacist Internal Medicine 08/20/24 Rose Cash Piercer OperatorCrankshaft Grinder 09/17/23 Yvette Gamble Piercer OperatorCrankshaft Grinder 01/18/25 documented as of this encounter
--- OUTSIDE RECORDS SUMMARY | 2025-02-23 12:09 | XMS_ITS | Clinical Summary ---
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 Blood Pressure kit 1 Units in the morning. 1 kit 023 Active lidocaine (Lidoderm) 5 % patchIndications: Cervical paraspinal muscle spasm APPLY 1 PATCH IN THE MORNING REMOVE AND DISARD PATCH WITHIN 12 HOURS OR DIRECTED 90 patch 024 Active acetaminophen (Tylenol) 325 MG tablet TAKE 2 TABLETS BY MOUTH EVERY 4 HOURS 025 Active ibuprofen 200 MG tablet TAKE 2 TABLETS MOUTH EVERY 6 HOURS 025 Active ondansetron ODT (Zofran-ODT) 4 MG disintegrating tablet Take 1 tablet by mouth every 8 (eight) hours if needed for moderate pain. 025 Active pen needle 33G x 4 mm miscIndications:D iabetes mellitus type 2, insulin dependent (CMS/HCC) Use daily with Lantus 100 each 11 025 2025 Active chlorthalidone (Hygroton) 25 MG tablet Take 1 tablet (25 mg) by mouth in the morning. 90 tablet 3 025 Active fluconazole (Diflucan) 150 MG tablet Take 1 tab orally every 3 days for 3 doses then weekly for 6 weeks 9 tablet Active Additional Information Patient not taking.Reported on 01/19/2025 Blood Glucose Monitoring Suppl (FreeStyle [place] Lite) w/Device kit Use to test blood sugar as directed 1 kit Active glucose blood (FREESTYLE LITE) test stripIndications: Neuropathy due to type 2 diabetes mellitus ([facility]) Test blood sugar up to 3 times daily 100 strip 11 Active Lancets misc Test blood sugar up to 3 times daily 100 each 11 Active multivitamin () 27-0.8 MG tablet TAKE 1 TABLET BY MOUTH EVERY DAY 90 tablet 3 Active empagliflozin (Jardiance) 25 MG Take 1 tablet (25 mg) by mouth Once per day. 30 tablet 5 Active ARIPiprazole (Abilify) 20 MG tabletIndications :Bipolar disorder, current episode depressed, severe, without psychotic features ([facility]) Take 1 tablet (20 mg) by mouth in the morning. 30 tablet 1 Active traZODone (Desyrel) 50 MG tabletIndications :Sleep disorder Take 1 tablet (50 mg) by mouth at bedtime. Take 1 or 2 tablets by mouth at bedtime as needed. 45 tablet Active insulin glargine (Lantus SoloStar) 100 UNIT/ML penIndications:Di abetes mellitus type 2, insulin dependent ([facility]) Inject 50 units daily 15 mL 11 Active buPROPion XL (Wellbutrin XL) 300 MG 24 hr tablet Take 300 mg by mouth in the morning. Active lisinopril 10 MG tablet Take 10 mg by mouth Once per day. Active insulin lispro (HumaLOG) 100 UNIT/ML injection Inject 5 units before breakfast and dinner. Inject an additional 5 units if needed for high blood sugar. Max 20 units per day 15 mL 1 Active ticagrelor (Brilinta) 90 MG tablet Take 90 mg by mouth 2 times daily. 025 2025 Active ergocalciferol (Vitamin D2) 1.25 MG (07038 UT) capsule Take 1 capsule (1.25 mg) by mouth 1 (one) time per week. 15 capsule 025 Active buPROPion XL (Wellbutrin XL) 150 MG 24 hr tablet Take 1 tablet (150 mg) by mouth in the morning. 30 tablet 1 025 Active aspirin 81 MG EC tablet Take 81 mg by mouth Once per day. Active hydrOXYzine HCl (Atarax) 25 MG tabletIndications :Mild anxiety Take 1 tablet (25 mg) by mouth if needed in the morning, at noon, and at bedtime for anxiety. Take 1 tab tid prn anxiety 90 tablet 1 025 2024 Active hydrOXYzine HCl (Atarax) 25 MG tabletIndications :Mild anxiety Take 1 tablet (25 mg) by mouth if needed in the morning, at noon, and at bedtime for anxiety. Take 1 tab tid prn anxiety 90 tablet 1 025 2024 Discontinued(R eorder (will not trigger notification to Pharmacy)) Active Problems Patient Care Coordination No te Formatting of this note migh t be different from the original. C3/CM Jeimy Meehan RN Problem Noted Date Diagnosed Date Coronary heart disease 12/06/2024 Mild anxiety 08/31/2024 Grief 08/31/2024 Family history [...] retiring, patient will be referred to new [facility] Psychiatric provider. She is aware that appts will be televisits and that provider will not be an employee of [facility]. She gives permission to share PHI. [...] patient's care will be transferred to new [facility] Psychiatric provider. F/U with therapist as [...] organization. Date Type Department Care Team Description 02/22/2025 Refill [facility] [address] [place] [address] Destiny Miranda MD Mild anxiety 01/25/2025 9:00 AM EDT Office Visit [facility] [address] [place] [address] Destiny Miranda MD Primary hypertension (Primary Dx); Diabetes mellitus type 2, insulin dependent (CMS/HCC); Bipolar disorder, current episode depressed, severe, without psychotic features (CMS/HCC); Coronary artery disease involving rampart heart without angina pectoris, unspecified vessel or lesion type 01/25/2025 Travel 01/24/2025 Orders Only [facility] [address] [place] [address] Destiny Miranda MD Diabetes mellitus type 2, insulin dependent ([facility]) (Primary Dx); Hypotension, unspecified hypotension type 01/24/2025 Telephone [facility] [address] [place] [address] Destiny Miranda MD Chart Prep 01/20/2025 Patient Outreach [facility] [address], [place] [phone] Destiny Miranda MD Care Coordination (Communication to pt assigned CP Coordinator ) 01/18/2025 Patient Outreach [facility] [address], [place] [phone] Destiny Miranda MD Care Coordination ([facility] F/U) 01/18/2025 Patient Outreach [facility] [address] [place] [address] Destiny Miranda MD Care Coordination (C3/CHW Chart Review) 01/17/2025 Refill [facility] [address] [place] [address] Destiny Miranda MD 01/14/2025 Orders Only [facility] [address] [place] [address] Jovita Velez MD 01/14/2025 Patient Outreach [facility] [address] [place] [address] Destiny Miranda MD 01/13/2025 2:20 PM EDT Office Visit [facility] [address] [place] [address] Bo Caraballo MD Hypotension, unspecified hypotension type (Primary Dx); Bilateral impacted cerumen 01/13/2025 Travel 01/13/2025 Telephone [facility] [address] [place] [address] Destiny Miranda MD Nurse Triage 01/11/2025 Orders Only [facility] [address] [place] [address] Destiny Miranda MD 01/11/2025 Travel 01/06/2025 Telephone [facility] [address] [place] [address] Destiny Miranda MD Appointment Request 12/29/2024 Telephone [facility] [address] [place] [address] Nicole Gandhi, Nomi 12/29/2024 Orders Only GENERIC EXTERNAL DATA DEPARTMENT Provider, Generic External Data 12/27/2024 Refill [facility] [address] [place] [address] Matilda Kolb MD Benign hypertension 12/27/2024 Refill [facility] [address] [place] [address] Destiny Miranda MD 12/08/2024 Orders Only [facility] [address] [place] [address] Destiny Miranda MD Persistent proteinuria (Primary Dx) 12/08/2024 Orders Only [facility] [address] [place] [address] Padmini Horton MD 12/07/2024 Telephone [facility] [address] [place] [address] Padmini Horton MD Results 12/07/2024 Telephone [facility] [address] [place] [phone] Destiny Miranda MD 12/07/2024 Orders Only [facility] [address] [place] [address] Destiny Miranda MD 12/07/2024 Telephone [facility] [address] [place] [address] Destiny Miranda MD CRITICAL LAB 12/07/2024 Travel 12/06/2024 Travel 11/24/2024 Refill [facility] [address] [place] [address] Destiny Miranda MD from Last 3 Months Immunizations Immunization Administration Dates Next Due DTP [...] housing situation today? I have claudia ofe 01/25/[address] you li [...] Sign Reading Time Taken Comments Blood Pressure 133/88 01/25/2025 8:53 AM EDT Pulse 91 01/25/2025 8:53 AM EDT Temperature 36.9 C (98.5 F) 01/25/2025 8:53 AM EDT Respiratory Rate 16 01/25/2025 8:53 AM EDT Oxygen Saturation 97% 10/29/2024 11:06 AM EDT Inhaled Oxygen Concentration - - Weight 65.8 kg (145 lb) 01/25/2025 8:53 AM EDT Height 167 cm (5' 5.75 ) 01/25/2025 8:53 AM EDT Body Mass Index 23.58 01/25/2025 8:53 AM EDT Plan of Treatment Health Maintenance Due Date Last Done Comments Dental Oral Exam 1987 Dental Prophylaxis 1987 Dental X-Ray: Full Mouth 1987 HIV Screening 1987 Diabetes: Foot Exam 1997 Eye Exam 1997 Family Planning (PISQ) 2002 HPV Vaccines (1 - 3-dose series) 2002 Hepatitis C Screening 2005 Dental X-Ray: Bitewings 07/10/2023 07/09/2022 Diabetes: Hemoglobin A1C 02/09/2025 025, 08/12/2024, 03/09/2024, Additional history exists COVID-19 Vaccine ( season) 2025 11/11/2020, 10/14/2020 Influenza Vaccine (#1) 2025 8, 04/07/2015, 04/07/2014, Additional history exists Depression Monitoring 03/03/2025 08/31/2024, 025 Lipid Panel 12/07/2025 12/07/2024, 02/21, 04/21/2020 Diabetes: Urine Protein Screening 12/29/2025 12/29/2024, 12/07/2024, 03/09/2024, Additional history exists Alcohol/Substance Use Screening 01/25/2026 01/25/2025 Disability Screening 01/25/2026 01/25/2025 SDOH Screening 01/25/2026 01/25/2025 Tobacco Screening 01/25/2026 01/25/2025 DTaP/Tdap/Td Vaccines (7 - Td or Tdap) [...] Years) and At-Risk Patients (6 to 49) Years Completed 02/04/2024 Hepatitis A Vaccines Aged Out No long [...] Procedure Name Priority Date/Time Associated Diagnosis Comments CBC WITH AUTO DIFFERENTIAL Routine 01/25/2025 9:28 AM EDT Diabetes mellitus type 2, insulin dependent (CMS/HCC) Hypotension, unspecified hypotension type BASIC METABOLIC PANEL Routine 01/25/2025 9:08 AM EDT Diabetes mellitus type 2, insulin dependent (CMS/HCC) Hypotension, unspecified hypotension type HCG, QL, URINE Routine 01/13/2025 9:32 AM EDT US RENAL COMPLETE Routine 01/11/2025 1:3 8 PM EDT PHOSPHOLIPASE A2 RECEPTOR (PLA2R) AB PANEL Routine 12/29/2024 8:07 AM EDT BEATRIZ SCREEN, IFA, W/REFL TITER AND PATTERN Routine 12/29/2024 8:07 AM EDT PROTEIN, TOTAL AND PROTEIN ELECTROPHORESIS Routine 12/29/2024 8:07 AM EDT HEPATITIS B PROFILE Routine 12/29/2024 8 :07 AM EDT VITAMIN D,25-OH,TOTAL,IA Routine 12/29/2024 8:07 AM EDT FERRITIN Routine 12/29/2024 8:07 AM EDT IRON AND TOTAL IRON BINDING CAPACITY Routine 12/29/2024 8:07 AM EDT BASIC METABOLIC PANEL Routine 12/29/2024 8:07 AM EDT HCG, TOTAL, QN Routine 12/29/2024 8:07 AM EDT CBC WITH AUTO DIFFERENTIAL Routine 12/29/2024 8:07 AM EDT PROTHROMBIN TIME-INR Routine 12/29/2024 8:07 AM EDT URINE PROTEIN, TOTAL, RANDOM (W/O CREATININE) Routine 12/29/2024 8:06 AM EDT CREATININE, RANDOM URINE Routine 12/29/2024 8:06 AM EDT URINALYSIS, COMPLETE Routine 12/29/2024 8:06 AM EDT ALBUMIN, RANDOM URINE W/CREATININE Routine 12/07/2024 11:01 AM EDT LIPID PANEL, STANDARD Routine 12/07/2024 10:55 AM EDT COMPREHENSIVE METABOLIC PANEL Routine 12/07/2024 10:55 AM EDT POCT GLUCOSE Routine 12/07/2024 10:45 AM EDT Diabetes mellitus without complication (CMS/HCC) POCT GLYCATED HEMOGLOBIN, TOTAL Routine 11/09/2024 10:24 AM EDT Diabetes mellitus without complication (CMS/HCC) HM PAP/HPV Routine 09/27/2024 HPV DNA, LOW/HIGH RISK Routine 10:15 AM EDT BITEWING - SINGLE RADIOGRAPHIC IMAGE Routine 07/09/2022 3:10 PM EST Dental abscess from Last 3 Months or Most Recently Relevant to Health Maintenance Results * (ABNORMAL) CBC auto differential (01/25/2025 9:28 AM EDT) Only the most recent of2 resultswithin the time period is included. White Blood Count 12.6(H) 4.8 - 10.8 X10*3/uL [facility] Red Blood Count 4.04(L) 4.20 - 5.50 X10*6/uL [facility] Hemoglobin 11.0(L) 12.0 - 16.0 g/dl [facility] Hematocrit 33.4(L) 37.0 - 47.0 % [facility] Mean Corpuscular Volume 82.7 80.0 - 98.0 fL [facility] Mean Corpuscular Hemoglobin 27.2 27.0 - 33.0 pg [facility] Mean Corpuscular HGB Conc 32.9 31.0 - 35.0 g/dl [facility] Red Cell Distribution Width 12.4 11.0 - 16.0 % [facility] Platelet Count 432(H) 160 - 400 X10*3/uL [facility] Mean Platelet Volume 9.7 9.4 - 12.3 fL [facility] Neutrophils Percent Auto 69.1 45 - 73 % [facility] Imm Gran Pct Auto 0.5(H) 0.0 - 0.4 % [facility] Lymphocytes Percent Auto 21.5 20 - 40 % [facility] Monocytes Percent Auto 6.0 2 - 11 % [facility] Eosinophils Percent Auto 2.1 0 - 4 % [facility] Basophils Percent Auto 0.8 0 - 2 % [facility] NRBC Pct Auto 0.0 0.0 - 0.2 /100WBC [facility] Neutrophils Absolute Auto 8.7(H) 2.0 - 8.3 x10*3/uL [facility] Imm Gran Abs Auto 0.06(H) 0.00 - 0.03 X10*3/uL [facility] Lymphocytes Absolute Auto 2.7 1.2 - 4.9 X10*3/uL [facility] Monocytes Absolute Auto 0.8 0.1 - 1.2 X10*3/uL [facility] Eosinophils Absolute Auto 0.3 0.0 - 0.4 X10*3/uL [facility] Basophils Absolute Auto 0.1 0.0 - 0.2 X10*3/uL [facility] NRBC Abs Auto 0.000 0.0 - 0.012 X10*3/uL [facility] Blood Venous blood specimen / Unknown 01/25/2025 9:28 AM EDT 01/25/2025 2:13 PM EDT us Destiny Miranda MD LAB BLOOD ORDERABLES Final Re sult Performing Organization Address [facility] Co de Phone Number [facility] [address] [place] [address] [phone] * (ABNORMAL) Basic Metabolic Panel (01/25/2025 9:08 AM EDT) Only the most recent of2 resultswithin the time period is included. Sodium 134(L) 135 - 145 mmol/L [facility] Potassium 3.7 3.3 - 5.1 mmol/L [facility] Chloride 99 96 - 108 mmol/L [facility] Carbon Dioxide 24 22 - 29 mmol/L [facility] Anion Gap 15 12 - 20 [facility] Urea Nitrogen (BUN) 35(H) 9 - 16 mg/dL [facility] Creatinine, Serum 1.30 0.5 - 1.4 mg/dL [facility] Estimated Glomerular Filt Rate 46 [facility] Comment:Chronic Kidney Disea se: Estimated GFR < 60 mL/min/1.69m9Crcwfp Kidney Disease: Estimated GFR < 15 mL/min/1.73m2 Glucose 199(H) 60 - 115 mg/dL [facility] Calcium 9.4 8.4 - 10.2 mg/dL [facility] Blood Venous blood specimen / Unknown 01/25/2025 9:08 AM EDT 01/25/2025 2:13 PM EDT us Destiny Miranda MD LAB BLOOD ORDERABLES Final Re sult Performing Organization Address [facility]/ZIP Co de Phone Number [facility] [address] [place] [address] [phone] * HCG, Qualitative, Urine (01/13/2025 9:32 AM EDT) Urine Urine specimen obtained by clean catch procedure / Unknown us Historical Provider MD LAB URINE ORDERABLES Reny box Result * US Renal Complete (01/11/2025 1:38 PM EDT) Anatomical Region Laterality Modality Kidney Ultrasound 01/11/2025 1:38 PM EDT Narrative 01/11/2025 1:48 PM EDT [facility] [address] [place] [address] [place] [id number] Ultrasound Report Signed Patient: Yvrose Cooper MR#: [id number] : 1985 Acct:[id number] Age/Sex: 39 / F ADM Date: 01/11/25 Loc: .[facility] Attending Dr: Lefty Tarango MD Ordering Physician: Lefty Tarango MD Date of Service: 01/11/25 Procedure(s): US renal BI Accession Number(s): [id number] cc: Lefty Tarango MD; Destiny Miranda MD EXAMINATION: Ultrasound renal bilaterally. CLINICAL INFORMATION: Essential hypertension. Proteinuria. COMPARISON: March 13, 2017. Correlated to CT dated August 27, 2023 reported nonobstructing nephrolithiasis, right kidney. TECHNIQUE: Real-time ultrasound kidneys using grayscale technique. FINDINGS: Right kidney: 13 x 5 x 6 cm. Volume: 192 cc. Normal renal echotexture. Normal renal cortical thickness. No hydronephrosis. No gross solid or cystic lesion. Left kidney: 13 x 6 x 6 cm. Volume: 261 cc. Normal echotexture. Normal renal cortical thickness. No hydronephrosis. No gross solid or cystic lesion. US/US renal BI IMPRESSION: No hydronephrosis. No gross nephrolithiasis. Electronically signed by: Tyler Rivera MD 01/11/2025 01:46 PM EDT Dictated By: Tyler Lisa MD Signed By: <Electronically signed by Tyler Ibarra MD in OV> 01/11/25 1346 DD/ 1338 TD/TT: 01/11/25 1342 Development Analyst: Procedure Note Donotuseinterpreter, Image - 01/11/2025 [facility] [place] [address] Ultrasound Report Signed Patient: Yvrose Cooper LMR#: [id number] : 1985Acct:[id number] Age/Sex: 39 / FADM Date: 01/11/25 [facility] Dr: Lefty Tarango MD Ordering Physician: Lefty Tarango MD Date of Service: 01/11/25 Procedure(s): US renal BI Accession Number(s): [id number] cc: Lefty Tarango MD; Destiny Miranda MD EXAMINATION: Ultrasound renal bilaterally. CLINICAL INFORMATION: Essential hypertension. Proteinuria. COMPARISON: March 13, 2017. Correlated to CT dated August 27, 2023 reported nonobstructing nephrolithiasis, right kidney. TECHNIQUE: Real-time ultrasound kidneys using grayscale technique. FINDINGS: Right kidney: 13 x 5 x 6 cm. Volume: 192 cc. Normal renal echotexture. Normal renal cortical thickness. No hydronephrosis. No gross solid or cystic lesion. Left kidney: 13 x 6 x 6 cm. Volume: 261 cc. Normal echotexture. Normal renal cortical thickness. No hydronephrosis. No gross solid or cystic lesion. US/US renal BI IMPRESSION: No hydronephrosis. No gross nephrolithiasis. Electronically signed by: Tyler Rivera MD 01/11/2025 01:46 PM EDT Dictated By: Tyler Lisa MD Signed By: <Electronically signed by Tyler Ibarra MDin OV> 01/11/25 1346 DD/ TD/TT: 01/11/25 1342 Development Analyst: us [facility] External Provider IMG US PROCEDURES Final Result * Hepatitis B Profile (12/29/2024 8:07 AM EDT) ~Hepatitis B Surface Antibody REACTIVE Nonreactive [facility] Comment:REACTIVE: > 11.99 mI U/mL Hepatitis B Core Antibody Nonreactive Nonreactive [facility] Hepatitis B Surface Ag Negative Negative [facility] 12/29/2024 8:07 AM EDT 12/29/2024 8:07 AM EDT us Generic External Data Provider LAB BLOOD ORDERAB LES Final Result [facility] [address] [place] [phone] * (ABNORMAL) Vitamin D, 25-Hydroxy, Total, Immunoassay (12/29/2024 8:07 AM EDT) Pathologist [facility] Vitamin D 25-OH Total 24.0(L) >30 ng/mL [facility] Comment: Health Based Reference Values*< 20 ng/mL Lwefjtees19-67 ng/mL Insufficient> 30 ng/mL Sufficient*Davida RIVERA. N Engl J Med. 2007;357:266-280There is no well-established upper level of normal vitamin Dlevels. Some laboratories use 50 ng/mL as an upper limit ofnormal. However, toxicity is patient-dependent and may occurat any level. Careful correlation with the patient'spresentation is necessary and, if there is concern forvitamin D toxicity, treatment should be consideredirrespective of the serum level.Care must be taken in interpreting Vitamin D results fromdifferent laboratories and methodologies. Published datademonstrated that results from patients undergoinghemodialysis may show a negative bias when tested withvarious automated 25-OH vitamin D assays when compared toLC-MS/MS.When testing samples from patients whose predominant form ofVitamin D is Vitamin D2, such as patients receiving VitaminD2 supplementation, results that are subtherapeutic shouldbe confirmed with another method such as LC-MS/MS. 12/29/2024 8:07 AM EDT 12/29/2024 8:07 AM EDT us Generic External Data Provider LAB BLOOD ORDERAB LES Final Result Performing Organization Address [facility] Co de Phone Number [facility] [address] [place] [address] [phone] * Phospholipase A2 Receptor (PLA2R) Antibody Panel (12/29/2024 8:07 AM EDT) Phospholipase A2 Receptor (PLA2R) Ab, DENTON <4 RU/mL [facility] Comment:Reference Range: <14 : NEGATIVE 14-19: BORDERLINE >19: POSITIVE Phospholipase A2 Receptor (PLA2R) Ab, IFA NEGATIVE NEGATIVE [facility] Comment:THIS TEST WAS PERFOR MED AT:[facility] [id number] [place] [phone] HASTINGS MD,PHD,CRISTINA 12/29/2024 8:07 AM EDT 12/29/2024 8:07 AM EDT Generic External Data Provider LAB BLOOD ORDERAB LES Final Result Performing Organization Address [facility] Co de Phone Number [facility] [address] [place] [phone] * Iron And Total Iron Binding Capacity (12/29/2024 8:07 AM EDT) Iron 40 30 - 160 mcg/dL [facility] Total Iron Binding Capacity 265 228 - 428 mcg/dL [facility] Percent Iron Saturation 15 15 - 50 % [facility] Unsaturated Iron Binding 225 ug/dL [facility] 12/29/2024 8:07 AM EDT 12/29/2024 8:07 AM EDT Generic External Data Provider LAB BLOOD ORDERAB LES Final Result Performing Organization Address [facility]/ZIP Co de Phone Number [facility] [address] [place] [phone] * (ABNORMAL) Prothrombin Time-INR (12/29/2024 8:07 AM EDT) Prothrombin Time 9.2(L) 10.9 - 12.4 SEC [facility] INTERNATIONAL NORM RATIO 0.8(L) 0.9 - 1.1 [facility] Comment:INTERNATIONAL NORMAL IZED RATIO (INR) REFERENCE RANGES Reference RangeFor patients not on anticoagulant therapy: 0.9 - 1.1INR ranges for oral anticoagulanttherapy:For prevention and treatment of venous thrombosis and pulmonary embolism: 2.0 - 3.0For acute myocardial infarction with aspirin therapy: 2.0 - 3.0For acute myocardial infarction without aspirin therapy: 3.0 - 4.0For patients with mechanical prosthetic heart valves: 2.5 - 3.5 12/29/2024 8:07 AM EDT 12/29/2024 8:07 AM EDT us Generic External Data Provider LAB BLOOD ORDERAB LES Final Result [facility] [address] [place] [phone] * BEATRIZ Screen,IFA, with Reflex to Titer and Pattern (12/29/2024 8:07 AM EDT) Anti Nuclear Antibody Screen NEGATIVE NEGATIVE [facility] Comment:BEATRIZ IFA is a first l ine screen for detecting thepresence of up to approximately 150 autoantibodies invarious autoimmune diseases. A negative BEATRIZ IFA resultsuggests an BEATRIZ-associated autoimmune disease is notpresent at this time, but is not definitive. If thereis high clinical suspicion for Sjogren's syndrome,testing for anti-SS-A/Ro antibody should be considered.Anti-Cyndie-1 antibody should be considered for clinicallysuspected inflammatory myopathies.AC-0: NegativeInternational Consensus on BEATRIZ Patterns(https://doi.org/10.1515/ztax-8321-5386)For additional information, please refer [email or web address]/faq/[email or web address](This link is being provided for informational/educational purposes only.)THIS TEST WAS PERFORMED AT:[email or web address] [place] [id number] BYERS MD BEATRIZ Titer TNP [facility] BEATRIZ Pattern TNP [facility] BEATRIZ TITER 2 (REF LAB) TNP [facility] BEATRIZ Pattern 2 TNP [facility] BEATRIZ TITER 3 TNP [facility] BEATRIZ PATTERN 3 [facility] 12/29/2024 8:07 AM EDT 12/29/2024 8:07 AM EDT Generic External Data Provider LAB BLOOD ORDERAB LES Final Result Performing Organization Address [facility] Co de Phone Number [facility] [address] [place] [address] [phone] * hCG, Total, Quantitative (12/29/2024 8:07 AM EDT) HCG Quantitative <2 mIU/mL [facility] Comment:Weeks post LMP Appr oximate hCG(Last Menstrual Period) Range (mIU/ml)3 - 4 weeks 9 - 1304 - 5 weeks 75 - 2,6005 - 6 weeks 850 - 20,8006 - 7 weeks 4000 - 100,2007 - 12 weeks 11,500 - 289,55322 - 16 weeks 18,300 - 137,12328 - 29 weeks (2nd trimester) 1,400 - 53,10189 - 41 weeks (3rd trimester) 940 - 60,000The Ahn B- hCG assay is used for the early detection ofpregnancy; it cannot be used to diagnose any conditionunrelated to . If a B-hCG level is not supportedby the clinical evidence, results should be confirmed by analternative method (qualitative urine hCG, for example). 12/29/2024 8:07 AM EDT 12/29/2024 8:07 AM EDT us Generic External Data Provider LAB BLOOD ORDERAB LES Final Result Performing Organization Address [facility] Co de Phone Number [facility] [address] [place] [address] [phone] * (ABNORMAL) Protein, Total and Protein??Electrophoresis (12/29/2024 8:07 AM EDT) Prot Elec - Total Protein 6.9 6.1 - 8.1 g/dL [facility] Prot Elec - Albumin 3.6(A) 3.8 - 4.8 g/dL [facility] Prot Elec - Alpha1 0.3 0.2 - 0.3 g/dL [facility] Prot Elec - Alpha2 1.4(A) 0.5 - 0.9 g/dL [facility] Prot Elec - Beta 1 0.5 0.4 - 0.6 g/dL [facility] Prot Elec - Beta 2 0.5 0.2 - 0.5 g/dL [facility] Prot Elec - Gamma 0.8 0.8 - 1.7 g/dL [facility] PES - Abn Protein Band 1 TNP [facility] PES-Abn Protein Band 2 TNP [facility] PES-Abn Protein Band 3 [facility] Prot Elec - Interpretation SEE NOTE [facility] Comment:Suggestive of acute inflammation pattern with elevationof acute phase proteinsTHIS TEST WAS PERFORMED AT:[facility] [address] [id number] BYERS MD 12/29/2024 8:07 AM EDT 12/29/2024 8:07 AM EDT us Generic External Data Provider LAB BLOOD ORDERAB LES Final Result [facility] [address] [place] [address] [phone] * Ferritin (12/29/2024 8:07 AM EDT) Ferritin 87 10 - 122 ng/mL [facility] 12/29/2024 8:07 AM EDT 12/29/2024 8:07 AM EDT us Generic External Data Provider LAB BLOOD ORDERAB LES Final Result Performing Organization Address [facility] Co de Phone Number [facility] [address] [place] [address] [phone] * (ABNORMAL) Urine Protein, Total, Random without Creatinine (12/29/2024 8:06 AM EDT) Protein, Total, Random Urine 293(H) <12 mg/dL [facility] 12/29/2024 8:06 AM EDT 12/29/2024 8:28 AM EDT us Generic External Data Provider LAB URINE ORDERAB LES Final Result Performing Organization Address [facility] Co de Phone Number [facility] [address] [place] [address] [phone] * Creatinine, Random Urine (12/29/2024 8:06 AM EDT) Creatinine, Urine 32.50 mg/dL [facility] 12/29/2024 8:06 AM EDT 12/29/2024 8:28 AM EDT Generic External Data Provider LAB URINE ORDERAB LES Final Result Performing Organization Address [facility] Co de Phone Number [facility] [address] [place] [phone] * (ABNORMAL) Urinalysis Complete (12/29/2024 8:06 AM EDT) Color Urine Yellow [facility] Appearance Urine Clear [facility] PH 6.0 5.0 - 9.0 [facility] Glucose Urine UA >=1000(A) Negative mg/dL [facility] Urine Blood Small (1+)(A) Negative [facility] Specific [place] - Urine >=1.030(H) 1.005 - 1.025 [facility] Urine Protein 300 (3+)(A) Neg-Trace mg/dL [facility] Urine Ketones Negative Negative mg/dL [facility] Nitrite Urine Negative Negative [facility] Leukocyte Esterase Urine Negative Negative [facility] RBC Urine 3-5(A) 0 - 2 /HPF [facility] Urine WBC 0-5 0 - 5 /HPF [facility] Urine Squamous Epithelial Cell 6-10 0 - 2 /HPF [facility] Urine Bacteria Trace None Seen [facility] Hyaline Casts, Urine 0-2 0 - 2 /LPF [facility] Urine Yeast Present [facility] 12/29/2024 8:06 AM EDT 12/29/2024 8:28 AM EDT us Generic External Data Provider LAB URINE ORDERAB LES Final Result Performing Organization Address [facility] Co de Phone Number [facility] [address] [place] [address] [phone] * (ABNORMAL) Albumin, Random Urine W/Creatinine (12/07/2024 11:01 AM EDT) Creatinine, Urine 64.06 mg/dL [facility] Microalbumin Urine >2,000.0 mg/L [facility] Comment:Verified by dilution Microalbum Creatinine Ratio Ur 3,122.0(H ) <30 ug/mg cr [facility] Comment:Albumin/Creatinine R atio Reference Ranges: Normal: < 30 ug/mg creatinine Microalbuminuria: 30 - 300 ug/mg creatinineClinical Albuminuria: > 300 ug/mg creatinine 12/07/2024 11:0 1 AM EDT 12/07/2024 2:06 PM EDT us Destiny Miranda MD LAB URINE ORDERABLES Final Re sult Performing Organization Address [facility] Co de Phone Number [facility] [address] [place] [address] [phone] * (ABNORMAL) Lipid Panel, Standard (12/07/2024 10:55 AM EDT) Triglycerides 390(H) <150 mg/dL [facility] Comment:Desirable Triglyceri de: less than 150 mg/dLBorderline High Triglyceride 150-199 mg/dLHigh Triglyceride: 200-499 mg/dLVery High Triglyceride: greater than or equal to 5OO mg/dL Cholesterol 236(H) <200 mg/dL [facility] Comment:Desirable Cholestero l: less than 200 mg/dLBorderline High Cholesterol: 200-239 mg/dLHigh Cholesterol: greater than 239 mg/dL LDL Cholesterol Calculated 121(H) <100 mg/dL [facility] Comment:Desirable LDL: less than 100 mg/dLNear Optimal/Above Optimal LDL: 110- 129 mg/dLBorderline High LDL: 130-159 mg/dLHigh LDL: 160-189 mg/dLVery High LDL: greater than or equal to 190 mg/dL HDL Cholesterol 37(L) >40 mg/dL [facility] Comment:Desirable HDL: great er than 40 mg/dL Note: This HDL assay may give artificially low results in patients with liver disease. 12/07/2024 10:5 5 AM EDT 12/07/2024 2:07 PM EDT us Destiny Miranda MD LAB BLOOD ORDERABLES Final Re sult [facility] [address] [place], [place] [phone] * (ABNORMAL) Comprehensive Metabolic Panel (12/07/2024 10:55 AM EDT) Sodium 132(L) 135 - 145 mmol/L [facility] Potassium 4.2 3.3 - 5.1 mmol/L [facility] Chloride 97 96 - 108 mmol/L [facility] Carbon Dioxide 26 22 - 29 mmol/L [facility] Anion Gap 13 12 - 20 [facility] Urea Nitrogen (BUN) 18(H) 9 - 16 mg/dL [facility] Creatinine, Serum 0.83 0.5 - 1.4 mg/dL [facility] Estimated Glomerular Filt Rate >60 [facility] Comment:Chronic Kidney Disea se: Estimated GFR < 60 mL/min/1.76q6Nbxsfx Kidney Disease: Estimated GFR < 15 mL/min/1.73m2 Glucose 390(HH) 60 - 115 mg/dL [facility] Comment:Critical value for t est(s):GLU Results called to and readback by: RIGO Doyle Person calling: MIKALAate:12/07/2024 Time: 14:55 Calcium 9.2 8.4 - 10.2 mg/dL [facility] Bilirubin, Total 0.2 0.0 - 1.0 mg/dL [facility] Aspartate Amino Transferase 18 5 - 31 U/L [facility] Alanine Aminotransferase 8 0 - 31 U/L [facility] Total Protein 6.7 6.5 - 8.0 g/dL [facility] Albumin Level 3.5 3.5 - 5.0 g/dL [facility] Alkaline Phosphatase 96 39 - 117 U/L [facility] 12/07/2024 10:5 5 AM EDT 12/07/2024 2:07 PM EDT Destiny Miranda MD LAB BLOOD ORDERABLES Final Re sult [facility] [address] [place] [address] [phone] * (ABNORMAL) POCT Glucose (12/07/2024 10:45 AM EDT) Glucose Blood, POC 390(A) 60 - 200 mg/dL QC Media Lot # [id number] Lot# Expiration Date Blood Capillary blood specimen / Unknown 12/07/2024 10:45 AM EDT us Destiny Miranda MD POINT OF CARE TEST ENTER/EDIT ORDERABLES Final Result * (ABNORMAL) POCT A1C (11/09/2024 10:24 AM EDT) Hemoglobin A1C 13.6(A) 4.0 - 6.0 % QC Media Lot # [id number] Lot# Expiration Date Blood 11/09/2024 10:2 4 AM EDT us Destiny Miranda MD POINT OF CARE TEST ENTER/EDIT ORDERABLES Final Result * HM PAP/HPV (09/27/2024) Pap Smear 1. NILM 1. NILM us Destiny Miranda MD HEALTH MAINTENANCE Final Resu lt * HPV DNA, Low/High Risk (09/21/2024 10:15 AM EDT) HPV High Risk Negative Negative [facility] HPV Genotype 16 Negative Negative [facility] HPV Genotype 18 Negative Negative [facility] Comment:HPV testing performe d at [facility] (CLIA#[id number]), [address] [place] [address].Testing for HPV was performed using the Cleo DIANE [id number]. The presence of HPV in [...] 5 AM EDT 09/23/2024 7:16 AM EDT us Destiny Miranda MD LAB BLOOD ORDERABLES Final Re sult [facility] [address] [place] [address] [phone] from Last 3 Months or Most Recently Relevant to Health Maintenance Insurance [facility] C3 DENTAL-[facility] MEDICAID STAND ADULT Care Teams Structural Steel Erection Supervisor Relationship Specialty Start Date End Date Destiny Miranda MD [address] [place] [address] PCP - General Family Medicine 06/23/18 Nicole Gandhi PharmD [address] [place] [address] Pharmacist Internal Medicine 08/20/24 Rose Cash Breakfast HostOnline Journalist 09/17/23 Yvette Gamble Breakfast HostOnline Journalist 01/18/25
--- OUTSIDE RECORDS SUMMARY | 2025-02-23 12:09 | XMS_ITS | Encounter Summary ---
Author Organization [employer] Address [address] [place] [address] Care Team Providers Care Vacuum Metalizer Operator Name Role Phone Destiny Miranda MD Primary Care Provider [phone] Nicole Gandhi PharmD Unavailable [phone] Madelin Luna Unavailable Encounter Details Date Type Department Care Team (Late st Contact Info) Description 02/20/2024 Orders Only [facility] [address] [place] [address] Antonette Garcia MD [address] [place] [address] Social History Tobacco Use Types Packs/Day Years [...] documented as of this encounter Care Teams Vacuum Metalizer Operator Relationship Specialty Start Date End Date Destiny Miranda MD [address] [place] [address] PCP - General Family Medicine 06/23/18 Nicole Gandhi PharmD [address] [place] [address] Pharmacist Internal Medicine 08/20/24 Madelin Luna 01/14/25 01/20/25 Rose Cash HousekeeperDressed Poultry Grader 09/17/23 Yvette Gamble HousekeeperDressed Poultry Grader 01/18/25 documented as of this encounter
--- OUTSIDE RECORDS SUMMARY | 2025-02-23 12:09 | XMS_ITS | Encounter Summary ---
Author Organization [employer] Address [address] [facility] 7t [place] [address] Care Team Providers Care Habilitative Interventionist Name Role Phone Destiny Miranda MD Primary Care Provider [phone] Nicole Gandhi PharmD Unavailable [phone] Madelin Luna Unavailable Reason for Visit * Reason Onset Date Comments Med Refill 11/24/2024 Encounter Details Date Type Department Care Team (Late st Contact Info) Description 11/24/2024 Refill [facility] [address] [place], [place] [phone] Destiny Miranda MD [address] [place], [place] [phone] Social History Tobacco Use Types Packs/Day Years [...] the past 12 months, has t he [employer], gas, oil or water company threatened to [...] documented as of this encounter Care Teams Habilitative Interventionist Relationship Specialty Start Date End Date Destiny Miranda MD [address] [place] [address] PCP - General Family Medicine 06/23/18 Nicole Gandhi PharmD [address] [place] [address] Pharmacist Internal Medicine 08/20/24 Madelin Luna 01/14/25 01/20/25 Rose Cash Armament MechanicFurnace Fitter 09/17/23 Yvette Gamble Armament MechanicFurnace Fitter 01/18/25 documented as of this encounter
--- OUTSIDE RECORDS SUMMARY | 2025-02-23 12:09 | XMS_ITS | Encounter Summary ---
Author Organization [employer] Address [address] [place] [address] Care Team Providers Care Computer Numerical Control Operator Name Role Phone Destiny Miranda MD Primary Care Provider [phone] Nicole Gandhi PharmD Unavailable [phone] Madelin Luna Unavailable Encounter Details Date Type Department Care Team (Late st Contact Info) Description 01/14/2025 Orders Only [facility] [address] [place] [address] Provider, MD Jovita Social History Tobacco Use [...] Procedure Name Priority Date/Time Associated Diagnosis Comments HCG, QL, URINE Routine 01/13/2025 9:32 AM EDT documented in this encounter Results * HCG, Qualitative, Urine (01/13/2025 9:32 AM EDT) Urine Urine specimen obtained by clean catch procedure / Unknown Historical Provider LAB URINE ORDERABLES Reny l Result documented in this encounter Visit Diagnoses Not on filedocumented in this encounter Additional Health Concerns Assessment Noted Time PHQ-9 Depression Total Score: 21 025 9:51 AM EDT documented as of this encounter Care Teams Computer Numerical Control Operator Relationship Specialty Start Date End Date Destiny Miranda MD [address] [place] [address] PCP - General Family Medicine 06/23/18 Nicole Gandhi PharmD [address] [place] [address] Pharmacist Internal Medicine 08/20/24 Madelin Luna 01/14/25 01/20/25 Rose Cash Envelope Folding Machine OperatorManager Integrated 09/17/23 Yvette Gamble Envelope Folding Machine OperatorManager Integrated 01/18/25 documented as of this encounter
--- OUTSIDE RECORDS SUMMARY | 2025-02-23 12:09 | XMS_ITS | Encounter Summary ---
Author Organization [employer] Address [address] [facility] 7t [place] [address] Care Team Providers Care Health Policy Manager Name Role Phone Destiny Miranda MD Primary Care Provider [phone] Nicole Gandhi PharmD Unavailable [phone] Madelin Luna Unavailable Reason for Visit * Reason Onset Date Comments Medication Question 02/20/2024 Encounter Details Date Type Department Care Team ([facility] st Contact Info) Description 02/20/2024 Telephone [facility] [address] [place] [address] Destiny Miranda MD [address] [place], [place] [phone] Medication Question Social History Tobacco Use Types [...] encounter Miscellaneous Notes * Telephone Encounter - Ariananabella Gordon - 02/20/2024 1:32 PM EDT Tc from pt requesting madina caputo stating she has ran out and does not have a script. If any questions you can contact pt at [phone]. documented in this encounter Plan of Treatment [...] documented as of this encounter Care Teams Health Policy Manager Relationship Specialty Start Date End Date Destiny Miranda MD [address] [place] [address] PCP - General Family Medicine 06/23/18 Nicole Gandhi, GregorioD [address] [place] [address] Pharmacist Internal Medicine 08/20/24 Madelin Luna 01/14/25 01/20/25 Rose Cash Hat Blocking OperatorAsset Protection Associate 09/17/23 Yvette Gamble Hat Blocking OperatorAsset Protection Associate 01/18/25 documented as of this encounter
[2025-02-23 12:20] LABS: Alanine Aminotransferase 13 U/L (0-31); Albumin Level 4.4 g/dL (3.5-5.0); Alkaline Phosphatase 113 U/L (39-117); Anion Gap 15 (12-20); Aspartate Amino Transferase 23 U/L (5-31); Blood Urea Nitrogen 32 mg/dL (9-16); Calcium 9.4 mg/dL (8.4-10.2); Carbon Dioxide 22 mmol/L (22-29); Chloride 96 mmol/L (96-108); Cholesterol 187 mg/dL (<200); Estimated Glomerular Filt Rate 41; HDL Cholesterol 31 mg/dL (>40); Potassium 4.2 mmol/L (3.3-5.1); Sodium 129 mmol/L (135-145); Total Protein 7.7 g/dL (6.5-8.0); Triglycerides 363 mg/dL (<150)
== END 2025-02-23 10:21 | disposition home or self-care (01) ==
LOC: HO.HHCL 10:20
PROVIDERS: PCP Pediatrics; Referring Provider Registered Nurse Psychiatric/Mental Health; Visit Provider Nurse Practitioner Family
DX: Z79.899 Other long term (current) drug therapy (principal)
CPT/HCPCS: 36415; 80053; 80061; 82248; 84443; 85025

== ENCOUNTER 2025-02-24 08:37 | Outpatient (RCR) | payer MEDICAID, SELFPAY ==
[2025-02-24 10:15] LABS: Glucose, Whole Blood 348 mg/dL (60-115)
== END 2025-03-03 07:53 | disposition home or self-care (01) ==
LOC: HO.CR 08:37
PROVIDERS: PCP Pediatrics
DX: Z98.61 Coronary angioplasty status (principal)
CPT/HCPCS: 82947

== ENCOUNTER 2025-03-09 14:16 | Outpatient (AMB) | payer MEDICAID, SELFPAY ==
[2025-03-09 14:45] VITALS: BP 96/64; PULSE 86; O2SAT 97; BMI 23.6
--- NOTE | 2025-03-09 14:45 | HO.NEPHOV ---
Vital Signs 03/09/25 14:45 Height 5 ft 6 in Weight 146 lb BMI 23.6 BP 96/64 Blood Pressure Location Lt brachial Position Sitting Pulse 86 Pulse Source Pulse Oximeter Pulse Oximetry (%) 97 Oxygen Delivery Method Room Air Intake Visit Reasons: 1 Month F/-Conf Group Director Required: No Accompanied by: Self / Same As Patient Allergies No Known Allergies Allergy (Verified 03/09/25 14:47) Medication List - Last Reconciled 03/09/25 by Lefty Tarango MD aripiprazole 20 mg PO DAILY aspirin 81 mg PO DAILY atorvastatin (Lipitor) 40 mg PO BEDTIME 30 days blood sugar diagnostic (FreeStyle Lite Strips) As directed bupropion HCl XL 450 mg PO DAILY chlorthalidone 25 mg PO QAM empagliflozin (Jardiance) 25 mg PO QAM ergocalciferol (vitamin D2) 1,250 mcg PO QWEEK hydroxyzine HCl 25 mg PO TID PRN insulin glargine (Lantus U-100 Insulin) 50 units subcut BEDTIME insulin lispro subcut BID lisinopril 10 mg PO DAILY ondansetron 4 mg PO Q8H vit no.[id number] 27 mg iron- 800 mcg ( Vitamin) 1 tab PO DAILY ticagrelor 90 mg PO BID trazodone 50 mg PO BEDTIME PRN HPI Comments Details: The patient is a 39-year-old female referred for proteinuria. She reports foamy urine, which led to a referral to nephrology for further evaluation. The patient has a history of Diabetes Mellitus diagnosed in 2013, with poor glycemic control evidenced by a recent A1c of 13.6%. She has been experiencing peripheral edema for the past three to four weeks, which is a new symptom. Hypertension was diagnosed earlier this year, and she is currently on amlodipine and chlorthalidone for management. Blood pressure control is somewhat achieved, but adjustments in medication are being considered to optimize renal protection. The patient also reports diabetic neuropathy, for which she is not currently receiving treatment. Additionally, she has anemia with a hemoglobin level of 11.4 g/dL, likely secondary to menorrhagia. 03/09/25 The patient is a 40-year-old female presenting for management of proteinuria and evaluation of kidney function. She underwent cardiac stent placement in November and reports no current chest pain or breathing issues. Blood pressure is low at 96/50, and she is on chlorthalidone and lisinopril. No leg swelling is noted, but kidney function has declined, possibly due to low blood pressure and diuretic use. Surgical History: - Cardiac stent placement in November Medications: - Chlorthalidone 25 mg for blood pressure control - Lisinopril 10 mg for blood pressure control and kidney protection [facility] Medical History Microalbuminuria Callus of foot GERD (gastroesophageal reflux disease) Diabetes Anxiety Gastroparesis Family History Father Heart attack Social History Patient Tobacco Use Status: Never used Tobacco Substance Use Type: Marijuana Physical Exam Vital Signs: Last Vital Signs Pulse 86 03/09/25 14:45 BP 96/64 03/09/25 14:45 Pulse Ox 97 03/09/25 14:45 Oxygen Delivery Method Room Air 03/09/25 14:45 BMI result Body Mass Index 23.6 Comfortable Neck supple no JVD. Lungs entry equal no rales. Heart S1-S2 heard no gallop or rub. Abdomen soft nontender. Neuro alert awake oriented. No asterixis. Extremities no edema. Results Reviewed Nephrology Results: Hgb, (12.0-16.0) 10.6 g/dl L 02/23/25 WBC, (4.8-10.8) 14.1 X10*3/uL H 02/23/25 Plt Count, (160-400) 425 X10*3/uL H 02/23/25 Sodium, (135-145) 129 mmol/L L 02/23/25 Potassium, (3.3-5.1) 4.2 mmol/L 02/23/25 Chloride, (96-108) 96 mmol/L 02/23/25 Carbon Dioxide, (22-29) 22 mmol/L 02/23/25 BUN, (9-16) 32 mg/dL H 02/23/25 Creatinine, (0.5-1.4) 1.44 mg/dL H 02/23/25 Calcium, (8.4-10.2) 9.4 mg/dL 09/03/25 Urine Protein, (Neg-Trace) 300 (3+) mg/dL H 12/29/24 Urine Creatinine 32.50 mg/dL 12/29/24 Renal US 01/11/25 Assessment & Plan Assessment & Plan (1) HTN (hypertension): Code(s): I10 - Essential (primary) hypertension Category: Medical (2) Diabetes: Comment: Diabetic since age 16 Code(s): E11.9 - Type 2 diabetes mellitus without complications Category: Medical (3) Proteinuria: Code(s): R80.9 - Proteinuria, unspecified Category: Medical (4) Anemia: Code(s): D64.9 - Anemia, unspecified Category: Medical Plan 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 She has sustained superimposed IVÁN. Most likely due to hypoperfusion from low blood pressure. Plan Keep lisinopril for now. Decrease chlorthalidone from 25 mg down to 12.5 mg a day. Optimize blood pressure and avoid hypotension. If the blood pressure remains low I will discontinue chlorthalidone. Orders: Orders Basic Metabolic Panel 1 Month I10 - Essential (primary) hypertension, R80.9 - Proteinuria, unspecified Coding Level of Care Code Est Pt Level 4 (18884) Diagnoses HTN (hypertension) I10 Diabetes E11.9 Proteinuria R80.9 Anemia D64.9
--- OUTSIDE RECORDS SUMMARY | 2025-03-09 18:00 | XMS_ITS | Encounter Summary ---
Author Organization [employer] Address [address] [facility] 7[address] [place] [address] Care Team Providers Care Rn Rehabilitation Name Role Phone Destiny Miranda MD Primary Care Provider [phone] Nicole Gandhi PharmD Unavailable [phone] Madelin Luna Unavailable Reason for Visit * Reason Comments Med Refill Encounter Details Date Type Department Care Team ([facility] st Contact Info) Description 12/27/2024 Refill [facility] [address] [place], [place] [phone] Destiny Miranda MD [address] [place] [address] Social History Tobacco Use Types Packs/Day Years [...] Care Team (Late st Contact Info) Description 03/14/2025 10:30 AM EDT Medication Management [facility] [address] [place] [address] Nicole Gandhi PharmD [address] [place] [address] documented as of this encounter Visit Diagnoses Not on filedocumented in this encounter Additional Health Concerns Assessment Noted Time PHQ-9 Depression Total Score: 21 025 9:51 AM EDT documented as of this encounter Care Teams Rn Rehabilitation Relationship Specialty Start Date End Date Destiny Miranda MD [address] [place] [address] PCP - General Family Medicine 06/23/18 Nicole Gandhi, GregorioD [address] [place] [address] Pharmacist Internal Medicine 08/20/24 Madelin Luna 01/14/25 01/20/25 Rose Cash Social Media Campaign ManagerManager Terminal 09/17/23 Yvette Gamble Social Media Campaign ManagerManager Terminal 01/18/25 documented as of this encounter
--- OUTSIDE RECORDS SUMMARY | 2025-03-09 18:00 | XMS_ITS | Encounter Summary ---
Author Organization [employer] Address [address] [facility] 7t [place] [address] Care Team Providers Care Panama Hat Smearer Name Role Phone Destiny Miranda MD Primary Care Provider [phone] Nicole Gandhi PharmD Unavailable [phone] Madelin Luna Unavailable Reason for Visit * Reason Comments Med Refill Encounter Details Date Type Department Care Team ([facility] st Contact Info) Description 12/27/2024 Refill [facility] MED & PEDS [address] [place], [place] [phone] Matilda Kolb MD [address] [place] [address] Benign hypertension Social History Tobacco Use Types [...] 03/14/2025 10:30 AM EDT Medication Management [facility] MED & PEDS [address] [place] [address] Nicole Gandhi PharmD [address] [place] [address] documented as of this encounter Visit Diagnoses Diagnosis Benign hypertension Essential hypertension, benign documented in this encounter Additional Health Concerns Assessment Noted Time PHQ-9 Depression Total Score: 21 025 9:51 AM EDT documented as of this encounter Care Teams Panama Hat Smearer Relationship Specialty Start Date End Date Destiny Miranda MD [address] [place], [place] PCP - General Family Medicine 06/23/18 Nicole Gandhi, Nomi [address] [place], [place] [phone] Pharmacist Internal Medicine 08/20/24 Madelin Luna 01/14/25 01/20/25 Rose Cash [facility] AideAutomobile Service Station Mechanic 09/17/23 Yvette Gabmle [facility] AideAutomobile Service Station Mechanic 01/18/25 documented as of this encounter
--- OUTSIDE RECORDS SUMMARY | 2025-03-09 18:00 | XMS_ITS | Encounter Summary ---
Author Organization [employer] Address [address] [facility] 7t [place] [address] Care Team Providers Care Research/Program Director Name Role Phone Destiny Miranda MD Primary Care Provider [phone] Nicole Gandhi PharmD Unavailable Madelin Luna Unavailable Reason for Visit * Reason Onset Date Comments Med Refill 01/19/2023 Encounter Details Date Type Department Care Team (Late st Contact Info) Description 01/19/2023 Refill [facility] CHC MED & PEDS [address] [place], [place] [phone] Cristine Guajardo MD [address] [place], [place] [phone] Acute vaginitis; Recurrent vaginitis Social History Tobacco [...] Description 03/14/2025 10:30 AM EDT Medication Management [facility] CHC MED & PEDS [address] [place] [address] Nicole Gandhi PharmD [address] [place] [address] documented as of this encounter Visit Diagnoses Diagnosis Acute vaginitis Unspecified vaginitis and vulvovaginitis Recurrent vaginitis Unspecified vaginitis and vulvovaginitis documented in this encounter Additional Health Concerns Assessment Noted Time PHQ-9 Depression Total Score: 15 023 10:09 AM EDT documented as of this encounter Care Teams Research/Program Director Relationship Specialty Start Date End Date Destiny Miranda MD [address] [place] [address] PCP - General Family Medicine 06/23/18 Nicole Gandhi PharmD [address] [place] [address] Pharmacist Internal Medicine 08/20/24 Madelin Luna 01/14/25 01/20/25 Rose Cash Buffer ChromeWage And Salary Administrator 09/17/23 Yvette Gamble Buffer ChromeWage And Salary Administrator 01/18/25 documented as of this encounter
--- OUTSIDE RECORDS SUMMARY | 2025-03-09 18:00 | XMS_ITS | Encounter Summary ---
Author Organization [employer] Address [address] [facility] 7t [place] [address] Care Team Providers Care Clinical Liaison Name Role Phone Destiny Miranda MD Primary Care Provider [phone] Nicole Gandhi PharmD Unavailable [phone] Madelin Luna Unavailable Reason for Visit * Reason Comments Med Change Request Encounter Details Date Type Department Care Team ([facility] Contact Info) Description 08/15/2023 Refill [facility] CHC MED & PEDS [address] [place], [place] [phone] Cristine Guajardo MD [address] [place] [address] Cervical paraspinal muscle spasm Social History Tobacco [...] the past 12 months, has t he [employer], gas, oil or water [employer] threatened to shut off services in your [...] Description 03/14/2025 10:30 AM EDT Medication Management [facility] CHC MED & PEDS [address] [place], [place] [phone] Nicole Gandhi, PharmD [address] [place] [address] documented as of this encounter Visit Diagnoses Diagnosis Cervical paraspinal muscle spasm Spasm of muscle documented in this encounter Additional Health Concerns Assessment Noted Time PHQ-9 Depression Total Score: 22 024 3:36 PM EST documented as of this encounter Care Teams Clinical Liaison Relationship Specialty Start Date End Date Destiny Miranda MD [address] [place], [place] [phone] PCP - General Family Medicine 06/23/18 Nicole Gandhi, PharmD [address] [place], [place] [phone] Pharmacist Internal Medicine 2/28/25 Madelin Luna 01/14/25 01/20/25 Rose Cash Pattern StamperPhysical Education Department Chair 09/17/23 Yvette Gamble Pattern StamperPhysical Education Department Chair 01/18/25 documented as of this encounter
--- OUTSIDE RECORDS SUMMARY | 2025-03-09 18:00 | XMS_ITS | Encounter Summary ---
Author Organization [employer] Address [address] [facility] [address] [place] [address] Care Team Providers Care Hand Kiss Setter Name Role Phone Destiny Miranda MD Primary Care Provider [phone] Nicole Gandhi PharmD Unavailable [phone] Madelin Luna Unavailable Encounter Details Date Type Department Care Team (Late st Contact Info) Description 09/14/2024 Orders Only [facility] CHC MED & PEDS [address] [place] [address] Provider, MD Jovita Social History Tobacco Use [...] Description 03/14/2025 10:30 AM EDT Medication Management [facility] MED & PEDS [address] [place], [place] [phone] Nicole Gandhi PharmD [address] [place] [address] documented as of this encounter Procedures Procedure [...] documented as of this encounter Care Teams Hand Kiss Setter Relationship Specialty Start Date End Date Destiny Miranda MD [address] [place] [address] PCP - General Family Medicine 06/23/18 Nicole Gandhi, PharmD [address] [place] [address] Pharmacist Internal Medicine 08/20/24 Madelin Luna 01/14/25 01/20/25 Rose Cash Special Education DirectorMac Operator 09/17/23 Yvette Gamble Special Education DirectorMac Operator 01/18/25 documented as of this encounter
--- OUTSIDE RECORDS SUMMARY | 2025-03-09 18:00 | XMS_ITS | Encounter Summary ---
Author Organization [employer] Address [address] [facility] [address] [place] [address] Care Team Providers Care Senior Online Marketing Manager Name Role Phone Destiny Miranda MD Primary Care Provider [phone] Nicole Gandhi PharmD Unavailable [phone] Madelin Luna Unavailable Encounter Details Date Type Department Care Team (Late st Contact Info) Description 06/02/2023 Orders Only [facility] [address] [place], [place] [phone] Bo Caraballo MD [address] [place] [address] Social History Tobacco Use Types Packs/Day Years [...] Description 03/14/2025 10:30 AM EDT Medication Management [facility] MED & PEDS [address] [place] [address] Nicole Gandhi, PharmD [address] [place] [address] documented as of this encounter Visit Diagnoses Not on filedocumented in this encounter Additional Health Concerns Assessment Noted Time PHQ-9 Depression Total Score: 9 02/12/20 23 9:12 AM EDT documented as of this encounter Care Teams Senior Online Marketing Manager Relationship Specialty Start Date End Date Destiny Miranda MD [address] [place] [address] PCP - General Family Medicine 06/23/18 Nicole Gandhi, PharmD [address] [place], [place] [phone] Pharmacist Internal Medicine 08/20/24 Madelin Luna 01/14/25 01/20/25 Rose Cash Cookie PadderCancer Researcher 09/17/23 Yvette Gamble Cookie PadderCancer Researcher 01/18/25 documented as of this encounter
--- OUTSIDE RECORDS SUMMARY | 2025-03-09 18:02 | XMS_ITS | Clinical Summary ---
Author Organization [employer] Address [address] [place] [address] Care Team Providers Care Circus Performer Name Role Phone Destiny Miranda MD Primary Care Provider Nicole Gandhi PharmD Unavailable [phone] Allergies No known active allergies Medications * [...] on 01/19/2025 Blood Glucose Monitoring Suppl (FreeStyle [place] Lite) w/Device kit Use to test blood sugar as directed 1 kit Active glucose blood (FREESTYLE LITE) test stripIndications: Neuropathy due to type 2 diabetes mellitus ([facility]) Test blood sugar up to 3 times [...] current episode depressed, severe, without psychotic features ([facility]) Take 1 tablet (20 mg) by mouth in the morning. 30 tablet 1 Active traZODone (Desyrel) 50 MG tabletIndications :Sleep disorder Take 1 tablet (50 mg) by mouth at bedtime. Take 1 or 2 tablets by mouth at bedtime as needed. 45 tablet Active insulin glargine (Lantus SoloStar) 100 UNIT/ML penIndications:Di abetes mellitus type 2, insulin dependent ([facility]) Inject 50 units daily 15 mL 11 [...] 2025 Active ergocalciferol (Vitamin D2) 1.25 MG (77693 UT) capsule Take 1 capsule (1.25 mg) [...] retiring, patient will be referred to new [facility] Psychiatric provider. She is aware that appts will be televisits and that provider will not be an employee of [facility]. She gives permission to share PHI. Any [...] patient's care will be transferred to new [facility] Psychiatric provider. F/U with therapist as usual. [...] organization. Date Type Department Care Team Description 02/24/2025 Telephone [facility] [address] [place] [address] Destiny Miranda MD 02/22/2025 Refill [facility] [address] [facility] [place] [address] Destiny Miranda MD Mild anxiety 01/25/2025 9:00 AM EDT Office Visit [facility] [address] [place] [address] Destiny Miranda MD Primary hypertension (Primary Dx); Diabetes mellitus type 2, insulin dependent ([facility]); Bipolar disorder, current episode depressed, severe, without psychotic features ([facility]); Coronary artery disease involving [place] heart without angina pectoris, unspecified vessel or lesion type 01/25/2025 Travel 01/24/2025 Orders Only [facility] [address] [place] [address] Destiny Miranda MD Diabetes mellitus type 2, insulin dependent ([facility]) (Primary Dx); Hypotension, unspecified hypotension type 01/24/2025 Telephone [facility] [address] [place] [address] Destiny Miranda MD Chart Prep 01/20/2025 Patient Outreach [facility] [address] [place] [phone] Destiny Miranda MD Care Coordination (Communication to pt assigned CP Coordinator ) 01/18/2025 Patient Outreach [facility] [address] [place] [address] Destiny Miranda MD Care Coordination ([facility] ED F/U) 01/18/2025 Patient Outreach [facility] [address] [place] [address] Destiny Miranda MD Care Coordination (C3/CHW Chart Review) 01/17/2025 Refill [facility] [address] [place] [address] Destiny Miranda MD 01/14/2025 Orders Only [facility] [address] [place] [address] Jovita Velez MD 01/14/2025 Patient Outreach [facility] MEDIC[facility] [address] [place] [address] Destiny Miranda MD 01/13/2025 2:20 PM EDT Office Visit [facility] [address] [place] [address] Bo Caraballo MD Hypotension, unspecified hypotension type (Primary Dx); Bilateral impacted cerumen 01/13/2025 Travel 01/13/2025 Telephone [facility] [address] [place] [address] Destiny Miranda MD Nurse Triage 01/11/2025 Orders Only [facility] [address] [place] [address] Destiny Miranda MD 01/11/2025 Travel 01/06/2025 Telephone [facility] [address] [place] [address] Destiny Miranda MD Appointment Request 12/29/2024 Telephone [facility] [address] [place] [address] Nicole Gandhi, Nomi 12/29/2024 Orders Only GENERIC EXTERNAL DATA DEPARTMENT Provider, Generic External Data 12/27/2024 Refill [facility] [address] [place] [address] Matilda Kolb MD Benign hypertension 12/27/2024 Refill [facility] [address] [place] [address] Destiny Miranda MD 12/08/2024 Orders Only [facility] [address] [place] [address] Destiny Miranda MD Persistent proteinuria (Primary Dx) 12/08/2024 Orders Only [facility] [address] [place] [address] Padmini Horton MD 12/07/2024 Telephone [facility] [address] [place] [address] Padmini Horton MD Results 12/07/2024 Telephone [facility] [address] [place] [phone] Destiny Miranda MD 12/07/2024 Orders Only [facility] [address] [place] [address] Destiny Miranda MD 12/07/2024 Telephone [facility] [address] [place] [phone] Destiny Miranda MD CRITICAL LAB 12/07/2024 Travel from Last 3 Months Immunizations Immunization Administration [...] 01/25/2025 8:53 AM EDT Plan of Treatment Upcoming Encounters Date Type Department Care Team (Late st Contact Info) Description 03/14/2025 10:30 AM EDT Medication Management [facility] [address] [place] [address] Nicole Gandhi, PharmD [address] [place] [address] Health Maintenance Due Date Last Done Comments [...] Cancer Screening 09/27/2029 Pap Smear 09/27/2029 09/27/2024, 07/2024, 06/19/2022 Zoster Vaccines (1 of 2) [...] Blood Count 12.6(H) 4.8 - 10.8 X10*3/uL [facility] Red Blood Count 4.04(L) 4.20 - 5.50 X10*6/uL [facility] Hemoglobin 11.0(L) 12.0 - 16.0 g/dl [facility] Hematocrit 33.4(L) 37.0 - 47.0 % [facility] Mean Corpuscular Volume 82.7 80.0 - 98.0 fL [facility] Mean Corpuscular Hemoglobin 27.2 27.0 - 33.0 pg [facility] Mean Corpuscular HGB Conc 32.9 31.0 - 35.0 g/dl [facility] Red Cell Distribution Width 12.4 11.0 - 16.0 % [facility] Platelet Count 432(H) 160 - 400 X10*3/uL [facility] Mean Platelet Volume 9.7 9.4 - 12.3 fL [facility] Neutrophils Percent Auto 69.1 45 - 73 % [facility] Imm Gran Pct Auto 0.5(H) 0.0 - 0.4 % [facility] Lymphocytes Percent Auto 21.5 20 - 40 % [facility] Monocytes Percent Auto 6.0 2 - 11 % [facility] Eosinophils Percent Auto 2.1 0 - 4 % [facility] Basophils Percent Auto 0.8 0 - 2 % [facility] NRBC Pct Auto 0.0 0.0 - 0.2 /100WBC [facility] Neutrophils Absolute Auto 8.7(H) 2.0 - 8.3 x10*3/uL [facility] Imm Gran Abs Auto 0.06(H) 0.00 - 0.03 X10*3/uL [facility] Lymphocytes Absolute Auto 2.7 1.2 - 4.9 X10*3/uL [facility] Monocytes Absolute Auto 0.8 0.1 - 1.2 X10*3/uL [facility] Eosinophils Absolute Auto 0.3 0.0 - 0.4 X10*3/uL [facility] Basophils Absolute Auto 0.1 0.0 - 0.2 X10*3/uL [facility] NRBC Abs Auto 0.000 0.0 - 0.012 X10*3/uL [facility] Blood Venous blood specimen / Unknown 01/25/2025 9:28 AM EDT 01/25/2025 2:13 PM EDT Destiny Miranda MD LAB BLOOD ORDERABLES Final Re sult [facility] [address] [place] [address] [phone] * (ABNORMAL) Basic Metabolic Panel (01/25/2025 9:08 AM EDT) Only the most recent of2 resultswithin the time period is included. Sodium 134(L) 135 - 145 mmol/L [facility] Potassium 3.7 3.3 - 5.1 mmol/L [facility] Chloride 99 96 - 108 mmol/L [facility] Carbon Dioxide 24 22 - 29 mmol/L [facility] Anion Gap 15 12 - 20 [facility] Urea Nitrogen (BUN) 35(H) 9 - 16 mg/dL [facility] Creatinine, Serum 1.30 0.5 - 1.4 mg/dL [facility] Estimated Glomerular Filt Rate 46 [facility] Comment:Chronic Kidney Disea se: Estimated GFR < 60 mL/min/[id number] Kidney Disease: Estimated GFR < 15 mL/min/1.73m2 Glucose 199(H) 60 - 115 mg/dL [facility] Calcium 9.4 8.4 - 10.2 mg/dL [facility] Blood Venous blood specimen / Unknown 01/25/2025 9:08 AM EDT 01/25/2025 2:13 PM EDT Destiny Miranda MD LAB BLOOD ORDERABLES Final Re sult [facility] [address] [place] [address] [phone] * HCG, Qualitative, Urine (01/13/2025 9:32 AM EDT) Urine Urine specimen obtained by clean catch procedure / Unknown us Historical Provider LAB URINE ORDERABLES Reny box Result * US Renal Complete (01/11/2025 1:38 PM EDT) Anatomical Region Laterality Modality Kidney Ultrasound 01/11/2025 1:38 PM EDT Narrative 01/11/2025 1:48 PM EDT [facility] [address] [place] [address] [place] [phone] Ultrasound Report Signed Patient: Yvrose Cooper MR#: [id number] : 1985 Acct:[id number] Age/Sex: 39 / F ADM Date: 01/11/25 Loc: HO.HMGCX Attending Dr: Lefty Tarango MD Ordering Physician: Lefty Tarango MD Date of Service: 01/11/25 Procedure(s): US renal BI Accession Number(s): [id number] cc: Lefty Tarango MD; Destiny Miranda MD [...] Tyler Rivera MD 01/11/2025 01:46 PM EDT RP Dictated By: Tyler Lisa MD Signed By: <Electronically signed by Tyler Ibarra MD in OV> 01/11/25 1346 DD/ 1338 TD/TT: 01/11/25 1342 Assistant Grocery: Procedure Note Donotuseinterpreter, Image - 01/11/2025 [facility] [address] [place] [address] [place] [address] Ultrasound Report Signed Patient: Yvrose Cooper LMR#: [id number] : 1985Acct:[id number] Age/Sex: 39 / FADM Date: 01/11/25 Loc: [facility] Attending Dr: Lefty Tarango MD Ordering Physician: Lefty Tarango MD Date of Service: 01/11/25 Procedure(s): US renal BI Accession Number(s): [id number] cc: Lefty Tarango MD; Destiny Miranda MD [...] Tyler Rivera MD 01/11/2025 01:46 PM EDT RP Dictated By: Tyler Lisa MD Signed By: <Electronically signed by Tyler Ibarra MDin OV> 01/11/25 1346 DD/ 1338 TD/TT: 01/11/25 1342 Assistant Grocery: [facility] External Provider IMG US PROCEDURES Final Result * Hepatitis B Profile (12/29/2024 8:07 AM EDT) ~Hepatitis B Surface Antibody REACTIVE Nonreactive [facility] Comment:REACTIVE: > 11.99 mI U/mL Hepatitis B Core Antibody Nonreactive Nonreactive [facility] Hepatitis B Surface Ag Negative Negative [facility] 12/29/2024 8:07 AM EDT 12/29/2024 8:07 AM EDT Generic External Data Provider LAB BLOOD ORDERAB LES Final Result [facility] [address] [place] [phone] * (ABNORMAL) Vitamin D, 25-Hydroxy, Total, Immunoassay (12/29/2024 8:07 AM EDT) Vitamin D 25-OH Total 24.0(L) >30 ng/mL [facility] Comment: Health Based Reference Values*< 20 ng/mL Jwjixztjd10-21 ng/mL Insufficient> 30 ng/mL Sufficient*Davida RIVERA. N [...] ORDERAB LES Final Result Performing Organization Address [facility]/ZIP Co de Phone Number [facility] [address] [place] [phone] * Phospholipase A2 Receptor (PLA2R) Antibody Panel (12/29/2024 8:07 AM EDT) Phospholipase A2 Receptor (PLA2R) Ab, DENTON <4 RU/mL [facility] Comment:Reference Range: <14 : NEGATIVE 14-19: BORDERLINE >19: POSITIVE Phospholipase A2 Receptor (PLA2R) Ab, IFA NEGATIVE NEGATIVE [facility] Comment:THIS TEST WAS PERFOR MED AT:[facility] [id number] [facility] [place] [phone] HASTINGS MD,PHD,CRISTINA 12/29/2024 8:07 AM EDT 12/29/2024 8:07 AM EDT Generic External Data Provider LAB BLOOD ORDERAB LES Final Result Performing Organization Address [facility] Co de Phone Number [facility] [address] [place] [phone] * Iron And Total Iron Binding Capacity (12/29/2024 8:07 AM EDT) Iron 40 30 - 160 mcg/dL [facility] Total Iron Binding Capacity 265 228 - 428 mcg/dL [facility] Percent Iron Saturation 15 15 - 50 % [facility] Unsaturated Iron Binding 225 ug/dL [facility] 12/29/2024 8:07 AM EDT 12/29/2024 8:07 AM EDT Generic External Data Provider LAB BLOOD ORDERAB LES Final Result Performing Organization Address [facility] Co de Phone Number [facility] [address] [place] [phone] * (ABNORMAL) Prothrombin Time-INR (12/29/2024 8:07 AM EDT) Prothrombin Time 9.2(L) 10.9 - 12.4 SEC [facility] INTERNATIONAL NORM RATIO 0.8(L) 0.9 - 1.1 [facility] Comment:INTERNATIONAL NORMAL IZED RATIO (INR) REFERENCE [...] 8:07 AM EDT 12/29/2024 8:07 AM EDT [employer] External Data Provider LAB BLOOD ORDERAB LES Final Result Performing Organization Address [facility] de Phone Number [facility] [address] [place] [phone] * BEATRIZ Screen,IFA, with Reflex to Titer and Pattern (12/29/2024 8:07 AM EDT) Anti Nuclear Antibody Screen NEGATIVE NEGATIVE [facility] Comment:BEATRIZ IFA is a first l [...] clinicallysuspected inflammatory myopathies.AC-0: NegativeInternational Consensus on BEATRIZ Patterns(https://doi.org/10.1515/kjgj-7820-0838)For additional information, please refer tohttp://education.[employer]/faq/BRL846(This link is being provided for informational/educational purposes only.)THIS TEST WAS PERFORMED AT:[id number] [place] [phone] BYERS MD BEATRIZ Titer TNP [facility] BEATRIZ Pattern TNP [facility] BEATRIZ TITER 2 (REF LAB) TNP [facility] BEATRIZ Pattern 2 TNP [facility] BEATRIZ TITER 3 TNP [facility] BEATRIZ PATTERN 3 [facility] 12/29/2024 8:07 AM EDT 12/29/2024 8:07 AM EDT us Generic External Data Provider LAB BLOOD ORDERAB LES Final Result [facility] [address] [place] [phone] * hCG, Total, Quantitative (12/29/2024 8:07 AM EDT) HCG Quantitative <2 mIU/mL [facility] Comment:Weeks post LMP Appro ximate hCG(Last Menstrual Period) Range (mIU/ml)3 - 4 weeks 9 - 1304 - 5 weeks 75 - 2,6005 - 6 weeks 850 - 20,8006 - 7 weeks 4000 - 100,2007 - 12 weeks 11,500 - 289,87440 - 16 weeks 18,300 - 137,81730 - 29 weeks (2nd trimester) 1,400 - 53,74562 - 41 weeks (3rd trimester) 940 - [...] ORDERAB LES Final Result Performing Organization Address [facility]/ZIP Co de Phone Number [facility] [address] [place] [phone] * (ABNORMAL) Protein, Total and Protein??Electrophoresis (12/29/2024 8:07 AM EDT) Prot Elec - Total Protein 6.9 6.1 - 8.1 g/dL [facility] Prot Elec - Albumin 3.6(A) 3.8 - 4.8 g/dL [facility] Prot Elec - Alpha1 0.3 0.2 - 0.3 g/dL [facility] Prot Elec - Alpha2 1.4(A) 0.5 - 0.9 g/dL [facility] Prot Elec - Beta 1 0.5 0.4 - 0.6 g/dL [facility] Prot Elec - Beta 2 0.5 0.2 - 0.5 g/dL [facility] Prot Elec - Gamma 0.8 0.8 - 1.7 g/dL [facility] PES - Abn Protein Band 1 [facility] PES-Abn Protein Band 2 [facility] PES-Abn Protein Band 3 [facility] Prot Elec - Interpretation SEE NOTE [facility] Comment:Suggestive of acute inflammation pattern with elevationof acute phase proteinsTHIS TEST WAS PERFORMED AT:[id number] [place] [phone] BYERS MD 12/29/2024 8:07 AM EDT 12/29/2024 8:07 AM EDT us Generic External Data Provider LAB BLOOD ORDERAB LES Final Result Performing Organization Address [facility]/ZIP Co de Phone Number [facility] [address] [place] [phone] * Ferritin (12/29/2024 8:07 AM EDT) Ferritin 87 10 - 122 ng/mL [facility] 12/29/2024 8:07 AM EDT 12/29/2024 8:07 AM EDT Generic External Data Provider LAB BLOOD ORDERAB LES Final Result Performing Organization Address [facility] Co de Phone Number [facility] [address] [place] [phone] * (ABNORMAL) Urine Protein, Total, Random without Creatinine (12/29/2024 8:06 AM EDT) Protein, Total, Random Urine 293(H) <12 mg/dL [facility] 12/29/2024 8:06 AM EDT 12/29/2024 8:28 AM EDT Generic External Data Provider LAB URINE ORDERAB LES Final Result Performing Organization Address [facility] Co de Phone Number [facility] [address] [place] [phone] * Creatinine, Random Urine (12/29/2024 8:06 AM EDT) Creatinine, Urine 32.50 mg/dL [facility] 12/29/2024 8:06 AM EDT 12/29/2024 8:28 AM EDT us Generic External Data Provider LAB URINE ORDERAB LES Final Result Performing Organization Address [facility] Co de Phone Number [facility] [address] [place] [phone] * (ABNORMAL) Urinalysis Complete (12/29/2024 8:06 AM EDT) Color Urine Yellow [facility] Appearance Urine Clear [facility] PH 6.0 5.0 - 9.0 [facility] Glucose Urine UA >=1000(A) Negative mg/dL [facility] Urine Blood Small (1+)(A) Negative [facility] Specific [place] - Urine >=1.030(H) 1.005 - 1.025 [facility] Urine Protein 300 (3+)(A) Neg-Trace mg/dL [facility] Urine Ketones Negative Negative mg/dL [facility] Nitrite Urine Negative Negative [facility] Leukocyte Esterase Urine Negative Negative [facility] RBC Urine 3-5(A) 0 - 2 /HPF [facility] Urine WBC 0-5 0 - 5 /HPF [facility] Urine Squamous Epithelial Cell 6-10 0 - 2 /HPF [facility] Urine Bacteria Trace None Seen [facility] Hyaline Casts, Urine 0-2 0 - 2 /LPF [facility] Urine Yeast Present [facility] 12/29/2024 8:06 AM EDT 12/29/2024 8:28 AM EDT us Generic External Data Provider LAB URINE ORDERAB LES Final Result [facility] [address] [place] [phone] * (ABNORMAL) Albumin, Random Urine W/Creatinine (12/07/2024 11:01 AM EDT) Creatinine, Urine 64.06 mg/dL [facility] Microalbumin Urine >2,000.0 mg/L [facility] Comment:Verified by dilution Microalbum Creatinine Ratio Ur 3,122.0(H ) <30 ug/mg cr [facility] Comment:Albumin/Creatinine R atio Reference Ranges: Normal: < 30 ug/mg creatinine Microalbuminuria: 30 - 300 ug/mg creatinineClinical Albuminuria: > 300 ug/mg creatinine 12/07/2024 11:0 1 AM EDT 12/07/2024 2:06 PM EDT us Destiny Miranda MD LAB URINE ORDERABLES Final Re sult [facility] [address] [place] [phone] * (ABNORMAL) Lipid Panel, Standard (12/07/2024 10:55 AM EDT) Triglycerides 390(H) <150 mg/dL [facility] Comment:Desirable Triglyceri de: less than 150 mg/dLBorderline High Triglyceride 150-199 mg/dLHigh Triglyceride: 200-499 mg/dLVery High Triglyceride: greater than or equal to 5OO mg/dL Cholesterol 236(H) <200 mg/dL [facility] Comment:Desirable Cholestero l: less than 200 mg/dLBorderline High Cholesterol: 200-239 mg/dLHigh Cholesterol: greater than 239 mg/dL LDL Cholesterol Calculated 121(H) <100 mg/dL [facility] Comment:Desirable LDL: less than 100 mg/dLNear Optimal/Above Optimal LDL: 110- 129 mg/dLBorderline High LDL: 130-159 mg/dLHigh LDL: 160-189 mg/dLVery High LDL: greater than or equal to 190 mg/dL HDL Cholesterol 37(L) >40 mg/dL [facility] Comment:Desirable HDL: great er than 40 mg/dL Note: This HDL assay may give artificially low results in patients with liver disease. 12/07/2024 10:5 5 AM EDT 12/07/2024 2:07 PM EDT us Destiny Miranda MD LAB BLOOD ORDERABLES Final Re sult [facility] [address] [place] [phone] * (ABNORMAL) Comprehensive Metabolic Panel (12/07/2024 10:55 AM EDT) Sodium 132(L) 135 - 145 mmol/L [facility] Potassium 4.2 3.3 - 5.1 mmol/L [facility] Chloride 97 96 - 108 mmol/L [facility] Carbon Dioxide 26 22 - 29 mmol/L [facility] Anion Gap 13 12 - 20 [facility] Urea Nitrogen (BUN) 18(H) 9 - 16 mg/dL [facility] Creatinine, Serum 0.83 0.5 - 1.4 mg/dL [facility] Estimated Glomerular Filt Rate >60 [facility] Comment:Chronic Kidney Disea se: Estimated GFR < 60 mL/min/1.03z0Mstutx Kidney Disease: Estimated GFR < 15 mL/min/1.73m2 Glucose 390(HH) 60 - 115 mg/dL [facility] Comment:Critical value for t est(s):GLU Results called to and readback by: RIGO Doyle Person calling: MIKALAate:12/07/2024 Time: 14:55 Calcium 9.2 8.4 - 10.2 mg/dL [facility] Bilirubin, Total 0.2 0.0 - 1.0 mg/dL [facility] Aspartate Amino Transferase 18 5 - 31 U/L [facility] Alanine Aminotransferase 8 0 - 31 U/L [facility] Total Protein 6.7 6.5 - 8.0 g/dL [facility] Albumin Level 3.5 3.5 - 5.0 g/dL [facility] Alkaline Phosphatase 96 39 - 117 U/L [facility] 12/07/2024 10:5 5 AM EDT 12/07/2024 2:07 PM EDT us Destiny Miranda MD LAB BLOOD ORDERABLES Final Re sult [facility] [address] [place], [place] [phone] * (ABNORMAL) POCT Glucose (12/07/2024 10:45 AM EDT) Glucose Blood, POC 390(A) 60 - 200 mg/dL QC Media Lot # [id number] Lot# Expiration Date [id number] Blood Capillary blood specimen / Unknown 12/07/2024 [...] AM EDT) HPV High Risk Negative Negative [facility] HPV Genotype 16 Negative Negative [facility] HPV Genotype 18 Negative Negative [facility] Comment:HPV testing performe d at [facility] (CLIA#[id number]), [address] [place] [address].Testing for HPV was performed using the Cleo [...] MD LAB BLOOD ORDERABLES Final Re sult [facility] [address] [place] [address] [phone] from Last 3 Months or Most Recently Relevant to Health Maintenance Insurance [facility] MED[facility] STAND ADULT Care Teams Circus Performer Relationship Specialty Start Date End Date Destiny Miranda MD [address] [place] [address] PCP - General Family Medicine 06/23/18 Nicole Gandhi, GregorioD [address] [place] [address] Pharmacist Internal Medicine 08/20/24 Rose Cash Dissolver OperatorSugar Sampler 09/17/23 Yvette Gamble Dissolver OperatorSugar Sampler 01/18/25
--- OUTSIDE RECORDS SUMMARY | 2025-03-09 18:02 | XMS_ITS | Encounter Summary ---
Author Organization [employer] Address [address] [facility] 7t [place] [address] Care Team Providers Care Six Horse Hitch Driver Name Role Phone Destiny Miranda MD Primary Care Provider [phone] Nicole Gandhi PharmD Unavailable [phone] Madelin Luna Unavailable Reason for Visit * Reason Onset Date Comments returning call 05/17/2024 Encounter Details Date Type Department Care Team ([facility] st Contact Info) Description 05/17/2024 Telephone [facility] MEDICINE [address] [place] [address] Destiny Miranda MD [address] [place], [place] [phone] returning call Social History Tobacco Use Types [...] the past 12 months, has t he [employer], gas, oil or water [employer] threatened to shut off services in your [...] EST Tc from pt returning call to susana/nicola moreno , pt will like another callback . Callback number [phone] documented in this encounter Plan of Treatment Upcoming Encounters Date Type Department Care Team (Late st Contact Info) Description 03/14/2025 10:30 AM EDT Medication Management [facility] & P[facility]S [address] [place] [address] Nicole Gandhi, PharmD [address] [place], [place] [phone] documented as of this encounter Visit Diagnoses Not on filedocumented in this encounter Additional Health Concerns Assessment Noted Time PHQ-9 Depression Total Score: 21 024 1:56 PM EDT documented as of this encounter Care Teams Six Horse Hitch Driver Relationship Specialty Start Date End Date Destiny Miranda MD [address] [place] [address] PCP - General Family Medicine 06/23/18 Nicole Gandhi PharmD [address] [place] [address] Pharmacist Internal Medicine 08/20/24 Madelin Luna 01/14/25 01/20/25 Rose Cash DoorshakerIce Hockey Coach 09/17/23 Yvette Gamble DoorshakerIce Hockey Coach 01/18/25 documented as of this encounter
--- OUTSIDE RECORDS SUMMARY | 2025-03-09 18:02 | XMS_ITS | Encounter Summary ---
Author Organization [employer] Address [address] [facility] [address] 7[address] [place] [address] Care Team Providers Care Shop Mechanic Name Role Phone Destiny Miranda MD Primary Care Provider [phone] Nicole Gandhi PharmD Unavailable [phone] Madelin Luna Unavailable Encounter Details Date Type Department Care Team (Late st Contact Info) Description 02/20/2024 Orders Only [facility] MEDICINE [address] [place] [address] Antonette Garcia MD [address] [place] [address] Social History Tobacco Use Types Packs/Day Years [...] Description 03/14/2025 10:30 AM EDT Medication Management [facility] MED & PEDS [address] [place] [address] Nicole Gandhi PharmD [address] [place] [address] documented as of this encounter Visit Diagnoses Not on filedocumented in this encounter Additional Health Concerns Assessment Noted Time PHQ-9 Depression Total Score: 21 024 1:56 PM EDT documented as of this encounter Care Teams Shop Mechanic Relationship Specialty Start Date End Date Destiny Miranda MD [address] [place] [address] PCP - General Family Medicine 06/23/18 Nicole Gandhi, [place]orioD [address] [place] [address] Pharmacist Internal Medicine 08/20/24 Madelin Luna 01/14/25 01/20/25 Rose Cash School Bus MechanicPlastic Cablemaking Machine Operator 09/17/23 Yvette Gamble School Bus MechanicPlastic Cablemaking Machine Operator 01/18/25 documented as of this encounter
--- OUTSIDE RECORDS SUMMARY | 2025-03-09 18:02 | XMS_ITS | Encounter Summary ---
Author Organization [employer] Address [address] 7t [place] [address] Care Team Providers Care Core Drill Operator Helper Name Role Phone Destiny Miranda MD Primary Care Provider [phone] Nicole Gandhi PharmD Unavailable [phone] Madelin Luna Unavailable Encounter Details Date Type Department Care Team (Late st Contact Info) Description 01/14/2025 Orders Only [facility] MED & PEDS [address] [place] [address] Provider, MD Jovita Social History Tobacco Use [...] 03/14/2025 10:30 AM EDT Medication Management [facility] [address] [place], [place] [phone] Nicole Gandhi PharmD [address] [place], [place] [phone] documented as of this encounter Procedures Procedure Name Priority Date/Time Associated Diagnosis Comments HCG, QL, URINE Routine 01/13/2025 9:32 AM EDT documented in this encounter Results * HCG, Qualitative, Urine (01/13/2025 9:32 AM EDT) Urine Urine specimen obtained by clean catch procedure / Unknown us Historical Provider LAB URINE ORDERABLES Reny l Result documented in this encounter Visit Diagnoses Not on filedocumented in this encounter Additional Health Concerns Assessment Noted Time PHQ-9 Depression Total Score: 21 025 9:51 AM EDT documented as of this encounter Care Teams Core Drill Operator Helper Relationship Specialty Start Date End Date Destiny Miranda MD [address] [place], [place] [phone] PCP - General Family Medicine 06/23/18 Nicole Gandhi, GregorioD [address] [place] [address] Pharmacist Internal Medicine 08/20/24 Madelin Luna 01/14/25 01/20/25 Rose Cash Drop Forger HelperContent Checker 09/17/23 Yvette Gamble Drop Forger HelperContent Checker 01/18/25 documented as of this encounter
--- OUTSIDE RECORDS SUMMARY | 2025-03-09 18:02 | XMS_ITS | Encounter Summary ---
Author Organization [employer] Address [address] [facility] 7t [place] [address] Care Team Providers Care Economic Development Director Name Role Phone Destiny Miranda MD Primary Care Provider [phone] Nicole Gandhi PharmD Unavailable [phone] Madelin Luna Unavailable Reason for Visit * Reason Onset Date Comments Medication Question 02/20/2024 Encounter Details Date Type Department Care Team ([facility] st Contact Info) Description 02/20/2024 Telephone [facility] MEDICINE [address] [place] [address] Destiny Miranda MD [address] [place], [place] [phone] Medication Question Social History Tobacco Use Types [...] the past 12 months, has t he [employer], gas, oil or water [employer] threatened to shut off services in your [...] any questions you can contact pt at [phone]. documented in this encounter Plan of Treatment Upcoming Encounters Date Type Department Care Team (Late st Contact Info) Description 03/14/2025 10:30 AM EDT Medication Management [facility] MED & PEDS [address] [place] [address] Nicole Gandhi, PharmD [address] [place], [place] [phone] documented as of this encounter Visit Diagnoses Diagnosis Diabetes mellitus without complication (CMS/HCC) Type II or unspecified type diabetes mellitus without mention of complication, not stated as uncontrolled documented in this encounter Additional Health Concerns Assessment Noted Time PHQ-9 Depression Total Score: 21 024 1:56 PM EDT documented as of this encounter Care Teams Economic Development Director Relationship Specialty Start Date End Date Destiny Miranda MD [address] [place] [address] PCP - General Family Medicine 06/23/18 Nicole Gandhi PharmD [address] [place] [address] Pharmacist Internal Medicine 08/20/24 Madelin Luna 01/14/25 01/20/25 Rose Cash PropagatorAcrobatic Rigger 09/17/23 Yvette Gamble PropagatorAcrobatic Rigger 01/18/25 documented as of this encounter
--- OUTSIDE RECORDS SUMMARY | 2025-03-09 18:02 | XMS_ITS | Encounter Summary ---
Author Organization [employer] Address [address] [facility] 7t [place] [address] Care Team Providers Care Color Maker Dyer Name Role Phone Destiny Miranda MD Primary Care Provider [phone] Nicole Gandhi PharmD Unavailable [phone] Madelin Luna Unavailable Encounter Details Date Type Department Care Team (Late st Contact Info) Description 12/08/2024 Orders Only [facility] CH[facility] MED & PEDS [address] [place], [place] [phone] Padmini Horton MD [address] [place] [address] Social History Tobacco Use Types Packs/Day Years [...] Description 03/14/2025 10:30 AM EDT Medication Management [facility] MED & PEDS [address] [place] [address] Nicole Gandhi PharmStephen [address] [place] [address] documented as of this encounter Visit Diagnoses Not on filedocumented in this encounter Additional Health Concerns Assessment Noted Time PHQ-9 Depression Total Score: 21 025 9:51 AM EDT documented as of this encounter Care Teams Color Maker Dyer Relationship Specialty Start Date End Date Destiny Miranda MD [address] [place] [address] PCP - General Family Medicine 06/23/18 Nicole Gandhi, PharmD [address] [place] [address] Pharmacist Internal Medicine 08/20/24 Madelin Luna 01/14/25 01/20/25 Rose Cash Substation Electrician SupervisorRetail Salesworker 09/17/23 Yvette Gamble Substation Electrician SupervisorRetail Salesworker 01/18/25 documented as of this encounter
--- OUTSIDE RECORDS SUMMARY | 2025-03-09 18:02 | XMS_ITS | Encounter Summary ---
Author Organization [employer] Address [address] [facility] 7t [place] [address] Care Team Providers Care Pit And Auxiliaries Supervisor Name Role Phone Destiny Miranda MD Primary Care Provider [phone] Nicole Gandhi PharmD Unavailable [phone] Madelin Luna Unavailable Reason for Visit * Reason Onset Date Comments Medication Question 04/28/2024 Encounter Details Date Type Department Care Team ([facility] st Contact Info) Description 04/28/2024 Telephone [facility] MEDICINE [address] [place] [address] Destiny Miranda MD [address] [place], [place] [phone] Medication Question Social History Tobacco Use Types [...] the past 12 months, has t he [employer], gas, oil or water [employer] threatened to shut off services in your [...] 12:48 PM EST Pt does not have [facility] as a pharmacy. Pt needs to contact office if pt is requesting to change pharmacies to [facility]. * Telephone Encounter - Brett Dailey - 04/28/2024 10:27 AM EST Tc from Krystin ([facility]) requesting a call , Krystin need more info in medication that's not in thelist (Lisinopril 40 mg), documented in this encounter Plan of Treatment Upcoming Encounters Date Type Department Care Team (Late st Contact Info) Description 03/14/2025 10:30 AM EDT Medication Management [facility] MED & PEDS [address] [place] [address] Nicole Gandhi, PharmD [address] [place] [address] documented as of this encounter Visit Diagnoses Not on filedocumented in this encounter Additional Health Concerns Assessment Noted Time PHQ-9 Depression Total Score: 21 024 1:56 PM EDT documented as of this encounter Care Teams Pit And Auxiliaries Supervisor Relationship Specialty Start Date End Date Destiny Miranda MD [address] [place] [address] PCP - General Family Medicine 06/23/18 Nicole Gandhi PharmD [address] [place], [place] [phone] Pharmacist Internal Medicine 08/20/24 Madelin Luna 01/14/25 01/20/25 Rose Cash Etl Database DeveloperPark Interpretive Specialist 09/17/23 Yvette Gamble Etl Database DeveloperPark Interpretive Specialist 01/18/25 documented as of this encounter
--- OUTSIDE RECORDS SUMMARY | 2025-03-09 18:02 | XMS_ITS | Clinical Summary ---
Author Organization [facility] Address [address] [place] [address] Phone Care Team Providers Care Financial Reserve Clerk Name Role Phone Destiny Miranda MD Primary Care Provider [phone] Allergies No known active allergies Medications No known medications Encounters Date Type Department Care Team Description 01/13/2025 7:56 PM EDT - 01/13/2025 10:03 PM EDT Emergency [facility] [address] [place] [address] Deandre Wilkerson MD Discharge Disposition: Home or [...] 8:49 PM EDT) URINE TEST Negative Negative [facility] Urine (Urine) 01/13/2025 8:4 9 PM EDT 01/13/2025 9:07 PM EDT us Alfa Mcclellan MD URINE ORDERABLES Final Result Performing Organization Address [facility]/ZIP Co de Phone Number [address] [address] * Lab Add On: serum hcg (01/13/2025 8:41 PM EDT) TEST REQUESTED SERUM HCG [facility] Comments (Chemistry) Add on order being processed. Floor or provider will be notified if testing cannot be performed [facility] 01/13/2025 8:41 PM EDT 01/13/2025 8:46 PM EDT us Deandre Wilkerson MD LAB BLOOD ORDERABLES Edited Res ult - Final Performing Organization Address [facility] Co de Phone Number [address] [address] * (ABNORMAL) Troponin (01/13/2025 6:13 PM EDT) Only the most recent of2 resultswithin the time period is included. Troponin-T, HS Gen5 15(H) 0 - 9 ng/L [facility] Blood 01/13/2025 6:13 PM EDT 01/13/2025 6:55 PM EDT us Alfa Mcclellan MD LAB BLOOD ORDERABLES Final Resul t Performing Organization Address [facility] Co de Phone Number [address] [address] * (ABNORMAL) CBC and differential (01/13/2025 5:12 PM EDT) WBC 15.29(H) 4.00 - 11.00 K/uL [facility] RBC 4.13 4.00 - 5.20 M/uL [facility] HGB 11.4(L) 12.0 - 16.0 g/dL [facility] HCT 33.8(L) 36.0 - 46.0 % [facility] PLT 457(H) 150 - 450 K/uL [facility] MCV 81.8 80.0 - 100.0 fL [facility] MCH 27.6 27.0 - 31.0 pg [facility] MCHC 33.7 32.0 - 36.0 g/dL [facility] RDW 12.9 11.5 - 14.5 % [facility] MPV 10.0 8.4 - 12.0 fL [facility] NRBC 0.00 0.00 /100 WBCs [facility] ABSOLUTE NRBC 0.00 0.00 K/uL [facility] DIFF METHOD Auto [facility] NEUTS 69.9 48.0 - 76.0 % [facility] LYMPHS 22.5 18.0 - 41.0 % [facility] MONOS 5.8 4.0 - 11.0 % [facility] EOS 0.6 0.0 - 5.0 % [facility] BASOS 0.6 0.0 - 1.5 % [facility] Granulocytes, immature (%) 0.6 0.0 - 0.9 % [facility] ABSOLUTE NEUTS 10.69(H) 1.92 - 7.60 K/uL [facility] ABSOLUTE LYMPHS 3.44 0.72 - 4.10 K/uL [facility] ABSOLUTE MONOS 0.89 0.16 - 1.10 K/uL [facility] ABSOLUTE EOS 0.09 0.00 - 0.50 K/uL [facility] ABSOLUTE BASOS 0.09 0.00 - 0.15 K/uL [facility] Granulocytes, immature 0.09 0.00 - 0.09 K/uL [facility] Blood 01/13/2025 5:12 PM EDT 01/13/2025 5:22 PM EDT us Alfa Mcclellan MD LAB BLOOD ORDERABLES Final Resul t Performing Organization Address [facility] Co de Phone Number [address] [address] * (ABNORMAL) Basic metabolic panel (01/13/2025 5:12 PM EDT) SODIUM 129(L) 133 - 146 mmol/L [facility] CHLORIDE 92(L) 96 - 108 mmol/L [facility] POTASSIUM 4.0 3.3 - 5.1 mmol/L [facility] CO2 24 21 - 35 mmol/L [facility] BUN 36(H) 6 - 19 mg/dL [facility] CREATININE 2.10(H) 0.5 - 1.5 mg/dL [facility] GLUCOSE 247(H) 70 - 99 mg/dL [facility] CALCIUM 9.5 8.4 - 10.3 mg/dL [facility] EGFR 31(L) >59 mL/min/1.7 3m2 [facility] Comment:Estimated glomerular filtration rate calculated using the CKD-EPI refit equation. ANION GAP 17 10 - 20 mmol/L [facility] Blood 01/13/2025 5:12 PM EDT 01/13/2025 5:22 PM EDT Alfa Mcclellan MD LAB BLOOD ORDERABLES Final Resul t Performing Organization Address [facility] Co de Phone Number [address] [address] * ECG 12-LEAD (01/13/2025 5:00 PM EDT) Ventricular Rate EKG/MIN 89 BPM [facility] Atrial Rate 89 BPM [facility] RI Interval 150 ms [facility] QRS Duration 96 ms [facility] QT Interval 390 ms [facility] QTC Interval 474 ms [facility] P [place] 70 degrees [facility] R Wave [place] 41 degrees [facility] T Wave [place] 37 degrees [facility] 01/13/2025 5:00 PM EDT [...] ACO C3 ACO C3 ACO Care Teams Financial Reserve Clerk Relationship Specialty Start Date End Date Destiny Miranda MD [address] [place] [address] PCP - General Internal Medicine 01/13/25 Additional Source Comments The information contained in this document represents components of the legal health record. It is not the complete legal health record.[facility]
--- OUTSIDE RECORDS SUMMARY | 2025-03-09 18:02 | XMS_ITS | Encounter Summary ---
Author Organization [employer] Address [address] [facility] 7t [place] [address] Care Team Providers Care Gis Programmer Name Role Phone Destiny Miranda MD Primary Care Provider [phone] Nicole Gandhi PharmD Unavailable [phone] Madelin Luna Unavailable Reason for Visit * Reason Onset Date Comments Med Refill 11/24/2024 Encounter Details Date Type Department Care Team (Late st Contact Info) Description 11/24/2024 Refill [facility] MED & PEDS [address] [place], [place] [phone] Destiny Miranda MD [address] [place], [place] [phone] Social History Tobacco Use Types Packs/Day Years [...] the past 12 months, has t he [employer], gas, oil or water [employer] threatened to shut off services in your [...] Description 03/14/2025 10:30 AM EDT Medication Management [facility] MED & PEDS [address] [place], [place] [phone] Nicole Gandhi, PharmStephen [address] [place] [address] documented as of this encounter Visit Diagnoses Not on filedocumented in this encounter Additional Health Concerns Assessment Noted Time PHQ-9 Depression Total Score: 21 025 9:51 AM EDT documented as of this encounter Care Teams Gis Programmer Relationship Specialty Start Date End Date Destiny Miranda MD [address] [place], [place] [phone] PCP - General Family Medicine 06/23/18 Nicole Gandhi, GregorioD [address] [place], [place] [phone] Pharmacist Internal Medicine 08/20/24 Madelin Luna 01/14/25 01/20/25 Rose Cash Obiee Report DeveloperInfant Lead Teacher 09/17/23 Yvette Gamble Obiee Report DeveloperInfant Lead Teacher 01/18/25 documented as of this encounter
== END 2025-03-09 14:57 | disposition home or self-care (01) ==
LOC: HO.HKAM 14:16
PROVIDERS: PCP Pediatrics; Visit Provider Internal Medicine Hypertension Specialist
DX: I10 Essential (primary) hypertension (principal); E11.9 Type 2 diabetes mellitus without complications; R80.9 Proteinuria, unspecified; D64.9 Anemia, unspecified
CPT/HCPCS: 99214

== ENCOUNTER → 2025-03-09 14:16 | Outpatient (BNVA) | payer MEDICAID, SELFPAY | PROVIDERS: PCP Pediatrics; Visit Provider Internal Medicine Hypertension Specialist | DX: I10 Essential (primary) hypertension (principal); R80.9 Proteinuria, unspecified; D64.9 Anemia, unspecified; E11.9 Type 2 diabetes mellitus without complications | CPT/HCPCS: 99212 ==

== ENCOUNTER 2025-04-27 13:46 | Outpatient (AMB) | payer MEDICAID, SELFPAY ==
--- OUTSIDE RECORDS SUMMARY | 2025-04-25 14:00 | XMS_ITS | Encounter Summary ---
[facility] [address] [facility] [address] [place] [address] Care Team Providers Care Brick Sorter Name Role Phone Destiny Miranda MD Primary Care Provider [phone] Reason for Visit * Reason Comments DM Foot Care Poorly controlled ty pe 2 diabetes mellitus with neuropathy (CMS/HCC V24, CMS/HCC V28)Pain in both feetMetatarsalgia of right footCavus deformity of both feet Encounter Details Date Type Department Care Team (Late st Contact Info) Description 04/25/2025 2:00 PM EST Office Visit Orthopedic Surgery - [place] [address] [phone] Michael Andrews DPM [address] [facility] [address] [address] Poorly controlled type 2 diabetes mellitus with neuropathy (CMS/HCC V24, CMS/HCC V28) (Primary Dx); Right foot pain; Ulcer of toe of right foot, with necrosis of muscle (CMS/HCC V24, CMS/HCC V28); Cellulitis of right foot; Pain associated with accessory navicular bone of right foot Social History Tobacco Use Types Packs/Day Years Used Date Smoking Tobacco: Never Assessed Comments Unknown Sex and Gender Information Value Date Recorded Sex Assigned at Not on file Legal Sex Female 8:59 AM EDT Gender Identity Not on file Sexual Orientation Not on file documented as of this encounter Progress Notes * Michael Andrews DPM - 04/25/2025 2:00 PM EST Referring MD: Ruben Last PCP visit: 10/29/2024 IDENTIFIER: Kenneth is a 40 y.o. year old female who presents for consultation. CC: Pain in feet HPI: 40-year-old diabetic female presents office chief complaint of bilateral foot pain. Patient notes she has returned lesions to bottoms of the feet. Patient is using offloading pads periodically but has forgotten recently. Patient notes that lesions are severely painful when ambulating. Patient notesher daily sugar is staying around 200-300 and is about 13%. Patient is here for evaluation treatment 04/25/2025: 40-year-old diabetic female returns office chief complaint of right toe wound. Patient notes that she started getting a blister over the right second digit and its progressively worsened. Patient has been using Neosporin over the area. Patient is currently on antibiotics. Patient is not using a surgical shoe. Patient denies fever nausea vomit shortness of breath. Patient notes her sugar today was 103 mg/dL ROS: GENERAL: Pt denies nausea, fever, vomiting, chills, or shortness of breath. Pt in NAD. CARDIOLOGY: pt denies chest pain, palpitations LUNGS: pt denies shortness of breath MUSCULOSKELETAL: See HPI, otherwise no joint pain or swelling, back pain, or muscle pain. SKIN: see HPI, otherwise no lesions, rash or itching NEURO: No persistent headache, weakness or numbness The remainder of the review of systems is noncontributory PAST MEDICAL HISTORY: There is no problem list on file for this patient. SOCIAL HISTORY: Social History Tobacco Use Smoking status: Not on file Smokeless tobacco: Not on file Substance Use Topics Alcohol use: Not on file ACTIVE MEDICATIONS: No outpatient medications have been marked as taking for the 04/25/25 encounter (Office Visit) with Michael Andrews DPM. ALLERGIES: Patient has no known allergies. PHYSICAL EXAM: There were no vitals taken for this visit. PODIATRIC EXAMINATION: GENERAL: Patient appears well nourished, with NAD. VASCULAR: Dorsalis pedis pulses are 2/4 bilaterally and Posterior tibial pulses are 2/4 bilaterally. Capillary filling time within normal limits the digits. No pallor on elevation or rubor on dependency. Positive hair growth. No varicosities. Denies rest pain or claudication pain. NEUROLOGICAL: Sharp/dull sensation intact, protective sensation intact [place]. Peripheral neuropathy throughout the feet bilaterally ORTHOPEDIC: Good muscle strength 5/5 of all flexors and extensors. Dorsi flexion of ankle ,10 degrees, plantar flexion WNL. No muscle atrophy. Increased arch height with metatarsal pain to plantar aspect of feet bilaterally. Semireducible contractures of digits 2 through 5 DERMATOLOGICAL:.open wound to the PIPJ of the right second toe with surrounding erythema and no streaking cellulitis. Capsular tissue was exposed with extensor tendon present. BIOMECHANICS: STJ ROM wnl, MTJ ROM wnl, 1st MPJ ROM wnl. IMPRESSION: 1. Poorly controlled type 2 diabetes mellitus with neuropathy (CMS/HCC V24, CMS/HCC V28) 2. Right foot pain 3. Ulcer of toe of right foot, with necrosis of muscle (CMS/HCC V24, CMS/HCC V28) 4. Cellulitis of right foot 5. Pain associated with accessory navicular bone of right foot PLAN: Pt was seen and examined, history reviewed. Patient was encouraged to continue with tight glucose control as this helps limit chances for nonhealing wound to the right foot Patient continues to suffer with increased metatarsal pain. Patient was fit with an offloading pad during today's visit instructed to use it daily for ambulatory activity She was placed in a surgical shoe. Patient required dressing to the right toe and instructed to keep a dressing on it daily. Open wound selective excisional debridement of devitalized soft tissue, fibrin, epidermis, dermis, thru skin and subcutaneous tissue, and musculotendinous tissue first 20 sq cm or less, using sterilesharp dissection #15 scalpel blade of the right second digit wound. Pt. deferred anesthesia. . Devitalized tissue was not sent to pathology. Michael Andrews DPM documented in this encounter Plan of Treatment Upcoming Encounters Date Type Department Care Team (Late st Contact Info) Description 05/02/2025 1:00 PM EST Office Visit Orthopedic Surgery [address] [phone] Michael Andrews DPM [address] [address] 05/17/2025 10:00 AM EST Office Visit Orthopedic Surgery [place] [address] [phone] Michael Andrews, DPM [address] [address] Pending Results Name Type Priority Associated Diagnoses Date /Time XR Foot 3+ Views Right Imaging Routine Right foot pain 04/25/2025 2:45 PM EST Scheduled Orders Name Type Priority Associated Diagnoses Orde r Schedule XR Foot 3+ Views Right Imaging Routine Right foot pain Expected: 04/25/2025, Expires: 04/25/2026 documented as of this encounter Visit Diagnoses Diagnosis Poorly controlled type 2 diabetes mellitus with neuropathy (CMS/[facility] V24, CMS/[facility] V28)- Primary Right foot pain Pain in soft tissues of limb Ulcer of toe of right foot, with necrosis of muscle (CMS/HCC V24, CMS/HCC V28) Cellulitis of right foot Pain associated with accessory navicular bone of right foot documented in this encounter Care Teams Brick Sorter Relationship Specialty Start Date End Date Destiny Miranda MD [address] [place] [phone] PCP - General Internal Medicine 10/26/24 documented as of this encounter
--- NOTE | 2025-04-27 14:02 | HO.NEPHOV_ITS ---
Vital Signs 04/27/25 14:03 Height 5 ft 6 in BP 102/62 Blood Pressure Location Lt brachial Position Sitting Pulse 105 H Pulse Source Pulse Oximeter Pulse Oximetry (%) 99 Oxygen Delivery Method Room Air Intake Visit Reasons: 2 MO FU/ CONF Charter Representative Required: No Accompanied by: Self / Same As Patient Allergies No Known Allergies Allergy (Verified 04/27/25 14:04) Medication List - Last Reconciled 04/27/25 by Lefty Tarango MD aripiprazole 20 mg PO DAILY aspirin 81 mg PO DAILY atorvastatin (Lipitor) 40 mg PO BEDTIME 30 days blood sugar diagnostic (FreeStyle Lite Strips) As directed bupropion HCl XL 150 mg PO QAM chlorthalidone 25 mg PO QAM doxycycline hyclate 100 mg PO BID empagliflozin (Jardiance) 25 mg PO QAM ergocalciferol (vitamin D2) 1,250 mcg PO QWEEK hydroxyzine HCl 25 mg PO TID PRN insulin glargine (Lantus Solostar U-100 Insulin) units subcut insulin lispro subcut BID lisinopril 10 mg PO DAILY ondansetron 4 mg PO Q8H pantoprazole 40 mg PO DAILY PRN vit no.[id number] 27 mg iron- 800 mcg ( Vitamin) 1 tab PO DAILY ticagrelor 90 mg PO BID tirzepatide (Mounjaro) mg subcut QWEEK trazodone 50 mg PO BEDTIME PRN HPI Comments Details: The patient is a 39-year-old female referred for proteinuria. She reports foamy urine, which led to a referral to nephrology for further evaluation. The patient has a history of Diabetes Mellitus diagnosed in 2013, with poor gl ycemic control evidenced by a recent A1c of 13.6%. She has been experiencing peripheral edema for the past three to four weeks, which is a new symptom. Hypertension was diagnosed earlier this year, and she is currently on amlodipine and chlorthalidone for management. Blood pressure control is somewhat achieved, but adjustments in medication are being considered to optimize renal protection. The patient also reports diabetic neuropathy, for which she is not currently receiving treatment. Additionally, she has anemia with a hemoglobin level of 11.4 g/dL, likely secondary to menorrhagia. 03/09/25 The patient is a 40-year-old female presenting for management of proteinuria and evaluation of kidney function. She underwent cardiac stent placement in November and reports no current chest pain or breathing issues. Blood pressure is low at 96/50, and she is on chlorthalidone and lisinopril. No leg swelling is noted, but kidney function has declined, possibly due to low blood pressure and diuretic use. Surgical History: - Cardiac stent placement in November Medications: - Chlorthalidone 25 mg for blood pressure control - Lisinopril 10 mg for blood pressure control and kidney protection 04/27/25 Doing well No edema Occasional lightheadedness [facility] Medical History Microalbuminuria Callus of foot GERD (gastroesophageal reflux disease) Diabetes Anxiety Gastroparesis Family History Father Heart attack Social History Patient Tobacco Use Status: Never used Tobacco Substance Use Type: Marijuana Physical Exam Vital Signs: Last Vital Signs Pulse 105 H 04/27/25 14:03 BP 102/62 04/27/25 14:03 Pulse Ox 99 04/27/25 14:03 Oxygen Delivery Method Room Air 04/27/25 14:03 Comfortable Neck supple no JVD. Lungs entry equal no rales. Heart S1-S2 heard no gallop or rub. Abdomen soft nontender. Neuro alert awake oriented. No asterixis. Extremities no edema. Results Reviewed Nephrology Results: Hgb, (12.0-16.0) 10.6 g/dl L 02/23/25 WBC, (4.8-10.8) 14.1 X10*3/uL H 02/23/25 Plt Count, (160-400) 425 X10*3/uL H 02/23/25 Sodium, (135-145) 129 mmol/L L 02/23/25 Potassium, (3.3-5.1) 4.2 mmol/L 02/23/25 Chloride, (96-108) 96 mmol/L 02/23/25 Carbon Dioxide, (22-29) 22 mmol/L 02/23/25 BUN, (9-16) 32 mg/dL H 02/23/25 Creatinine, (0.5-1.4) 1.44 mg/dL H 02/23/25 Calcium, (8.4-10.2) 9.4 mg/dL 02/23/25 Urine Protein, (Neg-Trace) 300 (3+) mg/dL H 12/29/24 Urine Creatinine 32.50 mg/dL 12/29/24 Renal US 01/11/25 Assessment & Plan Assessment & Plan (1) HTN (hypertension): Code(s): I10 - Essential (primary) hypertension Category: Medical (2) Diabetes: Comment: Diabetic since age 16 Code(s): E11.9 - Type 2 diabetes mellitus without complications Category: Medical (3) Proteinuria: Code(s): R80.9 - Proteinuria, unspecified Category: Medical (4) Anemia: Code(s): D64.9 - Anemia, unspecified Category: Medical Plan 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 She has sustained superimposed IVÁN. Most likely due to hypoperfusion from low blood pressure. Cr at 1.44 and Na 129 Plan Keep lisinopril for now. STOP chlorthalidone 12.5 mg a day due to IVÁN and Hyponatremia Optimize blood pressure and avoid hypotension. REcheck Labs Orders: Orders Basic Metabolic Panel Today I10 - Essential (primary) hypertension Coding Level of Care Code Est Pt Level 4 (02809) Diagnoses HTN (hypertension) I10 Diabetes E11.9 Proteinuria R80.9 Anemia D64.9
[2025-04-27 14:03] VITALS: BP 102/62; PULSE 105; O2SAT 99
--- OUTSIDE RECORDS SUMMARY | 2025-04-27 16:38 | XMS_ITS | Encounter Summary ---
Author Organization [employer] Address [address] [place] [address] Care Team Providers Care Bryologist Name Role Phone Destiny Miranda MD Primary Care Provider [phone] Nicole Gandhi PharmD Unavailable [phone] Madelin Luna Unavailable Reason for Visit * Reason Onset Date Comments Med Refill 01/19/2023 Encounter Details Date Type Department Care Team (Late st Contact Info) Description 01/19/2023 Refill [facility] [address], [place] [phone] Cristine Guajardo MD [address] [place], [place] [phone] Acute vaginitis; Recurrent vaginitis Social History Tobacco [...] Care Team (Late st Contact Info) Description 05/17/2025 10:30 AM EST Telemedicine [facility] [address] [place] [address] Nicole Gandhi PharmD [address] [place] [address] documented as of this encounter Visit Diagnoses Diagnosis Acute vaginitis Unspecified vaginitis and vulvovaginitis Recurrent vaginitis Unspecified vaginitis and vulvovaginitis documented in this encounter Additional Health Concerns Assessment Noted Time PHQ-9 Depression Total Score: 15 023 10:09 AM EDT documented as of this encounter Care Teams Bryologist Relationship Specialty Start Date End Date Destiny Miranda MD [address] [place] [address] PCP - General Family Medicine 06/23/18 Nicole Gandhi PharmD [address] [place] [address] Pharmacist Internal Medicine 08/20/24 Madelin Luna 01/14/25 01/20/25 Rose Cash Traffic ClerkIso Coordinator 09/17/23 Yvette Gamble Traffic ClerkIso Coordinator 01/18/25 documented as of this encounter
--- OUTSIDE RECORDS SUMMARY | 2025-04-27 16:38 | XMS_ITS | Clinical Summary ---
Author Organization [employer] Address [address] [facility] 7t [place] [address] Care Team Providers Care Shroudman Name Role Phone Destiny Miranda MD Primary Care Provider [phone] Nicole Gandhi PharmD Unavailable [phone] Allergies No known active allergies Medications * This document contains information received from the source organization and may not represent a complete record from that organization. Blood Pressure kit 1 Units in the morning. 1 kit 11/06/19 23 Active lidocaine (Lidoderm) 5 % patchIndicatio ns:Cervical paraspinal muscle spasm APPLY 1 PATCH IN THE MORNING REMOVE AND DISARD PATCH WITHIN 12 HOURS OR DIRECTED 90 patch 11/01/19 24 Active acetaminophen (Tylenol) 325 MG tablet TAKE 2 TABLETS BY MOUTH EVERY 4 HOURS 08/02/19 25 Active ibuprofen 200 MG tablet TAKE 2 TABLETS MOUTH EVERY 6 HOURS 08/02/19 25 Active pen needle 33G x 4 mm miscIndication s:Diabetes mellitus type 2, insulin dependent (HCC) Use daily with Lantus 100 each 11 08/20/19 25 026 Active Blood Glucose Monitoring Suppl (FreeStyle [place] Lite) w/Device kit Use to test blood sugar as directed 1 kit 09/25/19 25 Active glucose blood (FREESTYLE LITE) test stripIndicatio ns:Neuropathy due to type 2 diabetes mellitus (HCC) Test blood sugar up to 3 times daily 100 strip 11 09/25/19 25 Active Lancets misc Test blood sugar up to 3 times daily 100 each 09/25/19 25 Active multivitamin () 27-0.8 MG tablet TAKE 1 TABLET BY MOUTH EVERY DAY 90 tablet 3 09/29/19 25 Active empagliflozin (Jardiance) 25 MG Take 1 tablet (25 mg) by mouth Once per day. 30 tablet 5 11/10/19 25 Active traZODone (Desyrel) 50 MG tabletIndicati ons:Sleep disorder Take 1 tablet (50 mg) by mouth at bedtime. Take 1 or 2 tablets by mouth at bedtime as needed. 45 tablet 11/25/19 25 Active buPROPion XL (Wellbutrin XL) 300 MG 24 hr tablet Take 300 mg by mouth in the morning. 10/18/19 25 Active lisinopril 10 MG tablet Take 10 mg by mouth Once per day. Active insulin lispro (HumaLOG) 100 UNIT/ML injection Inject 5 units before breakfast and dinner. Inject an additional 5 units if needed for high blood sugar. Max 20 units per day 15 mL 1 01/12/20 25 Active ticagrelor (Brilinta) 90 MG tablet Take 90 mg by mouth 2 times daily. 01/07/20 25 026 Active ergocalciferol (Vitamin D2) 1.25 MG (69143 UT) capsule Take 1 capsule (1.25 mg) by mouth 1 (one) time per week. 15 capsule 01/12/20 25 Active aspirin 81 MG EC tablet Take 81 mg by mouth Once per day. Active hydrOXYzine HCl (Atarax) 25 MG tabletIndicati ons:Mild anxiety Take 1 tablet (25 mg) by mouth if needed in the morning, at noon, and at bedtime for anxiety. Take 1 tab tid prn anxiety 90 tablet 1 02/23/20 25 Active Tirzepatide (Mounjaro) 2.5 MG/0.5ML solution auto-injectorI ndications:Ingrid betes mellitus type 2, insulin dependent (HCC) Inject 2.5 mg under the skin 1 (one) time per week. 2 mL 03/18/20 25 Active insulin glargine (Lantus SoloStar) 100 UNIT/ML penIndications :Diabetes mellitus type 2, insulin dependent (HCC) Inject 55 units daily. Increase by 2 units every 3 days if FBG > 130mg/dl, max 65 units per day 15 mL 2 03/18/20 25 Active Tirzepatide (Mounjaro) 5 MG/0.5ML solution auto-injectorI ndications:Ingrid brenda mellitus type 2, insulin dependent (HCC) Inject 5 mg under the skin 1 (one) time per week. 2 mL 1 03/18/20 25 Active buPROPion XL (Wellbutrin XL) 150 MG 24 hr tablet TAKE ONE TABLET EVERY MORNING 30 tablet 1 04/04/20 25 Active ARIPiprazole (Abilify) 20 MG tabletIndicati ons:Bipolar disorder, current episode depressed, severe, without psychotic features (CMS/HCC) (HCC) Take 1 tablet (20 mg) by mouth in the morning. 30 tablet 1 04/04/20 25 025 Active chlorthalidone (Hygroton) 25 MG tablet Take 1 tablet (25 mg) by mouth in the morning. 90 tablet 3 08/24/19 25 025 Discontinued(Di scontinued by another clinician) ARIPiprazole (Abilify) 20 MG tabletIndicati ons:Bipolar disorder, current episode depressed, severe, without psychotic features (CMS/HCC) (HCC) Take 1 tablet (20 mg) by mouth in the morning. 30 tablet 1 11/25/19 25 025 Discontinued(Re order (will not trigger notification to Pharmacy)) buPROPion XL (Wellbutrin XL) 150 MG 24 hr tablet Take 1 tablet (150 mg) by mouth in the morning. 30 tablet 1 01/19/20 25 025 Discontinued Active Problems Patient Care Coordination No [...] Folliculitis 11/18/2013 Hypothyroidism 10/30/2012 Bipolar disorder, unspecified ([facility]) 09/12/19 12 Assessment & Plan (01/01/2024 2:36 PM EDT): [...] retiring, patient will be referred to new [facility] Psychiatric provider. She is aware that appts will be televisits and that provider will not be an employee of [facility]. She gives permission to share PHI. Any [...] patient's care will be transferred to new [facility] Psychiatric provider. F/U with therapist as usual. [...] Diagnosed Date Resolved Date Bipolar disease in ([facility]) 08/15/2023 08/31/2024 Encounters * This document contains information received from the source organization and may not represent a complete record from that organization. Date Type Department Care Team Description 04/27/2025 Telephone [facility] MED & PEDS [address] [place] [address] Nicole Gandhi PharmD 04/27/2025 Orders Only GENERIC EXTERNAL DATA DEPARTMENT Provider, Generic External Data 04/12/2025 10:30 AM EDT Telemedicine [facility] MED & PEDS [address] [place] [address] Nicole Gandhi PharmD Diabetes mellitus type 2, insulin dependent (HCC) (Primary Dx) 04/11/2025 Travel 04/04/2025 Refill [facility] MED & PEDS [address] [place] [address] Destiny Miranda MD Bipolar disorder, current episode depressed, severe, without psychotic features (CMS/HCC) (HCC) 04/02/2025 Refill [facility] MED & PEDS [address] [place] [address] Cristine Guajardo MD 03/28/2025 Telephone [facility] MED & PEDS [address] [place] [address] Destiny Miranda MD Appointment Request 03/28/2025 Telephone [facility] PED[facility] [address] [place] [address] Destiny Miranda MD Nurse Triage 03/18/2025 Travel 02/24/2025 Telephone [facility] MED & PEDS [address] [place] [address] Destiny Miranda MD 02/22/2025 Refill [facility] MED & PEDS [address] [place] [address] Destiny Miranda MD Mild anxiety 01/25/2025 9:00 AM EDT Office Visit [facility] MED [facility] PED[facility] [address] [place] [address] Destiny Miranda MD Primary hypertension (Primary Dx); Diabetes mellitus type 2, insulin dependent (CMS/HCC); Bipolar disorder, current episode depressed, severe, without psychotic features (CMS/HCC); Coronary artery disease involving [place] heart without angina pectoris, unspecified vessel or lesion type 01/25/2025 Travel from Last 3 Months Immunizations Immunization [...] Sign Reading Time Taken Comments Blood Pressure 126/64 03/18/2025 1:10 PM EDT Pulse 91 03/18/2025 1:10 PM EDT Temperature 36.9 C (98.5 F) 01/25/2025 8:53 AM EDT Respiratory Rate 16 01/25/2025 8:53 AM EDT Oxygen Saturation 98% 03/18/2025 1:10 PM EDT Inhaled Oxygen Concentration - - Weight 65.8 kg (145 lb) 01/25/2025 8:53 AM EDT Height 167 cm (5' 5.75 ) 01/25/2025 8:53 AM EDT Body Mass Index 23.58 01/25/2025 8:53 AM EDT Plan of Treatment Upcoming Encounters Date Type Department Care Team (Late st Contact Info) Description 05/17/2025 10:30 AM EST Telemedicine [facility] MED & PEDS [address] [place] [address] Nicole Gandhi, PharmD [address] [place] [address] Health Maintenance Due Date Last Done Comments Dental Oral Exam 1987 Dental Prophylaxis 1987 Dental X-Ray: Full Mouth 1987 HIV Screening 1987 Diabetes: Foot Exam 1997 Eye Exam 1997 Family Planning (PISQ) 2002 HPV Vaccines (1 - 3-dose series) 2002 Hepatitis C Screening 2005 Dental X-Ray: Bitewings 07/10/2023 07/09/2022 COVID-19 Vaccine ( season) 2025 11/11/2020, 10/14/2020 Influenza Vaccine (#1) 2025 8, 04/07/2015, 04/07/2014, Additional history exists Depression Monitoring 03/03/2025 08/31/2024, 025 Diabetes: Hemoglobin A1C 06/17/2025 025, 11/09/2024, 08/12/2024, Additional history exists Lipid Panel 12/07/2025 12/07/2024, 02/21, 04/21/2020 Diabetes: [...] Procedure Name Priority Date/Time Associated Diagnosis Comments BASIC METABOLIC PANEL Routine 04/27/2025 2:29 PM EST URINALYSIS, COMPLETE Routine 04/27/2025 2:29 PM EST POCT GLYCATED HEMOGLOBIN, TOTAL Routine 03/18/2025 1:27 PM EDT Diabetes mellitus type 2, insulin dependent (CMS/HCC) CBC WITH AUTO DIFFERENTIAL Routine 01/25/2025 9:28 AM EDT Diabetes mellitus type 2, insulin dependent (CMS/HCC) Hypotension, unspecified hypotension type BASIC METABOLIC PANEL Routine 01/25/2025 9:08 AM EDT Diabetes mellitus type 2, insulin dependent (CMS/HCC) Hypotension, unspecified hypotension type CREATININE, RANDOM URINE Routine 12/29/2024 8:06 AM EDT LIPID PANEL, STANDARD Routine 12/07/2024 10:55 AM EDT HM PAP/HPV Routine 09/27/2024 HPV DNA, LOW/HIGH RISK Routine 09/21/2024 10:15 AM EDT BITEWING - SINGLE RADIOGRAPHIC IMAGE Routine 07/09/2022 3:10 PM EST Dental abscess from Last 3 Months or Most Recently Relevant to Health Maintenance Results * (ABNORMAL) Urinalysis Complete (04/27/2025 2:29 PM EST) Pathologist [facility] Color Urine Yellow [facility] Appearance Urine Clear [facility] PH >=9.0 5.0 - 9.0 [facility] Glucose Urine UA 500(A) Negative mg/dL [facility] Urine Blood Negative Negative [facility] Specific [place] - Urine 1.025 1.005 - 1.025 [facility] Urine Protein 300 (3+)(A) Neg-Trace mg/dL [facility] Urine Ketones Negative Negative mg/dL [facility] Nitrite Urine Negative Negative [facility] Leukocyte Esterase Urine Negative Negative [facility] RBC Urine 0-2 0 - 2 /HPF [facility] Urine WBC 0-5 0 - 5 /HPF [facility] Urine Squamous Epithelial Cell 3-5 0 - 2 /HPF [facility] Urine Bacteria None Seen None Seen [facility] Hyaline Casts, Urine 0-2 0 - 2 /LPF [facility] 04/27/2025 2:29 PM EST 04/27/2025 3:56 PM EST us Generic External Data Provider LAB URINE ORDERAB LES Final Result Performing Organization Address City/State/[facility] Co de Phone Number [facility] [address] [place] [phone] * (ABNORMAL) Basic Metabolic Panel (04/27/2025 2:29 PM EST) Only the most recent of2 resultswithin the time period is included. Sodium 140 135 - 145 mmol/L [facility] Potassium 3.7 3.3 - 5.1 mmol/L [facility] Chloride 98 96 - 108 mmol/L [facility] Carbon Dioxide 31(H) 22 - 29 mmol/L [facility] Anion Gap 15 12 - 20 [facility] Urea Nitrogen (BUN) 21(H) 9 - 16 mg/dL [facility] Creatinine, Serum 1.23 0.5 - 1.4 mg/dL [facility] Estimated Glomerular Filt Rate 49 [facility] Comment:Chronic Kidney Disea se: Estimated GFR < 60 mL/min/1.32a6Mnzgkr Kidney Disease: Estimated GFR < 15 mL/min/1.73m2 Glucose 81 60 - 115 mg/dL [facility] Calcium 10.4(H) 8.4 - 10.2 mg/dL [facility] 04/27/2025 2:29 PM EST 04/27/2025 4:02 PM EST us Generic External Data Provider LAB BLOOD ORDERAB LES Final Result [facility] [address] [place] [phone] * (ABNORMAL) POCT A1c (03/18/2025 1:27 PM EDT) Hemoglobin A1C 15.0(A) 4.0 - 5.7 % Comment:Error 106 - A1c too high QC Media Lot # [id number] Lot# Expiration Date [id number] Blood 03/18/2025 1:27 PM EDT us Destiny Miranda MD POINT OF CARE TEST ENTER/EDIT ORDERABLES Final Result * (ABNORMAL) CBC auto differential (01/25/2025 9:28 AM EDT) White Blood Count 12.6(H) 4.8 - 10.8 X10*3/uL [facility] Red Blood Count 4.04(L) 4.20 - 5.50 X10*6/uL [facility] Hemoglobin 11.0(L) 12.0 - 16.0 g/dl [facility] Hematocrit 33.4(L) 37.0 - 47.0 % [facility] Mean Corpuscular Volume 82.7 80.0 - 98.0 fL [facility] Mean Corpuscular Hemoglobin 27.2 27.0 - 33.0 pg [facility] Mean Corpuscular HGB Conc 32.9 31.0 - 35.0 g/dl [facility] Red Cell Distribution Width 12.4 11.0 - 16.0 % [facility] Platelet Count 432(H) 160 - 400 X10*3/uL [facility] Mean Platelet Volume 9.7 9.4 - 12.3 fL [facility] Neutrophils Percent Auto 69.1 45 - 73 % [facility] Imm Gran Pct Auto 0.5(H) 0.0 - 0.4 % [facility] Lymphocytes Percent Auto 21.5 20 - 40 % [facility] Monocytes Percent Auto 6.0 2 - 11 % [facility] Eosinophils Percent Auto 2.1 0 - 4 % [facility] Basophils Percent Auto 0.8 0 - 2 % [facility] NRBC Pct Auto 0.0 0.0 - 0.2 /100WBC [facility] Neutrophils Absolute Auto 8.7(H) 2.0 - 8.3 x10*3/uL [facility] Imm Gran Abs Auto 0.06(H) 0.00 - 0.03 X10*3/uL [facility] Lymphocytes Absolute Auto 2.7 1.2 - 4.9 X10*3/uL [facility] Monocytes Absolute Auto 0.8 0.1 - 1.2 X10*3/uL [facility] Eosinophils Absolute Auto 0.3 0.0 - 0.4 X10*3/uL [facility] Basophils Absolute Auto 0.1 0.0 - 0.2 X10*3/uL [facility] NRBC Abs Auto 0.000 0.0 - 0.012 X10*3/uL [facility] Blood Venous blood specimen / Unknown 01/25/2025 9:28 AM EDT 01/25/2025 2:13 PM EDT us Destiny Miranda MD LAB BLOOD ORDERABLES Final Re sult [facility] [address] [place] [phone] [phone] * Creatinine, Random Urine (12/29/2024 8:06 AM EDT) Creatinine, Urine 32.50 mg/dL [facility] 12/29/2024 8:06 AM EDT 12/29/2024 8:28 AM EDT us Generic External Data Provider LAB URINE ORDERAB LES Final Result Performing Organization Address [facility] de Phone Number [facility] [address] [place] [phone] * (ABNORMAL) Lipid Panel, Standard (12/07/2024 10:55 AM EDT) Triglycerides 390(H) <150 mg/dL [facility] Comment:Desirable Triglyceri de: less than 150 mg/dLBorderline High Triglyceride 150-199 mg/dLHigh Triglyceride: 200-499 mg/dLVery High Triglyceride: greater than or equal to 5OO mg/dL Cholesterol 236(H) <200 mg/dL [facility] Comment:Desirable Cholestero l: less than 200 mg/dLBorderline High Cholesterol: 200-239 mg/dLHigh Cholesterol: greater than 239 mg/dL LDL Cholesterol Calculated 121(H) <100 mg/dL [facility] Comment:Desirable LDL: less than 100 mg/dLNear Optimal/Above Optimal LDL: 110- 129 mg/dLBorderline High LDL: 130-159 mg/dLHigh LDL: 160-189 mg/dLVery High LDL: greater than or equal to 190 mg/dL HDL Cholesterol 37(L) >40 mg/dL [facility] Comment:Desirable HDL: great er than 40 mg/dL Note: This HDL assay may give artificially low results in patients with liver disease. 12/07/2024 10:5 5 AM EDT 12/07/2024 2:07 PM EDT us Destiny Miranda MD LAB BLOOD ORDERABLES Final Re sult Performing Organization Address [facility] Co de Phone Number [facility] [address] [place] [phone] [phone] * HM PAP/HPV (09/27/2024) Pap Smear 1. NILM 1. NILM Destiny Miranda MD HEALTH MAINTENANCE Final Resu lt * HPV DNA, Low/High Risk (09/21/2024 10:15 AM EDT) HPV High Risk Negative Negative [facility] HPV Genotype 16 Negative Negative [facility] HPV Genotype 18 Negative Negative [facility] Comment:HPV testing performe d at [facility] (CLIA#[id number]), [address] [place] [address].Testing for HPV was performed using the Cleo [...] MD LAB BLOOD ORDERABLES Final Re sult [facility] [address] [place] [address] [phone] from Last 3 Months or Most Recently Relevant to Health Maintenance Insurance [facility] C3 DENT[facility] MEDICAID STAND ADULT Care Teams Shroudman Relationship Specialty Start Date End Date Destiny Miranda MD [address] [place] [phone] PCP - General Family Medicine 06/23/18 Nicole Gandhi PharmD [address] [place] [address] Pharmacist Internal Medicine 08/20/24 Rose Cash Home Health AideMelter Clerk 09/17/23 Yvette Gamble Home Health AideMelter Clerk 01/18/25
--- OUTSIDE RECORDS SUMMARY | 2025-04-27 16:38 | XMS_ITS | Encounter Summary ---
Author Organization [employer] Address [address] [facility] 7t [place] [address] Care Team Providers Care Carpet Repairer Name Role Phone Destiny Miranda MD Primary Care Provider [phone] Nicole Gandhi PharmD Unavailable [phone] Madelin Luna Unavailable Reason for Visit * Reason Comments Med Refill Encounter Details Date Type Department Care Team ([facility] st Contact Info) Description 12/27/2024 Refill [facility] MED & PEDS [address] [place], [place] [phone] Destiny Miranda MD [address] [place] [address] Social History Tobacco Use Types Packs/Day Years [...] Info) Description 05/17/2025 10:30 AM EST Telemedicine [facility] MED & PEDS [address] [place] [address] Nicole Gandhi PharmD [address] [place] [address] documented as of this encounter Visit Diagnoses Not on filedocumented in this encounter Additional Health Concerns Assessment Noted Time PHQ-9 Depression Total Score: 21 025 9:51 AM EDT documented as of this encounter Care Teams Carpet Repairer Relationship Specialty Start Date End Date Destiny Miranda MD [address] [place] [address] PCP - General Family Medicine 06/23/18 Nicole Gandhi, GregorioD [address] [place] [address] Pharmacist Internal Medicine 08/20/24 Madelin Luna 01/14/25 01/20/25 Rose Cash Counter SupervisorBrim Welt Sewing Machine Operator 09/17/23 Yvette Gamble Counter SupervisorBrim Welt Sewing Machine Operator 01/18/25 documented as of this encounter
--- OUTSIDE RECORDS SUMMARY | 2025-04-27 16:38 | XMS_ITS | Encounter Summary ---
Author Organization [employer] Address [address] [facility] [address] [place] [address] Care Team Providers Care Digital Content Producer Name Role Phone Destiny Miranda MD Primary Care Provider [phone] Nicole Gandhi PharmD Unavailable Madelin Luna Unavailable Reason for Visit * Reason Onset Date Comments Medication Question 04/28/2024 Encounter Details Date Type Department Care Team ([facility] st Contact Info) Description 04/28/2024 Telephone [facility] MEDICINE [address] [place] [address] Destiny Miranda MD [address] [place], [place] [phone] Medication Question Social History Tobacco Use Types [...] is your housing situation today? I have lcaudia thakur 04/07/[address] you [...] the past 12 months, has t he [employer], gas, oil or water [employer] threatened to shut off services in your [...] 12:48 PM EST Pt does not have [facility] as a pharmacy. Pt needs to contact office if pt is requesting to change pharmacies to [facility]. * Telephone Encounter - Brett Dailey - 04/28/2024 10:27 AM EST Tc from Krystin ([facility]) requesting a call , Krystin need more info in medication that's not in thelist (Lisinopril 40 mg), documented in this encounter Plan of Treatment Upcoming Encounters Date Type Department Care Team (Late st Contact Info) Description 05/17/2025 10:30 AM EST Telemedicine [facility] CH[facility] MED & PEDS [address] [place] [address] Nicole Gandhi, PharmD [address] [place] [address] documented as of this encounter Visit Diagnoses Not on filedocumented in this encounter Additional Health Concerns Assessment Noted Time PHQ-9 Depression Total Score: 21 024 1:56 PM EDT documented as of this encounter Care Teams Digital Content Producer Relationship Specialty Start Date End Date Destiny Miranda MD [address] [place] [address] PCP - General Family Medicine 06/23/18 Nicole Gandhi PharmD [address] [place] [address] Pharmacist Internal Medicine 08/20/24 Madelin Luna 01/14/25 01/20/25 Rose Cash Ui Lead DeveloperTreating Plant Supervisor 09/17/23 Yvette Gamble Ui Lead DeveloperTreating Plant Supervisor 01/18/25 documented as of this encounter
--- OUTSIDE RECORDS SUMMARY | 2025-04-27 16:38 | XMS_ITS | Encounter Summary ---
Author Organization [employer] Address [address] [place] [address] Care Team Providers Care Electronic Controls Repairer Supervisor Name Role Phone Destiny Miranda MD Primary Care Provider [phone] Nicole Gandhi PharmD Unavailable [phone] Encounter Details Date Type Department Care Team (Late st Contact Info) Description 04/27/2025 Telephone [facility] CH[facility] MED & PEDS [address] [place], [place] [phone] Nicole Gandhi, PharmD [address] [place] [address] Social History Tobacco Use Types Packs/Day Years [...] Telephone Encounter - Nicole Gandhi PharmD - 04/27/2025 4:22 PM EST Updated med list. Per chart review patient saw renal today, chlorthalidone discontinued. documented in this encounter Plan of Treatment Upcoming Encounters Date Type Department Care Team ([facility] Contact Info) Description 05/17/2025 10:30 AM EST Telemedicine [facility] CHC MED & PEDS [address] [place] [address] Nicole Gandhi PharmD [address] [place] [address] documented as of this encounter Visit Diagnoses Not on filedocumented in this encounter Additional Health Concerns Assessment Noted Time PHQ-9 Depression Total Score: 21 025 9:51 AM EDT documented as of this encounter Care Teams Electronic Controls Repairer Supervisor Relationship Specialty Start Date End Date Destiny Miranda MD [address] [place] [address] PCP - General Family Medicine 06/23/18 Nicole Gandhi, Noim [address] [place] [address] Pharmacist Internal Medicine 08/20/24 Rose Cash Garage ManagerSonoscope Operator 09/17/23 Yvette Gamble Garage ManagerSonoscope Operator 01/18/25 documented as of this encounter
--- OUTSIDE RECORDS SUMMARY | 2025-04-27 16:38 | XMS_ITS | Encounter Summary ---
Author Organization [employer] Address [address] [address] [facility] [place] [address] Care Team Providers Care Gold Letterer Name Role Phone Destiny Miranda MD Primary Care Provider [phone] Nicole Gandhi PharmD Unavailable [phone] Madelin Luna Unavailable Encounter Details Date Type Department Care Team (Late st Contact Info) Description 06/02/2023 Orders Only [facility] [address] [place], [place] [phone] Bo Caraballo MD [address] [place] [address] Social History Tobacco Use Types Packs/Day Years [...] Info) Description 05/17/2025 10:30 AM EST Telemedicine [facility] MED & PEDS [address] [place] [address] Nicole Gandhi PharmD [address] [place] [address] documented as of this encounter Visit Diagnoses Not on filedocumented in this encounter Additional Health Concerns Assessment Noted Time PHQ-9 Depression Total Score: 9 02/12/20 23 9:12 AM EDT documented as of this encounter Care Teams Gold Letterer Relationship Specialty Start Date End Date Destiny Miranda MD [address] [place] [address] PCP - General Family Medicine 06/23/18 Nicole Gandhi PharmD [address] [place], [place] [phone] Pharmacist Internal Medicine 08/20/24 Madelin Luna 01/14/25 01/20/25 Rose Cash Clerk CarrierBusiness Performance Advisor 09/17/23 Yvette Gamble Clerk CarrierBusiness Performance Advisor 01/18/25 documented as of this encounter
--- OUTSIDE RECORDS SUMMARY | 2025-04-27 16:38 | XMS_ITS | Encounter Summary ---
Author Organization [employer] Address [address] [facility] 7t [place] [address] Care Team Providers Care Superintendent Water And Sewer Systems Name Role Phone Destiny Miranda MD Primary Care Provider [phone] Nicole Gandhi PharmD Unavailable [phone] Madelin Luna Unavailable Reason for Visit * Reason Comments Med Change Request Encounter Details Date Type Department Care Team ([facility] Contact Info) Description 08/15/2023 Refill [facility] MED & PEDS [address] [place], [place] [phone] Cristine Guajardo MD 505 [place] [address] Cervical paraspinal muscle spasm Social History Tobacco [...] the past 12 months, has t he [employer] gas, oil or water company threatened to [...] Info) Description 05/17/2025 10:30 AM EST Telemedicine [facility] MED & PEDS [address] [place], [place] [phone] Nicole Gandhi, PharmStephen [address] [place] [address] documented as of this encounter Visit Diagnoses Diagnosis Cervical paraspinal muscle spasm Spasm of muscle documented in this encounter Additional Health Concerns Assessment Noted Time PHQ-9 Depression Total Score: 22 024 3:36 PM EST documented as of this encounter Care Teams Superintendent [employer] And Sewer Systems Relationship Specialty Start Date End Date Destiny Miranda MD [address] [place], [place] [phone] PCP - General Family Medicine 06/23/18 Nicole Gandhi, PharmD [address] [place], [place] [phone] Pharmacist Internal Medicine 08/20/24 Madelin Luna 01/14/25 01/20/25 Rose Cash Silk Winding Machine OperatorItem Repair Manager 09/17/23 Yvette Gamble Silk Winding Machine OperatorItem Repair Manager 01/18/25 documented as of this encounter
--- OUTSIDE RECORDS SUMMARY | 2025-04-27 16:38 | XMS_ITS | Encounter Summary ---
Author Organization [employer] Address [address] [facility] 7t [place] [address] Care Team Providers Care Flume Maker Name Role Phone Destiny Miranda MD Primary Care Provider [phone] Nicole Gandhi PharmD Unavailable [phone] Madelin Luna Unavailable Reason for Visit * Reason Comments Med Refill Encounter Details Date Type Department Care Team ([facility] st Contact Info) Description 12/27/2024 Refill [facility] CH[facility] MED & PEDS [address] [place], [place] [phone] Matilda Kolb MD [address] [place] [address] Benign hypertension Social History Tobacco Use Types [...] Info) Description 05/17/2025 10:30 AM EST Telemedicine [facility] CHC MED & PEDS [address] [place] [address] Nicole Gandhi PharmD [address] [place] [address] documented as of this encounter Visit Diagnoses Diagnosis Benign hypertension Essential hypertension, benign documented in this encounter Additional Health Concerns Assessment Noted Time PHQ-9 Depression Total Score: 21 025 9:51 AM EDT documented as of this encounter Care Teams Flume Maker Relationship Specialty Start Date End Date Destiny Miranda MD [address] [place] [address] PCP - General Family Medicine 06/23/18 Nicole Gandhi PharmD [address] [place] [address] Pharmacist Internal Medicine 08/20/24 Madelin Luna 01/14/25 01/20/25 Rose Cash Sustainability ManagerThermal Engineer 09/17/23 Yvette Gamble Sustainability ManagerThermal Engineer 01/18/25 documented as of this encounter
--- OUTSIDE RECORDS SUMMARY | 2025-04-27 16:38 | XMS_ITS | Encounter Summary ---
Author Organization [employer] Address [address] [facility] 7t [place] [address] Care Team Providers Care Theology Professor Name Role Phone Destiny Miranda MD Primary Care Provider [phone] Nicole Gandhi PharmD Unavailable [phone] Madelin Luna Unavailable Reason for Visit * Reason Onset Date Comments Med Refill 11/24/2024 Encounter Details Date Type Department Care Team (Late st Contact Info) Description 11/24/2024 Refill [facility] CHC MED & PEDS [address] [place], [place] [phone] Destiny Miranda MD [address] [place], [place] [phone] Social History Tobacco Use Types Packs/Day Years [...] the past 12 months, has t he [employer], gas, oil or water [employer] threatened to shut off services in your [...] Info) Description 05/17/2025 10:30 AM EST Telemedicine [facility] CHC MED & PEDS [address] [place], [place] [phone] Nicole Gandhi, PharmStephen [address] [place] [address] documented as of this encounter Visit Diagnoses Not on filedocumented in this encounter Additional Health Concerns Assessment Noted Time PHQ-9 Depression Total Score: 21 025 9:51 AM EDT documented as of this encounter Care Teams Theology Professor Relationship Specialty Start Date End Date Destiny Miranda MD [address] [place] [address] PCP - General Family Medicine 06/23/18 Nicole Gandhi, PharmD [address] [place] [address] Pharmacist Internal Medicine 08/20/24 Madelin Luna 01/14/25 01/20/25 Rose Cash Clinical Research ManagerFirst Beater 09/17/23 Yvette Gamble Clinical Research ManagerFirst Beater 01/18/25 documented as of this encounter
--- OUTSIDE RECORDS SUMMARY | 2025-04-27 16:38 | XMS_ITS | Encounter Summary ---
Author Organization [employer] Address [address] [facility] [address] 7t [place] [address] Care Team Providers Care Candy Separator Hard Name Role Phone Destiny Miranda MD Primary Care Provider Nicole Gandhi PharmD Unavailable [phone] Madelin Luna Unavailable Encounter Details Date Type Department Care Team (Late st Contact Info) Description 09/14/2024 Orders Only [facility] CHC MED & PEDS [address] [place] [address] Provider, MD Jovita Social History Tobacco Use [...] Info) Description 05/17/2025 10:30 AM EST Telemedicine [facility] MED & PEDS [address] [place], [place] [phone] Nicole Gandhi PharmD [address] [place] [address] documented as of this encounter Procedures Procedure [...] documented as of this encounter Care Teams Candy Separator Hard Relationship Specialty Start Date End Date Destiny Miranda MD [address] [place] [address] PCP - General Family Medicine 06/23/18 Nicole Gadnhi, PharmD [address] [place] [address] Pharmacist Internal Medicine 08/20/24 Madelin Luna 01/14/25 01/20/25 Rose Cash Project Controls SchedulerAthletics Teacher 09/17/23 Yvette Gamble Project Controls SchedulerAthletics Teacher 01/18/25 documented as of this encounter
--- OUTSIDE RECORDS SUMMARY | 2025-04-27 16:38 | XMS_ITS | Encounter Summary ---
Author Organization [employer] Address [address] [facility] [address] [place] [address] Care Team Providers Care Therapy Manager Name Role Phone Destiny Miranda MD Primary Care Provider Nicole Gandhi PharmD Unavailable [phone] Encounter Details Date Type Department Care Team (Late st Contact Info) Description 04/27/2025 Orders Only [facility] EXTERNAL DATA DEPARTMENT Provider, Generic External Data Social History Tobacco Use Types Packs/Day Years [...] Info) Description 05/17/2025 10:30 AM EST Telemedicine [facility] MED & PEDS [address] [place] [address] Nicole Gandhi, PharmD [address] [place] [address] documented as of this encounter Procedures Procedure Name Priority Date/Time Associated Diagnosis Comments URINALYSIS, COMPLETE Routine 04/27/2025 2:29 PM EST BASIC METABOLIC PANEL Routine 04/27/2025 2:29 PM EST documented in this encounter Results * (ABNORMAL) Basic Metabolic Panel (04/27/2025 2:29 PM EST) Sodium 140 135 - 145 mmol/L [facility] Potassium 3.7 3.3 - 5.1 mmol/L [facility] Chloride 98 96 - 108 mmol/L [facility] Carbon Dioxide 31(H) 22 - 29 mmol/L [facility] Anion Gap 15 12 - 20 [facility] Urea Nitrogen (BUN) 21(H) 9 - 16 mg/dL [facility] Creatinine, Serum 1.23 0.5 - 1.4 mg/dL [facility] Estimated Glomerular Filt Rate 49 [facility] Comment:Chronic Kidney Disea se: Estimated GFR < 60 mL/min/1.80z8Gsgsdn Kidney Disease: Estimated GFR < 15 mL/min/1.73m2 Glucose 81 60 - 115 mg/dL [facility] Calcium 10.4(H) 8.4 - 10.2 mg/dL [facility] 04/27/2025 2:29 PM EST 04/27/2025 4:02 PM EST us Generic External Data Provider LAB BLOOD ORDERAB LES Final Result [facility] [address] [place] [phone] * (ABNORMAL) Urinalysis Complete (04/27/2025 2:29 PM EST) Color Urine Yellow [facility] Appearance Urine Clear [facility] PH >=9.0 5.0 - 9.0 [facility] Glucose Urine UA 500(A) Negative mg/dL [facility] Urine Blood Negative Negative [facility] Specific [place] - Urine 1.025 1.005 - 1.025 [facility] Urine Protein 300 (3+)(A) Neg-Trace mg/dL [facility] Urine Ketones Negative Negative mg/dL [facility] Nitrite Urine Negative Negative [facility] Leukocyte Esterase Urine Negative Negative [facility] RBC Urine 0-2 0 - 2 /HPF [facility] Urine WBC 0-5 0 - 5 /HPF [facility] Urine Squamous Epithelial Cell 3-5 0 - 2 /HPF [facility] Urine Bacteria None Seen None Seen [facility] Hyaline Casts, Urine 0-2 0 - 2 /LPF [facility] 04/27/2025 2:29 PM EST 04/27/2025 3:56 PM EST us Generic External Data Provider LAB URINE ORDERAB LES Final Result [facility] [address] [place] [address] [phone] documented in this encounter Visit Diagnoses Not on filedocumented in this encounter Additional Health Concerns Assessment Noted Time PHQ-9 Depression Total Score: 21 025 9:51 AM EDT documented as of this encounter Care Teams Therapy Manager Relationship Specialty Start Date End Date Destiny Miranda MD [address] [place] [address] PCP - General Family Medicine 06/23/18 Nicole Gandhi PharmD [address] [place] [address] Pharmacist Internal Medicine 08/20/24 Rose Cash Wiring MechanicBakery Machine Mechanic 09/17/23 Yvette Gamble Wiring MechanicBakery Machine Mechanic 01/18/25 documented as of this encounter
--- OUTSIDE RECORDS SUMMARY | 2025-04-27 16:38 | XMS_ITS | Encounter Summary ---
Author Organization [employer] Address [address] [facility] [address] [place] [address] Care Team Providers Care Insole Channeler Name Role Phone Destiny Miranda MD Primary Care Provider [phone] Nicole Gandhi PharmD Unavailable [phone] Madelin Luna Unavailable Encounter Details Date Type Department Care Team (Late st Contact Info) Description 02/20/2024 Orders Only [facility] MEDICINE [address] [place] [address] Antonette Garcia MD [address] [place] [address] Social History Tobacco Use Types Packs/Day Years [...] Info) Description 05/17/2025 10:30 AM EST Telemedicine [facility] MED & PEDS [address] [place] [address] Nicole Gandhi PharmD [address] [place] [address] documented as of this encounter Visit Diagnoses Not on filedocumented in this encounter Additional Health Concerns Assessment Noted Time PHQ-9 Depression Total Score: 21 024 1:56 PM EDT documented as of this encounter Care Teams Insole Channeler Relationship Specialty Start Date End Date Destiny Miranda MD [address] [place] [address] PCP - General Family Medicine 06/23/18 Nicole Gandhi PharmD [address] [place] [address] Pharmacist Internal Medicine 08/20/24 Madelin Luna 01/14/25 01/20/25 Rose Cash Dry CleanerMedical Accountant 09/17/23 Yvette Gamble Dry CleanerMedical Accountant 01/18/25 documented as of this encounter
--- OUTSIDE RECORDS SUMMARY | 2025-04-27 16:38 | XMS_ITS | Encounter Summary ---
Author Organization [employer] Address [address] [facility] 7t [place] [address] Care Team Providers Care Nerve Specialist Name Role Phone Destiny Miranda MD Primary Care Provider [phone] Nicole Gandhi PharmD Unavailable [phone] Madelin Luna Unavailable Reason for Visit * Reason Onset Date Comments returning call 05/17/2024 Encounter Details Date Type Department Care Team ([facility] st Contact Info) Description 05/17/2024 Telephone [facility] MEDICINE [address] [place] [address] Destiny Miranda MD [address] [place], [place] [phone] returning call Social History Tobacco Use Types [...] the past 12 months, has t he [email or web address], gas, oil or water [employer] threatened to shut off services in your [...] will like another callback . Callback number [phone] documented in this encounter Plan of Treatment Upcoming Encounters Date Type Department Care Team (Late st Contact Info) Description 05/17/2025 10:30 AM EST Telemedicine [facility] CHC MED & PEDS [address] [place] [address] Nicole Gandhi, PharmD [address] [place], [place] [phone] documented as of this encounter Visit Diagnoses Not on filedocumented in this encounter Additional Health Concerns Assessment Noted Time PHQ-9 Depression Total Score: 21 024 1:56 PM EDT documented as of this encounter Care Teams Nerve Specialist Relationship Specialty Start Date End Date Destiny Miranda MD [address] [place] [address] PCP - General Family Medicine 06/23/18 Nicole Gandhi PharmD [address] [place] [address] Pharmacist Internal Medicine 08/20/24 Madelin Luna 01/14/25 01/20/25 Rose Cash Beta TesterRepair Welder 09/17/23 Yvette Gamble Beta TesterRepair Welder 01/18/25 documented as of this encounter
--- OUTSIDE RECORDS SUMMARY | 2025-04-27 16:38 | XMS_ITS | Encounter Summary ---
Author Organization [employer] Address [address] [facility] 7t [place] [address] Care Team Providers Care Vertical Contour Band Saw Operator Name Role Phone Destiny Miranda MD Primary Care Provider [phone] Nicole Gandhi PharmD Unavailable [phone] Madelin Luna Unavailable Encounter Details Date Type Department Care Team (Late st Contact Info) Description 12/08/2024 Orders Only [facility] MED & PEDS [address] [place], [place] [phone] Padmini Horton MD [address] [place] [address] Social History Tobacco Use Types Packs/Day Years [...] 05/17/2025 10:30 AM EST Telemedicine [facility] MED [facility] PEDS [address] [place] [address] Nicole Gandhi PharmD [address] [place] [address] documented as of this encounter Visit Diagnoses Not on filedocumented in this encounter Additional Health Concerns Assessment Noted Time PHQ-9 Depression Total Score: 21 025 9:51 AM EDT documented as of this encounter Care Teams Vertical Contour Band Saw Operator Relationship Specialty Start Date End Date Destiny Miranda MD [address] [place] [address] PCP - General Family Medicine 06/23/18 Nicole Gandhi, GregorioD [address] [place] [address] Pharmacist Internal Medicine 08/20/24 Madelin Luna 01/14/25 01/20/25 Rose Cash Donor Relations OfficerUtility Driver 09/17/23 Yvette Gamble Donor Relations OfficerUtility Driver 01/18/25 documented as of this encounter
--- OUTSIDE RECORDS SUMMARY | 2025-04-27 16:38 | XMS_ITS | Clinical Summary ---
Author Organization [facility] Address [facility] [employer] [address] [address] Phone Care Team Providers Care Duplicator Punch Set Up Operator Name Role Phone Destiny Miranda MD Primary Care Provider [phone] Allergies No known active allergies Medications cephalexin (KEFLEX) 500 MG capsule Take 2 capsules (1,000 mg total) by mouth 3 (three) times a day for 7 days. 42 capsule 5 04/18/20 25 Discontinue d(No longer taking) doxycycline hyclate (VIBRAMYCIN) 100 MG capsule Take 1 capsule (100 mg total) by mouth 2 (two) times a day for 7 days. 14 capsule 5 04/25/20 25 Encounters Date Type Department Care Team Description 04/18/2025 9:22 AM EDT - 04/18/2025 10:00 AM EDT Emergency [facility] [address] [place] [address] Edy Lewis MD Discharge Disposition: Home or Self Care 03/26/2025 8:42 AM EDT - 03/26/2025 10:00 AM EDT Emergency [facility] [address] [place] [address] Edy Lewis MD Discharge Disposition: Home or Self Care from Last 3 Months Social History Tobacco Use Types Packs/Day Years Used Date Smoking Tobacco: Never Smokeless Tobacco: Never Tobacco Cessation:Counseling Given: Not Answered Alcohol Use Standard Drinks/Week Comments Not Currently 0 (1 standard drink = 0.6 oz pur e alcohol) Education Answer Date Recorded Are you interested in more education? Not on dmitriy e 01/13/2025 Are you concerned about learning? Not on file 01/13/2025 No 01/13/2025 No 01/13/2025 Food Answer Date Recorded Within the past 6 months we worried whether our food would run out before we got money to buy more. Never True 03/26/2025 Within the past 6 months the food we bought just didn't last and we didn't have enough money to get more. Never True Residential Stability Answer Date Recor ded What is your housing situation today? I have claudia sing 03/26/2025 How many times have you move d in the past 12 months? Zero (I did not move) 03/26/2025 Paying for Meds Answer Date Recorded Do you have trouble paying for medicines? No 03/26/2025 Paying Utility Bills Answer Date Record ed Do you have trouble paying your heating or elect ricity bill? No 03/26/2025 Transportation Answer Date Recorded Has the lack of transportati on kept you from medical appointments or from getting medications? No 03/26/2025 Digital Access Answer Date Recorded No 03/26/2025 Yes 03/26/2025 Do you have reliable internet access at home? Ye s 03/26/2025 Do you have a device (e.g., phone, tablet, computer) with a working camera? Yes 03/26/2025 Intimate Partner Violence Answer Date R ecorded Are you denied basic needs s uch as food, clothing, or medical care? No 04/18/2025 In the past 12 months have y ou been in a relationship with a person who hurts, threatens, or tries to control you? No 04/18/2025 Are you denied basic needs s uch as food, clothing, or medical care? No 04/18/2025 In the past 12 months have y ou been in a relationship with a person who hurts, threatens, or tries to control you? No 04/18/2025 Comments No Sex and Gender Information Value Date Recorded Sex Assigned at Female 01/13/2025 5:05 PM EDT Legal Sex Female 9:10 PM EDT Gender Identity Female 01/13/2025 5:05 PM EDT Sexual Orientation Asexual 01/13/2025 5: 05 PM EDT Last Filed Vital Signs Vital Sign Reading Time Taken Comments Blood Pressure 137/89 04/18/2025 9:42 AM EDT Pulse 96 04/18/2025 9:42 AM EDT Temperature 36.3 C (97.3 F) 04/18/2025 9:42 AM EDT Respiratory Rate 18 04/18/2025 9:42 AM EDT Oxygen Saturation 100% 04/18/2025 9:42 AM EDT Inhaled Oxygen Concentration - - Weight 68 kg (150 lb) 03/26/2025 9:59 AM EDT Height 167.6 cm (5' 5.98 ) 03/26/2025 9:59 AM ED T Body Mass Index 24.22 03/26/2025 9:59 AM EDT Plan of Treatment Not on file Medical Devices Not on file Procedures Procedure Name Priority Date/Time Associated Diagnosis Comments XR KNEE 4 OR MORE VIEWS (LEFT) Routine 03/26/2025 9:41 AM EDT from Last 3 Months Results * XR KNEE 4 OR MORE VIEWS (LEFT) (03/26/2025 9:41 AM EDT) Anatomical Region Laterality Modality Knee Left Computed Radiogr aphy 03/26/2025 10:1 5 AM EDT Impressions 03/26/2025 10:16 AM EDT No fracture or dislocation. Narrative 03/26/2025 10:16 AM EDT XR KNEE 4 OR MORE VIEWS (LEFT) Referring clinician's provided indication for this examination in Epic: Trauma COMPARISON: None FINDINGS: Left Knee: No fracture. Normal alignment. Normal joint spaces. No effusion. Procedure Note Raffy Rowley MD, PhD - 03/26/2025 XR KNEE 4 OR MORE VIEWS (LEFT) Referring clinician's provided indication for this examination in Epic:Trauma COMPARISON: None FINDINGS: Left Knee: No fracture. Normal alignment. Normal joint spaces. Noeffusion. IMPRESSION: No fracture or dislocation. Edy Lewis MD IMG XR LOWER EXTREMITY Final Re sult from Last 3 Months Insurance [employer] Care Teams Duplicator Punch Set Up Operator Relationship Specialty Start Date End Date Destiny Miranda MD [address] [place] [address] PCP - General Internal Medicine 01/13/25 Additional Source Comments The information contained in this document represents components of the legal health record. It is not the complete legal health record.[facility]
--- OUTSIDE RECORDS SUMMARY | 2025-04-27 16:38 | XMS_ITS | Encounter Summary ---
Author Organization [employer] Address [address] [facility] [address] [place] [address] Care Team Providers Care Oncology Pharmacist Name Role Phone Destiny Miranda MD Primary Care Provider [phone] Nicole Gandhi PharmD Unavailable [phone] Madelin Luna Unavailable Encounter Details Date Type Department Care Team (Late st Contact Info) Description 01/14/2025 Orders Only [facility] CHC MED & PEDS [address] [place] [address] Provider, MD Jovita Social History Tobacco Use [...] Upcoming Encounters Date Type Department Care Team ([facility] st Contact Info) Description 05/17/2025 10:30 AM EST Telemedicine [facility] MED & PEDS [address] [place], [place] [phone] Nicole Gandhi PharmD [address] [place], [place] [phone] documented as of this encounter Procedures Procedure [...] documented as of this encounter Care Teams Oncology Pharmacist Relationship Specialty Start Date End Date Destiny Miranda MD [address] [place], [place] [phone] PCP - General Family Medicine 06/23/18 Nicole Gandhi, Nomi [address] [place] [address] Pharmacist Internal Medicine 08/20/24 Madelin Luna 01/14/25 01/20/25 Rose Cash Waste Water Plant OperatorBranch Office Manager 09/17/23 Yvette Gamble Waste Water Plant OperatorBranch Office Manager 01/18/25 documented as of this encounter
--- OUTSIDE RECORDS SUMMARY | 2025-04-27 16:38 | XMS_ITS | Clinical Summary ---
Author Organization [address] [facility] Address [address] [place] [address] Phone Care Team Providers Care Contracts Representative Name Role Phone Destiny Miranda MD Primary Care Provider [phone] Allergies No known active allergies Medications No known medications Encounters Date Type Department Care Team Description 04/25/2025 2:00 PM EST Office Visit Orthopedic Surgery [facility] [address] [facility] [address] [place] [phone] Michael Andrews DPM Poorly controlled type 2 diabetes mellitus with neuropathy (CMS/HCC V24, CMS/HCC V28) (Primary Dx); Right foot pain; Ulcer of toe of right foot, with necrosis of muscle (CMS/HCC V24, CMS/HCC V28); Cellulitis of right foot; Pain associated with accessory navicular bone of right foot 03/16/2025 2:45 PM EDT Office Visit Orthopedic Surgery [facility] [address] [phone] Michael Andrews DPM Poorly controlled type 2 diabetes mellitus with neuropathy (CMS/HCC V24, CMS/HCC V28) (Primary Dx); Pain in both feet; Metatarsalgia of right foot; Cavus deformity of [...] [facility] Contact Info) Description 05/02/2025 1:00 PM EST Office Visit Orthopedic Surgery - [place] [address] [phone] Michael Andrews DPM [address] [address] 05/17/2025 10:00 AM EST Office Visit Orthopedic Surgery - [place] [address] [phone] Michael Andrews DPM [address] [address] Health Maintenance Due Date Last Done Comments Diabetes: Annual Foot Exam 1997 Diabetes: Annual Retina Eye Exam 1997 Cervical Cancer Screening: Pap Smear 02/03/2008 HPV Vaccines (1 - 3-dose SCDM series) 2014 Depression Screening 06/23/2024 Diabetes: Annual Urine Albumin-Creatinine Ratio (uACR) 10/26/2024 HIV Screening 10/26/2024 Hepatitis C Screening 10/26/2024 Social Influencers of Health Screening 10/26/2024 COVID-19 Vaccine ( season) 2025 Influenza Vaccine (#1) 2025 8, 04/07/2015, 04/07/2014, Additional history exists Diabetes: Blood Sugar Control Test (HGBA1C) 09/15/2025 03/18/2025, 11/09/2024 Diabetes: Annual GFR (Glomerular Filtration Rate) 01/25/2026 01/25/2025, 12/29/2024, 12/07/2024 Hypertension/CHF/CAD Annual BMP Blood Test 01/25/2026 01/25/2025, 12/29/2024, 12/07/2024 DTaP,Tdap,and Td Vaccines (8 - Td or Tdap) 05/27/2028 05/27/2018, 05/26/2014, 02/19/2000, Additional history exists Cholesterol Screening (Lipid Panel) 12/07/2029 12/07/2024 RSV Immunization Adult Patients (1 - 1-dose 75+ series) 2062 HIB Vaccines Completed 12/22/1991 IPV Vaccines Completed 08/01/1992, 07/06/1991, 08/22/1989, Additional history exists MMR Vaccines Completed 02/14/1999, 08/22/1989 Hepatitis B Vaccines Completed 09/30/2012, 08/06/2012, 09/21/1999, Additional history exists Pneumococcal Vaccine: Pediatrics (0 to 5 Years) and At-Risk Patients (6 to 49 Years) Completed 02/04/2024 Hepatitis A Vaccines Aged Out [...] topic Insurance MEDICAID - [place] Care Teams Contracts Representative Relationship Specialty Start Date End Date Destiny Miranda MD [address] [place] [address] PCP - General Internal Medicine 10/26/24
--- OUTSIDE RECORDS SUMMARY | 2025-04-27 16:38 | XMS_ITS | Encounter Summary ---
Author Organization [employer] Address [address] [facility] [address] [place] [address] Care Team Providers Care Medical Coder Name Role Phone Destiny Miranad MD Primary Care Provider [phone] Nicole Gandhi PharmD Unavailable [phone] Madelin Luna Unavailable Reason for Visit * Reason Onset Date Comments Medication Question 02/20/2024 Encounter Details Date Type Department Care Team ([facility] st Contact Info) Description 02/20/2024 Telephone [facility] [address] [place] [address] Destiny Miranda MD [address] [place], [place] [phone] Medication Question Social History Tobacco Use Types [...] the past 12 months, has t he [employer], gas, oil or water company threatened to [...] any questions you can contact pt at [phone]. documented in this encounter Plan of Treatment Upcoming Encounters Date Type Department Care Team ([facility] st Contact Info) Description 05/17/2025 10:30 AM EST Telemedicine [facility] [address] [place] [address] Nicole Gandhi, PharmD [address] [place], [place] [phone] documented as of this encounter Visit Diagnoses Diagnosis Diabetes mellitus without complication (HCC) Type II or unspecified type diabetes mellitus without mention of complication, not stated as uncontrolled documented in this encounter Additional Health Concerns Assessment Noted Time PHQ-9 Depression Total Score: 21 024 1:56 PM EDT documented as of this encounter Care Teams Medical Coder Relationship Specialty Start Date End Date Destiny Miranda MD [address] [place] [address] PCP - General Family Medicine 06/23/18 Nicole Gandhi PharmD [address] [place], [place] [phone] Pharmacist Internal Medicine 08/20/24 Madelin Luna 01/14/25 01/20/25 Rose Cash Leather SpongerFlask Fitter 09/17/23 Yvette Gamble Leather SpongerFlask Fitter 01/18/25 documented as of this encounter
== END 2025-04-27 14:16 | disposition home or self-care (01) ==
LOC: HO.HKAM 13:46
PROVIDERS: PCP Pediatrics; Visit Provider Internal Medicine Hypertension Specialist
DX: I10 Essential (primary) hypertension (principal); E11.9 Type 2 diabetes mellitus without complications; R80.9 Proteinuria, unspecified; D64.9 Anemia, unspecified
CPT/HCPCS: 99214

== ENCOUNTER 2025-04-27 13:46 | Outpatient (REF) | payer MEDICAID, SELFPAY ==
[2025-04-27 16:07] LABS: Appearance Urine Clear; Glucose Urine UA 500 mg/dL (Negative); PH >= 9.0 (5.0-9.0); Specific Gravity - Urine 1.025 (1.005-1.025); UMIC TRIGGER UA YES
[2025-04-27 16:17] LABS: Anion Gap 15 (12-20); Blood Urea Nitrogen 21 mg/dL (9-16); Calcium 10.4 mg/dL (8.4-10.2); Carbon Dioxide 31 mmol/L (22-29); Chloride 98 mmol/L (96-108); Estimated Glomerular Filt Rate 49; Potassium 3.7 mmol/L (3.3-5.1); Sodium 140 mmol/L (135-145)
[2025-04-27 16:26] LABS: Anion Gap 15 (12-20); Blood Urea Nitrogen 21 mg/dL (9-16); Calcium 10.5 mg/dL (8.4-10.2); Carbon Dioxide 31 mmol/L (22-29); Chloride 98 mmol/L (96-108); Cholesterol 195 mg/dL (<200); Estimated Glomerular Filt Rate 48; HDL Cholesterol 36 mg/dL (>40); Potassium 3.5 mmol/L (3.3-5.1); Sodium 140 mmol/L (135-145); Triglycerides 296 mg/dL (<150)
== END 2025-04-27 13:47 | disposition home or self-care (01) ==
LOC: HO.HHCL 13:46
PROVIDERS: Nurse Practitioner Family; PCP Pediatrics; Visit Provider Internal Medicine Hypertension Specialist
DX: I10 Essential (primary) hypertension (principal); E11.9 Type 2 diabetes mellitus without complications; R80.9 Proteinuria, unspecified; D64.9 Anemia, unspecified; I25.10 Atherosclerotic heart disease of native coronary artery without angina pectoris
CPT/HCPCS: 36415; 80048; 80061; 81001; 81003; 99212

== ENCOUNTER 2025-06-03 11:36 | Outpatient (REF) | payer MEDICAID, SELFPAY ==
[2025-06-03 16:14] LABS: Microalbum/Creatinine Ratio Ur 586.6 ug/mg cr (<30)
== END 2025-06-03 11:37 | disposition home or self-care (01) ==
LOC: HO.CHCLDS 11:36
PROVIDERS: Visit Provider Pediatrics
DX: E11.9 Type 2 diabetes mellitus without complications (principal); Z79.4 Long term (current) use of insulin
CPT/HCPCS: 82043; 82570

== ENCOUNTER 2025-06-15 13:35 | Outpatient (AMB) | payer MEDICAID, SELFPAY ==
--- OUTSIDE RECORDS SUMMARY | 2025-06-15 13:37 | XMS_ITS | Clinical Summary ---
Author Organization [email or web address] Address [address] [place] [address] Care Team Providers Care [employer] Checker Name Role Phone Destiny Miranda MD Primary Care Provider [phone] Nicole Gandhi PharmD Unavailable [phone] Allergies No known active allergies Medications * This document contains information received from the source organization and may not represent a complete record from that organization. Blood Pressure kit 1 Units in the morning. 1 kit 023 Active lidocaine (Lidoderm) 5 % patchIndicati ons:Cervical paraspinal muscle spasm APPLY 1 PATCH IN THE MORNING REMOVE AND DISARD PATCH WITHIN 12 HOURS OR DIRECTED 90 patch 024 Active acetaminophen (Tylenol) 325 MG tablet TAKE 2 TABLETS BY MOUTH EVERY 4 HOURS 025 Active ibuprofen 200 MG tablet TAKE 2 TABLETS MOUTH EVERY 6 HOURS 025 Active pen needle 33G x 4 mm miscIndicatio ns:Diabetes mellitus type 2, insulin dependent (HCC) Use daily with Lantus 100 each 11 025 2025 Active Blood Glucose Monitoring Suppl (FreeStyle Spencer Lite) w/Device kit Use to test blood sugar as directed 1 kit 025 Active glucose blood (FREESTYLE LITE) test stripIndicati ons:Neuropath y due to type 2 diabetes mellitus (HCC) Test blood sugar up to 3 times daily 100 strip 11 025 Active Lancets misc Test blood sugar up to 3 times daily 100 each 11 Active multivitamin () 27-0.8 MG tablet TAKE 1 TABLET BY MOUTH EVERY DAY 90 tablet 3 Active traZODone (Desyrel) 50 MG tabletIndicat ions:Sleep disorder Take 1 tablet (50 mg) by mouth at bedtime. Take 1 or 2 tablets by mouth at bedtime as needed. 45 tablet Active buPROPion XL (Wellbutrin XL) 300 MG 24 hr tablet Take 300 mg by mouth in the morning. Active lisinopril 10 MG tablet Take 10 mg by mouth Once per day. Active ticagrelor (Brilinta) 90 MG tablet Take 90 mg by mouth 2 times daily. 2025 Active aspirin 81 MG EC tablet Take 81 mg by mouth Once per day. Active hydrOXYzine HCl (Atarax) 25 MG tabletIndicat ions:Mild anxiety TAKE ONE TABLET THREE TIMES DAILY IN THE MORNING, AT NOON, AND AT BEDTIME NEEDED FOR ANXIETY 90 tablet 1 Active insulin glargine (Lantus SoloStar) 100 UNIT/ML penIndication s:Diabetes mellitus type 2, insulin dependent ([facility]) Inject 28 units daily 15 mL 2 5 3:04 PM EST Active atorvastatin (Lipitor) 80 MG tablet take one tablet every night at bedtime Active insulin lispro (HumaLOG) 100 UNIT/ML injectionIndi cations:Diabe lois mellitus type 2, insulin dependent ([facility]) Inject 5-10 units subcutaneously as needed for pre-meal blood sugar > 200, up to 3 times daily 15 mL 1 5 3:04 PM EST Active ARIPiprazole (Abilify) 20 MG tabletIndicat ions:Bipolar disorder, current episode depressed, severe, without psychotic features (CMS/HCC) ([facility]) TAKE ONE TABLET EVERY MORNING 30 tablet 1 Active Jardiance 25 MG TAKE ONE TABLET EVERY MORNING 30 tablet 5 Active buPROPion XL (Wellbutrin XL) 150 MG 24 hr tablet TAKE ONE TABLET EVERY MORNING 30 tablet 1 Active Tirzepatide (Mounjaro) 5 MG/0.5ML solution auto-injector Indications:D iabetes mellitus type 2, insulin dependent (HCC) INJECT ONE PEN (=5MG) SUBCUTANEOUSLY ONCE A WEEK DIRECTED 2 mL 3 Active empagliflozin (Jardiance) 25 MG Take 1 tablet (25 mg) by mouth Once per day. 30 tablet 5 5 3:04 PM EST 025 2024 Discontinued ergocalcifero l (Vitamin D2) 1.25 MG (99898 UT) capsule Take 1 capsule (1.25 mg) by mouth 1 (one) time per week. 15 capsule 025 2024 Discontinued(T herapy completed) Tirzepatide (Mounjaro) 2.5 MG/0.5ML solution auto-injector Indications:D iabetes mellitus type 2, insulin dependent (HCC) Inject 2.5 mg under the skin 1 (one) time per week. 2 mL 025 2024 Discontinued(M ed list cleanup (will not trigger notification to Pharmacy)) Tirzepatide (Mounjaro) 5 MG/0.5ML solution auto-injector Indications:D iabetes mellitus type 2, insulin dependent (HCC) Inject 5 mg under the skin 1 (one) time per week. 2 mL 1 5 3:04 PM EST 025 2024 Discontinued buPROPion XL (Wellbutrin XL) 150 MG 24 hr tablet TAKE ONE TABLET EVERY MORNING 30 tablet 1 5 3:04 PM EST 025 2024 Discontinued ARIPiprazole (Abilify) 20 MG tabletIndicat ions:Bipolar disorder, current episode depressed, severe, without psychotic features (CMS/HCC) (HCC) Take 1 tablet (20 mg) by mouth in the morning. 30 tablet 1 5 3:04 PM EST 025 2024 Discontinued Active Problems Patient Care Coordination [...] Folliculitis 11/18/2013 Hypothyroidism 10/30/2012 Bipolar disorder, unspecified ([facility]) 09/12/19 12 Assessment & Plan (01/01/2024 2:36 [...] will be referred to new [facility] Psychiatric provider. She is aware that appts will be televisits and that provider will not be an employee of [facility]. She gives permission to share PHI. [...] will be transferred to new [facility] Psychiatric provider. F/U with therapist as [...] Diagnosed Date Resolved Date Bipolar disease in ([facility]) 08/15/2023 08/31/2024 Encounters * This document contains information received from the source organization and may not represent a complete record from that organization. Date Type Department Care Team Description 06/13/2025 Refill [facility] [address] [place] [address] Nicole Gandhi, PharmD Diabetes mellitus type 2, insulin dependent ([facility]) 06/07/2025 Refill [facility] [address] [place] [address] Nicole Gandhi PharmD 06/07/2025 Refill [facility] [address] [place] [address] Destiny Miranda MD Bipolar disorder, current episode depressed, severe, without psychotic features ([facility]) (HCC) 06/03/2025 Orders Only [facility] MEDICINE [address] [place] [address] Destiny Miranda MD Diabetes mellitus type 2, insulin dependent (HCC) (Primary Dx) 06/03/2025 Telephone [facility] [address] [place] [address] Nicole Gandhi, PharmD 06/03/2025 Travel 05/17/2025 10:30 AM EST Telemedicine [facility] [address] [place] [address] Nicole Gandhi, PharmD Diabetes mellitus type 2, insulin dependent (HCC) (Primary Dx) 05/17/2025 Travel 05/13/2025 Telephone [facility] [address] [place] [address] Nicole Gandhi, PharmD 05/13/2025 Refill [facility] [address] [place] [address] Destiny Miranda MD Mild anxiety 05/10/[address] [facility] MED & PEDS [address] [place] [address] Nicole Gandhi PharmStephen 04/27/[address] [facility] MED & PEDS [address] [place] [address] Nicole Gandhi PharmD 04/27/2025 Orders Only GENERIC EXTERNAL DATA DEPARTMENT Provider, Generic External Data 04/12/2025 10:30 AM EDT Telemedicine [facility] MED & PEDS [address] [place] [address] Nicole Gandhi PharmD Diabetes mellitus type 2, insulin dependent (HCC) (Primary Dx) 04/11/2025 Travel 04/04/[address] [facility] MED & PEDS [address] [place] [address] Destiny Miranda MD Bipolar disorder, current episode depressed, severe, without psychotic features (CMS/HCC) (HCC) 04/02/[address] [facility] MED & PEDS [address] [place] [address] Cristine Guajardo MD 03/28/[address] [facility] MED & PEDS [address] [place] [address] Destiny Miranda MD Appointment Request 03/28/[address] [facility] MED [facility] PEDS [address] [place] [address] Destiny Miranda MD Nurse Triage 03/18/2025 Travel from Last 3 Months Immunizations Immunization [...] Sign Reading Time Taken Comments Blood Pressure 114/66 06/03/2025 11:09 AM EST Pulse 97 06/03/2025 11:09 AM EST Temperature 36.9 C (98.5 F) 01/25/2025 8:53 AM EDT Respiratory Rate 16 01/25/2025 8:53 AM EDT Oxygen Saturation 99% 06/03/2025 11:09 AM EST Inhaled Oxygen Concentration - - Weight 65.8 kg (145 lb) 01/25/2025 8:53 AM EDT Height 167 cm (5' 5.75 ) 01/25/2025 8:53 AM EDT Body Mass Index 23.58 01/25/2025 8:53 AM EDT Plan of Treatment Upcoming Encounters Date Type Department Care Team (Late st Contact Info) Description 08/29/2025 11:00 AM EDT Medication Management [facility] [address] [place] [address] Nicole Gandhi, PharmD [address] [place] [address] Health Maintenance Due Date Last Done Comments Dental Oral Exam 1987 Dental Prophylaxis 1987 HIV Screening 1987 Eye Exam 1997 Family Planning (PISQ) 2002 HPV Vaccines (1 - 3-dose series) 2002 Hepatitis C Screening 2005 Dental X-Ray: Bitewings 07/10/2023 07/09/2022 Dental X-Ray: Full Mouth 01/02/2025 01/01/2022 COVID-19 Vaccine ( season) 2025 11/11/2020, 10/14/2020 Influenza Vaccine (#1) 2025 8, 04/07/2015, 04/07/2014, Additional history exists Depression Monitoring 03/03/2025 08/31/2024, 03/11/2 025 Diabetes: Hemoglobin A1C 09/01/2025 025, 03/18/2025, 11/09/2024, Additional history exists Lipid Panel 12/07/2025 12/07/2024, 02/21, 04/21/2020 Alcohol/Substance Use Screening 01/25/2026 01/25/2025 Disability Screening 01/25/2026 01/25/2025 SDOH Screening 01/25/2026 01/25/2025 Tobacco Screening 01/25/2026 01/25/2025 Diabetes: Foot Exam 05/17/2026 05/17/2025 Diabetes: Urine Protein Screening 06/03/2026 06/03/2025, 12/29/2024, 12/07/2024, Additional history exists DTaP/Tdap/Td Vaccines (7 - Td or Tdap) 05/27/2028 05/27/2018, 05/26/2014, 02/19/2000, Additional history exists HPV/Cotest 09/21/2029 09/21/2024, 06/29/2019 Cervical Cancer Screening 09/27/2029 Pap Smear 09/27/2029 09/27/2024, 07/2024, 06/19/2022 Zoster Vaccines (1 of 2) 2037 RSV Patients and Patients Aged 60 years or older (1 - 1-dose 75+ series) 2062 HIB Vaccines Completed 12/22/1991 IPV Vaccines Completed 08/01/1992, 0 06/1991, 08/22/1989, Additional history exists Hepatitis B [...] on patient's age to complete this topic Goals Goal Patient Goal Type Associated Problems Recent Progress Patient-Stated? Author Help patients manage their type 2 diabetes Care Plan Help patients manage their type 2 diabetes No Fabian Gandhia, PharmD Weekly blood pressure task Care Plan Weekly blood pressure task No Fabian Gandhia, PharmD Help patients manage their type 2 diabetes Care Plan Help patients manage their type 2 diabetes No Ines Gandhicia, PharmD Patient has chronic kidney disease Care Plan Patient has chronic kidney disease No Gandhi Nicole, PharmD Help patients manage their type 2 diabetes Care Plan Help patients manage their type 2 diabetes No Hiram Nicole, PharmD Patient has diabetic neuropathy Care Plan Patient has diabetic neuropathy No Hiram Nicole, PharmD Weekly blood pressure task Care Plan Weekly blood pressure task No Gandhi Nicole, PharmD Weekly blood pressure task Care Plan Weekly blood pressure task No Gandhi Nicole, PharmD Patient has chronic kidney disease Care Plan Patient has chronic kidney disease No Gandhi Nicole, PharmD Patient has chronic kidney disease Care Plan Patient has chronic kidney disease No Hiram Nicole, PharmD Patient has diabetic neuropathy Care Plan Patient has diabetic neuropathy No Hiram Nicole, PharmD Patient has diabetic neuropathy Care Plan Patient has diabetic neuropathy No Hiram Nicole, PharmD Weekly blood pressure task Care Plan Weekly blood pressure task No Hiram Nicole, PharmD Weekly blood pressure task Care Plan Weekly blood pressure task No Hiram Nicole, PharmD Weekly blood pressure task Care Plan Weekly blood pressure task No Gandhi Nicole, PharmD Patient has chronic kidney disease Care Plan Patient has chronic kidney disease No Hiram Nicole, PharmD Patient has chronic kidney disease Care Plan Patient has chronic kidney disease No Gandhi Nicole, PharmD Patient has chronic kidney disease Care Plan Patient has chronic kidney disease No Gandhi Nicole, PharmD Patient has diabetic neuropathy Care Plan Patient has diabetic neuropathy No Gandhi Nicole, PharmD Patient has diabetic neuropathy Care Plan Patient has diabetic neuropathy No Gandhi Nicole, PharmD Patient has diabetic neuropathy Care Plan Patient has diabetic neuropathy No Hiram Nicole, PharmD Weekly blood pressure task Care Plan Weekly blood pressure task No Hiram Nicole, PharmD Weekly blood pressure task Care Plan Weekly blood pressure task No Gandhi Nicole, PharmD Weekly blood pressure task Care Plan Weekly blood pressure task No Ines Gandhicia, PharmD Patient has chronic kidney disease Care Plan Patient has chronic kidney disease No Hiram Nicole, PharmD Patient has chronic kidney disease Care Plan Patient has chronic kidney disease No Gandhi, Nicole, PharmD Patient has chronic kidney disease Care Plan Patient has chronic kidney disease No Hiram Nicole, PharmD Patient has diabetic neuropathy Care Plan Patient has diabetic neuropathy No Hiram Nicole, PharmD Patient has diabetic neuropathy Care Plan Patient has diabetic neuropathy No Hiram Nicole, PharmD Patient has diabetic neuropathy Care Plan Patient has diabetic neuropathy No Ines Gandhicia, PharmD Weekly blood pressure task Care Plan Weekly blood pressure task No Hiram Nicole, PharmD Weekly blood pressure task Care Plan Weekly blood pressure task No Hiram Nicole, PharmD Weekly blood pressure task Care Plan Weekly blood pressure task No Hiram Nicole, PharmD Patient has chronic kidney disease Care Plan Patient has chronic kidney disease No Hiram Nicole, PharmD Patient has chronic kidney disease Care Plan Patient has chronic kidney disease No Hirma Nicole, PharmD Patient has chronic kidney disease Care Plan Patient has chronic kidney disease No Hiram Nicole, PharmD Patient has diabetic neuropathy Care Plan Patient has diabetic neuropathy No Hiram Nicole, PharmD Patient has diabetic neuropathy Care Plan Patient has diabetic neuropathy No Hiram Nicole, PharmD Patient has diabetic neuropathy Care Plan Patient has diabetic neuropathy No Fabian Gandhia, PharmD Weekly blood pressure task Care Plan Weekly blood pressure task No Ines Gandhicia, PharmD Weekly blood pressure task Care Plan Weekly blood pressure task No Hiram Nicole, PharmD Weekly blood pressure task Care Plan Weekly blood pressure task No Hiram Nicole, PharmD Patient has chronic kidney disease Care Plan Patient has chronic kidney disease No Hiram Nicole, PharmD Patient has chronic kidney disease Care Plan Patient has chronic kidney disease No Hiram Nicole, PharmD Patient has chronic kidney disease Care Plan Patient has chronic kidney disease No Hiram Nicole, PharmD Patient has diabetic neuropathy Care Plan Patient has diabetic neuropathy No Gandhi, Nicole, PharmD Patient has diabetic neuropathy Care Plan Patient has diabetic neuropathy No Hiram Nicole, PharmD Patient has diabetic neuropathy Care Plan Patient has diabetic neuropathy No Gandhi, Nicole, PharmD Weekly blood pressure task Care Plan Weekly blood pressure task No Nicole Gandhi PharmD Weekly blood pressure task Care Plan Weekly blood pressure task No Fabian Gandhia PharmD Weekly blood pressure task Care Plan Weekly blood pressure task No Fabian Gandhia, PharmD Patient has chronic kidney disease Care Plan Patient has chronic kidney disease No Fabian Gandhia, PharmD Patient has chronic kidney disease Care Plan Patient has chronic kidney disease No Fabian Gandhia, PharmD Patient has chronic kidney disease Care Plan Patient has chronic kidney disease No Fabian Gandhia, PharmD Patient has diabetic neuropathy Care Plan Patient has diabetic neuropathy No Nicole Gandhi PharmD Patient has diabetic neuropathy Care Plan Patient has diabetic neuropathy No Nicole Gandhi PharmD Patient has diabetic neuropathy Care Plan Patient has diabetic neuropathy No Nicole Gandhi PharmD Weekly blood pressure task Care Plan Weekly blood pressure task No Destiny Miranda MD Weekly blood pressure task Care Plan Weekly blood pressure task No Destiny Miranda MD Weekly blood pressure task Care Plan Weekly blood pressure task No Destiny Miranda MD Patient has chronic kidney disease Care Plan Patient has chronic kidney disease No Destiny Miranda MD Patient has chronic kidney disease Care Plan Patient has chronic kidney disease No Destiny Miranda MD Patient has chronic kidney disease Care Plan Patient has chronic kidney disease No Destiny Miranda MD Patient has diabetic neuropathy Care Plan Patient has diabetic neuropathy No Destiny Miranda MD Patient has diabetic neuropathy Care Plan Patient has diabetic neuropathy No Destiny Miranda MD Patient has diabetic neuropathy Care Plan Patient has diabetic neuropathy No Destiny Miranda MD Procedures Procedure Name Priority Date/Time Associated Diagnosis Comments ALBUMIN, RANDOM URINE W/CREATININE Routine 06/03/2025 11:37 AM EST Diabetes mellitus type 2, insulin dependent (HCC) POCT GLYCATED HEMOGLOBIN, TOTAL Routine 06/03/2025 11:15 AM EST Diabetes mellitus type 2, insulin dependent (HCC) AMB REFERRAL TO PODIATRY Urgent 05/17/2025 Foot callus Neuropathy due to type 2 diabetes mellitus (HCC) Diabetes mellitus type 2, insulin dependent (HCC) BASIC METABOLIC PANEL Routine 04/27/2025 2:29 PM EST URINALYSIS, COMPLETE (INCLUDES MACRO AND MICRO) Routine 04/27/2025 2:29 PM EST POCT GLYCATED HEMOGLOBIN, TOTAL Routine 03/18/2025 1:27 PM EDT Diabetes mellitus type 2, insulin dependent (CMS/HCC) LIPID PANEL, STANDARD Routine 12/07/2024 10:55 AM EDT HM PAP/HPV Routine 09/27/2024 HPV DNA, LOW/HIGH RISK Routine 09/21/2024 10:15 AM EDT BITEWING - SINGLE RADIOGRAPHIC IMAGE Routine 07/09/2022 3:10 PM EST Dental abscess from Last 3 Months or Most Recently Relevant to Health Maintenance Results * (ABNORMAL) Albumin, Random Urine W/Creatinine (06/03/2025 11:37 AM EST) Creatinine, Urine 184.11 mg/dL [facility] Microalbumin Urine 1,080.0 mg/L [facility] Microalbum Creatinine Ratio Ur 586.6(H) <30 ug/mg cr [facility] Comment:Albumin/Creatinine R atio Reference Ranges: Normal: < 30 ug/mg creatinine Microalbuminuria: 30 - 300 ug/mg creatinineClinical Albuminuria: > 300 ug/mg creatinine 06/03/2025 11:3 7 AM EST 06/03/2025 3:00 PM EST us Destiny Miranda MD LAB URINE ORDERABLES Final Re sult [facility] [address] [place] [phone] * (ABNORMAL) POCT A1c (06/03/2025 11:15 AM EST) Only the most recent of2 resultswithin the time period is included. Hemoglobin A1C 8.2(A) 4.0 - 5.7 % QC Media Lot # [id number] Lot# Expiration Date Blood 06/03/2025 11:1 5 AM EST Destiny Miranda MD POINT OF CARE TEST ENTER/EDIT ORDERABLES Final Result * Referral to Podiatry (05/17/2025) us Destiny Miranda MD OUTPATIENT REFERRAL ORDERABLE S Final Result * (ABNORMAL) Urinalysis Complete (04/27/2025 2:29 PM EST) Color Urine Yellow [facility] Appearance Urine Clear [facility] PH >=9.0 5.0 - 9.0 [facility] Glucose Urine UA 500(A) Negative mg/dL [facility] Urine Blood Negative Negative [facility] Specific [place] - Urine 1.025 1.005 - 1.025 [facility] Urine Protein 300 (3+)(A) Neg-Trace mg/dL [facility] Urine Ketones Negative Negative mg/dL [facility] Nitrite Urine Negative Negative [facility] Leukocyte Esterase Urine Negative Negative [facility] RBC Urine 0-2 0 - 2 /HPF [facility] Urine WBC 0-5 0 - 5 /HPF [facility] Urine Squamous Epithelial Cell 3-5 0 - 2 /HPF [facility] Urine Bacteria None Seen None Seen [facility] Hyaline Casts, Urine 0-2 0 - 2 /LPF [facility] 04/27/2025 2:29 PM EST 04/27/2025 3:56 PM EST us Generic External Data Provider LAB URINE ORDERAB LES Final Result [facility] [address] [place] [phone] * (ABNORMAL) Basic Metabolic Panel (04/27/2025 2:29 PM EST) Sodium 140 135 - 145 mmol/L [facility] Potassium 3.7 3.3 - 5.1 mmol/L [facility] Chloride 98 96 - 108 mmol/L [facility] Carbon Dioxide 31(H) 22 - 29 mmol/L [facility] Anion Gap 15 12 - 20 [facility] Urea Nitrogen (BUN) 21(H) 9 - 16 mg/dL [facility] Creatinine, Serum 1.23 0.5 - 1.4 mg/dL [facility] Estimated Glomerular Filt Rate 49 [facility] Comment:Chronic Kidney Disea se: Estimated GFR < 60 mL/min/1.61k5Vownyz Kidney Disease: Estimated GFR < 15 mL/min/1.73m2 Glucose 81 60 - 115 mg/dL [facility] Calcium 10.4(H) 8.4 - 10.2 mg/dL [facility] 04/27/2025 2:29 PM EST 04/27/2025 4:02 PM EST us Generic External Data Provider LAB BLOOD ORDERAB LES Final Result [facility] [address] [place] [phone] [phone] * (ABNORMAL) Lipid Panel, Standard (12/07/2024 10:55 AM EDT) Triglycerides 390(H) <150 mg/dL [facility] Comment:Desirable Triglyceri de: less than 150 mg/dLBorderline High Triglyceride 150-199 mg/dLHigh Triglyceride: 200-499 mg/dLVery High Triglyceride: greater than or equal to 5OO mg/dL Cholesterol 236(H) <200 mg/dL [facility] Comment:Desirable Cholestero l: less than 200 mg/dLBorderline High Cholesterol: 200-239 mg/dLHigh Cholesterol: greater than 239 mg/dL LDL Cholesterol Calculated 121(H) <100 mg/dL [facility] Comment:Desirable LDL: less than 100 [...] MD LAB BLOOD ORDERABLES Final Re sult [facility] [address] [place] [phone] * HM PAP/HPV (09/27/2024) Pap Smear 1. NILM 1. NILM us Destiny Miranda MD HEALTH MAINTENANCE Final Resu lt * HPV DNA, Low/High Risk (09/21/2024 10:15 AM EDT) HPV High Risk Negative Negative [facility] HPV Genotype 16 Negative Negative [facility] HPV Genotype 18 Negative Negative [facility] Comment:HPV testing performe d at [facility] (CLIA#[id number]), [address] [place] [address].Testing for HPV was performed using the [employer] [...] MD LAB BLOOD ORDERABLES Final Re sult [facility] [address] [place] [address] [phone] from Last 3 Months or Most Recently Relevant to Health Maintenance Additional Health Concerns Active Problems Noted Date Diagnosed Date Help patients manage their type 2 diabetes 05/10 Weekly blood pressure task 05/10/2025 Help patients manage their type 2 diabetes 05/10 Patient has chronic kidney disease 05/10/2025 Help patients manage their type 2 diabetes 05/10 Patient has diabetic neuropathy 05/10/2025 Weekly blood pressure task 05/10/2025 Weekly blood pressure task 05/10/2025 Patient has chronic kidney disease 05/10/2025 Patient has chronic kidney disease 05/10/2025 Patient has diabetic neuropathy 05/10/2025 Patient has diabetic neuropathy 05/10/2025 Weekly blood pressure task 05/13/2025 Weekly blood pressure task 05/13/2025 Weekly blood pressure task 05/13/2025 Patient has chronic kidney disease 05/13/2025 Patient has chronic kidney disease 05/13/2025 Patient has chronic kidney disease 05/13/2025 Patient has diabetic neuropathy 05/13/2025 Patient has diabetic neuropathy 05/13/2025 Patient has diabetic neuropathy 05/13/2025 Weekly blood pressure task 05/13/2025 Weekly blood pressure task 05/13/2025 Weekly blood pressure task 05/13/2025 Patient has chronic kidney disease 05/13/2025 Patient has chronic kidney disease 05/13/2025 Patient has chronic kidney disease 05/13/2025 Patient has diabetic neuropathy 05/13/2025 Patient has diabetic neuropathy 05/13/2025 Patient has diabetic neuropathy 05/13/2025 Weekly blood pressure task 05/17/2025 Weekly blood pressure task 05/17/2025 Weekly blood pressure task 05/17/2025 Patient has chronic kidney disease 05/17/2025 Patient has chronic kidney disease 05/17/2025 Patient has chronic kidney disease 05/17/2025 Patient has diabetic neuropathy 05/17/2025 Patient has diabetic neuropathy 05/17/2025 Patient has diabetic neuropathy 05/17/2025 Weekly blood pressure task 06/03/2025 Weekly blood pressure task 06/03/2025 Weekly blood pressure task 06/03/2025 Patient has chronic kidney disease 06/03/2025 Patient has chronic kidney disease 06/03/2025 Patient has chronic kidney disease 06/03/2025 Patient has diabetic neuropathy 06/03/2025 Patient has diabetic neuropathy 06/03/2025 Patient has diabetic neuropathy 06/03/2025 Weekly blood pressure task 06/03/2025 Weekly blood pressure task 06/03/2025 Weekly blood pressure task 06/03/2025 Patient has chronic kidney disease 06/03/2025 Patient has chronic kidney disease 06/03/2025 Patient has chronic kidney disease 06/03/2025 Patient has diabetic neuropathy 06/03/2025 Patient has diabetic neuropathy 06/03/2025 Patient has diabetic neuropathy 06/03/2025 Weekly blood pressure task 06/03/2025 Weekly blood pressure task 06/03/2025 Weekly blood pressure task 06/03/2025 Patient has chronic kidney disease 06/03/2025 Patient has chronic kidney disease 06/03/2025 Patient has chronic kidney disease 06/03/2025 Patient has diabetic neuropathy 06/03/2025 Patient has diabetic neuropathy 06/03/2025 Patient has diabetic neuropathy 06/03/2025 Insurance [facility] C3 DENTAL-[facility] MEDICAID STAND ADULT Care Teams 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
--- OUTSIDE RECORDS SUMMARY | 2025-06-15 13:37 | XMS_ITS | Encounter Summary ---
Author Organization [employer] Address [address] [facility] 7t [place] [address] Care Team Providers Care Grants Analyst Name Role Phone Destiny Miranda MD Primary Care Provider [phone] Nicole Gandhi PharmD Unavailable [phone] Madelin Luna Unavailable Reason for Visit * Reason Comments Med Change Request Encounter Details Date Type Department Care Team ([facility] Contact Info) Description 08/15/2023 Refill [facility] CHC MED & PEDS [address] [place], [place] [phone] Cristine Guajardo MD 505 [place] [address] Cervical paraspinal muscle spasm Social History Tobacco [...] the past 12 months, has t he [employer], gas, oil or water [employer] threatened to shut off services in your [...] Description 08/29/2025 11:00 AM EDT Medication Management [facility] MED & PEDS [address] [place], [place] [phone] Nicole Gandhi, PharmD [address] [place] [address] documented as of this encounter Visit Diagnoses Diagnosis Cervical paraspinal muscle spasm Spasm of muscle documented in this encounter Additional Health Concerns Assessment Noted Time PHQ-9 Depression Total Score: 22 024 3:36 PM EST documented as of this encounter Care Teams Grants Analyst Relationship Specialty Start Date End Date Destiny Miranda MD 505 [place], [place] [phone] PCP - General Family Medicine 06/23/18 Nicole Gandhi, PharmD [address] [place], [place] [phone] Pharmacist Internal Medicine 2/28/25 Madelin Luna 01/14/25 01/20/25 Rose Cash Lead Software Test EngineerWildlife Ecology Professor 09/17/23 Yvette Gamble Lead Software Test EngineerWildlife Ecology Professor 01/18/25 documented as of this encounter
--- OUTSIDE RECORDS SUMMARY | 2025-06-15 13:37 | XMS_ITS | Clinical Summary ---
Author Organization [facility] Address [facility] [employer] [address] [address] Phone Care Team Providers Care Silver Solderer Name Role Phone Destiny Miranda MD Primary Care Provider [phone] Allergies No known active allergies Medications No known medications Encounters Date Type Department Care Team Description 04/18/2025 9:22 AM EDT - 04/18/2025 10:00 AM EDT Emergency [facility] [address] [place] [address] Edy Lewis MD Discharge Disposition: Home or Self Care 03/26/2025 8:42 AM EDT - 03/26/2025 10:00 AM EDT Emergency [facility] Emergency [address] [place] [address] Edy Lewis MD Discharge Disposition: Home or [...] housing situation today? I have claudia thakur 03/26/2025 How many times have you move [...] Re sult from Last 3 Months Insurance C3 ACO C3 ACO C[employer] ACO C3 ACO SAFETY INSURANCE Care Teams Silver Solderer Relationship Specialty Start Date End Date Destiny Miranda MD [address] [place] [address] PCP - General Internal Medicine 01/13/25 Additional Source Comments The information contained in this document represents components of the legal health record. It is not the complete legal health record.[facility]
--- OUTSIDE RECORDS SUMMARY | 2025-06-15 13:37 | XMS_ITS | Encounter Summary ---
Author Organization [employer] Address [address] [facility] 7t [place] [address] Care Team Providers Care Transmitter Chief Name Role Phone Destiny Miranda MD Primary Care Provider [phone] Nicole Gandhi PharmD Unavailable [phone] Madelin Luna Unavailable Reason for Visit * Reason Onset Date Comments Med Refill 01/19/2023 Encounter Details Date Type Department Care Team (Late st Contact Info) Description 01/19/[address] [facility] CH[facility] MED & PEDS [address] [place], [place] [phone] Crsitine Guajardo MD 505 [place], [place] [phone] Acute vaginitis; Recurrent vaginitis Social History Tobacco [...] Description 08/29/2025 11:00 AM EDT Medication Management [facility] MED & PEDS [address] [place] [address] Nicole Gandhi PharmD [address] [place] [address] documented as of this encounter Visit Diagnoses Diagnosis Acute vaginitis Unspecified vaginitis and vulvovaginitis Recurrent vaginitis Unspecified vaginitis and vulvovaginitis documented in this encounter Additional Health Concerns Assessment Noted Time PHQ-9 Depression Total Score: 15 023 10:09 AM EDT documented as of this encounter Care Teams Transmitter Chief Relationship Specialty Start Date End Date Destiny Miranda MD [address] [place] [address] PCP - General Family Medicine 06/23/18 Nicole Gandhi PharmD [address] [place] [address] Pharmacist Internal Medicine 08/20/24 Madelin Luna 01/14/25 01/20/25 Rose Cash Licensed ArchitectHog Confinement System Manager 09/17/23 Yvette Gamble Licensed ArchitectHog Confinement System Manager 01/18/25 documented as of this encounter
--- OUTSIDE RECORDS SUMMARY | 2025-06-15 13:37 | XMS_ITS | Encounter Summary ---
Author Organization [employer] Address [address] [facility] [address] 7t [place] [address] Care Team Providers Care Logistics Support Name Role Phone Destiny Miranda MD Primary Care Provider [phone] Nicole Gandhi PharmD Unavailable [phone] Madelin Luna Unavailable Encounter Details Date Type Department Care Team (Late st Contact Info) Description 09/14/2024 Orders Only [facility] CHC MED & PEDS [address] [place] [address] Provider, MD Jovita Social History Tobacco Use [...] Description 08/29/2025 11:00 AM EDT Medication Management [facility] MED & PEDS [address] [place], [place] [phone] Nicole Gandhi PharmD 230 [place] [address] documented as of this encounter Procedures Procedure [...] documented as of this encounter Care Teams Logistics Support Relationship Specialty Start Date End Date Destiny Miranda MD [address] [place] [address] PCP - General Family Medicine 06/23/18 Nicole Gandhi, PharmD 230 [place] [address] Pharmacist Internal Medicine 08/20/24 Madelin Luna 01/14/25 01/20/25 Rose Cash Suction Plate Roller HandCertified Adapted Physical Educator 09/17/23 Yvette Gamble Suction Plate Roller HandCertified [employer] Physical Educator 01/18/25 documented as of this encounter
--- OUTSIDE RECORDS SUMMARY | 2025-06-15 13:37 | XMS_ITS | Encounter Summary ---
Author Organization [employer] Address [address] [facility] [address] 7t [place] [address] Care Team Providers Care Community Artist Name Role Phone Destiny Miranda MD Primary Care Provider [phone] Nicole Gandhi PharmD Unavailable [phone] Madelin Luna Unavailable Encounter Details Date Type Department Care Team (Late st Contact Info) Description 06/02/2023 Orders Only [facility] [address] [place], [place] [phone] Bo Caraballo MD 230 [place] [address] Social History Tobacco Use Types Packs/Day Years [...] 11:00 AM EDT Medication Management [facility] MED & PEDS 505 [place] [address] Nicole Gandhi, PharmD 230 [place] [address] documented as of this encounter Visit Diagnoses Not on filedocumented in this encounter Additional Health Concerns Assessment Noted Time PHQ-9 Depression Total Score: 9 02/12/20 23 9:12 AM EDT documented as of this encounter Care Teams Community Artist Relationship Specialty Start Date End Date Destiny Miranda MD 505 [place] [address] PCP - General Family Medicine 06/23/18 Nicole Gandhi, PharmD [address] [place], [place] [phone] Pharmacist Internal Medicine 08/20/24 Madelin Luna 01/14/25 01/20/25 Rose Cash Lead Javascript EngineerOven Technician 09/17/23 Yvette Gamble Lead Javascript EngineerOven Technician 01/18/25 documented as of this encounter
--- OUTSIDE RECORDS SUMMARY | 2025-06-15 13:37 | XMS_ITS | Encounter Summary ---
Author Organization [employer] Address [address] [facility] 7t [place] [address] Care Team Providers Care Commercial Loan Manager Name Role Phone Destiny Miranda MD Primary Care Provider [phone] Nicole Gandhi PharmD Unavailable [phone] Madelin Luna Unavailable Encounter Details Date Type Department Care Team (Late st Contact Info) Description 01/14/2025 Orders Only [facility] CHC MED & PEDS [address] [place] [address] Provider, MD Jovita Social History Tobacco Use [...] Description 08/29/2025 11:00 AM EDT Medication Management [facility] MED & PEDS 505 [place], [place] [phone] Nicole Gandhi PharmD [address] [place], [place] [phone] documented as of this encounter Procedures Procedure [...] documented as of this encounter Care Teams Commercial Loan Manager Relationship Specialty Start Date End Date Destiny Miranda MD [address] [place], [place] [phone] PCP - General Family Medicine 06/23/18 Nicole Gandhi, GregorioD [address] [place] [address] Pharmacist Internal Medicine 08/20/24 Madelin Luna 01/14/25 01/20/25 Rose Cash Mobile Paint SpecialistDining Room Attendant 09/17/23 Yvette Gamble Mobile Paint SpecialistDining Room Attendant 01/18/25 documented as of this encounter
--- OUTSIDE RECORDS SUMMARY | 2025-06-15 13:37 | XMS_ITS | Encounter Summary ---
Author Organization [employer] Address [address] [facility] 7t [place] [address] Care Team Providers Care Storage Specialist Name Role Phone Destiny Miranda MD Primary Care Provider Nicole Gandhi PharmD Unavailable [phone] Madelin Luna Unavailable Reason for Visit * Reason Onset Date Comments Med Refill 11/24/2024 Encounter Details Date Type Department Care Team (Late st Contact Info) Description 11/24/2024 Refill [facility] CHC MED & PEDS [address] [place], [place] [phone] Destiny Miranda MD 505 [place], [place] [phone] Social History Tobacco Use Types Packs/Day Years [...] the past 12 months, has t he [employer], gas, oil or water [employer] threatened to shut off services in your [...] Description 08/29/2025 11:00 AM EDT Medication Management [facility] MED & PEDS [address] [place], [place] [phone] Nicole Gandhi, PharmStephen [address] [place] [address] documented as of this encounter Visit Diagnoses Not on filedocumented in this encounter Additional Health Concerns Assessment Noted Time PHQ-9 Depression Total Score: 21 025 9:51 AM EDT documented as of this encounter Care Teams Storage Specialist Relationship Specialty Start Date End Date Destiny Miranda MD [address] [place] [address] PCP - General Family Medicine 06/23/18 Nicole Gandhi, PharmD [address] [place], [place] [phone] Pharmacist Internal Medicine 08/20/24 Madelin Luna 01/14/25 01/20/25 Rose Cash Bisque GraderStamp Machine Servicer 09/17/23 Yvette Gamble Bisque GraderStamp Machine Servicer 01/18/25 documented as of this encounter
--- OUTSIDE RECORDS SUMMARY | 2025-06-15 13:37 | XMS_ITS | Encounter Summary ---
Author Organization [employer] Address 75 [facility] 7t [place] [address] Care Team Providers Care Core Inspector Name Role Phone Destiny Miranda MD Primary Care Provider Nicole Gandhi PharmD Unavailable [phone] Reason for Visit * Reason Comments Med Refill Encounter Details Date Type Department Care Team (Late st Contact Info) Description 06/13/2025 Refill [facility] CHC MED & PEDS [address] [place] [address] Nicole Gandhi, PharmD 230 [place] [address] Diabetes mellitus type 2, insulin dependent (HCC) Social History Tobacco Use Types Packs/Day Years [...] Description 08/29/2025 11:00 AM EDT Medication Management [facility] CHC MED & PEDS 505 [place] [address] Nicole Gandhi PharmD 230 [place] [address] documented as of this encounter Goals Goal Patient Goal Type Associated Problems Recent Progress Patient-Stated? Author Help patients manage their type 2 diabetes Care Plan Help patients manage their type 2 diabetes No Nicole Gandhi, PharmD Weekly blood pressure task Care Plan Weekly blood pressure task No Nicole Gandhi, PharmD Help patients manage their type 2 diabetes Care Plan Help patients manage their type 2 diabetes No Fabian Gandhia, PharmD Patient has chronic kidney disease Care Plan Patient has chronic kidney disease No Fabian Gandhia, PharmD Help patients manage their type 2 diabetes Care Plan Help patients manage their type 2 diabetes No Fabian Gandhia, PharmD Patient has diabetic neuropathy Care Plan Patient has diabetic neuropathy No Fabian Gandhia, PharmD Weekly blood pressure task Care Plan Weekly blood pressure task No Gandhi, Nicole, PharmD Weekly blood pressure [...] Care Plan Patient has diabetic neuropathy No Agndhi Nicole, PharmD Patient has diabetic neuropathy Care Plan Patient has diabetic neuropathy No Gandhi, Nicole, PharmD Weekly blood pressure task Care Plan Weekly blood pressure task No Fabian Gandhia, PharmD Weekly blood pressure task Care Plan Weekly blood pressure task No GandhiInes edmondcia, PharmD Weekly blood pressure task Care Plan Weekly blood pressure task No GandhiInes edmondcia, PharmD Patient has chronic kidney disease Care [...] Plan Patient has chronic kidney disease No Nicole Gandhi PharmD Patient has diabetic neuropathy Care Plan Patient has diabetic neuropathy No Nicole Gandhi PharmD Patient has diabetic neuropathy Care Plan Patient has diabetic neuropathy No Nicole Gandih PharmD Patient has diabetic neuropathy Care Plan [...] has diabetic neuropathy No Destiny Miranda MD documented as of this encounter Visit Diagnoses Diagnosis Diabetes mellitus type 2, insulin dependent (HCC) documented in this encounter Additional Health Concerns Active Problems Noted Date [...] neuropathy 06/03/2025 Patient has diabetic neuropathy 06/03/2025 Assessment Noted Time PHQ-9 Depression Total Score: 21 025 9:51 AM EDT documented as of this encounter Care Teams Core Inspector Relationship Specialty Start Date End Date Destiny Miranda MD 505 [place] [address] PCP - General Family Medicine 06/23/18 Nicole Gandhi PharmD [address] [place] [address] Pharmacist Internal Medicine 08/20/24 Rose Cash Wharf AttendantBusiness Instructor 09/17/23 Yvette Gamble Wharf AttendantBusiness Instructor 01/18/25 documented as of this encounter
--- OUTSIDE RECORDS SUMMARY | 2025-06-15 13:37 | XMS_ITS | Encounter Summary ---
Author Organization [employer] Address 75 [facility] 7t [place] [address] Care Team Providers Care Deliverer Food Name Role Phone Destiny Miranda MD Primary Care Provider [phone] Nicole Gandhi PharmD Unavailable [phone] Madelin Luna Unavailable Reason for Visit * Reason Onset Date Comments Medication Question 04/28/2024 Encounter Details Date Type Department Care Team ([facility] st Contact Info) Description 04/28/2024 Telephone [facility] MEDICINE 230 [place] [address] Destiny Miranda MD 505 [place], [place] [phone] Medication Question Social History Tobacco Use Types [...] the past 12 months, has t he [employer], gas, oil or water [employer] threatened to shut off services in your [...] 12:48 PM EST Pt does not have [facility] as a pharmacy. Pt needs to contact office if pt is requesting to change pharmacies to [facility] * Telephone Encounter - Brett Dailey - 04/28/2024 10:27 AM EST Tc from Krystin ([facility]) requesting a call , Krystin need more info in medication that's not in thelist (Lisinopril 40 mg), documented in this encounter Plan of Treatment Upcoming Encounters Date Type Department Care Team (Late st Contact Info) Description 08/29/2025 11:00 AM EDT Medication Management [facility] MED & PEDS 505 [place] [address] Nicole Gandhi, PharmD 230 [place] [address] documented as of this encounter Visit Diagnoses Not on filedocumented in this encounter Additional Health Concerns Assessment Noted Time PHQ-9 Depression Total Score: 21 024 1:56 PM EDT documented as of this encounter Care Teams Deliverer Food Relationship Specialty Start Date End Date Destiny Miranda MD [address] [place] [address] PCP - General Family Medicine 06/23/18 Nicole Gandhi PharmD 230 [place], [place] [phone] Pharmacist Internal Medicine 08/20/24 Madelin Luna 01/14/25 01/20/25 Rose Cash Last CleanerSandblast Carver 09/17/23 Yvette Gamble Last CleanerSandblast Carver 01/18/25 documented as of this encounter
--- OUTSIDE RECORDS SUMMARY | 2025-06-15 13:37 | XMS_ITS | Clinical Summary ---
Author Organization [address] [facility] Address [address] [place] [address] Phone Care Team Providers Care Accelerator Operator Name Role Phone Destiny Miranda MD Primary Care Provider [phone] Allergies No known active allergies Medications No known medications Encounters Date Type Department Care Team Description 06/01/2025 10:00 AM EST Office Visit [facility] [address] [phone] Michael Andrews, DPM Poorly controlled type 2 diabetes mellitus with neuropathy (CMS/HCC V24, CMS/HCC V28) (Primary Dx); Hammertoe of right foot; Metatarsalgia of right foot; Ulcer of toe of right foot, with fat layer exposed (CMS/HCC V24, CMS/HCC V28) 05/17/2025 10:00 AM EST Office Visit [facility] [address] [phone] Michael Andrews, DPM Poorly controlled type 2 diabetes mellitus with neuropathy (CMS/HCC V24, CMS/HCC V28) (Primary Dx); Right foot pain; Hammertoe of right foot; Metatarsalgia of right foot; Ulcer of toe of right foot, with necrosis of muscle (CMS/HCC V24, CMS/HCC V28) 05/02/2025 1:00 PM EST Office Visit [facility] [address] [phone] Michael Andrews, DPM Poorly controlled type 2 diabetes mellitus with neuropathy (CMS/HCC V24, CMS/HCC V28) (Primary Dx); Right foot pain; Ulcer of toe of right foot, with necrosis of muscle ([facility] V24, CMS/[facility] V28); Hammertoe of right foot 04/25/2025 2:00 PM EST Office Visit Orthopedic [facility] [address] [phone] Michael Andrews DPM Poorly controlled type 2 diabetes mellitus with neuropathy (CMS/[facility] V24, CMS/[facility] V28) (Primary Dx); Right foot pain; Ulcer of toe of right foot, with necrosis of muscle (CMS/HCC V24, [facility] V28); Cellulitis of right foot; Pain associated with accessory navicular bone of right foot 03/16/2025 2:45 PM EDT Office Visit Orthopedic [facility] [address] [phone] Michael Andrews DPM Poorly controlled type 2 diabetes mellitus with neuropathy (CMS/[facility] V24, CMS/[facility] V28) (Primary Dx); Pain in both feet; [...] Upcoming Encounters Date Type Department Care Team ([facility] Contact Info) Description 06/20/2025 3:15 PM EST Office Visit Orthopedic Surgery [place] [address] [phone] Michael Andrews DPM [address] [address] Health Maintenance Due Date Last Done Comments Diabetes: Annual Retina Eye Exam 1997 Cervical [...] BMP Blood Test 01/25/2026 01/25/2025, 12/29/2024, 12/07/2024 Diabetes: Annual Foot Exam 05/17/2026 05/17/2025 DTaP,Tdap,and Td Vaccines (8 - Td or [...] Name Priority Date/Time Associated Diagnosis Comments XR FOOT 3+ VIEWS RIGHT Routine 04/25/2025 2:45 PM EST Right foot pain from Last 3 Months Results * XR Foot 3+ Views Right (04/25/2025 2:45 PM EST) Anatomical Region Laterality Modality Lower Extremities, Foot Right Computed Radiography Narrative 05/02/2025 9:32 PM EST Right foot 3 views nonweightbearing contractures digits 2 through 5. No fractures dislocations. No osteolytic lesion us Michael Andrews DPGabe IMG XR PROCEDURES Final Res ult from Last 3 Months Insurance MEDICAID - [place] Care Teams Accelerator Operator Relationship Specialty Start Date End Date Destiny Miranda MD [address] [place] [phone] PCP - General Internal Medicine 10/26/24
--- OUTSIDE RECORDS SUMMARY | 2025-06-15 13:37 | XMS_ITS | Encounter Summary ---
Author Organization [employer] Address 75 [facility] 7t [place] [address] Care Team Providers Care Pile Driver Operator Helper Name Role Phone Destiny Miranda MD Primary Care Provider [phone] Nicole Gandhi PharmD Unavailable [phone] Madelin Luna Unavailable Reason for Visit * Reason Comments Med Refill Encounter Details Date Type Department Care Team ([facility] st Contact Info) Description 12/27/2024 Refill [facility] CHC MED & PEDS [address] [place], [place] [phone] Matilda Kolb MD 505 [place] [address] Benign hypertension Social History Tobacco Use Types [...] Description 08/29/2025 11:00 AM EDT Medication Management [facility] MED & PEDS [address] [place] [address] Nicole Gandhi PharmD 230 [place] [address] documented as of this encounter Visit Diagnoses Diagnosis Benign hypertension Essential hypertension, benign documented in this encounter Additional Health Concerns Assessment Noted Time PHQ-9 Depression Total Score: 21 025 9:51 AM EDT documented as of this encounter Care Teams Pile Driver Operator Helper Relationship Specialty Start Date End Date Destiny Miranda MD [address] [place] [address] PCP - General Family Medicine 06/23/18 Nicole Gandhi, Nomi 230 [place], [place] [phone] Pharmacist Internal Medicine 08/20/24 Madelin Luna 01/14/25 01/20/25 Rose Cash Director Of Therapy ServicesTravel Coordinator 09/17/23 Yvette Gamble Director Of Therapy ServicesTravel Coordinator 01/18/25 documented as of this encounter
--- OUTSIDE RECORDS SUMMARY | 2025-06-15 13:37 | XMS_ITS | Encounter Summary ---
Author Organization [employer] Address [address] [facility] 7t [place] [address] Care Team Providers Care Auto Damage Estimator Name Role Phone Destiny Miranda MD Primary Care Provider [phone] Nicole Gandhi PharmD Unavailable [phone] Madelin Luna Unavailable Reason for Visit * Reason Onset Date Comments returning call 05/17/2024 Encounter Details Date Type Department Care Team ([facility] st Contact Info) Description 05/17/2024 Telephone [facility] MEDICINE [address] [place] [address] Destiny Miranda MD [address] [place], [place] [phone] returning call Social History Tobacco Use Types [...] the past 12 months, has t he [employer], gas, oil or water [employer] threatened to shut off services in your [...] will like another callback . Callback number [phone] documented in this encounter Plan of Treatment Upcoming Encounters Date Type Department Care Team (Late st Contact Info) Description 08/29/2025 11:00 AM EDT Medication Management [facility] MED & PEDS [address] [place] [address] Nicole Gandhi, PharmD [address] [place], [place] [phone] documented as of this encounter Visit Diagnoses Not on filedocumented in this encounter Additional Health Concerns Assessment Noted Time PHQ-9 Depression Total Score: 21 024 1:56 PM EDT documented as of this encounter Care Teams Auto Damage Estimator Relationship Specialty Start Date End Date Destiny Miranda MD [address] [place] [address] PCP - General Family Medicine 06/23/18 Niocle Gandhi PharmD [address] [place] [address] Pharmacist Internal Medicine 08/20/24 Madelin Luna 01/14/25 01/20/25 Rose Cash Physical TherapistDigester Cook 09/17/23 Yvette aGmble Physical TherapistDigester Cook 01/18/25 documented as of this encounter
--- OUTSIDE RECORDS SUMMARY | 2025-06-15 13:37 | XMS_ITS | Encounter Summary ---
Author Organization [employer] Address [address] [facility] 7t [place] [address] Care Team Providers Care Firmware Manager Name Role Phone Destiny Miranda MD Primary Care Provider [phone] Nicole Gandhi PharmD Unavailable [phone] Madelin Luna Unavailable Reason for Visit * Reason Onset Date Comments Medication Question 02/20/2024 Encounter Details Date Type Department Care Team ([facility] st Contact Info) Description 02/20/[address] [facility] MEDICINE [address] [place] [address] Destiny Miranda MD [address] [place], [place] [phone] Medication Question Social History Tobacco Use Types [...] the past 12 months, has t he [employer], gas, oil or water company threatened to [...] any questions you can contact pt at [phone]. documented in this encounter Plan of Treatment Upcoming Encounters Date Type Department Care Team (Late st Contact Info) Description 08/29/2025 11:00 AM EDT Medication Management [facility] MED & PEDS [address] [place] [address] Nicole Gandhi, PharmD [address] [place], [place] [phone] documented as of this encounter Visit Diagnoses Diagnosis Diabetes mellitus without complication (HCC) Type II or unspecified type diabetes mellitus without mention of complication, not stated as uncontrolled documented in this encounter Additional Health Concerns Assessment Noted Time PHQ-9 Depression Total Score: 21 024 1:56 PM EDT documented as of this encounter Care Teams Firmware Manager Relationship Specialty Start Date End Date Destiny Miranda MD [address] [place] [address] PCP - General Family Medicine 06/23/18 Nicole Gandhi PharmD [address] [place], [place] [phone] Pharmacist Internal Medicine 08/20/24 Madelin Luna 01/14/25 01/20/25 Rose Cash Turning Machine OperatorBath Steward/Stewardess 09/17/23 Yvette Gamble Turning Machine OperatorBath Steward/Stewardess 01/18/25 documented as of this encounter
--- OUTSIDE RECORDS SUMMARY | 2025-06-15 13:37 | XMS_ITS | Encounter Summary ---
Author Organization [employer] Address [address] [facility] 7t [place] [address] Care Team Providers Care Elevator Constructor Electric Name Role Phone Destiny Miranda MD Primary Care Provider [phone] Nicole Gandhi PharmD Unavailable [phone] Madelin Luna Unavailable Encounter Details Date Type Department Care Team (Late st Contact Info) Description 12/08/2024 Orders Only [facility] MED & PEDS [address] [place], [place] [phone] Padmini Horton MD [address] [place] [address] Social History Tobacco Use Types Packs/Day Years [...] 11:00 AM EDT Medication Management [facility] MED & PEDS [address] [place] [address] Nicole Gandhi PharmStephen [address] [place] [address] documented as of this encounter Visit Diagnoses Not on filedocumented in this encounter Additional Health Concerns Assessment Noted Time PHQ-9 Depression Total Score: 21 025 9:51 AM EDT documented as of this encounter Care Teams Elevator Constructor Electric Relationship Specialty Start Date End Date Destiny Miranda MD [address] [place] [address] PCP - General Family Medicine 06/23/18 Nicole Gandhi, PharmD [address] [place] [address] Pharmacist Internal Medicine 08/20/24 Madelin Luna 01/14/25 01/20/25 Rose Cash Front Office AdministratorGreaser And Oiler 09/17/23 Yvette Gmable Front Office AdministratorGreaser And Oiler 01/18/25 documented as of this encounter
--- OUTSIDE RECORDS SUMMARY | 2025-06-15 13:37 | XMS_ITS | Encounter Summary ---
Author Organization [employer] Address [address] [facility] [address] 7[address] [place] [address] Care Team Providers Care Consultant Nurse Name Role Phone Destiny Miranda MD Primary Care Provider [phone] Nicole Gandhi PharmD Unavailable [phone] Madelin Luna Unavailable Encounter Details Date Type Department Care Team (Late st Contact Info) Description 02/20/2024 Orders Only [facility] MEDICINE [address] [place] [address] Antonette Garcia MD [address] [place] [address] Social History Tobacco Use Types Packs/Day Years [...] Description 08/29/2025 11:00 AM EDT Medication Management [facility] MED & PEDS [address] [place] [address] Nicole Gandhi PharmD [address] [place] [address] documented as of this encounter Visit Diagnoses Not on filedocumented in this encounter Additional Health Concerns Assessment Noted Time PHQ-9 Depression Total Score: 21 024 1:56 PM EDT documented as of this encounter Care Teams Consultant Nurse Relationship Specialty Start Date End Date Destiny Miranda MD [address] [place] [address] PCP - General Family Medicine 06/23/18 Nicole Gandhi, GregorioD [address] [place] [address] Pharmacist Internal Medicine 08/20/24 Madelin Luna 01/14/25 01/20/25 Rose Cash Taxi DancerPsychiatric Nursing Aide 09/17/23 Yvette Gamble Taxi DancerPsychiatric Nursing Aide 01/18/25 documented as of this encounter
--- OUTSIDE RECORDS SUMMARY | 2025-06-15 13:37 | XMS_ITS | Encounter Summary ---
Author Organization [employer] Address [address] [facility] 7t [place] [address] Care Team Providers Care Crack Off Person Name Role Phone Destiny Miranda MD Primary Care Provider Nicole Gandhi PharmD Unavailable [phone] Madelin Luna Unavailable Reason for Visit * Reason Comments Med Refill Encounter Details Date Type Department Care Team ([facility] st Contact Info) Description 12/27/2024 Refill [facility] MED & PEDS [address] [place], [place] [phone] Destiny Miranda MD [address] [place] [address] Social History Tobacco Use Types Packs/Day Years [...] Description 08/29/2025 11:00 AM EDT Medication Management [facility] MED & PEDS [address] [place] [address] Nicole Gandhi PharmD [address] [place] [address] documented as of this encounter Visit Diagnoses Not on filedocumented in this encounter Additional Health Concerns Assessment Noted Time PHQ-9 Depression Total Score: 21 025 9:51 AM EDT documented as of this encounter Care Teams Crack Off Person Relationship Specialty Start Date End Date Destiny Miranda MD [address] [place] [address] PCP - General Family Medicine 06/23/18 Nicole Gandhi, GregorioD [address] [place] [address] Pharmacist Internal Medicine 08/20/24 Madelin Luna 01/14/25 01/20/25 Rose Cash Applications ChemistCement Mason Helper 09/17/23 Yvette Gamble Applications ChemistCement Mason Helper 01/18/25 documented as of this encounter
[2025-06-15 13:43] VITALS: BP 102/64; PULSE 92; BMI 23.3
--- NOTE | 2025-06-15 13:43 | MHC.OFFVIS ---
Vital Signs 06/15/25 13:43 Height 5 ft 6 in Weight 144 lb 2.917 oz BMI 23.3 BP 102/64 Blood Pressure Location Lt brachial Position Sitting Pulse 92 Pulse Source Pulse Oximeter Intake Visit Reasons: r/s 05/24/25 3 mos followup Cement Mason Helper Required: No Accompanied by: Self / Same As Patient Allergies No Known Allergies Allergy (Verified 06/15/25 13:45) Medication List - Last Reconciled 06/15/25 by Patrick Kent NP aripiprazole 20 mg PO DAILY aspirin 81 mg PO DAILY atorvastatin 80 mg PO BEDTIME 30 days blood sugar diagnostic (FreeStyle Lite Strips) As directed bupropion HCl XL 150 mg PO QAM doxycycline hyclate 100 mg PO BID empagliflozin (Jardiance) 25 mg PO QAM ergocalciferol (vitamin D2) 1,250 mcg PO QWEEK hydroxyzine HCl 10 mg PO BID PRN insulin glargine (Lantus Solostar U-100 Insulin) units subcut insulin lispro subcut BID lisinopril 10 mg PO QAM pantoprazole 40 mg PO DAILY PRN vit no.[id number] 27 mg iron- 800 mcg ( Vitamin) 1 tab PO DAILY ticagrelor 90 mg PO BID tirzepatide (Mounjaro) mg subcut QWEEK HPI Comments Details: This is a 40-year-old female patient coming in for a follow-up visit. Patient with a history of hypertension, diabetes, hyperlipidemia, and coronary disease status post PCI to LAD on 01/06/2025. At her previous visit, patient was referred to cardiac rehab however patient states that he she has never been to a and is staying active at home on her own. Patient is reporting compliance with all her medications and is denying any signs of bleeding. Patient is reporting feeling well overall without any cardiac symptoms of exertional chest pain, shortness of breath, palpitations, dizziness, orthopnea, PND, leg edema, presyncope or syncope. [facility] Medical History Microalbuminuria Callus of foot GERD (gastroesophageal reflux disease) Diabetes Anxiety Gastroparesis Family History Father Heart attack Social History Patient Tobacco Use Status: Never used Tobacco Substance Use Type: Marijuana Review of Systems Const Denies daytime sleepiness, Denies difficulty sleeping, Denies snoring, Denies stops breathing during sleep and Denies weakness Card Denies chest pain, Denies rapid heart rate, Denies irregular heart rhythm, Denies claudication, Denies leg edema, Denies lightheadedness, Denies palpitations, Denies dyspnea, Denies dyspnea on exertion, Denies orthopnea, Denies paroxysmal nocturnal dyspnea and Denies slow heart rate Resp Denies cough, Denies dyspnea, Denies dyspnea on exertion and Denies snoring GI Reports no additional complaints, Denies hematochezia, Denies change in stool character and Denies dyspepsia Musc Denies abnormal gait, Denies muscle weakness and Denies numbness Neuro Denies abnormal gait, Denies numbness and Denies weakness Endo Denies palpitations Physical Exam Vital Signs: Last Vital Signs Pulse 92 06/15/25 13:43 BP 102/64 06/15/25 13:43 BMI result Body Mass Index 23.3 Const General: cooperative, healthy appearing, comfortable and no acute distress Orientation/consciousness: patient oriented x3 HEENT Head: Yes normal to inspection Neck Neck: Yes normal visual inspection, Yes trachea midline and Yes supple Chest Chest palpation & inspection: normal inspection of the chest Resp Effort & Inspection: normal respiratory effort Auscultation: clear to auscultation bilaterally, no crackles, no rales, no rhonchi and no wheezes Cardio Jugular venous distension: no JVD Palpation: normal PMI Rate: regular rate Rhythm: regular rhythm Heart sounds: S1 normal heart sound present, S2 normal heart sound present, no click, no gallops, no murmurs and no rubs Peripheral pulses: Peripheral pulses 2+ throughout GI Inspection: Yes normal to inspection Palpation (GI): Soft to palpation Auscultation: normal bowel sounds Skin General skin exam: no rashes or lesions noted Neuro General: patient oriented x3 Extrem General: Yes normal to inspection, No no pedal edema and No calf tenderness Psych Appearance: grossly normal Mental Status: mental status grossly normal Speech and movement: Normal speech and movement present Assessment & Plan Assessment & Plan (1) Coronary arteriosclerosis: Code(s): I25.10 - Atherosclerotic heart disease of lime coronary artery without angina pectoris Category: Medical Plan: 12/22/24- coronary CTA FFR was positive for Co significant coronary artery disease. 01/06/2025-patient underwent a cardiac catheterization with Dr. Gutierrez that showed goblet lesion in the mid LAD with 90% stenosis, minimal luminal irregularities in the left circumflex and moderate diffuse disease in the RCA. Successful PCI was performed to the LAD. Clinically stable and without any cardiac symptoms. Continue lifelong aspirin therapy. Continue Brilinta for another 7 months. Most recent LDL at 100 not within goal of LDL less than 70. We increased it recently to 80 mg daily. Patient will repeat labs in 3 months. Patient understands that if it continues to stay elevated then may need PCSK9 inhibitors. Patient agreeable of the plan. Advised on heart healthy diet and low-fat diet. (2) Coronary angioplasty status: Code(s): Z98.61 - Coronary angioplasty status Category: Surgical Plan: As above. (3) HTN (hypertension): Code(s): I10 - Essential (primary) hypertension Category: Medical Plan: Blood pressure today is well-controlled. Continue current regimen with a blood pressure goal less than 130/80. Advised on low-salt diet. (4) Hyperlipidemia: Code(s): E78.5 - Hyperlipidemia, unspecified Category: Medical Plan: As above. (5) Diabetes: Comment: Diabetic since age 16 Code(s): E11.9 - Type 2 diabetes mellitus without complications Category: Medical Plan: Continue aggressive diabetes management with an A1c goal less than 7%. Followed by PCP Advised heart healthy diet, regular exercise, med compliance, avoiding stimulants, and aggressive management of vascular risk factors. Follow up in 6 months, sooner if needed. In the interim, patient will call the office with any concerns or change in symptoms. This note was generated using voice recognition software. While every effort has been made to ensure accuracy and proper retail reset merchandiser, there may be occasional errors that could affect the content or meaning of the described symptoms. Coding Level of Care Code Est Pt Level 4 (98858) Add On Problem Visit Only Diagnoses Coronary arteriosclerosis I25.10 Coronary angioplasty status Z98.61 HTN (hypertension) I10 Hyperlipidemia E78.5 Diabetes E11.9 Time Spent (min) 33 Comment Time spent in reviewing the chart, test results, assessment, counseling and documentation.
== END 2025-06-15 14:15 | disposition home or self-care (01) ==
LOC: HO.HCS 13:35
PROVIDERS: PCP Pediatrics
DX: I25.10 Atherosclerotic heart disease of native coronary artery without angina pectoris (principal); Z98.61 Coronary angioplasty status; I10 Essential (primary) hypertension; E78.5 Hyperlipidemia, unspecified; E11.9 Type 2 diabetes mellitus without complications
CPT/HCPCS: 99214

== ENCOUNTER → 2025-06-15 13:35 | Outpatient (BNVA) | payer MEDICAID, SELFPAY | PROVIDERS: PCP Pediatrics | DX: I25.10 Atherosclerotic heart disease of native coronary artery without angina pectoris (principal); I10 Essential (primary) hypertension; E78.5 Hyperlipidemia, unspecified; E11.9 Type 2 diabetes mellitus without complications; Z79.899 Other long term (current) drug therapy; Z79.82 Long term (current) use of aspirin; Z79.4 Long term (current) use of insulin; Z98.61 Coronary angioplasty status | CPT/HCPCS: 99212 ==